=== PATIENT | male | born 1930 | race Caucasian/White ===

== ENCOUNTER 2016-09-23 21:00 | Inpatient (IN) | payer MEDICARE, BC ==
[~2016-09-23] VITALS: Ht 160 cm; Wt 82.0 kg
[~2016-09-23 21:00] MED LIST: AMOXICILLIN500 M2 PO; AMOXICILLIN500 MG PO; BAYER LOW DOSE81 MG PO; BAYER LOW81 MG PO; CARDURA4 MG OR; CEPHALEXIN500 MG PO; CILOSTAZOL100 MG PO; COREG6.25 MG OR; COUMADIN2.5 MG PO; DOXAZOSIN4 MG PO; DOXAZOSIN8 MG PO; GABAPENTIN300 MG PO; GLIPIZIDE10 M2 PO; GLIPIZIDE5 M2 PO; GLUCOPHAGE1000 MG OR; GLYBURID MCR3 MG OR; GLYBURID MCR3 MG PO; ISOSORB MONO60 MG PO; LASIX 20 MG TAB20 MG PO; LEVEMIR1000 UNITS SC; LEVOTHYROXIN25 MCG PO; LISINOPRIL10 MG PO; LISINOPRIL2.5 MG PO; LISINOPRIL20 MG PO; LOTENSIN HCT1 TAB OR; MAG-OXIDE400 MG PO; MECLIZINE25 MG PO; MEDDOSEPAK PO; METFORMIN1000 MG PO; METFORMIN500 MG PO; MICROLET SC; MULTAQ400 MG OR; NITROSTAT0.4 MG SL; NORVASC10 M1 PO; PRESERVISION; PRESERVISION OR; PRESERVISION PO; PRILOSEC20 MG OR; PRILOSEC20 MG PO; ROBITUSSIN AC10 ML PO; RYBIX ODT50 MG PO; SOTALOL AF80 MG PO; TRAMADOL HCL50 MG PO; TYLENOL # 31 TA1 PO; VITAMIN B-12500 MCG PO; WARFARIN2.5 MG PO; ZOCOR20 M1 PO; ZOCOR20 MG OR
[2016-09-23] MEDS ORDERED: WARFARIN2.5 MG PO (21:28)
[2016-09-23] MEDS ORDERED: COUMADIN5 MG PO (21:29)
[2016-09-23] MEDS ORDERED: CARVEDILOL6.25 MG PO (21:29)
[2016-09-23] MEDS ORDERED: VITAMIN B-12500 MCG PO (21:31)
[2016-09-23] MEDS ORDERED: LEVEMIR1000 UNITS SC (21:36)
[2016-09-23 21:45] LABS: HEMATOCRIT 46.1 % (39.0-50.0); HEMOGLOBIN 15.3 g/dl (14.0-18.0); IMMATURE GRANULOCYTES 0.5 % (0.0-1.0); MEAN CELL VOLUME 84.7 fL CALC (80.0-100.0); MEAN CORPUSCULAR HGB 28.1 pG CALC (26.0-32.0); MEAN CORPUSCULAR HGB CONC 33.2 g/L CALC (32.0-36.0); NEUT# 4.95 thou/uL (1.82-7.42); RED BLOOD COUNT 5.44 mill/uL (4.70-6.10); RED CELL DISTRI WIDTH 14.7 % (11.5-15.5)
[2016-09-23 21:51] LABS: ALBUMIN 4.2 g/dL (3.2-5.0); ALKALINE PHOSPHATASE 67 u/l (38-126); ANION GAP 20 (6-22 (CALC)); BILIRUBIN, TOTAL 0.7 mg/dL (0.0-1.4); BUN 27 mg/dL (8-23); BUN/CREATININE RATIO 25 (12-20 (CALC)); CALCIUM 9.2 mg/dL (8.4-10.2); CARBON DIOXIDE 24 mmol/l (22-30); CHLORIDE 100 mmol/l (95-108); CREATININE 1.1 mg/dL (0.7-1.3); GFR > 60 ML/MIN (>=60 (CALC)); GFR FOR AFR.AMER. > 60 ML/MIN (>=60 (CALC)); GLUCOSE 265 mg/dL (82-115); POTASSIUM 4.3 mmol/l (3.5-5.1); SGOT/AST 25 u/l (19-48); SGPT/ALT 39 u/l (11-66); SODIUM 140 mmol/l (137-146); TOTAL PROTEIN 7.6 g/dL (6.3-8.2)
[2016-09-23 21:56] LABS: INTERNATIONAL NORMALIZED RATIO 2.9 RATIO (0.7-1.3); PROTHROMBIN TIME 33.9 SECONDS (9.0-12.5)
[2016-09-23 22:00] LABS: MYOGLOBIN 69 ng/mL (0 - 121)
[2016-09-23 22:09] LABS: URINE BILIRUBIN - DIPSTICK NEGATIVE (NEGATIVE); URINE BLOOD DIPSTICK NEGATIVE (NEGATIVE); URINE CLARITY CLEAR; URINE COLOR YELLOW; URINE GLUCOSE - DIPSTICK 100 mg/dL (NEGATIVE); URINE KETONE NEGATIVE (NEGATIVE); URINE LEUK ESTERASE NEGATIVE (NEGATIVE); URINE NITRITE - DIPSTICK NEGATIVE (Negative); URINE PH 5.5 (4.5-8.0); URINE PROTEIN - DIPSTICK NEGATIVE (NEG-TRACE); URINE UROBILINOGEN - DIPSTICK 0.2 E.U./dL (0.2)
[2016-09-23 23:20] VITALS: BP 120/71
[2016-09-24] VITALS (20 sets, daily range): BP systolic 106–160; BP diastolic 57–80
[2016-09-24 06:56] LABS: HEMATOCRIT 42.6 % (39.0-50.0); HEMOGLOBIN 14.1 g/dl (14.0-18.0); IMMATURE GRANULOCYTES 0.4 % (0.0-1.0); MEAN CELL VOLUME 85.2 fL CALC (80.0-100.0); MEAN CORPUSCULAR HGB 28.2 pG CALC (26.0-32.0); MEAN CORPUSCULAR HGB CONC 33.1 g/L CALC (32.0-36.0); NEUT# 3.19 thou/uL (1.82-7.42); RED CELL DISTRI WIDTH 14.6 % (11.5-15.5)
[2016-09-24 07:13] LABS: INTERNATIONAL NORMALIZED RATIO 3.5 RATIO (0.7-1.3); PROTHROMBIN TIME 42.2 SECONDS (9.0-12.5)
[2016-09-24 07:17] LABS: ANION GAP 15 (6-22 (CALC)); BUN 25 mg/dL (8-23); BUN/CREATININE RATIO 23 (12-20 (CALC)); CALCIUM 8.6 mg/dL (8.4-10.2); CALCULATED LDLCHOLESTEROL 51 mg/dL (62-129 (CALC)); CARBON DIOXIDE 27 mmol/l (22-30); CHLORIDE 103 mmol/l (95-108); CREATININE 1.1 mg/dL (0.7-1.3); GFR > 60 ML/MIN (>=60 (CALC)); GFR FOR AFR.AMER. > 60 ML/MIN (>=60 (CALC)); GLUCOSE 124 mg/dL (82-115); HDL CHOLESTEROL 19 mg/dL (>=40); POTASSIUM 3.9 mmol/l (3.5-5.1); SODIUM 141 mmol/l (137-146); TOTAL CHOLESTEROL 96 mg/dl (0-199); TOTAL TRIGLYCERIDES 135 mg/dl (30-149); VLDL CHOLESTROL 27 mg/dl (0-38 (CALC))
== END 2016-09-24 21:05 | DRG 281 ==
LOC: ED 21:00 → ED-I 22:34 → ED 22:39 → MS2 22:40 → ICU 09-24 04:03
PROVIDERS: ADMIT Internal Medicine; ATTEND Internal Medicine
DX: I21.4 Non-ST elevation (NSTEMI) myocardial infarction (principal); I13.0 Hypertensive heart and chronic kidney disease with heart failure and stage 1 through stage 4 chronic kidney disease, or unspecified chronic kidney disease; I50.9 Heart failure, unspecified; E11.22 Type 2 diabetes mellitus with diabetic chronic kidney disease; I48.1 Persistent atrial fibrillation; N18.3 Chronic kidney disease, stage 3 (moderate); I25.10 Atherosclerotic heart disease of native coronary artery without angina pectoris; E78.5 Hyperlipidemia, unspecified; K21.9 Gastro-esophageal reflux disease without esophagitis; Z95.5 Presence of coronary angioplasty implant and graft; Z95.1 Presence of aortocoronary bypass graft; Z86.711 Personal history of pulmonary embolism; Z79.01 Long term (current) use of anticoagulants
CPT/HCPCS: G0378

== ENCOUNTER 2016-10-02 06:02 | Inpatient (IN) | payer MEDICARE, BC ==
[~2016-10-02] VITALS: Ht 160 cm; Wt 80.9 kg
[~2016-10-02 06:02] MED LIST changes: +CARVEDILOL6.25 MG PO; +COUMADIN5 MG PO
[2016-10-02 06:44] LABS: HEMATOCRIT 49.4 % (39.0-50.0); IMMATURE GRANULOCYTES 0.6 % (0.0-1.0); MEAN CELL VOLUME 85.3 fL CALC (80.0-100.0); MEAN CORPUSCULAR HGB 27.6 pG CALC (26.0-32.0); MEAN CORPUSCULAR HGB CONC 32.4 g/L CALC (32.0-36.0); NEUT# 9.08 thou/uL (1.82-7.42); RED BLOOD COUNT 5.79 mill/uL (4.70-6.10); RED CELL DISTRI WIDTH 14.8 % (11.5-15.5)
[2016-10-02 08:06] LABS: ALBUMIN 4.2 g/dL (3.2-5.0); ALKALINE PHOSPHATASE 69 u/l (38-126); ANION GAP 18 (6-22 (CALC)); BILIRUBIN, TOTAL 1.2 mg/dL (0.0-1.4); BUN 24 mg/dL (8-23); BUN/CREATININE RATIO 24 (12-20 (CALC)); CALCIUM 9.2 mg/dL (8.4-10.2); CARBON DIOXIDE 24 mmol/l (22-30); CHLORIDE 105 mmol/l (95-108); GFR > 60 ML/MIN (>=60 (CALC)); GFR FOR AFR.AMER. > 60 ML/MIN (>=60 (CALC)); GLUCOSE 212 mg/dL (82-115); POTASSIUM 4.5 mmol/l (3.5-5.1); SGOT/AST 22 u/l (19-48); SGPT/ALT 36 u/l (11-66); SODIUM 141 mmol/l (137-146); TOTAL PROTEIN 7.7 g/dL (6.3-8.2)
[2016-10-02 08:12] LABS: INTERNATIONAL NORMALIZED RATIO 5.2 RATIO (0.7-1.3); PROTHROMBIN TIME 64.2 SECONDS (9.0-12.5)
[2016-10-02 08:17] LABS: MYOGLOBIN 36 ng/mL (0 - 121)
[2016-10-02 09:22] LABS: URINE BILIRUBIN - DIPSTICK NEGATIVE (NEGATIVE); URINE BLOOD DIPSTICK SMALL (NEGATIVE); URINE COLOR YELLOW; URINE GLUCOSE - DIPSTICK NEGATIVE (NEGATIVE); URINE KETONE 15 mg/dL (NEGATIVE); URINE LEUK ESTERASE NEGATIVE (NEGATIVE); URINE NITRITE - DIPSTICK NEGATIVE (Negative); URINE PROTEIN - DIPSTICK 100 mg/dL (NEG-TRACE); URINE SPECIFIC GRAVITY >=1.030; URINE UROBILINOGEN - DIPSTICK 0.2 E.U./dL (0.2)
[2016-10-02 09:37] LABS: URINE CLARITY SLIGHT CLOUDY
[2016-10-02 09:38] LABS: URINE EPITHELIAL CELLS FEW EPI/hpf (0-FEW); URINE MUCUS MODERATE hpf (NONE-FEW); URINE RBC 0-2 RBC/hpf (0-5)
[2016-10-02 13:27] VITALS: BP 119/66
[2016-10-02 19:26] VITALS: BP 136/80
[2016-10-02 23:56] VITALS: BP 106/62
[2016-10-03 04:30] VITALS: BP 119/70
[2016-10-03 05:52] LABS: HEMATOCRIT 41.4 % (39.0-50.0); HEMOGLOBIN 13.4 g/dl (14.0-18.0); MEAN CELL VOLUME 86.6 fL CALC (80.0-100.0); MEAN CORPUSCULAR HGB CONC 32.4 g/L CALC (32.0-36.0); RED BLOOD COUNT 4.78 mill/uL (4.70-6.10); RED CELL DISTRI WIDTH 14.8 % (11.5-15.5)
[2016-10-03 06:18] LABS: ANION GAP 16 (6-22 (CALC)); BUN 29 mg/dL (8-23); BUN/CREATININE RATIO 24 (12-20 (CALC)); CALCIUM 8.7 mg/dL (8.4-10.2); CALCULATED LDLCHOLESTEROL 59 mg/dL (62-129 (CALC)); CARBON DIOXIDE 28 mmol/l (22-30); CHLORIDE 101 mmol/l (95-108); CREATININE 1.2 mg/dL (0.7-1.3); GFR 58 ML/MIN (>=60 (CALC)); GFR FOR AFR.AMER. > 60 ML/MIN (>=60 (CALC)); GLUCOSE 152 mg/dL (82-115); HDL CHOLESTEROL 21 mg/dL (>=40); MAGNESIUM 1.7 mg/dL (1.6-2.3); POTASSIUM 4.6 mmol/l (3.5-5.1); SODIUM 140 mmol/l (137-146); TOTAL CHOLESTEROL 103 mg/dl (0-199); TOTAL TRIGLYCERIDES 115 mg/dl (30-149); VLDL CHOLESTROL 23 mg/dl (0-38 (CALC))
[2016-10-03 07:45] VITALS: BP 130/68
[2016-10-03 12:27] VITALS: BP 109/50
[2016-10-03 15:51] VITALS: BP 115/62
[2016-10-03 18:34] LABS: INTERNATIONAL NORMALIZED RATIO 2.3 RATIO (0.7-1.3); PROTHROMBIN TIME 26.1 SECONDS (9.0-12.5)
[2016-10-03 19:48] VITALS: BP 145/62
[2016-10-04 00:01] VITALS: BP 140/71; BP 140/79
[2016-10-04 04:48] VITALS: BP 117/65
[2016-10-04 05:10] LABS: HEMATOCRIT 39.4 % (39.0-50.0); HEMOGLOBIN 12.9 g/dl (14.0-18.0); MEAN CELL VOLUME 85.8 fL CALC (80.0-100.0); MEAN CORPUSCULAR HGB 28.1 pG CALC (26.0-32.0); MEAN CORPUSCULAR HGB CONC 32.7 g/L CALC (32.0-36.0); RED BLOOD COUNT 4.59 mill/uL (4.70-6.10); RED CELL DISTRI WIDTH 14.4 % (11.5-15.5)
[2016-10-04 05:24] LABS: INTERNATIONAL NORMALIZED RATIO 2.1 RATIO (0.7-1.3); PROTHROMBIN TIME 24.5 SECONDS (9.0-12.5)
[2016-10-04 05:32] LABS: ANION GAP 14 (6-22 (CALC)); BUN 30 mg/dL (8-23); BUN/CREATININE RATIO 25 (12-20 (CALC)); CALCIUM 8.3 mg/dL (8.4-10.2); CARBON DIOXIDE 27 mmol/l (22-30); CHLORIDE 99 mmol/l (95-108); CREATININE 1.2 mg/dL (0.7-1.3); GFR 58 ML/MIN (>=60 (CALC)); GFR FOR AFR.AMER. > 60 ML/MIN (>=60 (CALC)); GLUCOSE 204 mg/dL (82-115); POTASSIUM 4.3 mmol/l (3.5-5.1); SODIUM 136 mmol/l (137-146)
[2016-10-04 07:30] VITALS: BP 126/68
[2016-10-04 16:10] VITALS: BP 109/59
[2016-10-04 20:19] VITALS: BP 146/69
[2016-10-04 23:36] VITALS: BP 114/70
[2016-10-05 04:04] VITALS: BP 101/62
[2016-10-05 05:39] LABS: HEMATOCRIT 42.3 % (39.0-50.0); HEMOGLOBIN 13.8 g/dl (14.0-18.0); IMMATURE GRANULOCYTES 0.9 % (0.0-1.0); MEAN CORPUSCULAR HGB CONC 32.6 g/L CALC (32.0-36.0); NEUT# 4.4 thou/uL (1.82-7.42); RED BLOOD COUNT 4.92 mill/uL (4.70-6.10); RED CELL DISTRI WIDTH 14.3 % (11.5-15.5)
[2016-10-05 05:54] LABS: ANION GAP 15 (6-22 (CALC)); BUN 34 mg/dL (8-23); BUN/CREATININE RATIO 26 (12-20 (CALC)); CALCIUM 8.9 mg/dL (8.4-10.2); CARBON DIOXIDE 30 mmol/l (22-30); CHLORIDE 96 mmol/l (95-108); CREATININE 1.3 mg/dL (0.7-1.3); GFR 53 ML/MIN (>=60 (CALC)); GFR FOR AFR.AMER. > 60 ML/MIN (>=60 (CALC)); GLUCOSE 155 mg/dL (82-115); SODIUM 137 mmol/l (137-146)
[2016-10-05 07:02] VITALS: BP 106/60
[2016-10-05 08:49] VITALS: BP 106/60
[2016-10-05 09:05] LABS: INTERNATIONAL NORMALIZED RATIO 2.1 RATIO (0.7-1.3); PROTHROMBIN TIME 23.7 SECONDS (9.0-12.5)
[2016-10-05] MEDS ORDERED: LASIX 20 MG TAB20 MG PO (10:00)
[2016-10-05] MEDS ORDERED: LOSARTAN POTASS25 MG PO (10:01)
== END 2016-10-05 11:50 | disposition home or self-care (01) | DRG 280 ==
LOC: ENPENDDIS → ED 06:02 → ED-I 10:59 → ED 11:20 → MS2 11:21
PROVIDERS: Emergency Medicine; Internal Medicine; ADMIT Internal Medicine; ATTEND Internal Medicine
DX: I11.0 Hypertensive heart disease with heart failure (principal); J96.01 Acute respiratory failure with hypoxia; I22.2 Subsequent non-ST elevation (NSTEMI) myocardial infarction; I21.4 Non-ST elevation (NSTEMI) myocardial infarction; I50.23 Acute on chronic systolic (congestive) heart failure; E11.40 Type 2 diabetes mellitus with diabetic neuropathy, unspecified; I25.10 Atherosclerotic heart disease of native coronary artery without angina pectoris; E78.5 Hyperlipidemia, unspecified; K21.9 Gastro-esophageal reflux disease without esophagitis; M19.90 Unspecified osteoarthritis, unspecified site; H35.30 Unspecified macular degeneration; I48.0 Paroxysmal atrial fibrillation; R79.1 Abnormal coagulation profile; T45.515A Adverse effect of anticoagulants, initial encounter; Z87.891 Personal history of nicotine dependence; Z95.5 Presence of coronary angioplasty implant and graft; Z95.1 Presence of aortocoronary bypass graft; Z86.711 Personal history of pulmonary embolism
CPT/HCPCS: J2060

== ENCOUNTER 2016-10-14 20:41 | Emergency (ER) | payer MEDICARE, BC ==
[~2016-10-14] VITALS: Ht 160 cm; Wt 81.0 kg
[~2016-10-14 20:41] MED LIST changes: +LOSARTAN POTASS25 MG PO
[2016-10-14 21:23] LABS: HEMATOCRIT 43.1 % (39.0-50.0); IMMATURE GRANULOCYTES 0.8 % (0.0-1.0); MEAN CELL VOLUME 87.2 fL CALC (80.0-100.0); MEAN CORPUSCULAR HGB 28.3 pG CALC (26.0-32.0); MEAN CORPUSCULAR HGB CONC 32.5 g/L CALC (32.0-36.0); NEUT# 5.33 thou/uL (1.82-7.42); RED BLOOD COUNT 4.94 mill/uL (4.70-6.10); RED CELL DISTRI WIDTH 14.8 % (11.5-15.5)
[2016-10-14 21:34] LABS: ALKALINE PHOSPHATASE 64 u/l (38-126); ANION GAP 17 (6-22 (CALC)); BILIRUBIN, TOTAL 0.6 mg/dL (0.0-1.4); BUN 26 mg/dL (8-23); BUN/CREATININE RATIO 22 (12-20 (CALC)); CARBON DIOXIDE 25 mmol/l (22-30); CHLORIDE 104 mmol/l (95-108); CREATININE 1.2 mg/dL (0.7-1.3); GFR 58 ML/MIN (>=60 (CALC)); GFR FOR AFR.AMER. > 60 ML/MIN (>=60 (CALC)); GLUCOSE 250 mg/dL (82-115); POTASSIUM 4.3 mmol/l (3.5-5.1); SGOT/AST 30 u/l (19-48); SGPT/ALT 35 u/l (11-66); SODIUM 142 mmol/l (137-146); TOTAL PROTEIN 7.3 g/dL (6.3-8.2)
[2016-10-14 21:42] LABS: INTERNATIONAL NORMALIZED RATIO 1.9 RATIO (0.7-1.3); PROTHROMBIN TIME 21.7 SECONDS (9.0-12.5)
[2016-10-14] MEDS ORDERED: ISOSORB MONO60 M1 PO (21:44)
[2016-10-14 21:45] LABS: MYOGLOBIN 43 ng/mL (0 - 121)
[2016-10-14] MEDS ORDERED: LASIX 20 MG20 MG/TAB PO (21:45)
[2016-10-14] MEDS ORDERED: TOUJEO SOL300 UNIT/M SC (21:47)
[2016-10-14] MEDS ORDERED: MAGNESIUM-OX400 MG PO (21:47)
[2016-10-14] MEDS ORDERED: PRESERVISION PO (21:48)
[2016-10-14 22:45] LABS: URINE BILIRUBIN - DIPSTICK NEGATIVE (NEGATIVE); URINE BLOOD DIPSTICK SMALL (NEGATIVE); URINE CLARITY CLEAR; URINE COLOR YELLOW; URINE GLUCOSE - DIPSTICK 250 mg/dL (NEGATIVE); URINE KETONE NEGATIVE (NEGATIVE); URINE LEUK ESTERASE NEGATIVE (NEGATIVE); URINE NITRITE - DIPSTICK NEGATIVE (Negative); URINE PH 5.5 (4.5-8.0); URINE PROTEIN - DIPSTICK NEGATIVE (NEG-TRACE); URINE UROBILINOGEN - DIPSTICK 0.2 E.U./dL (0.2)
[2016-10-14 22:57] LABS: URINE WBC 0-2 WBC/hpf (0-5)
[2016-10-14 22:58] LABS: URINE BACTERIA FEW hpf; URINE SQUAMOUS EPITHELIAL CELL FEW EPI/hpf (0-FEW)
[2016-10-15 03:53] VITALS: BP 154/75
== END 2016-10-15 03:52 ==
LOC: ED 20:41
PROVIDERS: Emergency Medicine
DX: R07.9 Chest pain, unspecified (principal); I10 Essential (primary) hypertension; H81.09 Meniere's disease, unspecified ear; E11.9 Type 2 diabetes mellitus without complications; E78.00 Pure hypercholesterolemia, unspecified; I25.2 Old myocardial infarction; Z86.711 Personal history of pulmonary embolism; I25.810 Atherosclerosis of coronary artery bypass graft(s) without angina pectoris; Z95.1 Presence of aortocoronary bypass graft; Z95.5 Presence of coronary angioplasty implant and graft

== ENCOUNTER 2016-11-02 12:20 | Emergency (ER) | payer MEDICARE, BC ==
[~2016-11-02] VITALS: Ht 167.6 cm; Wt 36.5 kg
[~2016-11-02 12:20] MED LIST changes: +ISOSORB MONO60 M1 PO; +LASIX 20 MG20 MG/TAB PO; +MAGNESIUM-OX400 MG PO; +TOUJEO SOL300 UNIT/M SC
[2016-11-02 13:09] LABS: HEMATOCRIT 45.3 % (39.0-50.0); HEMOGLOBIN 14.7 g/dl (14.0-18.0); IMMATURE GRANULOCYTES 0.7 % (0.0-1.0); MEAN CELL VOLUME 88.6 fL CALC (80.0-100.0); MEAN CORPUSCULAR HGB 28.8 pG CALC (26.0-32.0); MEAN CORPUSCULAR HGB CONC 32.5 g/L CALC (32.0-36.0); NEUT# 4.3 thou/uL (1.82-7.42); RED BLOOD COUNT 5.11 mill/uL (4.70-6.10); RED CELL DISTRI WIDTH 14.5 % (11.5-15.5)
[2016-11-02 13:19] LABS: ALBUMIN 3.8 g/dL (3.2-5.0); ALKALINE PHOSPHATASE 54 u/l (38-126); ANION GAP 17 (6-22 (CALC)); BILIRUBIN, TOTAL 0.4 mg/dL (0.0-1.4); BUN 28 mg/dL (8-23); BUN/CREATININE RATIO 28 (12-20 (CALC)); CALCIUM 8.9 mg/dL (8.4-10.2); CARBON DIOXIDE 27 mmol/l (22-30); CHLORIDE 104 mmol/l (95-108); GFR > 60 ML/MIN (>=60 (CALC)); GFR FOR AFR.AMER. > 60 ML/MIN (>=60 (CALC)); GLUCOSE 155 mg/dL (82-115); POTASSIUM 4.5 mmol/l (3.5-5.1); SGOT/AST 28 u/l (19-48); SGPT/ALT 41 u/l (11-66); SODIUM 143 mmol/l (137-146); TOTAL PROTEIN 7.1 g/dL (6.3-8.2)
[2016-11-02 13:27] LABS: INTERNATIONAL NORMALIZED RATIO 3.1 RATIO (0.7-1.3); PROTHROMBIN TIME 36.2 SECONDS (9.0-12.5)
[2016-11-02 13:31] LABS: MYOGLOBIN 43 ng/mL (0 - 121)
[2016-11-02] MEDS ORDERED: WARFARIN2.5 MG PO (14:24)
[2016-11-02] MEDS ORDERED: METFORMIN500 MG PO (14:28)
[2016-11-02 15:52] LABS: URINE BILIRUBIN - DIPSTICK NEGATIVE (NEGATIVE); URINE BLOOD DIPSTICK NEGATIVE (NEGATIVE); URINE CLARITY CLEAR; URINE COLOR YELLOW; URINE GLUCOSE - DIPSTICK NEGATIVE (NEGATIVE); URINE KETONE NEGATIVE (NEGATIVE); URINE LEUK ESTERASE NEGATIVE (NEGATIVE); URINE NITRITE - DIPSTICK NEGATIVE (Negative); URINE PH 5.5 (4.5-8.0); URINE PROTEIN - DIPSTICK NEGATIVE (NEG-TRACE); URINE SPECIFIC GRAVITY >=1.030; URINE UROBILINOGEN - DIPSTICK 0.2 E.U./dL (0.2)
[2016-11-02] MEDS ORDERED: AFRIN 12 HOUR0.05 % (16:19)
[2016-11-02 16:22] VITALS: BP 144/74
[2016-11-02] MEDS ORDERED: TYLENOL # 31 TAB PO (16:22)
== END 2016-11-02 16:33 | disposition home or self-care (01) ==
LOC: ED 12:20
PROVIDERS: Emergency Medicine
DX: J06.9 Acute upper respiratory infection, unspecified (principal); R09.81 Nasal congestion; R05 Cough; R94.31 Abnormal electrocardiogram [ECG] [EKG]; R50.9 Fever, unspecified; I10 Essential (primary) hypertension; I25.2 Old myocardial infarction; Z95.1 Presence of aortocoronary bypass graft; Z95.5 Presence of coronary angioplasty implant and graft; E78.00 Pure hypercholesterolemia, unspecified

== ENCOUNTER 2016-12-13 21:58 | Inpatient (IN) | payer MEDICARE, BC ==
[~2016-12-13] VITALS: Ht 160 cm; Wt 82.2 kg
[~2016-12-13 21:58] MED LIST changes: +AFRIN 12 HOUR0.05 %; +TYLENOL # 31 TAB PO
--- NOTE | 2016-12-13 22:00 | NUR ---
PATIENT BROUGHT IMMEDIATELY TO TREATMENT AREA VIA WHEELCHAIR. UNDRESSED INTO A GOWN. PLACED ON MONITOR. TRIAGE COMPLETED AT BEDSIDE. SPOUSE PRESENT. AWAITING MD BEDOYA.
[2016-12-13 22:19] LABS: HEMATOCRIT 42.3 % (39.0-50.0); HEMOGLOBIN 13.3 g/dl (14.0-18.0); IMMATURE GRANULOCYTES 0.4 % (0.0-1.0); MEAN CELL VOLUME 84.3 fL CALC (80.0-100.0); MEAN CORPUSCULAR HGB 26.5 pG CALC (26.0-32.0); MEAN CORPUSCULAR HGB CONC 31.4 g/L CALC (32.0-36.0); NEUT# 5.25 thou/uL (1.82-7.42); RED BLOOD COUNT 5.02 mill/uL (4.70-6.10); RED CELL DISTRI WIDTH 14.3 % (11.5-15.5)
[2016-12-13 22:31] LABS: ALBUMIN 4.3 g/dL (3.2-5.0); ALKALINE PHOSPHATASE 67 u/l (38-126); ANION GAP 16 (6-22 (CALC)); BILIRUBIN, TOTAL 0.6 mg/dL (0.0-1.4); BUN 19 mg/dL (8-23); BUN/CREATININE RATIO 22 (12-20 (CALC)); CARBON DIOXIDE 22 mmol/l (22-30); CHLORIDE 108 mmol/l (95-108); CREATININE 0.9 mg/dL (0.7-1.3); GFR > 60 ML/MIN (>=60 (CALC)); GFR FOR AFR.AMER. > 60 ML/MIN (>=60 (CALC)); GLUCOSE 238 mg/dL (82-115); POTASSIUM 4.5 mmol/l (3.5-5.1); SGOT/AST 30 u/l (19-48); SGPT/ALT 32 u/l (11-66); SODIUM 142 mmol/l (137-146); TOTAL PROTEIN 7.7 g/dL (6.3-8.2)
[2016-12-13 22:36] LABS: INTERNATIONAL NORMALIZED RATIO 1.8 RATIO (0.7-1.3)
--- NOTE | 2016-12-13 22:39 | NUR ---
MEDICATED FOR PAIN AND NITRO DRIP STARTED. PT HAS VERY LARGE ABDOMINAL HERNIA NOT NEW.
[2016-12-13 22:43] LABS: MYOGLOBIN 42 ng/mL (0 - 121)
--- NOTE | 2016-12-13 23:30 | NUR ---
PT STATES PAIN GONE AT THIS TIME. PT VERY CALM AT THIS TIME . PT TO BE ADMITTED.
[2016-12-13] MEDS ORDERED: TOUJEO SOL300 UNIT/M SC (23:47)
[2016-12-14] VITALS (15 sets, daily range): BP systolic 114–245; BP diastolic 51–130
--- NOTE | 2016-12-14 00:04 | NUR ---
REPORT GIVEN TO CIERRA RAMIRES,
--- NOTE | 2016-12-14 00:28 | NUR ---
PT'S B/P 217/98 INCREASED DRIP TO 10MCG
--- NOTE | 2016-12-14 00:45 | NUR ---
Admission Note Report Given to: CIERRA RAMIRES Transported by: Wheelchair X Stretcher Transported with: X Nurse Transporter X Patent IV X O2 X Staff Attorney NITRO DRIP INFUSING AT 10 MCG
--- NOTE | 2016-12-14 00:55 | NUR ---
PT. ARRIVES BY STRETCHER FROM ER STAFF ON PHYSICIAN ASSISTANT SURGERY. AWAKE, ALERT, ORIENTED X 3. SKIN WARM AND DRY. NITRO DRIP INFUSING AT 10 MCG ON ARRIVAL. HYPERTENSIVE AT 200/90 ON ARRIVAL FROM ED. AFEBRILE. AMBULATORY FROM ER STRETCHER TO STANDING SCALE AND THEN TO ICU BED.
--- NOTE | 2016-12-14 01:40 | NUR ---
PT. AWAKE, ALERT, YELLING OUT. STATING HE IS CLAUSTRAPHOBIC AND THE ROOM IS TOO SMALL. ALL LIGHTS ARE ON, AND THE CURTAIN WAS OPEN AT THIS TIME. PT. AWARE THAT THIS IS THE LARGEST ROOM THAT WE HAVE IN THE ICU AND THAT HE IS ONLY ON THE MONITORING DEVICES THAT ARE ABSOLUTELY NECESSARY. PT. ASSISTED TO BEDSIDE CHAIR. PT. STATES IT IS HELPING A LITTLE TO BE IN THE CHAIR AT THIS TIME. CONTINUES TO REFUSE GOWN. WILL CONTINUE TO ASSESS.
--- NOTE | 2016-12-14 02:31 | NUR ---
PT. REMAINS HIGHLY ANXIOUS. REMAINS HYPERTENSIVE. NITRO DRIP INCREASED TO 30 MCG. 256/116. PT. DENIES CHEST PAIN. SOB WITH EXERTION. PT. ENCOURAGED TO PERFORM BREATHING EXERCISES. WILL CONTINUE TO MONITOR FOR MEDICATION AFFECT ON BOTH ANXIETY AND BP.
--- NOTE | 2016-12-14 03:05 | NUR ---
MD MADE AWARE OF CONTINUED ANXIETY, SOB AND HYPERTENSION AT THIS TIME. NEW ORDERS RECIEVED. WILL MEDICATE ORDERED WHEN MEDICATION AVAILABLE IN [facility]. REASSURRANCE PROVIDED. PT. ENCOURAGE TO BREATH IN THROUGH NOSE AND OUT THE MOUTH. UNCOOPERATIVE WITH BREATHING COACHING AND ATTEMPTS TO KEEP PATIENT IN BED.
--- NOTE | 2016-12-14 04:05 | NUR ---
CALL PLACED TO DR. MIRZA. NEW ORDERS RECEIVED. UPDATED ON PT. CURRENT DETERIORATING RESP STATUS. AWARE OF CHEST X-RAY, ABG AND PLACEMENT ON BIPAP. WILL CONTINUE TO MONITOR AND MEDICATE PHYSICIAN ORDERED. WILL CONTINUE TO ASSESS AND TITRATE NITRO DRIP NECESSARY.
--- NOTE | 2016-12-14 04:35 | NUR ---
RESPIRATORY CALLED TO PATIENT ROOM. ABG DRAWN AND ANALYSED( RESULT [facility]). PLACED ON BIPAP BEFORE ANALYSING THE BLOOD BECAUSE OF SOB. PATIENT COMFORTABLE SLEEPING WHILE ON THE BIPAP WITH A SATURATION OF 98% ON BIPAP 14/7, RATE 20 WITH 35% FIO2.
--- NOTE | 2016-12-14 05:17 | NUR ---
PT. SEDATE. RESTING COMFORTABLY ON THE BIPAP. SINUS JUNIE IN THE UPPER 40/50'S. PATHAK IN PLACE DRAINING CLEAR STRAW COLORED URINE. REMAINS WITH BIPAP IN PLACE. SPO2 NOW 99%. NO RESP DISTRESS NOTED. NITRO DRIP HAS BEEN DISCONTINUED DUE TO BP STABALIZING.
[2016-12-14 05:37] LABS: URINE BILIRUBIN - DIPSTICK NEGATIVE (NEGATIVE); URINE BLOOD DIPSTICK NEGATIVE (NEGATIVE); URINE CLARITY CLEAR; URINE COLOR YELLOW; URINE GLUCOSE - DIPSTICK 100 mg/dL (NEGATIVE); URINE KETONE NEGATIVE (NEGATIVE); URINE LEUK ESTERASE NEGATIVE (NEGATIVE); URINE NITRITE - DIPSTICK NEGATIVE (Negative); URINE PH 5.5 (4.5-8.0); URINE PROTEIN - DIPSTICK 30 mg/dL (NEG-TRACE); URINE SPECIFIC GRAVITY 1.025; URINE UROBILINOGEN - DIPSTICK 0.2 E.U./dL (0.2)
[2016-12-14 05:39] LABS: URINE MUCUS FEW hpf (NONE-FEW); URINE RBC 0-2 RBC/hpf (0-5); URINE SQUAMOUS EPITHELIAL CELL FEW EPI/hpf (0-FEW); URINE WBC 0-2 WBC/hpf (0-5)
--- NOTE | 2016-12-14 06:00 | NUR ---
FIO2 DROPPED FROM 35% TO 28%. SPO2 98% ON BIPAP.
--- NOTE | 2016-12-14 06:01 | NUR ---
PT. AWAKE, CONFUSED. ATTEMPTING TO LEAVE AT THIS TIME. PT. IS DRESSED WITH HIS PANTS AND SHOES ON. PT. REORIENTED TO SITUATION. PLACED IN CHAIR AT BEDSIDE. RECONNECTED TO MONITOR. DENIES COMPLAINTS OR NEED. WILL CONTINUE TO ASSESS. VSS.
--- NOTE | 2016-12-14 06:10 | NUR ---
PT. LYING RT. SIDED. RESPS EVEN AND UNLABORED. SPO2 IS 97% ON THE BIPAP. 28/01, RATE OF 20. 28% FIO2. REMAINS SINUS JUNIE AT 47 AT THIS TIME. REMAINS DROWSY. BP STABLE AT 136/51.
--- NOTE | 2016-12-14 06:45 | NUR ---
PT RESTING WITH EYES CLOSED, LYING ON RIGHT SIDE. BIPAP ON, SP02 IS 96%. CALL LIGHT WITHIN REACH. WILL CONTINUE TO MONITOR.
--- NOTE | 2016-12-14 07:45 | NUR ---
PT AROUSABLE TO VERBAL STIMULI, GROGGY FROM XANAX, AND ATIVAN ADMINISTRATION FROM PREVIOUS SHIFT. HAS NO INTEREST IN BREAKFAST. PATHAK DRAINING CLEAR YELLOW URINE. IV SITE IS PATENT. ACCUCHECK IS 259. CALL LIGHT WITHIN REACH. PT STATES "I CANT TAKE THIS MASK." BIPAP REMOVED, HOWEVER, PT INSTRUCTED THAT IF O2 SATURATION DESATS TO LESS THAN 92% HE WILL HAVE TO GO BACK ON BIPAP. PT STATES UNDERSTANDING. O2 @2L. SPO2 IS AT 97%. WILL CONTINUE TO MONITOR.
--- NOTE | 2016-12-14 07:52 | NUR ---
PT DISCHARGED AT THIS TIME AND SENT TO BUSINESS OFFICE WITH SLIP FOR HIGHWAY MAINTAINER OF POSSESSIONS. Discharge instructions given. Patient verbalizes understanding of same. Discharged in fair condition via Wheelchair to Home with *Other. All belongings sent with pt.
--- NOTE | 2016-12-14 09:35 | NUR ---
AUTHORIZATION OF MEDICAL RECORDS SENT TO MEDICAL RECORDS DEPARTMENT, IN [facility].
--- NOTE | 2016-12-14 11:42 | NUR ---
PT SITTING IN BS CHAIR, MEMBER OF FAMILY AT BS. ADL'S PERFROMED INDEPENDANTLY. EATING LUNCH. ACCUCHECK IS 327, WILL NOTIFY MD OF ACCUCHECK. NO C/O CP. VSS. WILL CONTINUE TO MONITOR.
[2016-12-14] MEDS ORDERED: AMLODIPINE BESYL5 MG PO (13:37)
[2016-12-14] MEDS ORDERED: COZAAR25 MG PO (13:37)
[2016-12-14] MEDS ORDERED: ISOSORB MONO30 MG PO (13:37)
[2016-12-14] MEDS ORDERED: ALPRAZOLAM0.25 MG PO (13:43)
--- NOTE | 2016-12-14 14:00 | NUR ---
PATHAK D/C'D AT THIS TIME, 1000CC OF CLEAR YELLOW URINE DRAINED. PT INSTRUCTED OF TIME FRAME TO VOID. STATES UNDERSTANDING WILL CONTINUE TO MONITOR.
--- NOTE | 2016-12-14 14:35 | NUR ---
Discharge instructions given. Patient verbalizes understanding of same. Discharged in stable condition via Wheelchair to Home with family. All belongings sent with pt.
== END 2016-12-14 14:35 | disposition home or self-care (01) | DRG 302 ==
LOC: ENPENDDIS → ED 21:58 → ED-I 23:15 → ED 23:33 → ICU 23:34
PROVIDERS: Emergency Medicine; ADMIT Internal Medicine; ATTEND Internal Medicine
PROC: 5A0935Z Assistance with Respiratory Ventilation, Less than 24 Consecutive Hours (ICD-10-PCS; principal; 2016-12-14)
PROC: 0T9B70Z Drainage of Bladder with Drainage Device, Via Natural or Artificial Opening (ICD-10-PCS; 2016-12-14)
DX: I25.118 Atherosclerotic heart disease of native coronary artery with other forms of angina pectoris (principal); J96.20 Acute and chronic respiratory failure, unspecified whether with hypoxia or hypercapnia; E11.40 Type 2 diabetes mellitus with diabetic neuropathy, unspecified; I16.0 Hypertensive urgency; E78.5 Hyperlipidemia, unspecified; F41.9 Anxiety disorder, unspecified; H35.30 Unspecified macular degeneration; I48.0 Paroxysmal atrial fibrillation; K21.9 Gastro-esophageal reflux disease without esophagitis; M19.90 Unspecified osteoarthritis, unspecified site; I11.0 Hypertensive heart disease with heart failure; I50.9 Heart failure, unspecified; I25.2 Old myocardial infarction; Z87.891 Personal history of nicotine dependence; Z79.01 Long term (current) use of anticoagulants; Z95.5 Presence of coronary angioplasty implant and graft; Z95.1 Presence of aortocoronary bypass graft; Z86.711 Personal history of pulmonary embolism; Z79.4 Long term (current) use of insulin
CPT/HCPCS: J2060

== ENCOUNTER 2017-08-22 20:37 | Emergency (ER) | payer MEDICARE, BC ==
[~2017-08-22] VITALS: Ht 160 cm; Wt 100.0 kg
[~2017-08-22 20:37] MED LIST changes: +ALPRAZOLAM0.25 MG PO; +AMLODIPINE BESYL5 MG PO; +COZAAR25 MG PO; +ISOSORB MONO30 MG PO
[2017-08-22 21:11] LABS: INFLUENZA A NONE DETECTED (NONE DETECT); INFLUENZA B NONE DETECTED (NONE DETECT)
[2017-08-22] MEDS ORDERED: PROVENTIL HFA IN (21:44)
[2017-08-22] MEDS ORDERED: ZITHROMAX250 MG PO (21:44)
[2017-08-22 22:10] VITALS: BP 161/80
== END 2017-08-22 22:00 | disposition home or self-care (01) ==
LOC: ED 20:37
PROVIDERS: Emergency Medicine
DX: J40 Bronchitis, not specified as acute or chronic (principal); R05 Cough; R09.89 Other specified symptoms and signs involving the circulatory and respiratory systems

== ENCOUNTER 2017-08-24 22:22 | Emergency (ER) | payer MEDICARE, BC ==
[~2017-08-24] VITALS: Ht 167.6 cm; Wt 80.4 kg
[~2017-08-24 22:22] MED LIST changes: +PROVENTIL HFA IN; +ZITHROMAX250 MG PO
[2017-08-24 23:37] LABS: URINE BILIRUBIN - DIPSTICK NEGATIVE (NEGATIVE); URINE BLOOD DIPSTICK TRACE-INTACT (NEGATIVE); URINE COLOR YELLOW; URINE GLUCOSE - DIPSTICK NEGATIVE (NEGATIVE); URINE KETONE NEGATIVE (NEGATIVE); URINE LEUK ESTERASE NEGATIVE (NEGATIVE); URINE NITRITE - DIPSTICK NEGATIVE (Negative); URINE PROTEIN - DIPSTICK TRACE mg/dL (NEG-TRACE); URINE UROBILINOGEN - DIPSTICK 0.2 E.U./dL (0.2)
[2017-08-24 23:41] LABS: URINE CLARITY CLEAR
[2017-08-25] MEDS ORDERED: LORTAB 1010 MG PO (01:32)
[2017-08-25] MEDS ORDERED: FLEXERIL PO (01:32)
[2017-08-25 01:34] VITALS: BP 129/76
[2017-08-26] MEDS ORDERED: ALPRAZOLAM1 MG PO (09:14)
[2017-08-26] MEDS ORDERED: AMLODIPINE5 MG PO (09:14)
[2017-08-26] MEDS ORDERED: ASPIRIN ADULT L81 M2 PO (09:29)
[2017-08-26] MEDS ORDERED: ATORVASTATIN CA10 MG PO (09:30)
[2017-08-26] MEDS ORDERED: CLOPIDOGREL75 MG PO (09:31)
[2017-08-26] MEDS ORDERED: MAGNESIUM250 M1 PO (09:37)
[2017-08-26] MEDS ORDERED: RESTORIL15 MG PO (09:39)
== END 2017-08-25 01:34 | disposition home or self-care (01) ==
LOC: ED 22:22
PROVIDERS: Emergency Medicine
DX: S39.012A Strain of muscle, fascia and tendon of lower back, initial encounter (principal); M54.30 Sciatica, unspecified side; E11.40 Type 2 diabetes mellitus with diabetic neuropathy, unspecified; I10 Essential (primary) hypertension; I25.2 Old myocardial infarction; H35.30 Unspecified macular degeneration; H91.90 Unspecified hearing loss, unspecified ear; X58.XXXA Exposure to other specified factors, initial encounter

== ENCOUNTER 2017-08-26 05:21 | Inpatient (IN) | payer MEDICARE, BC ==
[~2017-08-26] VITALS: Ht 160 cm; Wt 84.4 kg
[~2017-08-26 05:21] MED LIST changes: +FLEXERIL PO; +LORTAB 1010 MG PO
--- NOTE | 2017-08-26 05:38 | NUR ---
PT TO RM 12 VIA WHEELCHAIR
[2017-08-26 06:30] LABS: URINE BILIRUBIN - DIPSTICK NEGATIVE (NEGATIVE); URINE BLOOD DIPSTICK TRACE-INTACT (NEGATIVE); URINE COLOR YELLOW; URINE GLUCOSE - DIPSTICK NEGATIVE (NEGATIVE); URINE KETONE TRACE mg/dL (NEGATIVE); URINE LEUK ESTERASE NEGATIVE (NEGATIVE); URINE NITRITE - DIPSTICK NEGATIVE (Negative); URINE PROTEIN - DIPSTICK 100 mg/dL (NEG-TRACE); URINE SPECIFIC GRAVITY 1.025; URINE UROBILINOGEN - DIPSTICK 0.2 E.U./dL (0.2)
[2017-08-26 06:31] LABS: HEMATOCRIT 39.1 % (39.0-50.0); HEMOGLOBIN 12.8 g/dl (14.0-18.0); IMMATURE GRANULOCYTES 0.8 % (0.0-1.0); MEAN CELL VOLUME 88.1 fL CALC (80.0-100.0); MEAN CORPUSCULAR HGB 28.8 pG CALC (26.0-32.0); MEAN CORPUSCULAR HGB CONC 32.7 g/L CALC (32.0-36.0); NEUT# 5.5 thou/uL (1.82-7.42); RED BLOOD COUNT 4.44 mill/uL (4.70-6.10); RED CELL DISTRI WIDTH 14.6 % (11.5-15.5)
--- NOTE | 2017-08-26 06:40 | NUR ---
NOTED CRACKLES RIGHT LOWER AND MIDDLE LOBE. DIMINISHED IN BASE.
[2017-08-26 06:48] LABS: URINE CLARITY CLEAR
[2017-08-26 06:52] LABS: URINE BACTERIA RARE hpf; URINE SQUAMOUS EPITHELIAL CELL RARE EPI/hpf (0-FEW); URINE WBC 0-2 WBC/hpf (0-5)
[2017-08-26 06:54] LABS: ALBUMIN 3.8 g/dL (3.2-5.0); ALKALINE PHOSPHATASE 57 u/l (38-126); AMYLASE 43 u/l (30-110); ANION GAP 18 (6-22 (CALC)); BUN 29 mg/dL (8-23); BUN/CREATININE RATIO 23 (12-20 (CALC)); CARBON DIOXIDE 22 mmol/l (22-30); CHLORIDE 103 mmol/l (95-108); CREATININE 1.2 mg/dL (0.7-1.3); GFR 58 ML/MIN (>=60 (CALC)); GFR FOR AFR.AMER. > 60 ML/MIN (>=60 (CALC)); LIPASE 50 u/l (23-300); POTASSIUM 4.9 mmol/l (3.5-5.1); SGOT/AST 20 u/l (19-48); SGPT/ALT 30 u/l (11-66); SODIUM 138 mmol/l (137-146); TOTAL PROTEIN 6.6 g/dL (6.3-8.2)
--- NOTE | 2017-08-26 06:58 | NUR ---
REPORT GIVEN TO CIERRA DUMONT.
[2017-08-26 07:04] LABS: MYOGLOBIN 66 ng/mL (0 - 121)
--- NOTE | 2017-08-26 07:30 | NUR ---
PT RESTING COMFORTABLY IN STRETCHER WITH EYES CLOSED. PT AWAKENS TO VERBAL STIMULI AND DENIES ANY PAIN. PT REPORTS SOME NAUSEA AT THIS TIME. MD NOTIFIED AND AWAITING NEW ORDERS.
[2017-08-26 08:29] LABS: INFLUENZA A NONE DETECTED (NONE DETECT); INFLUENZA B NONE DETECTED (NONE DETECT)
--- NOTE | 2017-08-26 08:30 | NUR ---
PT UP AT BEDSIDE TO USE URINAL. PT DENIES ANY PAIN OR NAUSEA AT THIS TIME. FMAILY AWARE OF PENDING CT RESULTS. WILL CONTINUE TO MONITOR.
[2017-08-26] MEDS ORDERED: AMLODIPINE5 MG PO (09:14)
[2017-08-26] MEDS ORDERED: ALPRAZOLAM1 MG PO (09:14)
[2017-08-26] MEDS ORDERED: ASPIRIN ADULT L81 M2 PO (09:29)
[2017-08-26] MEDS ORDERED: ATORVASTATIN CA10 MG PO (09:30)
--- NOTE | 2017-08-26 09:30 | NUR ---
MD AT BEDSIDE TO DISCUSS RESULTS AND POSSIOBLE ADMISSION.
[2017-08-26] MEDS ORDERED: CLOPIDOGREL75 MG PO (09:31)
[2017-08-26] MEDS ORDERED: MAGNESIUM250 M1 PO (09:37)
[2017-08-26] MEDS ORDERED: RESTORIL15 MG PO (09:39)
--- NOTE | 2017-08-26 09:55 | NUR ---
DR LAGOS AT BEDSIDE.
--- NOTE | 2017-08-26 10:30 | NUR ---
URINE OUTPUT 850 MLS OF NIKI URINE. PT AWARE OF PLAN FOR ADMISSION AND WAIT TIME. CALL BARRON WITHIN REACH.
--- NOTE | 2017-08-26 10:45 | NUR ---
PT AND FAMILY AWARE OF PLAN OF CARE AND WAIT TIME FOR ADMISSION. PT DENIES ANY PAIN OR NAUSEA AT THIS TIME. CALL BARRON WITHIN REACH.
--- NOTE | 2017-08-26 11:00 | NUR ---
Admission Note Report Given to: CIERRA WALTERS Transported by: Wheelchair X Stretcher Transported with: X Nurse Transporter X Patent IV X O2 Neurophysiology Tech
--- NOTE | 2017-08-26 11:04 | NUR ---
PT ARRIVED TO FLOOR VIA STRETCHER ACCOMPANIED BY CIERRA GONZALEZ. PT SITTING UPRIGHT IN BED. SOB FROM EXERTION OF USING URINAL. O2 @ 2L VIA NC, STATES DOES NOT USE O2 AT HOME. REPORTS NON-PRODUCTIVE COUGH. DENIES NAUSEA AND ABDOMINAL PAIN. STATES "CAN YOU GET ME SOMETHING TO EAT? I HAVENT EATEN ALL DAY." PLAN OF CARE DISCUSSED. REPORTING OF CONCERNS ENCOURAGED. FALL PRECAUTIONS REINFORCED. CALL LIGHT REVIEWED AND IN REACH. PT STATES UNDERSTANDING.
[2017-08-26 11:40] VITALS: BP 160/77
[2017-08-26 13:29] LABS: INTERNATIONAL NORMALIZED RATIO 1.4 RATIO (0.7-1.3); PROTHROMBIN TIME 16.3 SECONDS (9.0-12.5)
[2017-08-26 13:57] LABS: CHOLESTEROL HDL RATIO 4.8 (<4.4 (CALC)); MAGNESIUM 1.5 mg/dL (1.6-2.3)
[2017-08-26 16:40] VITALS: BP 163/74
--- NOTE | 2017-08-26 17:43 | NUR ---
PT SITTING IN CHAIR AT BEDSIDE. DENIES COMPLAINTS. CALL LIGTH WITHIN REACH.
[2017-08-26 19:25] VITALS: BP 120/60
--- NOTE | 2017-08-26 19:31 | NUR ---
BEDSIDE REPORT RECEIVED FROM CIERRA WALTERS. PT SITTING UP IN BED; DENIES PAIN. RESPIRATIONS EVEN AND UNLABORED ON OXYGEN. C/O BEING HOT; TEMPERATURE IS TRENDING DOWN AT THIS TIME. IV ABT INFUSING NOW WITHOUT DIFFICULTY; IV SITE APPEARS HEALTHY. PLAN OF CARE DISCUSSED. PT ENCOURAGED TO VERBALIZE CONCERNS. STATES UNDERSTANDING. SAFETY MEASURES IN PLACE. CALL LIGHT WITHIN REACH.
--- NOTE | 2017-08-27 | NUR ---
PT ASLEEP AT THIS TIME WITH NO SIGNS OF DISTRESS NOTED. RESPIRATIONS EVEN AND UNLABORED ON OXYGEN. TEMPERATURE ELEVATED AND TYLENOL GIVEN; WILL REASSESS. UP TO BATHROOM INDEPENDENTLY. SAFETY MEASURES ARE IN PLACE. CALL LIGHT WITHIN REACH.
[2017-08-27 03:30] VITALS: BP 114/64
--- NOTE | 2017-08-27 05:09 | NUR ---
PT HAD INCREASED TEMPERATURE IN THE NIGHT; TYELNOL GIVEN WHICH WAS EFFECTIVE. DENIES PAIN. INDEPENDENT IN ROOM AT THIS TIME. SAFETY MEASURES IN PLACE. CALL LIGHT WITHIN REACH.
--- NOTE | 2017-08-27 07:00 | NUR ---
SHIFT CHANGE REPORT FROM MAYA REYNOLDS SLEEPING SOUNDLY AT THIS TIME, BRATHING HEAVY BUT NON-LABORED, NO SIGN DISCOMFORT, CALL BARRON IN REACH.
--- NOTE | 2017-08-27 08:32 | NUR ---
PT AWAKE ALERT AND ORIENTED, ATE MEAL AND AMBULATING IN ROOM WITH CANE, REMINDED OF FALL PRECAUTIONS AND STATES UNDERSTANDING. AMBULATED TO BR AT THIS TIME, WILL CONTINUE TO MONITOR.
[2017-08-27 08:35] VITALS: BP 154/78
[2017-08-27 09:34] LABS: HEMATOCRIT 42.5 % (39.0-50.0); HEMOGLOBIN 13.6 g/dl (14.0-18.0); IMMATURE GRANULOCYTES 0.5 % (0.0-1.0); MEAN CORPUSCULAR HGB 28.8 pG CALC (26.0-32.0); NEUT# 4.57 thou/uL (1.82-7.42); RED BLOOD COUNT 4.72 mill/uL (4.70-6.10); RED CELL DISTRI WIDTH 14.8 % (11.5-15.5)
[2017-08-27 09:48] LABS: ANION GAP 17 (6-22 (CALC)); BUN 26 mg/dL (8-23); BUN/CREATININE RATIO 21 (12-20 (CALC)); CARBON DIOXIDE 25 mmol/l (22-30); CHLORIDE 100 mmol/l (95-108); CREATININE 1.2 mg/dL (0.7-1.3); GFR 58 ML/MIN (>=60 (CALC)); GFR FOR AFR.AMER. > 60 ML/MIN (>=60 (CALC)); POTASSIUM 4.9 mmol/l (3.5-5.1); SODIUM 137 mmol/l (137-146)
--- NOTE | 2017-08-27 12:00 | NUR ---
SITTING UP AT BEDSIDE, ALL NEEDS ADDRESSED, FAMILY VISITING, CALL BARRON IN REACH.
[2017-08-27 16:00] VITALS: BP 147/72
--- NOTE | 2017-08-27 16:00 | NUR ---
RESTING IN BED AT THIS TIME, TEMP ELEVATED AND CONDITION ADDRESSED, DENIES PAIN BUT STATES HE HAS THE CHILLS, ADVISED NOT TO WRAP IN MANY BLANKETS THIS WILL JUST WORSEN HIS CONDITION. ORAL FLUIDS OFFERED, WILL CONTINUE TO MONITOR.
--- NOTE | 2017-08-27 19:00 | NUR ---
RECEIVED CHANGE OF SHIFT REPORT FROM CIERRA MARTINEZ. PATIENT LYING IN BED AND APPEARS NOT TO BE IN ANY APPARENT ACUTE DISTRESS OR DISCOMFORT. DENIES PAIN OR NAUSEA. WILL CONTINUE TO MONITOR.
--- NOTE | 2017-08-27 19:00 | NUR ---
RECEIVED CHANGE OF SHIFT REPORT FROM CIERRA MARTINEZ. PATIENT SITTING UP IN CHAIR AND APPEARS NOT TO BE IN ANY APPARENT ACUTE DISTRESS OR DISCOMFORT. WILL CONTINUE TO MONITOR.
[2017-08-27 19:35] VITALS: BP 134/73
[2017-08-27 23:54] VITALS: BP 139/57
[2017-08-28] VITALS (7 sets, daily range): BP systolic 125–209; BP diastolic 56–89
--- NOTE | 2017-08-28 | NUR ---
PATIENT RESTING QUIETLY IN BED AT THIS TIME WITH EYES CLOSED AND APPEARS TO BE ASLEEP. RESP EVEN AND NONLABORED,
--- NOTE | 2017-08-28 02:00 | NUR ---
OFFERED TO USE COLD PACK TO REDUCE TEMP. PT REFUSES. PT STSTED " IM AM COLD AREADY AND UNCOMFORTABLE"
--- NOTE | 2017-08-28 04:00 | NUR ---
PT RESTING QUIETLY AT THIS TIME. WILL CONTINUE TO MONITOR.
[2017-08-28 05:32] LABS: PROTHROMBIN TIME 22.6 SECONDS (9.0-12.5)
--- NOTE | 2017-08-28 07:21 | NUR ---
SHIFT CHANGE REPORT FROM ELISABET, PT AWAKE ALERT AND ORIENTED SITTING UP IN BED, C/O MILD HEADACHE AT THIS TIME AND STATED HE HAS NOT SLEPT ALL HS HE HAS BEEN COLD AND TEMP FLUCTUATING ALL NIGHT, ALSO STATED HE IS JUST MISERABLE AND WANTS TO GO HOME. WILL CONTINUE TO MONITOR AND ADDRESS NEEDS, CALL BARRON IN REACH.
--- NOTE | 2017-08-28 10:24 | NUR ---
DR MIRZA HERE ROUNDING, WROTE NEW ORDERS. TEMP IMPROVING DOCUMENTED, WILL CONTINUE TO MONITOR.
--- NOTE | 2017-08-28 16:00 | NUR ---
TEMPERATURE FLUCTUATING IN ELEATED PARAMETERS, DR MIRZA NOTIFIED OF LATEST FEVER AND GAVE ORDERS FOR CULTURES, PT INFORMED OF PLAN AND STATED UNDERSTANDING, ALL NEEDS ADDRESSED, CALL BARRON IN REACH.
--- NOTE | 2017-08-28 19:25 | NUR ---
REPORT RECIEVED; PT SLEEPING IN SEMI-FOWLERS POSITION. RESP EVEN AND UNLABORED. NO DISTRESS NOTED. CALL LIGHT WITHIN REACH.
--- NOTE | 2017-08-28 20:00 | NUR ---
PT WOKE FOR ASSESSMENT;PT ALERT AND ORIENTED. RESP EVEN AND UNLABORED; NO DISTRESS NOTED. ABD DISTENDED; SOFT. ACTIVE BOWEL SOUNDS NOTED. IV RAC REMOVED. NEW IV SITE #22 RH; FLUSHED WITHOUT DIFFICULTY. PEDAL PULSES PALPATED BILAT. PT DENIES ANY PAIN OR DISCOMFORT. PT ENCOURAGED TO CALL FOR ASSISTANCE. SAFETY PRECAUTIONS REINFORCED. CALL LIGHT WITHIN REACH. FREQUENT ROUNDS MADE.
--- NOTE | 2017-08-29 | NUR ---
RESP EVEN AND UNLABORED; NO DISTRESS NOTED. PT SLEEPING IN SEMI-FOWLERS POSITION. CALL LIGHT WITHIN REACH.
--- NOTE | 2017-08-29 04:05 | NUR ---
RESP EVEN AND UNLABORED. ASSESSMENT UNCHANGED. NO DISTRESS NOTED. CALL LIGHT WITHIN REACH.
[2017-08-29 04:40] VITALS: BP 155/82
[2017-08-29 05:31] LABS: INTERNATIONAL NORMALIZED RATIO 2.4 RATIO (0.7-1.3); PROTHROMBIN TIME 27.8 SECONDS (9.0-12.5)
[2017-08-29 08:20] VITALS: BP 140/74
--- NOTE | 2017-08-29 08:20 | NUR ---
ASSESSMENT IS COMPLETED: IV SITE IS FREE FROM REDNESS OR EDEMA. BREATH SOUNDS ARE CLEAR,BILATERALLY, NO C/O SOB, HR IS REG,PULSES ARE STRONG . ABD IS SOFT WITH ACTIVE BS, CONTINUE TO OSEBRVE AND MONITOR.
[2017-08-29 09:01] LABS: HEMATOCRIT 40.8 % (39.0-50.0); HEMOGLOBIN 13.3 g/dl (14.0-18.0); IMMATURE GRANULOCYTES 0.7 % (0.0-1.0); MEAN CELL VOLUME 87.2 fL CALC (80.0-100.0); MEAN CORPUSCULAR HGB 28.4 pG CALC (26.0-32.0); MEAN CORPUSCULAR HGB CONC 32.6 g/L CALC (32.0-36.0); NEUT# 6.04 thou/uL (1.82-7.42); RED BLOOD COUNT 4.68 mill/uL (4.70-6.10); RED CELL DISTRI WIDTH 14.3 % (11.5-15.5)
[2017-08-29 09:05] LABS: ANION GAP 17 (6-22 (CALC)); BUN 17 mg/dL (8-23); BUN/CREATININE RATIO 15 (12-20 (CALC)); CARBON DIOXIDE 22 mmol/l (22-30); CHLORIDE 102 mmol/l (95-108); CREATININE 1.1 mg/dL (0.7-1.3); GFR > 60 ML/MIN (>=60 (CALC)); GFR FOR AFR.AMER. > 60 ML/MIN (>=60 (CALC)); MAGNESIUM 1.8 mg/dL (1.6-2.3); POTASSIUM 4.8 mmol/l (3.5-5.1); SODIUM 136 mmol/l (137-146)
--- NOTE | 2017-08-29 12:00 | NUR ---
PT IS RELAXING IN THE CHAIR, NO DISTRESS NOTED. IV SITE IS FREE FROM REDNESS OR EDEMA.
[2017-08-29 15:34] VITALS: BP 169/79
--- NOTE | 2017-08-29 16:21 | NUR ---
PT IS SITTING ON THE SIDE OF THE BED, WANTING TO GO HOME. FAMILY IN THE ROOM. IV SITE IS FREE FROM REDNESS OR EDEMA.
[2017-08-29] MEDS ORDERED: AUGMENTIN875TAB PO (16:42)
[2017-08-29] MEDS ORDERED: DOXYCYCL HYC100 MG PO (16:43)
--- NOTE | 2017-08-29 17:30 | NUR ---
DISCHARGE INSTRUCTIONS GIVEN AND VERBALIZED UNDERSTANDING., IV SITE DISCONTIENUD CATHETER INTACT. NO REDNESS OR EDEMA. FAMILY IN THE ROOM. CONTINUE TO OSBERVE AND MONITOR.
--- NOTE | 2017-08-29 17:50 | NUR ---
Discharge instructions given. Patient verbalizes understanding of same. Discharged in stable condition via Wheelchair to Home with family. All belongings sent with pt.
== END 2017-08-29 17:22 | disposition home or self-care (01) | DRG 864 ==
LOC: ED 05:21 → ED-I 09:48 → ED 10:02 → MS2 10:03
PROVIDERS: Emergency Medicine; Internal Medicine; Nurse Practitioner Family; ADMIT Internal Medicine; ATTEND Internal Medicine
DX: R50.9 Fever, unspecified (principal); E11.40 Type 2 diabetes mellitus with diabetic neuropathy, unspecified; E11.51 Type 2 diabetes mellitus with diabetic peripheral angiopathy without gangrene; I48.91 Unspecified atrial fibrillation; I16.0 Hypertensive urgency; I10 Essential (primary) hypertension; I25.2 Old myocardial infarction; I25.10 Atherosclerotic heart disease of native coronary artery without angina pectoris; E78.5 Hyperlipidemia, unspecified; K21.9 Gastro-esophageal reflux disease without esophagitis; H35.30 Unspecified macular degeneration; M19.90 Unspecified osteoarthritis, unspecified site; R79.1 Abnormal coagulation profile; T45.515A Adverse effect of anticoagulants, initial encounter; Z86.711 Personal history of pulmonary embolism; Z87.891 Personal history of nicotine dependence; Z95.5 Presence of coronary angioplasty implant and graft; Z95.1 Presence of aortocoronary bypass graft; Z79.02 Long term (current) use of antithrombotics/antiplatelets; Z79.82 Long term (current) use of aspirin
CPT/HCPCS: G0378; Q9967; S0164

== ENCOUNTER 2017-08-31 04:10 | Inpatient (IN) | payer MEDICARE, BC ==
[~2017-08-31] VITALS: Ht 160 cm; Wt 78.4 kg
[~2017-08-31 04:10] MED LIST changes: +ALPRAZOLAM1 MG PO; +AMLODIPINE5 MG PO; +ASPIRIN ADULT L81 M2 PO; +ATORVASTATIN CA10 MG PO; +AUGMENTIN875TAB PO; +CLOPIDOGREL75 MG PO; +DOXYCYCL HYC100 MG PO; +MAGNESIUM250 M1 PO; +RESTORIL15 MG PO
--- NOTE | 2017-08-31 04:12 | NUR ---
PATIENT IMMEDIATELY TO ROOM 8 VIA WHEELCHAIR. PATIENT UNDRESSED INTO A GOWN, PLACED ON MONITOR. TRIAGE COMPLETED AT BEDSIDE. AWAITING MD BEDOYA.
--- NOTE | 2017-08-31 05:00 | NUR ---
UNABLE TO TOLERATE BIPAP. PLACED ON 3LPM BY HENRIETTA.
[2017-08-31 05:13] LABS: HEMOGLOBIN 15.6 g/dl (14.0-18.0); IMMATURE GRANULOCYTES 1.4 % (0.0-1.0); MEAN CELL VOLUME 86.9 fL CALC (80.0-100.0); MEAN CORPUSCULAR HGB 28.8 pG CALC (26.0-32.0); MEAN CORPUSCULAR HGB CONC 33.2 g/L CALC (32.0-36.0); NEUT# 10.24 thou/uL (1.82-7.42); RED BLOOD COUNT 5.41 mill/uL (4.70-6.10); RED CELL DISTRI WIDTH 14.6 % (11.5-15.5)
--- NOTE | 2017-08-31 06:00 | NUR ---
BP AND BREATHING IMPROVED.
--- NOTE | 2017-08-31 07:02 | NUR ---
REPORT REVEIVED FROM CIERRA WALKER.
[2017-08-31 07:08] LABS: URINE BILIRUBIN - DIPSTICK NEGATIVE (NEGATIVE); URINE BLOOD DIPSTICK SMALL (NEGATIVE); URINE COLOR YELLOW; URINE GLUCOSE - DIPSTICK NEGATIVE (NEGATIVE); URINE KETONE 15 mg/dL (NEGATIVE); URINE LEUK ESTERASE NEGATIVE (NEGATIVE); URINE NITRITE - DIPSTICK NEGATIVE (Negative); URINE PROTEIN - DIPSTICK 30 mg/dL (NEG-TRACE); URINE SPECIFIC GRAVITY 1.025; URINE UROBILINOGEN - DIPSTICK 0.2 E.U./dL (0.2)
[2017-08-31 07:13] LABS: ALBUMIN 3.7 g/dL (3.2-5.0); ALKALINE PHOSPHATASE 52 u/l (38-126); ANION GAP 20 (6-22 (CALC)); BILIRUBIN, TOTAL 1.3 mg/dL (0.0-1.4); BUN 19 mg/dL (8-23); BUN/CREATININE RATIO 18 (12-20 (CALC)); CARBON DIOXIDE 18 mmol/l (22-30); CHLORIDE 102 mmol/l (95-108); CREATININE 1.1 mg/dL (0.7-1.3); GFR > 60 ML/MIN (>=60 (CALC)); GFR FOR AFR.AMER. > 60 ML/MIN (>=60 (CALC)); POTASSIUM 4.4 mmol/l (3.5-5.1); SGOT/AST 23 u/l (19-48); SGPT/ALT 40 u/l (11-66); SODIUM 135 mmol/l (137-146); TOTAL PROTEIN 6.3 g/dL (6.3-8.2)
[2017-08-31 07:14] LABS: URINE CLARITY CLEAR
[2017-08-31 07:23] LABS: ACT PARTIAL THROMBO TIME 32.3 SECONDS (20.0-32.5); INTERNATIONAL NORMALIZED RATIO 2.6 RATIO (0.7-1.3); PROTHROMBIN TIME 30.1 SECONDS (9.0-12.5)
[2017-08-31 07:25] LABS: MYOGLOBIN 56 ng/mL (0 - 121)
--- NOTE | 2017-08-31 07:26 | NUR ---
PATIENT RESTING WITH EYES CLOSED ON STRETCHER, RESPIRATION ARE EVEN AND UNLABORED WITH O2 IN PLACE AT 3L/MIN. AND VISITOR AT BEDSIDE. REPORT PATIENT NOT BEING ABLE TO SLEEP LAST NIGHT. UPDATED ON WAIT TIME, WILL CONTINUE TO MONITOR.
[2017-08-31 07:28] LABS: URINE BACTERIA FEW hpf; URINE CALCIUM OXALATE CRYSTALS FEW lpf; URINE RBC 0-2 RBC/hpf (0-5); URINE WBC 0-2 WBC/hpf (0-5)
--- NOTE | 2017-08-31 07:37 | NUR ---
MD AT BEDSIDE TO DISCUSS RESULTS.
--- NOTE | 2017-08-31 07:45 | NUR ---
PATIENT HAD INCREASED BREATHING EFFORT WHEN HOB AT 45 DEGREES. SAT UP AT 90 DEGREES DECREASED BREATHING EFFORT. EKG DONE. VISITORS AT BEDSIDE.
--- NOTE | 2017-08-31 08:04 | NUR ---
REPORT GIVEN TO ASHOK BELTRAN.
--- NOTE | 2017-08-31 08:10 | NUR ---
PT ARRIVED FROM ER VIA STRETCHER ACCOMPANIED BY STAFF WITH ZO IN PLACE. ALSO IV SITES IN PLACE. FAMILY IN THE AREA.
[2017-08-31 08:15] VITALS: BP 151/71
--- NOTE | 2017-08-31 08:18 | NUR ---
PATIENT TRANSPORTED TO [facility] WITH TELE IN PLACE. O2 @ 3L/MIN VIA NASAL CANNULA. [facility] ON HOLD FOR TRANSPORT. BEDSIDE REPORT GIVEN TO ASHOK BELTRAN. CARE RELINQUISHED.
--- NOTE | 2017-08-31 10:00 | NUR ---
ASSESSMENT IS COMPLETED: HR IS REG, PULSES ARE STRONG X4,ABD IS SOFT WITH ACTIVE BS. IV SITES ARE CDI. PATHAK IN PLACE. CONTINUE TOOSBERVE AND MONITOR.
--- NOTE | 2017-08-31 10:57 | NUR ---
S: JAVY ABURTO is a 87 M who presents with pneumonia. He has a history of CHF and HTN. All medications in patient's chart were reviewed. O: VS: BP 178/80, P 67, RR 20,T 99.6 W 80.2kg, HT 66in, Scr= 1.1,CrCl= 48.9 ml/min A: Blood culture is pending. P: Patient is on cefepime 2 gm IV Q12H. Vancomycin ordered for pharmacy to dose. Start Vancomycin 1250 mg IV Q24H. Vancomycin trough is drawn before the 4th dose on 09/03/17 at 0630. Vancomycin goal trough is between 15-20 mcg/ml. Pharmacy will follow and or advise on antibiotics use as needed.
[2017-08-31 10:58] VITALS: BP 207/121
--- NOTE | 2017-08-31 11:00 | NUR ---
PT IS NOW HAVING LABORED BREATHING. AND WHEEZING, GAVE IV LASIX AND LORTAB. BP IS NOW 207/121, T 102.7, HR IS 98 PT IS CLAUSTROPHOBIC UNABLE TO USE A MASK. CONTINUE TO OBSERVE AND MONITOR.
[2017-08-31 11:50] VITALS: BP 161/74
--- NOTE | 2017-08-31 12:05 | NUR ---
PT IS A LITTLE MORE COMFORTABLE RIGHT NOW. IV SIT EIS FREE FROM REDNESS OR EDMEA.
--- NOTE | 2017-08-31 12:50 | NUR ---
PT IS SITTING UP IN THE CHAIR. NO DISTRESS NOTED. IV SITE IS FREE FROM REDNESS OR EDEMA. FAMILY IN THE ROOM. CONTINUE TO OSBERVE AND MONITOR.
[2017-08-31 15:20] VITALS: BP 148/65
--- NOTE | 2017-08-31 15:23 | NUR ---
PT RECEIVED ALL GASTROGRAFFIN THAT IS ORDERED. INFORMED XRAY RE: COMPLETION
--- NOTE | 2017-08-31 16:00 | NUR ---
PT IS IN THE CHAIR NO DISTRESS NOTED. IV SITE IS FREE FROM REDNESS OR EDEMA. CONTINUE TO OSBERVE AND MONITOR.
[2017-08-31 19:30] VITALS: BP 131/61
--- NOTE | 2017-08-31 20:18 | NUR ---
BEDSIDE REPORT RECEIVED FROM ASHOK BELTRAN. PT UP TO BSC AT THIS TIME FOR LOOSE BM. ASSISTED BACK TO BED. DENIES PAIN CURRENTLY. HAS SOME EXERTIONAL SOB AFTER TOILETING; OXYGEN IN PLACE. PLAN OF CARE DISCUSSED. PT ENCOURAGED TO VERBALIZE CONCERNS. STATES UNDERSTANDING. SAFETY MEASURES IN PLACE. CALL LIGHT WITHIN REACH.
--- NOTE | 2017-08-31 20:32 | NUR ---
PT OFF UNIT FOR ECHO WITH LAP MACHINE OPERATOR VIA WHEELCHAIR IN STABLE CONDITION.
--- NOTE | 2017-08-31 21:20 | NUR ---
PT RETURED TO UNIT VIA WHEELCHAIR IN STABLE CONDITION. CURRENTLY ON BSC AGAIN C/O CONTINUOUS LOOSE BOWEL MOVEMENTS. FLORASTOR GIVEN SCHEDULED.
[2017-08-31 23:27] VITALS: BP 164/71
[2017-09-01 00:15] LABS: C. DIFFICILE TOXIN A&B NEGATIVE (NEGATIVE)
--- NOTE | 2017-09-01 00:23 | NUR ---
PT ASLEEP AT THIS TIME WITH NO SIGNS OF DISTRESS NOTED. RESPIRATIONS EVEN AND UNLABORED ON OXYGEN. STOOL SPECIMENT COLLECTED. PATHAK CATHETER IN PLACE DRIANING CLEAR YELLOW URINE IN ADEQUATE AMOUNTS. PT HAS NO REQUESTS AT THIS TIME. SAFETY MEASURES IN PLACE. CALL LIGHT WITHIN REACH.
[2017-09-01 04:00] VITALS: BP 152/85
--- NOTE | 2017-09-01 04:00 | NUR ---
PT UP TO BSC FOR BOWEL MOVEMENT. PATHAK CATHETER NOW DRAINING TEA COLORED URINE, POSSIBLY BLOOD TINGED. DENIES PAIN. RESPIRATIONS EVEN AND UNLABORED. PT HAS GOOD SAFETY AWARENESS AND USES CALL LIGHT FOR ASSISTANCE. SAFETY MEASURES IN PLACE. CALL LIGHT WITHIN REACH.
[2017-09-01 06:05] LABS: INTERNATIONAL NORMALIZED RATIO 2.5 RATIO (0.7-1.3); PROTHROMBIN TIME 28.9 SECONDS (9.0-12.5)
[2017-09-01 06:06] LABS: ANION GAP 18 (6-22 (CALC)); BUN 23 mg/dL (8-23); BUN/CREATININE RATIO 20 (12-20 (CALC)); CARBON DIOXIDE 22 mmol/l (22-30); CHLORIDE 98 mmol/l (95-108); CREATININE 1.1 mg/dL (0.7-1.3); GFR > 60 ML/MIN (>=60 (CALC)); GFR FOR AFR.AMER. > 60 ML/MIN (>=60 (CALC)); MAGNESIUM 1.6 mg/dL (1.6-2.3); POTASSIUM 4.6 mmol/l (3.5-5.1); SODIUM 133 mmol/l (137-146)
[2017-09-01 06:07] LABS: HEMATOCRIT 41.7 % (39.0-50.0); IMMATURE GRANULOCYTES 1.2 % (0.0-1.0); MEAN CELL VOLUME 86.3 fL CALC (80.0-100.0); MEAN CORPUSCULAR HGB CONC 33.6 g/L CALC (32.0-36.0); NEUT# 10.7 thou/uL (1.82-7.42); RED BLOOD COUNT 4.83 mill/uL (4.70-6.10); RED CELL DISTRI WIDTH 14.6 % (11.5-15.5)
--- NOTE | 2017-09-01 07:30 | NUR ---
PT ASSISTED TO RECLINER AND ASSISTED WITH BREAKFAST SET UP; TELE MONITOR IN PLACE; IV ANTIBIOTIC INFUSING WITHOUT DIFFICULTY; CALL BARRON WITHIN REACH; WILL CONTINUE TO MONITOR.
[2017-09-01 08:53] VITALS: BP 130/54
[2017-09-01 11:00] VITALS: BP 96/52
--- NOTE | 2017-09-01 14:21 | NUR ---
VISITORS IN TO SEE PT
[2017-09-01 15:03] VITALS: BP 139/61
--- NOTE | 2017-09-01 17:41 | NUR ---
PT RESTING WITH EYES CLOSED; AROUSED EASILY TO VERBAL STIMULI; NO COMPLAINTS VOICED; CALL BARRON WITHIN REACH; WILL CONTINUE TO MONITOR.
[2017-09-01 19:00] VITALS: BP 119/58
--- NOTE | 2017-09-01 19:00 | NUR ---
PT SITTING UP ON SIDE OF BED. PT IS ALERT AND ORIENTED X3. PERRLA. RESP ARE EVEN AND UNLABORED. LUNGS ARE CLEAR AND DIMINISHED IN THE BASES. TELE IN PLACE. HR REGULAR. PULSES PALPABLE THROUGHOUT. NO EDEMA NOTED. BS ACTIVE. PATHAK DRAINING YELLOW URINE WITH SEDIMENT. #22 RFA SALINE LOCKED. NO REDNESS OR EDEMA NOTED. WILL CONTINUE TO MONITOR
--- NOTE | 2017-09-01 23:49 | NUR ---
PT RESTING IN BED WITH EYES CLOSED. RESP ARE EVEN AND UNLABORED. NO DISTRESS NOTED. WILL CONTINUE TO MONITOR.
[2017-09-02] VITALS: BP 124/58
--- NOTE | 2017-09-02 03:59 | NUR ---
PT RESTING IN BED WITH EYES CLOSED. RESP ARE EVEN AND UNLABORED. NO DISTRESS NOTED. WILL CONTINUE TO MONITOR
[2017-09-02 04:00] VITALS: BP 132/64
[2017-09-02 05:55] LABS: HEMATOCRIT 41.1 % (39.0-50.0); HEMOGLOBIN 13.7 g/dl (14.0-18.0); MEAN CELL VOLUME 86.9 fL CALC (80.0-100.0); MEAN CORPUSCULAR HGB CONC 33.3 g/L CALC (32.0-36.0); RED BLOOD COUNT 4.73 mill/uL (4.70-6.10); RED CELL DISTRI WIDTH 14.6 % (11.5-15.5)
[2017-09-02 06:12] LABS: ANION GAP 18 (6-22 (CALC)); BUN 29 mg/dL (8-23); BUN/CREATININE RATIO 29 (12-20 (CALC)); CARBON DIOXIDE 21 mmol/l (22-30); CHLORIDE 100 mmol/l (95-108); GFR > 60 ML/MIN (>=60 (CALC)); GFR FOR AFR.AMER. > 60 ML/MIN (>=60 (CALC)); SODIUM 134 mmol/l (137-146)
[2017-09-02 06:13] LABS: PROTHROMBIN TIME 34.8 SECONDS (9.0-12.5)
[2017-09-02 06:14] LABS: POTASSIUM 5.4 mmol/l (3.5-5.1)
[2017-09-02 07:35] VITALS: BP 178/78
--- NOTE | 2017-09-02 09:05 | NUR ---
PT.IS IN BED IN HIGH FOWLERS POSITION. MEDICATIONS ADMINISTERED ORDERED. ANTIBIOTIC THERAPY ADMINISTERED AT THIS TIME. PT.DENIES ANY PAIN/N/V. CALL LIGHT IS W/IN REACH AND PT.ENCOURAGED TO CALL IF ANY NEEDS ARISE.
[2017-09-02 11:00] VITALS: BP 152/66
--- NOTE | 2017-09-02 14:18 | NUR ---
PAHTAK CATHETER REMOVED PER SINDHU MELLO. PT.TOLERATED WELL, REPORTED SOME BURNING UPON REMOVAL.
[2017-09-02] MEDS ORDERED: PREDNISONE10 MG PO (15:05)
[2017-09-02] MEDS ORDERED: FLORASTOR250 M1 PO (15:05)
--- NOTE | 2017-09-02 15:58 | NUR ---
PATIENT SEEN THIS PM FOR GAIT TRAINING. PATIENT FOUND RESTING IN CHAIR WITH O2 VIA NC AT 2L. PRE GAIT TRAINING SP02 AT 96%. PT AMBULATED [id number] WITH RW AND CGA ON ROOM AIR. PT REPORTED NO SOB, HOWEVER REPORTED FATIGUE IN LEGS. POST TREATMENT PATIENT SPO2 WAS AT 91%, O2 WAS REAPPLIED AND SPO2 RETURNED TO 97%. PATIENT RETURNED TO SITTING IN RECLINER WITH CALL BARRON WITHIN REACH. NO QUESTIONS OR CONCERNS.
== END 2017-09-02 16:30 | disposition home or self-care (01) | DRG 864 ==
LOC: ED 04:10 → ED-I 04:40 → ED 07:34 → MS2 07:35
PROVIDERS: Emergency Medicine; Internal Medicine; Nurse Practitioner Family; ADMIT Internal Medicine; ATTEND Internal Medicine
PROC: 0T9B70Z Drainage of Bladder with Drainage Device, Via Natural or Artificial Opening (ICD-10-PCS; principal; 2017-08-31)
DX: R50.9 Fever, unspecified (principal); I50.23 Acute on chronic systolic (congestive) heart failure; E11.40 Type 2 diabetes mellitus with diabetic neuropathy, unspecified; I48.0 Paroxysmal atrial fibrillation; E11.39 Type 2 diabetes mellitus with other diabetic ophthalmic complication; I11.0 Hypertensive heart disease with heart failure; I16.0 Hypertensive urgency; I25.10 Atherosclerotic heart disease of native coronary artery without angina pectoris; E78.5 Hyperlipidemia, unspecified; K21.9 Gastro-esophageal reflux disease without esophagitis; H35.30 Unspecified macular degeneration; H91.90 Unspecified hearing loss, unspecified ear; R32 Unspecified urinary incontinence; M19.90 Unspecified osteoarthritis, unspecified site; H54.8 Legal blindness, as defined in USA; R09.02 Hypoxemia; R10.13 Epigastric pain; R10.33 Periumbilical pain; D72.829 Elevated white blood cell count, unspecified; I25.2 Old myocardial infarction; Z79.01 Long term (current) use of anticoagulants; Z95.1 Presence of aortocoronary bypass graft; Z79.82 Long term (current) use of aspirin; Z87.891 Personal history of nicotine dependence; Z86.711 Personal history of pulmonary embolism; Z79.02 Long term (current) use of antithrombotics/antiplatelets; Z95.5 Presence of coronary angioplasty implant and graft; Z79.4 Long term (current) use of insulin
CPT/HCPCS: J0692; J3370

== ENCOUNTER 2018-09-08 12:47 | Inpatient (IN) | payer MEDICARE, BC ==
[~2018-09-08] VITALS: Ht 160 cm; Wt 84.9 kg
[~2018-09-08 12:47] MED LIST changes: +FLORASTOR250 M1 PO; +LASIX20 MG PO; +LOSARTAN POT50 MG PO; +PREDNISONE10 MG PO; +PRESERVISION AREDS PO; +TAMSULOSIN0.4 MG PO
--- NOTE | 2018-09-08 13:02 | NUR ---
pt wheeled to room in pain 04/26.
[2018-09-08 13:28] LABS: HEMOGLOBIN 15.5 g/dl (14.0-18.0); IMMATURE GRANULOCYTES 0.8 % (0.0-5.0); MEAN CELL VOLUME 88.7 fL CALC (80.0-100.0); MEAN CORPUSCULAR HGB 28.7 pG CALC (26.0-32.0); MEAN CORPUSCULAR HGB CONC 32.3 g/L CALC (32.0-36.0); NEUT# 6.28 thou/uL (1.82-7.42); RED BLOOD COUNT 5.41 mill/uL (4.70-6.10); RED CELL DISTRI WIDTH 14.1 % (11.5-15.5)
[2018-09-08 13:43] LABS: ALBUMIN 4.1 g/dL (3.2-5.0); ALKALINE PHOSPHATASE 65 u/l (38-126); ANION GAP 16 (6-22 (CALC)); BILIRUBIN, TOTAL 0.8 mg/dL (0.0-1.4); BUN 26 mg/dL (8-23); BUN/CREATININE RATIO 21 (12-20 (CALC)); CARBON DIOXIDE 25 mmol/l (22-30); CHLORIDE 102 mmol/l (95-108); CREATININE 1.2 mg/dL (0.7-1.3); GFR 57 ML/MIN (>=60 (CALC)); GFR FOR AFR.AMER. > 60 ML/MIN (>=60 (CALC)); POTASSIUM 4.8 mmol/l (3.5-5.1); SGOT/AST 30 u/l (19-48); SODIUM 139 mmol/l (137-146); TOTAL PROTEIN 6.9 g/dL (6.3-8.2)
--- NOTE | 2018-09-08 14:12 | NUR ---
PT PROVIDED ANOTHER DOSE OF DILAUDID PER RETURNING PAIN TO ABDOMEN WITH DISTENTION. AT BEDSIDE.
[2018-09-08 15:43] LABS: URINE BILIRUBIN - DIPSTICK NEGATIVE (NEGATIVE); URINE BLOOD DIPSTICK TRACE-INTACT (NEGATIVE); URINE COLOR YELLOW; URINE GLUCOSE - DIPSTICK 250 mg/dL (NEGATIVE); URINE KETONE NEGATIVE (NEGATIVE); URINE LEUK ESTERASE NEGATIVE (NEGATIVE); URINE NITRITE - DIPSTICK NEGATIVE (Negative); URINE PROTEIN - DIPSTICK NEGATIVE (NEG-TRACE); URINE SPECIFIC GRAVITY 1.015; URINE UROBILINOGEN - DIPSTICK 0.2 E.U./dL (0.2)
--- NOTE | 2018-09-08 16:16 | NUR ---
PT MEDICATED FOR PAIN RELIEF SEVERAL TIMES, STATES THAT THERE IS LITTLE RELIEF WITH EACH DOSE. TO CT SOON.
--- NOTE | 2018-09-08 17:17 | NUR ---
PT UPDATED ON FINDINGS, PAIN LEVEL FINALLY DOWN.
[2018-09-08] MEDS ORDERED: COUMADIN2.5 MG PO (18:18)
[2018-09-08] MEDS ORDERED: HYDROCODONE BIT1 TA7 PO (18:23)
--- NOTE | 2018-09-08 18:57 | NUR ---
MEAL TRAY PROVIDED. PT AWARE OF PENDING ADMISSION.
[2018-09-08 20:13] VITALS: BP 184/83
--- NOTE | 2018-09-08 20:14 | NUR ---
PT ARRIVED VIAS STRETCHER ACCOMPANIED BY STAFF. IV SITE IS FREE FROM REDNESS OR EDEMA. AT 2013.
--- NOTE | 2018-09-08 20:19 | NUR ---
REPORT PROVIDED TO MAYA BELTRAN TAKEN TO FLOOR WITHOUT INCIDENT.
--- NOTE | 2018-09-08 21:05 | NUR ---
ASSESSMENT IS COMPLETED: IV SITE IS FREE FROM REDNESS OR EDEMA. HR IS REG,PULSES ARE STRONG X4, ABD IS SOFT WITH ACTIVE BS. BREATH SOUNDS ARE CLEAR BILATERALLY. CALL BARRON WITHIN REACH. CONTINUE TO OBSERVE AND MONTOR.
[2018-09-08 23:38] VITALS: BP 114/64
--- NOTE | 2018-09-09 02:09 | NUR ---
PT IS RELAXING IN BED WITH NO DISTRESS NOTED. IV SITE IS FREE FROM REDNESS OR EDMA.
[2018-09-09 03:40] VITALS: BP 124/65
--- NOTE | 2018-09-09 04:05 | NUR ---
PT IS RESTING IN BED WITH NO DISTRESS NOTED. IV SITE IS FREE FROM REDNESS OR EDEMA.
[2018-09-09 04:58] LABS: HEMATOCRIT 43.3 % (39.0-50.0); HEMOGLOBIN 13.7 g/dl (14.0-18.0); IMMATURE GRANULOCYTES 0.6 % (0.0-5.0); MEAN CELL VOLUME 90.4 fL CALC (80.0-100.0); MEAN CORPUSCULAR HGB 28.6 pG CALC (26.0-32.0); MEAN CORPUSCULAR HGB CONC 31.6 g/L CALC (32.0-36.0); NEUT# 7.66 thou/uL (1.82-7.42); RED BLOOD COUNT 4.79 mill/uL (4.70-6.10); RED CELL DISTRI WIDTH 14.2 % (11.5-15.5)
[2018-09-09 05:21] LABS: ALKALINE PHOSPHATASE 49 u/l (38-126); AMYLASE < 30 u/l (30-110); ANION GAP 15 (6-22 (CALC)); BILIRUBIN, TOTAL 0.9 mg/dL (0.0-1.4); BUN 31 mg/dL (8-23); BUN/CREATININE RATIO 18 (12-20 (CALC)); CARBON DIOXIDE 27 mmol/l (22-30); CHLORIDE 101 mmol/l (95-108); CREATININE 1.7 mg/dL (0.7-1.3); GFR 38 ML/MIN (>=60 (CALC)); GFR FOR AFR.AMER. 46 ML/MIN (>=60 (CALC)); LIPASE 34 u/l (23-300); MAGNESIUM 1.7 mg/dL (1.6-2.3); POTASSIUM 4.1 mmol/l (3.5-5.1); SGOT/AST 16 u/l (19-48); SODIUM 139 mmol/l (137-146); TOTAL PROTEIN 5.7 g/dL (6.3-8.2)
[2018-09-09 05:38] LABS: ALBUMIN 3.2 g/dL (3.2-5.0)
--- NOTE | 2018-09-09 07:05 | NUR ---
PT REPORT RECIEVED FROM CIERRA BELTRAN. PT RESTING. NO S/S OF DISTRESS. CALL LIGHT IN REACH. WILL CONTINUE TO MONITOR.
[2018-09-09 08:33] VITALS: BP 142/72
--- NOTE | 2018-09-09 08:33 | NUR ---
PT A/O X3. SPEECH IS CLEAR. RESP EVEN AND UNLABORED. LUNG SOUNDS CLEAR. O2@2L ON PT. BOWEL SOUNDS ACTIVE X4. STRONG RADIAL AND PEDAL PULSES. #20 LAC SL. FLUSHED AND PATENT. SITE APPEARS HEALTHY. PT HAS A SKIN TEAR TO LFA, PT STATES THIS HAPPENED AT HOME FROM HIS DAUGHTERS CAT. PT DENIES ANY PAIN OR NEEDS. POC DISCUSSED. SAFETY PRECAUTIONS IN PLACE. CALL LIGHT IN REACH. WILL CONTINUE TO MONITOR.
[2018-09-09 08:58] LABS: PROTHROMBIN TIME 41.8 SECONDS (9.0-12.5)
--- NOTE | 2018-09-09 10:56 | NUR ---
I SPOKE WITH JACEY FROM DR. GARCIA OFFICE @1054 AM. SHE VERIFIED THE CONSULTAION AND WILL NOTIFY THE PHYSICIAN.
--- NOTE | 2018-09-09 11:55 | NUR ---
PT RESTING IN BED. NO C/O PAIN OR NEEDS. CALL LIGHT IN REACH. WILL CONTINUE TO MONITOR
--- NOTE | 2018-09-09 12:16 | NUR ---
DR. KENT CALLED REGARDING PT. STATES PT TO RESUME EATING AT THIS TIME. WILL PREPARE FOR PREOP TOMORROW
[2018-09-09 15:37] VITALS: BP 179/80
[2018-09-09 16:06] VITALS: BP 144/77
--- NOTE | 2018-09-09 16:20 | NUR ---
PT RESTING IN BED. NO C/O PAIN OR NEEDS. VS CHECKED. TEMP 102.9. 650 MG TYLENOL PO GIVEN. ENVIRONMENTAL MEASURES IN PLACE. NOTIFIED. NO NEW ORDERS. WILL CONTINUE TO MONITOR.
[2018-09-09 18:50] VITALS: BP 110/64
--- NOTE | 2018-09-09 19:15 | NUR ---
REPORT FROM MARIANA. PT RESTING IN BED WITH EYES CLOSED. PT ATKA AND VISUALLY IMPAIRED. PT ALERT AND ORIENTED. CURRENT TEMP 100.5 AIR TURNED DOWN IN ROOM AND COOL CLOTH TO FOREHEAD AT THIS TIME. WILL CONTINUE TO MONITOR. DISCUSSED POC. PT VERBALIZED UNDERSTANDING. IV SITE APPEARS HEALTHY. PT DENIES ANY PAIN OR DISCOMFORT. CALL LIGHT WITHIN REACH AND SAFETY MEASURES IN PLACE.
--- NOTE | 2018-09-09 23:38 | NUR ---
PT FOUND OUT OF BED STANDING AT BEDSIDE HOLDING ONTO BEDSIDE TABLE YELLING OUT HELP. PT SOB AND SHAKING. ASSISTED PT BACK TO BED. 02 SATS 88% RA. PLACED ON 3L O2 VIA NC. O2 SAT CAME UP TO 94%. PT BS 177 AT THIS TIME. WHEEZES NOTED IN BLL AND UPPER LUNGS SOUNDS DIMINISHED. FLUIDS STOPPED. PT VS 202/89, 80, 100.7. PT STATES HE HAS HX OF CHF AND TAKES 20MG OF LASIX DAILY AT HOME. RN ON SHIFT ADMINISTERED PRN APRESOLINE AND LORTAB ADMINISTERED AT THIS TIME. WILL FOLLOW UP [employer] PHYSICIAN AND CONTINUE TO MONITOR.
--- NOTE | 2018-09-09 23:48 | NUR ---
PT. MEDICATED WITH ORDERED PRN APRESOLINE FOR MANUAL B/P 196/88; PRIMARY NURSE TO REASSESS;
[2018-09-10] VITALS (7 sets, daily range): BP systolic 97–180; BP diastolic 46–89
--- NOTE | 2018-09-10 00:02 | NUR ---
NEW ORDERS RECIEVED. WILL CARRY OUT ORDERED.
--- NOTE | 2018-09-10 00:23 | NUR ---
PT VS 162/74, 79, 95% 22, 102.3. PT SHIVERING. RESPIRATIONS REMAIN LABORED. PT RESTING WITH EYES CLOSED IN SEMI-VANESSA POSITION. WILL CONTINUE TO MONITOR.
--- NOTE | 2018-09-10 02:47 | NUR ---
PT RESTING IN BED WITH EYES CLOSED. RESPIRATIONS SHALLOW. CURRENT O2 SAT 94% ON 2L/M VIA NC. LOW GRADE TEMP 100.7. CALL LIGHT WITHIN REACH. WILL CONTINUE TO MONITOR.
--- NOTE | 2018-09-10 04:08 | NUR ---
PHLEBOTOMISTIN ROOM AT THIS TIME TO OBTAIN LABS. PT ALERT AND ORIENTED. PT DENIES ANY PAIN OR DISCOMFORT. RESPIRATIONS EVEN AND UNLABORED. PT REMAINS OF 2L/M O2 VIA NC. CURRENT TEMP 99.3 O2 SAT 94%. CALL LIGHT WITHIN REACH. WILL CONTINUE TO MONITOR.
[2018-09-10 05:14] LABS: HEMATOCRIT 42.4 % (39.0-50.0); HEMOGLOBIN 13.9 g/dl (14.0-18.0); IMMATURE GRANULOCYTES 0.7 % (0.0-5.0); MEAN CELL VOLUME 88.3 fL CALC (80.0-100.0); MEAN CORPUSCULAR HGB CONC 32.8 g/L CALC (32.0-36.0); NEUT# 8.61 thou/uL (1.82-7.42); RED BLOOD COUNT 4.8 mill/uL (4.70-6.10); RED CELL DISTRI WIDTH 14.2 % (11.5-15.5)
[2018-09-10 05:24] LABS: INTERNATIONAL NORMALIZED RATIO 2.6 RATIO (0.7-1.3); PROTHROMBIN TIME 27.4 SECONDS (9.0-12.5)
[2018-09-10 05:28] LABS: ALBUMIN 3.3 g/dL (3.2-5.0); BILIRUBIN, TOTAL 1.3 mg/dL (0.0-1.4); CREATININE 2.1 mg/dL (0.7-1.3); MAGNESIUM 1.7 mg/dL (1.6-2.3); POTASSIUM 4.7 mmol/l (3.5-5.1); TOTAL PROTEIN 5.8 g/dL (6.3-8.2)
--- NOTE | 2018-09-10 07:00 | NUR ---
RECEIVED PT IN HIGH FOWLERS RESTING WITH EYES CLOSED. EASILY AROUSABLE. RECEIVED REPORT. PT DENIES ANY NEEDS AT THIS TIME.
--- NOTE | 2018-09-10 08:30 | NUR ---
PT SITTING ON SIDE OF BED. ASSISSTED IN TO BATHROOM. PT HAD LOOSE STOOL X1. ASSESSMENT COMPLETE, REPORTS "NOT FEELING WELL TODAY" PT AMBULATED BACK TO CHAIR AT BEDSIDE. ATE HALF OF BREAKFAST. SAT'S 89% ON ROOM AIR, 02 PLACED BACK ON PATIENT AT 2L VIA NC. SHANKAR BREATH SOUNDS CLEAR, DIMINISED BASES. DENIES SHORTNESS OF BREATH, APPEARS SL LABORED WITH EXERTION. ABDOMEN HARD AND DISTENDED, BOWEL SOUNDS ACTIVE. CHRIS PAIN. SKIN WARM AND DRY. TEMP OF 101.7.
--- NOTE | 2018-09-10 09:15 | NUR ---
FUNMILAYO ALCALA APRN AT BEDSIDE.
--- NOTE | 2018-09-10 10:20 | NUR ---
FAMILY AT BEDSIDE.
--- NOTE | 2018-09-10 11:03 | NUR ---
TEMP DOWN TO 100.5. PT BACK TO BED.
--- NOTE | 2018-09-10 11:42 | NUR ---
PT SET UP WITH LUNCH TRAY AT BEDSIDE.
--- NOTE | 2018-09-10 12:07 | NUR ---
DR SMALL IN TO SEE PT.
--- NOTE | 2018-09-10 12:55 | NUR ---
NEW SITE STARTED X1 ATTEMPT PER PATIENT REQUEST.
--- NOTE | 2018-09-10 13:15 | NUR ---
DR PATRICK IN ROOM TO SEE PT.
--- NOTE | 2018-09-10 15:12 | NUR ---
PT RESTING WITH EYES CLOSED. EASILY AROUSABLE. REPORTS CHRONIC BACK PAIN AND WILL MEDICATE ORDERED.
--- NOTE | 2018-09-10 15:59 | NUR ---
PT AWAKEN FROM SLEEP. DOXYCYCLINE INITIATED. PT REPORTS LORTAB HELPED. TEMP UP TO 102.0, MD AWARE.
[2018-09-10 16:06] LABS: URINE BILIRUBIN - DIPSTICK NEGATIVE (NEGATIVE); URINE BLOOD DIPSTICK NEGATIVE (NEGATIVE); URINE CLARITY CLEAR; URINE COLOR YELLOW; URINE GLUCOSE - DIPSTICK 250 mg/dL (NEGATIVE); URINE KETONE NEGATIVE (NEGATIVE); URINE LEUK ESTERASE NEGATIVE (Negative); URINE NITRITE - DIPSTICK NEGATIVE (Negative); URINE PROTEIN - DIPSTICK NEGATIVE (NEG-TRACE); URINE SPECIFIC GRAVITY 1.025; URINE UROBILINOGEN - DIPSTICK 0.2 E.U./dL (0.2)
--- NOTE | 2018-09-10 17:57 | NUR ---
PT SITTING ON SIDE OF BED, SET UP WITH DINNER TRAY. TEMP DOWN TO 101.1.
--- NOTE | 2018-09-10 19:00 | NUR ---
REPORT RECEIVED FROM CIERRA HINOJOSA. PT RESTING IN BED WITH EYES CLOSED. RESPIRATIONS EVEN AND UNLABORED, O2 VIA NC @ 2L. SAFETY PRECAUTIONS IN PLACE. WILL CONTINUE TO MONITOR.
--- NOTE | 2018-09-10 20:30 | NUR ---
PT RESTING IN BED. ALERT AND ORIENTED. PT DENIES ANY PAIN OR DISCOMFORT AT THIS TIME. TELE IN PLACE. IV #22 LH, PATENT, APPEARS HEALTHY. PT RESPIRATIONS EVEN AND UNLABORED ON O2 VIA NC @ 2 L. SAFETY PRECAUTIONS IN PLACE. CALL BARRON WITH IN REACH. WILL CONTINUE TO MONITOR.
--- NOTE | 2018-09-11 00:12 | NUR ---
ROUTINE VS SHOWED PT BP TO 180/89 AND TEMP OF 101.0, MANUALLY CHECKED PT BP, RESULTING BP OF 179/80. AC TURNED DOWN AND BLANKETS REMOVED. 650MG OF TYLENOL PO GIVEN AT THIS TIME. 10MG IV APRESOLINE GIVEN AT THIS TIME. NO COMPLAINTS OF PAIN AT THIS TIME. SAFETY PRECAUTIONS IN PLACE. CALL BARRON WITHIN REACH. WILL CONTINUE TO MONITOR.
--- NOTE | 2018-09-11 01:32 | NUR ---
PT ASSISTED TO THE BSC. PT STATES " I'M FREEZING, I CAN'T TAKE THIS. I NEED BLANKETS" PT EDUCATED AT THIS TIME AND CONTINUE TO REFUSE. PT SEEMS ANXIOUS AND IS SOB. PT ON 2L OF O2 VIA NC. ENCOURAGED DEEP BREATHING. VS OBTAINED TEMP. 101.2, O2 SAT 92, BP 175/80. SAFETY PRECAUTIONS IN PLACE WILL CONTINUE TO MONITOR.
--- NOTE | 2018-09-11 01:58 | NUR ---
PT STATES " I FEEL HOT". PT SKIN IS CLAMY. VS OBTAIN AND ACCUCHECK DONE AT THIS TIME. TEMP 101.2, O2 SAT 91, HEART RATE 67, BP 115/55, ACCUCHECK 212. SAFETY PRECAUTIONS IN PLACE. WILL CONTINUE TO MONITOR.
[2018-09-11 04:15] VITALS: BP 124/68
--- NOTE | 2018-09-11 04:27 | NUR ---
PT RESTING WITH EYES CLOSED. RESPIRATIONS EVEN AND UNLABORED ON O2 @ 2L VIA NC. SAFETY PRECAUTIONS IN PLACE. WILL CONTINUE TO MONITOR.
[2018-09-11 06:19] LABS: HEMATOCRIT 39.7 % (39.0-50.0); HEMOGLOBIN 12.7 g/dl (14.0-18.0); IMMATURE GRANULOCYTES 0.9 % (0.0-5.0); MEAN CORPUSCULAR HGB 28.5 pG CALC (26.0-32.0); NEUT# 5.64 thou/uL (1.82-7.42); RED BLOOD COUNT 4.46 mill/uL (4.70-6.10); RED CELL DISTRI WIDTH 14.5 % (11.5-15.5)
[2018-09-11 06:37] LABS: CREATININE 2.2 mg/dL (0.7-1.3); MAGNESIUM 1.9 mg/dL (1.6-2.3); POTASSIUM 5.1 mmol/l (3.5-5.1)
[2018-09-11 06:42] LABS: INTERNATIONAL NORMALIZED RATIO 1.7 RATIO (0.7-1.3); PROTHROMBIN TIME 17.5 SECONDS (9.0-12.5)
--- NOTE | 2018-09-11 07:05 | NUR ---
REPORT RECEIVED FROM NIGHT NURSE; PT APPEARS TO BE SLEEPING WITH EYES CLOSED IN RECLINER; RESP EVEN AND UNLABORED;
--- NOTE | 2018-09-11 07:34 | NUR ---
CRITICAL CULTURE RESULTS CALLED TO GRAM (+) COCCI IN BOTH SETS X 4 BOTTLES. ORDERS TO STOP DOXY AND START THE PATIENT ON VANCOMYCIN.
[2018-09-11 08:14] VITALS: BP 122/58
--- NOTE | 2018-09-11 08:35 | NUR ---
PT SITTING UP IN RECLINER; RESP EVEN AND UNLABORED, 02@3L NC; TELE IN PLACE; PULSES STRONG; IV PATENT; ABD FIRM DISTENDED; COMPLAIN OF BEING COLD; DENIES SOB; AT BED SIDE; AM MEDS ADMINISTERED; CALL BARRON IN REACH.
--- NOTE | 2018-09-11 08:46 | NUR ---
S: JAVY ABURTO is a 88 M who presents with FLANK PAIN. He has a history of Diabetes, Hypertension . All medications in patient's chart were reviewed. O: VS: BP 122/58, P 76, RR 20,T 99 W 79 kg, HT 63 IN, Scr= 2.2,CrCl= 22 ml/min A: Blood culture show GRAM(+) COCCI IN BOTH SETS. Urine culture show NO GROWTH P: Patient is on VANCOMYCIN. Vancomycin ordered for pharmacy to dose. Start Vancomycin 1 GRAM IV Q36H. Vancomycin trough is drawn before the 4th dose on 09/15/18 AT 1930. PHARMACY WILL FOLLOW KIDNEY FUNCTION AND ADJUST NEEDED Vancomycin goal trough is between 15-20 mcg/ml. Pharmacy will follow and or advise on antibiotics use as needed. KAIT NAIDU, PharmD
--- NOTE | 2018-09-11 09:54 | NUR ---
CALLED IN CONSULT FOR DR. GRIGGS AT [phone]. LEFT VOICEMAIL ON HIS PHONE REGARDING PT FOR HISTORY OF CONGESTIVE HEART FAILURE.
[2018-09-11 11:05] VITALS: BP 123/62
--- NOTE | 2018-09-11 11:38 | NUR ---
ASSISTED PT TO SITTING UP POSITION EDGE OF BED FOR LUNCH; SOB NOTED; [address]; TELE IN PLACE; CALL BARRON IN REACH.
[2018-09-11 16:18] VITALS: BP 115/60
--- NOTE | 2018-09-11 17:18 | NUR ---
PT SITTING UP IN RECLINER, RESP EVEN AND UNLABORED; TELE IN PLACE; 02@3L; CALL BARRON IN REACH; VOICE NO CONCERNS; WILL CONTINUE TO MONITOR
--- NOTE | 2018-09-11 19:00 | NUR ---
RECEIVED REPORT FROM DAY NURSE. PT RESTING IN BED WITH EYES CLOSED. NO NEEDS AT THIS TIME. CALL BARRON IN REACH. WILL CONTINUE TO MONITOR.
[2018-09-11 19:35] VITALS: BP 127/60
--- NOTE | 2018-09-11 21:09 | NUR ---
PT RESTING IN BED WITH EYES CLOSED. PT RESPONDS TO LOUD VERBAL STIMULI PT IS HEARING IMPAIRED. PT IS A&O x3. ASSESMENT COMPLETED AT THIS TIME(SEE INTERVENTIONS) LUNG SOUNDS CLEAR WITH DIMINISHED BASES, PT IS ON 3L. HE STATES HE DOES NOT WEAR O2 AT HOME. HEART SOUNDS NORMAL, BOWEL SOUNDS ACTIVE, NO SWELLING OR EDEMA,IV FLUSHES WELL.MEDICATED PER ORDER FOR TEMP OF 101.2. NO NEEDS AT THIS TIME. CALL BARRON IN REACH. WILL CONTINUE TO MONITOR.
[2018-09-11 23:55] VITALS: BP 123/66
--- NOTE | 2018-09-12 | NUR ---
PT RESTING QUIETLY IN BED WITH EYES CLOSED. O2 @ 3L. NO S/S OF DISTRESS NOTED. BED ALARM IN PLACE.CALL BARRON IN REACH. WILL CONTINUE TO MONITOR.
[2018-09-12 04:10] VITALS: BP 139/74
--- NOTE | 2018-09-12 04:30 | NUR ---
PT REFUSING DAILY WEIGHT AT THIS TIME. SAYS HE WILL GET IT WHEN HE GETS UP FOR BREAKFAST OR TO USE RESTROOM. NO NEEDS AT THIS TIME. CALL BARRON IN REACH. WILL CONTINUE TO MONITOR.
[2018-09-12 05:43] LABS: CREATININE 2.3 mg/dL (0.7-1.3); POTASSIUM 4.8 mmol/l (3.5-5.1)
[2018-09-12 07:34] VITALS: BP 156/72
--- NOTE | 2018-09-12 07:35 | NUR ---
SHIFT CHANGE REPORT, PT SLEEPING BUT AWAKEN TO VERBAL STIMULI, ORIENTED, O2 @ 2L VIA N/C IN PLACE, HEARING AIDS X [address], TELE MONITOR IN PLACE, DENIES DISCOMFORT, BED ALARM ON, CALL BARRON IN REACH,
--- NOTE | 2018-09-12 08:52 | NUR ---
LEAVING UNIT AT THIS TIME VIA W/C TRANSPORTED TO [facility] BY VOLUNTEER.
--- NOTE | 2018-09-12 09:17 | NUR ---
JUST TRANSPORTED BACK TO UNIT IN W/C BY VOLUNTEER, SETTLED IN RECLINER, CALL BARRON IN REACH.
[2018-09-12 12:00] VITALS: BP 124/55
--- NOTE | 2018-09-12 14:09 | NUR ---
Attempted treatment this pm, pt refused treatment stating he had just returned to bed. Spoke with nursing pt up most of day. Treatment held.
--- NOTE | 2018-09-12 15:28 | NUR ---
RESTING IN BED AT THIS TIME, O2 @ 2L VIA NC IN PLACE, WILL CONTINUE TO MONITOR.
[2018-09-12 16:00] VITALS: BP 148/73
[2018-09-12 19:30] VITALS: BP 105/60
--- NOTE | 2018-09-12 19:40 | NUR ---
ASSESSMENT IS COMPLETED: IV SITE IS FREE FROM REDNESS OR EDEMA. HR IS REG,PULSES ARE STRONG X4, ABD IS SOFT AND DISTENDED. BREATH SOUNDS ARE CLEAR AND DIMINISHED. O2 @ 2LITERS WITH NC. TELE MONITOR IN PLACE. CALL BARRON WITHIN REACH.
[2018-09-13] VITALS (7 sets, daily range): BP systolic 100–168; BP diastolic 53–81
--- NOTE | 2018-09-13 | NUR ---
PT IS RESTING IN BED WITH NO DISTRESS NOTED. IV SITE IS FREE FROM REDNESS OR EDEMA TELE MONITOR INPLACE.
--- NOTE | 2018-09-13 04:00 | NUR ---
PT IS RESTIGN IN BED WITH NO DISTRESS NOTED. IV SITE IS FREE FROM REDNESS OR EDEMA.
[2018-09-13 04:54] LABS: HEMATOCRIT 39.2 % (39.0-50.0); HEMOGLOBIN 12.6 g/dl (14.0-18.0); IMMATURE GRANULOCYTES 0.6 % (0.0-5.0); MEAN CELL VOLUME 90.1 fL CALC (80.0-100.0); MEAN CORPUSCULAR HGB CONC 32.1 g/L CALC (32.0-36.0); NEUT# 3.23 thou/uL (1.82-7.42); RED BLOOD COUNT 4.35 mill/uL (4.70-6.10); RED CELL DISTRI WIDTH 14.3 % (11.5-15.5)
[2018-09-13 05:07] LABS: PROTHROMBIN TIME 12.9 SECONDS (9.0-12.5)
[2018-09-13 05:16] LABS: ALBUMIN 2.9 g/dL (3.2-5.0); BILIRUBIN, TOTAL 0.5 mg/dL (0.0-1.4); CREATININE 2.1 mg/dL (0.7-1.3); MAGNESIUM 2.1 mg/dL (1.6-2.3); POTASSIUM 4.9 mmol/l (3.5-5.1)
[2018-09-13 05:18] LABS: INTERNATIONAL NORMALIZED RATIO 1.2 RATIO (0.7-1.3); TOTAL PROTEIN 5.3 g/dL (6.3-8.2)
--- NOTE | 2018-09-13 07:20 | NUR ---
REPORT RECEIVED FROM ASHOK BELTRAN. PT SITTING IN CHAIR. REPORTS BEING UNCOMFORTABLE R/T BED. CALL LIGHT REVIEWED AND IN REACH. ALERT AND ORIENTED.
--- NOTE | 2018-09-13 09:02 | NUR ---
PT SITTING IN CHAIR. FRUSTRATED WITH TIMING OF MEDS/ VS MONITORING AND MEALS. NO OTHER COMPLAINTS AT THIS TIME. CALL LIGHT WITHIN REACH.
--- NOTE | 2018-09-13 12:31 | NUR ---
REPORT RECEIVED FROM SELENA,PT AWAKE AND ALERT RESTING IN BED, NO C/O DISCOMFORT AT THIS TIME, ALL NEEDS ADDRESSED, CALL BARRON IN REACH.
--- NOTE | 2018-09-13 16:53 | NUR ---
SITTING UP IN RECLINER AT THIS TIME, C/O NOT FEELING GOOD WITH BACK PAIN, CONCERNS ADDRESSED.
--- NOTE | 2018-09-13 19:00 | NUR ---
REPORT RECIVED FROM CIERRA MARTINEZ. PT RESTING IN BED WITH EYES CLOSED. NO SIGNS OR SYMPTOMS OF DISTRESS. SAFETY PRECAUTIONS IN PLACE. WILL CONTINUE TO MONITOR.
--- NOTE | 2018-09-13 20:15 | NUR ---
PT RESTING IN BED. ALERT AND ORIENTED. PT DENIES ANY PAIN OR DISCOMFORTS AT THIS TIME. TELE MONITOR IN PLACE. IV # 22 RW, PATENT, APPEARS HEALTHY. RESPIRATIONS EVEN AND UNLABORED, LUNGS CLEAR/DIMINISHED THROUGHOUT. PEDAL PULSE WEAK. PT ENCOURAGED TO USE CALL BARRON IF NEEDS SHOULD ARISE. SAFETY PRECAUTIONS IN PLACE. BED ALARM ACTIVE FOR PT SAFETY. WILL CONTINUE TO MONITOR.
[2018-09-14] VITALS (8 sets, daily range): BP systolic 119–168; BP diastolic 63–78
--- NOTE | 2018-09-14 | NUR ---
PT RESTING IN BED WITH EYES CLOSED. NO SIGNS OR SYMPTOMS OF DISTRESS. BED ALARM ACTIVE FOR PT SAFETY. CALL LIGHT WITHIN REACH. WILL CONTINUE TO MONITOR.
--- NOTE | 2018-09-14 04:33 | NUR ---
NOTIFIED BY FLYNN IN THE ER THAT PT WAS HAVING ARRYTHMIAS. EKG OBTAINED WILL NOTIFY MEASUREMENT DEPARTMENT CHIEF CLERK PHYSICIAN.
--- NOTE | 2018-09-14 05:00 | NUR ---
PT RESTING IN RECLINER AT BEDSIDE. VS OBTAINED. PT DENIES ANY PAINS OR DISCOMFORTS. SAFETY PRECAUTIONS IN PLACE. WILL CONTINUE TO MONITOR.
--- NOTE | 2018-09-14 06:43 | NUR ---
09/13/18 The patient presents sitting at bedside. He c/o back pain- chronic in nature. His sitting BP was 161/81 with HR of 70. He ambulated with a FWW and o2 for 24 feet at an extrememly slow pace. He would be a good candidate for rehab facility such as SNF or IRF as he has poor balance, difficulty with movement and weakness. His BP after walking was 131/61. He reported some decrease in pain with movement and this may be the cause of his BP response as he had no increase in dyspnea.
--- NOTE | 2018-09-14 07:26 | NUR ---
REPORT RECEIVED FROM CIERRA MONCADA. VS AND INSULIN ADMINISTERED BEFORE BREAKFAST ARRIVING PER PT REQUEST. PLAN OF CARE DISCUSSED. FALL PRECAUTIONS REINFORCED. CALL LIGHT REVIEWED AND IN REACH. PT STATES UNDERSTANDING OF INFORMATION.
[2018-09-14 08:03] LABS: HEMATOCRIT 41.5 % (39.0-50.0); HEMOGLOBIN 13.1 g/dl (14.0-18.0); IMMATURE GRANULOCYTES 0.9 % (0.0-5.0); MEAN CELL VOLUME 89.6 fL CALC (80.0-100.0); MEAN CORPUSCULAR HGB 28.3 pG CALC (26.0-32.0); MEAN CORPUSCULAR HGB CONC 31.6 g/L CALC (32.0-36.0); RED BLOOD COUNT 4.63 mill/uL (4.70-6.10); RED CELL DISTRI WIDTH 14.4 % (11.5-15.5)
[2018-09-14 08:29] LABS: BILIRUBIN, TOTAL 0.8 mg/dL (0.0-1.4); CREATININE 1.9 mg/dL (0.7-1.3)
[2018-09-14 08:30] LABS: INTERNATIONAL NORMALIZED RATIO 1.5 RATIO (0.7-1.3); PROTHROMBIN TIME 15.5 SECONDS (9.0-12.5)
[2018-09-14 09:49] LABS: ALBUMIN 3.5 g/dL (3.2-5.0); TOTAL PROTEIN 6.4 g/dL (6.3-8.2)
--- NOTE | 2018-09-14 11:55 | NUR ---
DR. PATRICK IN TO SEE PT. PLAN OF CARE UPDATED. PT ASSISTED FROM BSC TO CHAIR AT BEDSIDE. PT REPORTS FEELING TIRED.
--- NOTE | 2018-09-14 15:59 | NUR ---
PT WAS SEEN SUPINE ON BED. AGREED TO PARTICIPATE WITH TX. SUPINE TO SIT INDEPENDENTLY. SIT TO STAND WITH SBA WITH RW. PT THEN PROCEEDED TO AMBULATE FROM BED TO BR ~10 FT. W/ RW AND CGA. PT ALSO AMBULATED IN THE HALLWAY W/ RW AND CGA X 50 FT. X 2. HE REQUIRED AT LEAST 3 REST PERIODS OF 1 MIN. TO REST D/T FATIGUE ON B ARMS. ALSO NOTED SOB AT THE END OF ACTIVITY. SPO2 ON ROOM AIR DESATURATED TO 85% DURING AMBULATION. RETURNED TO 91-95% WHEN O2 VIA NASAL CANNULA AT 2L WAS REATTACHED. LEFT PT RESTING IN BED. CALL BARRON WITHIN REACH.
--- NOTE | 2018-09-14 16:02 | NUR ---
PT SLEEPING ON RIGHT SIDE IN BED. CALL LIGHT WITHIN REACH.
--- NOTE | 2018-09-14 16:38 | NUR ---
S: JAVY ABURTO is a 88 M who presents with community-acquired pneumonia and bacteremia with staph epi. O: Scr=1.9, (SCr=2.2 prior to vancomycin initiation) Vancomycin trough = 9 A: Blood culture is growing staph epi which is sensitive to vancomycin. Vancomycin trough prior to 3rd dose subtherapeutic. Increase in dose warranted. P: Patient is on vancomycin 1 g IV Q36h. Vancomycin ordered for pharmacy to dose. Increase Vancomycin to 1 g IV Q24H. Vancomycin trough is drawn before the 4th dose on 09/17/18 @0730. Vancomycin goal trough is between 15-20 mcg/ml. Pharmacy will follow and or advise on antibiotics use as needed.
--- NOTE | 2018-09-14 19:00 | NUR ---
REPORT RECEIVED FROM CIERRA ESTEBAN. PT SITTING IN RECLINER, VISITORS AT BED SIDE. NO SIGNS OR SYMPTOMS OF DISTRESS. WILL CONTINUE TO MONITOR.
--- NOTE | 2018-09-14 21:11 | NUR ---
PT RESTING IN BED WITH EYES CLOSED. PT EASILY AROUSED. ASSISTED PT TO STAND AT THE BEDSIDE SIDE TO URINATE, PER PT REQUEST. ASSISTED PT BACK INTO BED PT SOB, HELP PT TO REPLACE NASAL CANNULA. PT DENIES ANY PAIN OR DISCOMFORT AT THIS TIME. CALL LIGHT WITHIN REACH. WILL CONTINUE TO MONITOR.
--- NOTE | 2018-09-15 00:31 | NUR ---
PT RESTING IN BED WITH EYES CLOSED. NO SIGNS OR SYMPTOMS OF DISTRESS. BED ALARM ACTIVE FOR PT SAFETY. WILL CONTINUE TO MONITOR.
[2018-09-15 04:04] VITALS: BP 108/55
--- NOTE | 2018-09-15 05:29 | NUR ---
PT RESTING IN BED WITH EYES CLOSED. RESPIRATIONS EVEN AND UNLABORED. BED ALARM ACTIVE. WILL CONTINUE TO MONITOR.
[2018-09-15 05:55] LABS: HEMATOCRIT 39.4 % (39.0-50.0); HEMOGLOBIN 12.7 g/dl (14.0-18.0); IMMATURE GRANULOCYTES 1.4 % (0.0-5.0); MEAN CELL VOLUME 88.5 fL CALC (80.0-100.0); MEAN CORPUSCULAR HGB 28.5 pG CALC (26.0-32.0); MEAN CORPUSCULAR HGB CONC 32.2 g/L CALC (32.0-36.0); NEUT# 4.23 thou/uL (1.82-7.42); RED BLOOD COUNT 4.45 mill/uL (4.70-6.10); RED CELL DISTRI WIDTH 14.3 % (11.5-15.5)
[2018-09-15 06:04] LABS: ALBUMIN 3.2 g/dL (3.2-5.0); ALKALINE PHOSPHATASE 53 u/l (38-126); ANION GAP 15 (6-22 (CALC)); BILIRUBIN, TOTAL 0.8 mg/dL (0.0-1.4); BUN 38 mg/dL (8-23); BUN/CREATININE RATIO 29 (12-20 (CALC)); CARBON DIOXIDE 25 mmol/l (22-30); CHLORIDE 101 mmol/l (95-108); CREATININE 1.3 mg/dL (0.7-1.3); GFR 52 ML/MIN (>=60 (CALC)); GFR FOR AFR.AMER. > 60 ML/MIN (>=60 (CALC)); MAGNESIUM 1.8 mg/dL (1.6-2.3); SGOT/AST 23 u/l (19-48); SODIUM 136 mmol/l (137-146); TOTAL PROTEIN 5.7 g/dL (6.3-8.2)
[2018-09-15 06:14] LABS: INTERNATIONAL NORMALIZED RATIO 2.2 RATIO (0.7-1.3); PROTHROMBIN TIME 23.1 SECONDS (9.0-12.5)
[2018-09-15 07:13] VITALS: BP 130/56
--- NOTE | 2018-09-15 07:49 | NUR ---
SHIFT CHANGE REPORT, PT SITTING UP IN RECLINER HALF ASLEEP, ORIENTED, O2 @ 2L VIA NC IN PLACE, TELE MONITOR IN PLACE, CALL BARRON IN REACH.
[2018-09-15 11:15] VITALS: BP 163/64
--- NOTE | 2018-09-15 11:17 | NUR ---
SITTING UP IN RECLINER AT THIS TIME, C/O NOT BEAING ABLE TO SLEEP AT NIGHTS HE IS BEING INTERRUPTED TOO MANY TIMES AND HE IS GIVEN LASIX AT 2000 WHICH KEEPS HIM AWAKE, HE ALSO REQUESTED NOT TO BE INTERRUPTED DURING MEALS, WILL ADDRESS CONCERNS AND CONTINUE TO MONITOR.
[2018-09-15] MEDS ORDERED: CIPRO XR500 M2 PO (13:32)
--- NOTE | 2018-09-15 15:46 | NUR ---
O2 ARRIVED, PT READY TO GO HOME WITH FAMILY.
--- NOTE | 2018-09-15 15:46 | NUR ---
Discharge instructions given. Patient verbalizes understanding of same. Discharged in stable condition via Wheelchair to Home with family. All belongings sent with pt.
--- NOTE | 2018-09-15 17:09 | NUR ---
The patient was seen for gait training. He has much better pain control today and wishes to go home. He is able to ambulate 100 feet with FWW and vitals stable. He had no LOB and improving pain control. He would do well with home health PT
== END 2018-09-15 15:48 | disposition home health service (06) | DRG 871 ==
LOC: ED 12:47 → ED-I 18:01 → ED 18:42 → MS2 18:52
PROVIDERS: Emergency Medicine; Internal Medicine Nephrology; Nurse Practitioner Family; ADMIT Internal Medicine Nephrology; ATTEND Internal Medicine Nephrology
DX: A41.1 Sepsis due to other specified staphylococcus (principal); J18.9 Pneumonia, unspecified organism; I50.43 Acute on chronic combined systolic (congestive) and diastolic (congestive) heart failure; N17.0 Acute kidney failure with tubular necrosis; N13.2 Hydronephrosis with renal and ureteral calculous obstruction; I13.0 Hypertensive heart and chronic kidney disease with heart failure and stage 1 through stage 4 chronic kidney disease, or unspecified chronic kidney disease; E87.1 Hypo-osmolality and hyponatremia; I25.10 Atherosclerotic heart disease of native coronary artery without angina pectoris; E11.40 Type 2 diabetes mellitus with diabetic neuropathy, unspecified; E11.22 Type 2 diabetes mellitus with diabetic chronic kidney disease; N18.3 Chronic kidney disease, stage 3 (moderate); I16.0 Hypertensive urgency; E78.5 Hyperlipidemia, unspecified; H35.30 Unspecified macular degeneration; M19.90 Unspecified osteoarthritis, unspecified site; R79.1 Abnormal coagulation profile; H54.8 Legal blindness, as defined in USA; E66.3 Overweight; E83.39 Other disorders of phosphorus metabolism; T36.0X5A Adverse effect of penicillins, initial encounter; T45.515A Adverse effect of anticoagulants, initial encounter; D64.9 Anemia, unspecified; Z79.84 Long term (current) use of oral hypoglycemic drugs; Z95.5 Presence of coronary angioplasty implant and graft; Z79.82 Long term (current) use of aspirin; Z79.02 Long term (current) use of antithrombotics/antiplatelets; Z95.1 Presence of aortocoronary bypass graft; Z79.01 Long term (current) use of anticoagulants; Z86.711 Personal history of pulmonary embolism; Z87.891 Personal history of nicotine dependence; Z87.442 Personal history of urinary calculi; Z68.32 Body mass index [BMI] 32.0-32.9, adult
CPT/HCPCS: G0378

== ENCOUNTER 2018-11-08 18:52 | Emergency (ER) | payer MEDICARE, BC ==
[~2018-11-08] VITALS: Ht 160 cm; Wt 79.0 kg
[~2018-11-08 18:52] MED LIST changes: +CIPRO XR500 M2 PO; +HYDROCODONE BIT1 TA7 PO
[2018-11-08 19:46] LABS: HEMATOCRIT 49.8 % (39.0-50.0); HEMOGLOBIN 15.9 g/dl (14.0-18.0); IMMATURE GRANULOCYTES 0.9 % (0.0-5.0); MEAN CELL VOLUME 87.8 fL CALC (80.0-100.0); MEAN CORPUSCULAR HGB CONC 31.9 g/L CALC (32.0-36.0); NEUT# 7.28 thou/uL (1.82-7.42); RED BLOOD COUNT 5.67 mill/uL (4.70-6.10); RED CELL DISTRI WIDTH 14.2 % (11.5-15.5)
[2018-11-08 19:53] LABS: ALBUMIN 4.6 g/dL (3.2-5.0); BILIRUBIN, TOTAL 1.1 mg/dL (0.0-1.4); CREATININE 1.5 mg/dL (0.7-1.3); POTASSIUM 4.9 mmol/l (3.5-5.1); TOTAL PROTEIN 7.7 g/dL (6.3-8.2)
[2018-11-08 21:24] VITALS: BP 156/79
[2018-11-08 21:56] LABS: URINE BILIRUBIN - DIPSTICK NEGATIVE (NEGATIVE); URINE BLOOD DIPSTICK LARGE (NEGATIVE); URINE COLOR YELLOW; URINE GLUCOSE - DIPSTICK 250 mg/dL (NEGATIVE); URINE KETONE NEGATIVE (NEGATIVE); URINE LEUK ESTERASE NEGATIVE (NEGATIVE); URINE NITRITE - DIPSTICK NEGATIVE (Negative); URINE PH 5.5 (4.5-8.0); URINE PROTEIN - DIPSTICK 100 mg/dL (NEG-TRACE); URINE SPECIFIC GRAVITY 1.025; URINE UROBILINOGEN - DIPSTICK 0.2 E.U./dL (0.2)
[2018-11-08 22:04] LABS: URINE SQUAMOUS EPITHELIAL CELL FEW EPI/hpf (0-FEW)
[2018-11-09] MEDS ORDERED: ENTRESTO 49-511 TAB PO (17:01)
[2018-11-09] MEDS ORDERED: NITROSTAT0.4 MG SL (17:02)
== END 2018-11-08 21:30 | disposition home or self-care (01) ==
LOC: ED 18:52
PROVIDERS: Family Medicine
DX: N13.2 Hydronephrosis with renal and ureteral calculous obstruction (principal); Z87.442 Personal history of urinary calculi; M54.5 Low back pain; I10 Essential (primary) hypertension; E11.9 Type 2 diabetes mellitus without complications; Z79.4 Long term (current) use of insulin; Z79.84 Long term (current) use of oral hypoglycemic drugs

== ENCOUNTER 2018-11-09 10:45 | Inpatient (IN) | payer MEDICARE, BC ==
[~2018-11-09] VITALS: Ht 160 cm; Wt 80.7 kg
[2018-11-09 12:17] VITALS: BP 146/61
[2018-11-09 12:35] LABS: HEMATOCRIT 48.1 % (39.0-50.0); HEMOGLOBIN 15.7 g/dl (14.0-18.0); IMMATURE GRANULOCYTES 0.7 % (0.0-5.0); MEAN CELL VOLUME 86.8 fL CALC (80.0-100.0); MEAN CORPUSCULAR HGB 28.3 pG CALC (26.0-32.0); MEAN CORPUSCULAR HGB CONC 32.6 g/L CALC (32.0-36.0); NEUT# 7.74 thou/uL (1.82-7.42); RED BLOOD COUNT 5.54 mill/uL (4.70-6.10); RED CELL DISTRI WIDTH 14.4 % (11.5-15.5)
[2018-11-09 12:46] LABS: INTERNATIONAL NORMALIZED RATIO 1.6 RATIO (0.7-1.3); PROTHROMBIN TIME 16.2 SECONDS (9.0-12.5)
[2018-11-09 12:54] LABS: URINE BLOOD DIPSTICK LARGE (NEGATIVE); URINE COLOR YELLOW; URINE GLUCOSE - DIPSTICK 500 mg/dL (NEGATIVE); URINE KETONE TRACE mg/dL (NEGATIVE); URINE PROTEIN - DIPSTICK 100 mg/dL (NEG-TRACE); URINE SPECIFIC GRAVITY >=1.030; URINE UROBILINOGEN - DIPSTICK 0.2 E.U./dL (0.2)
[2018-11-09 12:55] LABS: URINE LEUK ESTERASE SMALL (NEGATIVE); URINE NITRITE - DIPSTICK POSITIVE (Negative)
[2018-11-09 12:56] LABS: URINE BILIRUBIN - DIPSTICK NEGATIVE (NEGATIVE)
[2018-11-09 13:05] LABS: URINE BACTERIA MANY hpf; URINE RBC TNTC RBC/hpf (0-5); URINE SQUAMOUS EPITHELIAL CELL FEW EPI/hpf (0-FEW)
[2018-11-09 13:51] LABS: ALBUMIN 3.8 g/dL (3.2-5.0); BILIRUBIN, TOTAL 1.2 mg/dL (0.0-1.4); CREATININE 1.8 mg/dL (0.7-1.3); POTASSIUM 4.7 mmol/l (3.5-5.1); TOTAL PROTEIN 6.7 g/dL (6.3-8.2)
[2018-11-09 14:39] VITALS: BP 159/65
[2018-11-09] MEDS ORDERED: ENTRESTO 49-511 TAB PO (17:01)
[2018-11-09] MEDS ORDERED: NITROSTAT0.4 MG SL (17:02)
[2018-11-09 18:43] VITALS: BP 181/86
[2018-11-09 21:23] VITALS: BP 164/68
[2018-11-09 23:43] VITALS: BP 151/67
[2018-11-10] VITALS (10 sets, daily range): BP systolic 123–198; BP diastolic 62–90
[2018-11-10 06:04] LABS: ALBUMIN 3.4 g/dL (3.2-5.0); BILIRUBIN, TOTAL 1.8 mg/dL (0.0-1.4); CREATININE 1.4 mg/dL (0.7-1.3); MAGNESIUM 1.7 mg/dL (1.6-2.3); POTASSIUM 4.4 mmol/l (3.5-5.1)
[2018-11-10 06:52] LABS: INTERNATIONAL NORMALIZED RATIO 1.4 RATIO (0.7-1.3); PROTHROMBIN TIME 14.5 SECONDS (9.0-12.5)
[2018-11-11] VITALS: BP 168/79
[2018-11-11 01:12] VITALS: BP 134/63
[2018-11-11 04:55] VITALS: BP 133/74
[2018-11-11 06:02] LABS: HEMATOCRIT 38.7 % (39.0-50.0); HEMOGLOBIN 12.2 g/dl (14.0-18.0); IMMATURE GRANULOCYTES 0.7 % (0.0-5.0); MEAN CELL VOLUME 91.3 fL CALC (80.0-100.0); MEAN CORPUSCULAR HGB 28.8 pG CALC (26.0-32.0); MEAN CORPUSCULAR HGB CONC 31.5 g/L CALC (32.0-36.0); NEUT# 6.14 thou/uL (1.82-7.42); RED BLOOD COUNT 4.24 mill/uL (4.70-6.10); RED CELL DISTRI WIDTH 14.6 % (11.5-15.5)
[2018-11-11 06:32] LABS: ALBUMIN 2.9 g/dL (3.2-5.0); ALKALINE PHOSPHATASE 40 u/l (38-126); ANION GAP 13 (6-22 (CALC)); BILIRUBIN, TOTAL 1.1 mg/dL (0.0-1.4); BUN 24 mg/dL (8-23); BUN/CREATININE RATIO 18 (12-20 (CALC)); CARBON DIOXIDE 21 mmol/l (22-30); CHLORIDE 112 mmol/l (95-108); CREATININE 1.3 mg/dL (0.7-1.3); GFR 52 ML/MIN (>=60 (CALC)); GFR FOR AFR.AMER. > 60 ML/MIN (>=60 (CALC)); MAGNESIUM 1.7 mg/dL (1.6-2.3); POTASSIUM 4.1 mmol/l (3.5-5.1); SGOT/AST 15 u/l (19-48); SODIUM 142 mmol/l (137-146); TOTAL PROTEIN 5.3 g/dL (6.3-8.2)
[2018-11-11 07:56] VITALS: BP 177/75
[2018-11-11 09:33] LABS: INTERNATIONAL NORMALIZED RATIO 1.3 RATIO (0.7-1.3); PROTHROMBIN TIME 13.7 SECONDS (9.0-12.5)
[2018-11-11 10:00] VITALS: BP 199/95
[2018-11-11 11:37] VITALS: BP 157/69
[2018-11-12] MEDS ORDERED: LIPITOR10 M1 PO (10:13)
[2018-11-12] MEDS ORDERED: MAGNESIUM500 M3 PO (10:14)
[2018-11-12] MEDS ORDERED: ISOSORB MONO20 MG PO (10:14)
== END 2018-11-11 15:15 | disposition home or self-care (01) | DRG 661 ==
LOC: MS2 10:45
PROVIDERS: Internal Medicine Nephrology; ADMIT Internal Medicine; ATTEND Internal Medicine
PROC: 0T768DZ Dilation of Right Ureter with Intraluminal Device, Via Natural or Artificial Opening Endoscopic (ICD-10-PCS; principal; 2018-11-10)
DX: N13.2 Hydronephrosis with renal and ureteral calculous obstruction (principal); N17.9 Acute kidney failure, unspecified; I12.9 Hypertensive chronic kidney disease with stage 1 through stage 4 chronic kidney disease, or unspecified chronic kidney disease; E11.22 Type 2 diabetes mellitus with diabetic chronic kidney disease; N18.3 Chronic kidney disease, stage 3 (moderate); E11.40 Type 2 diabetes mellitus with diabetic neuropathy, unspecified; I25.10 Atherosclerotic heart disease of native coronary artery without angina pectoris; E78.5 Hyperlipidemia, unspecified; K21.9 Gastro-esophageal reflux disease without esophagitis; I48.2 Chronic atrial fibrillation; I25.2 Old myocardial infarction; Z87.442 Personal history of urinary calculi; Z95.5 Presence of coronary angioplasty implant and graft; Z95.1 Presence of aortocoronary bypass graft; Z87.891 Personal history of nicotine dependence; Z86.711 Personal history of pulmonary embolism; Z79.01 Long term (current) use of anticoagulants; Z79.02 Long term (current) use of antithrombotics/antiplatelets
CPT/HCPCS: C1769

== ENCOUNTER 2018-11-12 06:19 | Observation (INO) | payer MEDICARE, BC ==
[~2018-11-12] VITALS: Ht 160 cm; Wt 81.3 kg
[~2018-11-12 06:19] MED LIST changes: +ENTRESTO 49-511 TAB PO
--- NOTE | 2018-11-12 06:19 | NUR ---
A/O VIA EMS [facility]NELL SOB ONSET LAST EVENING DENIES CP NO SWEATS W/P/D SKIN
--- NOTE | 2018-11-12 06:55 | NUR ---
REPORT RECIEVED FROM Nicole NORTON.
--- NOTE | 2018-11-12 07:00 | NUR ---
PT REQUESTED TO USE BEDSIDE COMMODE. PT TRANSFERED TO [facility] WITH 1 ASSIST/ PT HAD SMALL, LOOSE, DARK BROWN BOWEL MOVEMENT
[2018-11-12 07:01] LABS: HEMATOCRIT 40.7 % (39.0-50.0); HEMOGLOBIN 12.8 g/dl (14.0-18.0); IMMATURE GRANULOCYTES 0.7 % (0.0-5.0); MEAN CELL VOLUME 90.6 fL CALC (80.0-100.0); MEAN CORPUSCULAR HGB 28.5 pG CALC (26.0-32.0); MEAN CORPUSCULAR HGB CONC 31.4 g/L CALC (32.0-36.0); NEUT# 6.54 thou/uL (1.82-7.42); RED BLOOD COUNT 4.49 mill/uL (4.70-6.10); RED CELL DISTRI WIDTH 14.4 % (11.5-15.5)
[2018-11-12 07:01] LABS: URINE BILIRUBIN - DIPSTICK NEGATIVE (NEGATIVE); URINE BLOOD DIPSTICK LARGE (NEGATIVE); URINE COLOR YELLOW; URINE GLUCOSE - DIPSTICK NEGATIVE (NEGATIVE); URINE KETONE 15 mg/dL (NEGATIVE); URINE LEUK ESTERASE TRACE (NEGATIVE); URINE NITRITE - DIPSTICK NEGATIVE (Negative); URINE PROTEIN - DIPSTICK 100 mg/dL (NEG-TRACE); URINE SPECIFIC GRAVITY 1.025; URINE UROBILINOGEN - DIPSTICK 0.2 E.U./dL (0.2)
[2018-11-12 07:12] LABS: URINE BACTERIA FEW hpf; URINE SQUAMOUS EPITHELIAL CELL FEW EPI/hpf (0-FEW)
[2018-11-12 07:14] LABS: ALBUMIN 3.5 g/dL (3.2-5.0); ALKALINE PHOSPHATASE 44 u/l (38-126); ANION GAP 14 (6-22 (CALC)); BILIRUBIN, TOTAL 1.2 mg/dL (0.0-1.4); BUN 22 mg/dL (8-23); BUN/CREATININE RATIO 18 (12-20 (CALC)); CARBON DIOXIDE 22 mmol/l (22-30); CHLORIDE 110 mmol/l (95-108); CREATININE 1.3 mg/dL (0.7-1.3); GFR 52 ML/MIN (>=60 (CALC)); GFR FOR AFR.AMER. > 60 ML/MIN (>=60 (CALC)); POTASSIUM 4.3 mmol/l (3.5-5.1); SGOT/AST 18 u/l (19-48); SODIUM 142 mmol/l (137-146); TOTAL PROTEIN 6.1 g/dL (6.3-8.2)
[2018-11-12 07:21] LABS: INTERNATIONAL NORMALIZED RATIO 1.5 RATIO (0.7-1.3); PROTHROMBIN TIME 15.7 SECONDS (9.0-12.5)
[2018-11-12 07:26] LABS: MYOGLOBIN 44 ng/mL (0 - 121)
--- NOTE | 2018-11-12 07:30 | NUR ---
PT SITTING UPRIGHT IN STRETCHER IN NAD. PT REMAINS HYPERTENSIVE. MD NOTIFIED, NO NEW ORDERS RECEIVED. PT REPORTS MINIMAL SOB. SAO2 95% ON 2 L NC AND RR 22.
--- NOTE | 2018-11-12 08:10 | NUR ---
PT C/O INCREASED PRESSURE TO LOWER ABD. PT STATES HE FEELS IF HIS BALDDER WILL EXPLODE. 350 MLS OF NIKI COLORED URINE NOTED IN URINAL. PT REQUESTING PATHAK. NOTIFIED OF CONTINUED ELEVATED BP AND PT REQUEST FOR PATHAK.
--- NOTE | 2018-11-12 08:15 | NUR ---
16 F PATHAK PLACED, PT TOLERATED WELL. 800 MLS OF PALE YELLOW URINE NOTED TO PATHAK BAG.
--- NOTE | 2018-11-12 08:31 | NUR ---
PT MEDICATED PER ORDERED WITH 10 MG OF LABETOLOL. PT RESTING COMFORTABLY IN STRETCHER IN NAD. RR 22, SAO2 955 ON 2L NC. PT AWARE OF BUSY ED AND WAIT TIME. CALL BARRON BLANK VELARDE.
--- NOTE | 2018-11-12 09:30 | NUR ---
PT RESTING IN STRETCHER WITH HOB ELEVATED WITH EYES CLOSED. PT AWAKENS TO VERBAL STIMULI AND DENIES ANY NEEDS AT THIS TIME. CALL BARRON WITHIN REACH.
--- NOTE | 2018-11-12 10:09 | NUR ---
MD AT BEDSIDE TO DISCUSS RESULTS AND PLAN FOR ADMISSION. PT REQUESTING SOMETHING TO EAT, MEAL TRAY ORDERED.
--- NOTE | 2018-11-12 10:10 | NUR ---
EMPTIED FC BAG OF 1450CC CLEAR YELLOW URINE. PT RESP ALEXA DN UNLABORED CONTINUES ON O2 VIA NC. PT STATES HE IS HUNGRY AND THIRSTY. MEAL ORDERED.CALL LIGHT WITHIN REach
[2018-11-12] MEDS ORDERED: LIPITOR10 M1 PO (10:13)
[2018-11-12] MEDS ORDERED: MAGNESIUM500 M3 PO (10:14)
[2018-11-12] MEDS ORDERED: ISOSORB MONO20 MG PO (10:14)
--- NOTE | 2018-11-12 11:00 | NUR ---
PT RESTING IN STRETCHER WITH EYES CLOSED, PT AWAKENS TO VERBAL STIMULI AND DENIES ANY PAIN OR SOB AT THIS TIME. PT SA02 94% ON 2L NC. PT UPDATED ON PLAN FOR ADMISSION.
--- NOTE | 2018-11-12 11:15 | NUR ---
UPDATED ON ELEVATED BP 184/87. AWAITING NEW ORDERS.
--- NOTE | 2018-11-12 11:20 | NUR ---
CALL PLACED TO SUZANNE HERNANDEZ WILL HAVE FRANCESCA CALL BACK.
--- NOTE | 2018-11-12 11:32 | NUR ---
BP NOW 168/87. PER DR MELÉNDEZ WILL HOLD LABETOLO AT THIS TIME.
--- NOTE | 2018-11-12 11:45 | NUR ---
PT SITTING ON BEDSIDE EATING LUNCH. PT DENIES ANY NEEDS OR SOB AT THIS TIME. PT AWARE OF PENDING TRANSFER TO ROOM.
--- NOTE | 2018-11-12 12:01 | NUR ---
REPORT CALLED TO ASHOK MA.
--- NOTE | 2018-11-12 12:15 | NUR ---
500 MLS OF PALE YELLOW URINE EMPTIED FROM PATHAK. SMALL AMOUNT OF PINK TINGED URINE NOTED IN PATHAK BAG.
[2018-11-12 12:27] VITALS: BP 157/77
--- NOTE | 2018-11-12 12:28 | NUR ---
PT ARRIVED TO [facility] VIA WHEELCHAIR ACCOMPANIED BY ER NURSE. PT ALERT AND ORIENTED X3, AMBULATED WITH STEADY GAIT TO BED, DISCUSSED POC, PT IN AGREEMENT. PATHAK DRAINING TO GRAVITY, ADMISSION ASSESSMENT COMPLETED. CALL LIGHT IN REACH,CONTINUE TO MONITOR.
--- NOTE | 2018-11-12 12:30 | NUR ---
PT BP 140/61 WILL TRANSPORT TO ROOM 260.
--- NOTE | 2018-11-12 12:30 | NUR ---
Admission Note Report Given to: ASHOK MA Transported by: Wheelchair X Stretcher Transported with: X Nurse Transporter X Patent IV X O2 X Sample Processor PT TO ROOM 260 IN STABLE CONDITION WITH 2L NC ON TELE MONITOR. CARE RELINQUISHED TO ASHOK MA.
--- NOTE | 2018-11-12 14:41 | NUR ---
PT BEING TAKEN DOWN TO RADIOLOGY FOR CXR. VIA WHEELCHAIR ACCOMPANIED BY GERMAN TUTOR. CONTINUE TO MONITOR.
[2018-11-12 16:00] VITALS: BP 140/61
--- NOTE | 2018-11-12 16:25 | NUR ---
PT SITTING IN RECLINER, NO SIGNS OF DISTRESS NOTED, RESP EVEN AND UNLABORED. PT SPEAKING TO FAMILY ON THE PHONE, DRAFTER ELECTRICAL DISCUSSED POC WITH PT, PT AGREES TO STAY. CALL LIGHT IN REACH,CONTINUE TO MONITOR.
[2018-11-12 19:05] VITALS: BP 180/81
--- NOTE | 2018-11-12 20:00 | NUR ---
PATIENT SITTING UP IN THE RECINER AT THIS TIME-AWAKE ALERT AND ORIENTEDX3. PATIENT IS [place]. PATIENT WITH MANY CONCERNS ABOUT HIS 'S HEALTH AND SAFTY WELL HIS HEALTH AND ABILITY TO CONT CAREGIVER FOR HIS WITH WAS SOUNDS TO BE DEMENTIA PROBLEMS. 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 ALLOWED PATIENT TO VERBALIZE HIS CONCERN AND MADE CASE MANAGEMENT REFFERAL. PATIENT WITH TELE MONITOR IN PLACE. IV SITE TO LEFT AC INTACT AND APPEARS HEALTHY AT THIS TIME. PATHAK PATENT AND DRAINING YELLOW URINE. O2 VIA NASAL CANNULA IN PLACE AT 2LPM. [id number] WITH METFORMIN ORDERED. PATIENT MEDICTATED WITH XANAX 0.5MG PO FOR ANXIETY AND WITH LORTAB FOR PAIN. CALL LIGHT IN REACH. WILL CONT TO MONITOR.
[2018-11-12 21:47] LABS: INTERNATIONAL NORMALIZED RATIO 1.6 RATIO (0.7-1.3); PROTHROMBIN TIME 16.5 SECONDS (9.0-12.5)
[2018-11-13] VITALS (10 sets, daily range): BP systolic 137–183; BP diastolic 64–78
--- NOTE | 2018-11-13 00:40 | NUR ---
PATIENT CALLED FOR ASSIST AFTER GOING TO THE BR FOR BM AND RETURNED BACK TO BED. PATIENT IS SOB AFTER GOING TO THE BR WITHOUT HIS O2. O2 REAPPLIED AND PATIENT INSTRUCTED TO USE O2 EXTENSION WHEN HE IS GOING INTO BATHROOM. VERBALIZES UNDERSTANDING. VS TAKEN AND RECORDED. TACHYPENIC AND O2 SAT OF 95% AT THIS TIME. BP-182/77, HR-68. WILL CONT TO MONITOR.
--- NOTE | 2018-11-13 01:00 | NUR ---
PATIENT RESTING IN BED WITH O2 VIA NASAL CANNULA IN PLACE-STATES THAT HE IS FEELING BETTER. SAFETY PRECAUTIONS REINFORCED. CALL LIGHT IN REACH.WILL CONT TO MONITOR.
--- NOTE | 2018-11-13 04:49 | NUR ---
PATIENT SITTING UP ON THE SIDE OF THE BED-BP 183/78, HR-60. MEDICATED WITH APRESOLINE 10MG IVP FOR HTN. PATIENT ALSO MEDICATED FOR ANXIETY WITH XANAX 0.5MG PO. PATIENT WITH O2 VIA NASAL CANNULA IN PLACE. TELE MONITOR IN PLACE. SALINE LOCK TO LEFT AC INTACT AND IS HEALTHY AT THIS TIME. SAFETY PRECAUTIONS REINFORCED. CALL LIGHT IN REACH. WILL CONT TO MONITOR.
[2018-11-13 05:04] LABS: HEMATOCRIT 39.8 % (39.0-50.0); HEMOGLOBIN 12.8 g/dl (14.0-18.0); IMMATURE GRANULOCYTES 0.8 % (0.0-5.0); MEAN CELL VOLUME 88.4 fL CALC (80.0-100.0); MEAN CORPUSCULAR HGB 28.4 pG CALC (26.0-32.0); MEAN CORPUSCULAR HGB CONC 32.2 g/L CALC (32.0-36.0); NEUT# 5.76 thou/uL (1.82-7.42); RED BLOOD COUNT 4.5 mill/uL (4.70-6.10); RED CELL DISTRI WIDTH 14.3 % (11.5-15.5)
[2018-11-13 05:21] LABS: ANION GAP 13 (6-22 (CALC)); BUN 21 mg/dL (8-23); BUN/CREATININE RATIO 18 (12-20 (CALC)); CARBON DIOXIDE 27 mmol/l (22-30); CHLORIDE 104 mmol/l (95-108); CREATININE 1.2 mg/dL (0.7-1.3); GFR 57 ML/MIN (>=60 (CALC)); GFR FOR AFR.AMER. > 60 ML/MIN (>=60 (CALC)); SODIUM 140 mmol/l (137-146)
--- NOTE | 2018-11-13 07:42 | NUR ---
SHIFT CHANGE REPORT, PT AWAKE ALERT AND ORIENTED SITTING UP IN RECLINER, EXPRESSES CONCERN ABOUT HIS CONDITION STATING HE KNOWS HE HAS CHF AND CHF KILLS YOU AND HE KNOWS HE IS GOING TO BUT HE DOES NOT KNOW WHAT TO DO AT THIS POINT. ADVISED ANIMAL CARE GIVER WILL BE HERE LATER AND THEY WILL BE ABLE TO GIVE HIM INFORMATION/OPTIONS ON HIS CONCERNS. O2 @ 2L IN PLACE VIA NC, TELE MONITOR IN PLACE, CALL BARRON IN REACH, WILL CONTINUE TO MONITOR.
--- NOTE | 2018-11-13 15:39 | NUR ---
Perfomed manual therapy for edema control on LUE. Performed PROM to RUE.
--- NOTE | 2018-11-13 16:06 | NUR ---
PT STATING SHE FEELS BETTER AND WANTS TO GO HOME THERE IN NO NEED FOR HIM TO BE HERE, DR PATRICK NOTIFIED, WILL CONTINUE TO MONITOR.
--- NOTE | 2018-11-13 17:15 | NUR ---
PATHAK REMOVED @ 1620, PT ANXIOUS TO GO HOME AND WANTS PATHAK OUT, INFORMED WILL NEED TO URINATE BEFORE HE LEAVES.
--- NOTE | 2018-11-13 21:32 | NUR ---
PT ANXIOUS TO GO HOME AND ADAMANT ABOUT LEAVING BUT HAS NOT VOIDED SUFFICIENT QUANTITY SINCE CATHETER REMOVED @ 1615, FLUIDS ENCOURAGED, VOIDED 100CC AND STATED HE IS GOING HOME. D/C PROCESSED AND INSTRUCTINS REVIEWED WITH PT.
--- NOTE | 2018-11-13 21:35 | NUR ---
Discharge instructions given. Patient verbalizes understanding of same. Discharged in stable condition via Wheelchair to Home with *Other. All belongings sent with pt.
== END 2018-11-13 21:20 | disposition home or self-care (01) ==
LOC: ED 06:19 → ED-I 09:51 → ED 10:47 → MS2 10:48
PROVIDERS: Family Medicine; Nurse Practitioner Family; ADMIT Internal Medicine; ATTEND Internal Medicine
PROC: 0T9B70Z Drainage of Bladder with Drainage Device, Via Natural or Artificial Opening (ICD-10-PCS; principal; 2018-11-12)
DX: I13.0 Hypertensive heart and chronic kidney disease with heart failure and stage 1 through stage 4 chronic kidney disease, or unspecified chronic kidney disease (principal); I50.43 Acute on chronic combined systolic (congestive) and diastolic (congestive) heart failure; E11.22 Type 2 diabetes mellitus with diabetic chronic kidney disease; N18.3 Chronic kidney disease, stage 3 (moderate); I25.10 Atherosclerotic heart disease of native coronary artery without angina pectoris; E11.40 Type 2 diabetes mellitus with diabetic neuropathy, unspecified; N13.2 Hydronephrosis with renal and ureteral calculous obstruction; I48.2 Chronic atrial fibrillation; E78.5 Hyperlipidemia, unspecified; K21.9 Gastro-esophageal reflux disease without esophagitis; M19.90 Unspecified osteoarthritis, unspecified site; I25.2 Old myocardial infarction; Z86.711 Personal history of pulmonary embolism; Z95.1 Presence of aortocoronary bypass graft; Z95.5 Presence of coronary angioplasty implant and graft; Z87.891 Personal history of nicotine dependence; Z79.01 Long term (current) use of anticoagulants; Z79.4 Long term (current) use of insulin

== ENCOUNTER 2018-11-24 09:30 | Observation (INO) | payer MEDICARE, BC ==
[~2018-11-24] VITALS: Ht 160 cm; Wt 77.9 kg
[~2018-11-24 09:30] MED LIST changes: +ISOSORB MONO20 MG PO; +LIPITOR10 M1 PO; +MAGNESIUM500 M3 PO
--- NOTE | 2018-11-24 09:41 | NUR ---
PATIENT TO ROOM VIA EMS AND PHYSICIAN AT BEDSIDE FOR EVAL
--- NOTE | 2018-11-24 09:45 | NUR ---
PT REPORTS INCREASING OF SOB AFTER HAVING BECOMING STRESSTED THIS AM. PT BILATERAL LS CLEAR. ABD FIRM AND DISTENDED. PT REPORTS THAT IS NORMAL FOR HIM. PT DENIES ANY CHEST PAIN. RESP EVEN AND UNLABORED. SA02 94%.
[2018-11-24 10:00] LABS: HEMATOCRIT 42.6 % (39.0-50.0); HEMOGLOBIN 13.5 g/dl (14.0-18.0); IMMATURE GRANULOCYTES 0.8 % (0.0-5.0); MEAN CELL VOLUME 90.1 fL CALC (80.0-100.0); MEAN CORPUSCULAR HGB 28.5 pG CALC (26.0-32.0); MEAN CORPUSCULAR HGB CONC 31.7 g/L CALC (32.0-36.0); NEUT# 7.84 thou/uL (1.82-7.42); RED BLOOD COUNT 4.73 mill/uL (4.70-6.10); RED CELL DISTRI WIDTH 14.6 % (11.5-15.5)
--- NOTE | 2018-11-24 10:03 | NUR ---
PT MEDICATED PER ORDERED. NITRO PATCH PLACED ON RIGHT UPPER EXTREMITY. PT REMAINS HYPERTENSIVE. MD NOTIFIED. PT REPORTS CONTINUED FEELING OF SOB, RR 20, SAO2 95% ON 2 L NC. CALL BARRON WITHIN REACH, PT AWARE OF PLAN OF CARE AND WAIT TIME.
[2018-11-24 10:12] LABS: ALBUMIN 3.8 g/dL (3.2-5.0); ALKALINE PHOSPHATASE 57 u/l (38-126); ANION GAP 13 (6-22 (CALC)); BUN 28 mg/dL (8-23); BUN/CREATININE RATIO 29 (12-20 (CALC)); CARBON DIOXIDE 27 mmol/l (22-30); CHLORIDE 103 mmol/l (95-108); GFR > 60 ML/MIN (>=60 (CALC)); GFR FOR AFR.AMER. > 60 ML/MIN (>=60 (CALC)); POTASSIUM 4.1 mmol/l (3.5-5.1); SGOT/AST 27 u/l (19-48); SODIUM 139 mmol/l (137-146); TOTAL PROTEIN 6.6 g/dL (6.3-8.2)
[2018-11-24 10:25] LABS: D-DIMER 0.36 mg/L (0.19-0.60)
[2018-11-24 10:27] LABS: INTERNATIONAL NORMALIZED RATIO 4.1 RATIO (0.7-1.3); PROTHROMBIN TIME 42.7 SECONDS (9.0-12.5)
--- NOTE | 2018-11-24 10:45 | NUR ---
500 MLS OF DARK YELLOW URINE EMPTIED FROM URINAL. PT DENIES ANY SOB AND IS RESTING COMFORTABLY IN STRETCHER WITH EYES CLOSED.
--- NOTE | 2018-11-24 11:00 | NUR ---
PT REMAINS HYPERTENSIVE. MD NOTIFIED, AWAITING NEW ORDERS.
--- NOTE | 2018-11-24 11:30 | NUR ---
PT MEDIATED WITH SOLUMEDROL PER ORDERED. WILL HOLD LABETOLOL 10 MG DUE TO BP 139/71. MD NOTIFIED.
[2018-11-24] MEDS ORDERED: ASPIRIN ADULT L81 M2 PO (11:40)
--- NOTE | 2018-11-24 11:45 | NUR ---
600 MLS OF PALE YELLOW URINE EMPTIED FROM URINAL. CALL BARRON WITHIN REACH, PT DENIES ANY NEEDS.
[2018-11-24] MEDS ORDERED: PRESERVISION ARED1 PO (11:46)
[2018-11-24] MEDS ORDERED: TAMSULOSIN0.4 MG PO (11:50)
--- NOTE | 2018-11-24 11:55 | NUR ---
PT MEDICATED WITH 10 MG OF LABETOLOL. PT RESTING IN STRETCHER IN NAD. RESP EVEN AND UNLABORED. SA02 97% ON ROOM AIR. PT AWARE OF PLAN FOR ADMISSION. 200 MLS OF PALE YELLOW URINE EMPTIED FROM URINAL. PT DENIES ANY NEEDS.
--- NOTE | 2018-11-24 12:08 | NUR ---
PT REPORT CALLED TO ASHOK BELTRAN.
--- NOTE | 2018-11-24 12:13 | NUR ---
PT TO XRAY VIA STRETCHER IN [facility] TRANSPORT TO ROOM WHEN PT RETUNRS.
--- NOTE | 2018-11-24 12:42 | NUR ---
PT ARRIVED VIA STRETCHER ACCOMPANIED BY STAFF. IV SITE AND TELE MONITOR IN PLACE
[2018-11-24 12:52] VITALS: BP 199/87
--- NOTE | 2018-11-24 13:14 | NUR ---
URINE OBTAINED FROM PT UPON ARRIVAL FROM ED
--- NOTE | 2018-11-24 13:30 | NUR ---
ASSESSMENT IS COMPLETED: PT IS RELAXING IN BED, IV SITE IS FREE FROM REDNESS OR EDEMA, HR IS IRREGULAR, BREATH SOUNDS ARE CLEAR, PULSE ARE STRONG X4, ABD IS SOFT WITH ACTIVE BS. TELE MONITOR IN PLACE.
[2018-11-24 13:44] LABS: URINE BILIRUBIN - DIPSTICK NEGATIVE (NEGATIVE); URINE BLOOD DIPSTICK TRACE-INTACT (NEGATIVE); URINE COLOR YELLOW; URINE GLUCOSE - DIPSTICK NEGATIVE (NEGATIVE); URINE KETONE NEGATIVE (NEGATIVE); URINE LEUK ESTERASE NEGATIVE (Negative); URINE NITRITE - DIPSTICK NEGATIVE (Negative); URINE PH 7.5 (4.5-8.0); URINE PROTEIN - DIPSTICK NEGATIVE (NEG-TRACE); URINE SPECIFIC GRAVITY 1.015; URINE UROBILINOGEN - DIPSTICK 0.2 E.U./dL (0.2)
[2018-11-24 13:49] LABS: URINE CLARITY CLEAR
[2018-11-24 15:20] VITALS: BP 183/77
--- NOTE | 2018-11-24 16:00 | NUR ---
IN TO VISIT WITH PT. NEW ORDERS OBTAINED.
--- NOTE | 2018-11-24 16:12 | NUR ---
PT HAS # 16 FINNISH PATHAK PLACED. USING STERILE TECHNIQUE. PT TOLERATED WELL.
[2018-11-24 19:25] VITALS: BP 113/65
--- NOTE | 2018-11-24 20:50 | NUR ---
PT GLUCOSE ACCU-CHECK APPEARS CRITICAL, STAT BLOOD GLUCOSE ORDERED, WILL AWAIT RESULTS AND NOTIFY PHYSICIAN FOR FURTHER ORDERS.
--- NOTE | 2018-11-24 21:40 | NUR ---
PT BLOOD GLUCOSE CRITICAL @452, CRITICAL CALLED TO PHYSICIAN AND NEW ORDERS RECEIVED.
[2018-11-25] VITALS (7 sets, daily range): BP systolic 139–192; BP diastolic 71–78
--- NOTE | 2018-11-25 03:24 | NUR ---
PT IS SLEEPING SOUNDLY,NO S/O DISTRESS NOTED. CALL LIGHT AT SIDE.
--- NOTE | 2018-11-25 04:38 | NUR ---
LAB WAS JUST IN W/PT. PT MEDICATED ORDERS PRVOIDE, DENIES ANY OTHER NEEDS AT THIS TIME. CALL LIGHT AT SIDE AND PT ENCOURAGED TO CALL NEEDS ARISE.
[2018-11-25 05:11] LABS: HEMATOCRIT 44.5 % (39.0-50.0); MEAN CELL VOLUME 89.9 fL CALC (80.0-100.0); MEAN CORPUSCULAR HGB 28.3 pG CALC (26.0-32.0); MEAN CORPUSCULAR HGB CONC 31.5 g/L CALC (32.0-36.0); NEUT# 8.38 thou/uL (1.82-7.42); RED BLOOD COUNT 4.95 mill/uL (4.70-6.10); RED CELL DISTRI WIDTH 14.6 % (11.5-15.5)
[2018-11-25 05:42] LABS: ALBUMIN 3.9 g/dL (3.2-5.0); ALKALINE PHOSPHATASE 62 u/l (38-126); AMYLASE 43 u/l (30-110); ANION GAP 18 (6-22 (CALC)); BILIRUBIN, TOTAL 0.8 mg/dL (0.0-1.4); BUN 36 mg/dL (8-23); BUN/CREATININE RATIO 28 (12-20 (CALC)); CARBON DIOXIDE 28 mmol/l (22-30); CHLORIDE 98 mmol/l (95-108); CREATININE 1.3 mg/dL (0.7-1.3); GFR 52 ML/MIN (>=60 (CALC)); GFR FOR AFR.AMER. > 60 ML/MIN (>=60 (CALC)); LIPASE 47 u/l (23-300); MAGNESIUM 1.7 mg/dL (1.6-2.3); POTASSIUM 4.1 mmol/l (3.5-5.1); SGOT/AST 18 u/l (19-48); SODIUM 141 mmol/l (137-146); TOTAL PROTEIN 6.8 g/dL (6.3-8.2)
--- NOTE | 2018-11-25 09:18 | NUR ---
REPORT WAS RECEIVED FROM MAREK. ASSESSMENT DONE. PT IS A&O X3. TELE IN PLACE. PT DENIES PAIN. ZO IS PATENT WITH YELLOW URINE. #18 LFA THAT APPEARS HEALTHY. O2 AT 2L VIA NC. MEDICATED PT WITH HYDRALAZINE FOR BP 188/75 & P-63. PT IS VISITING WITH FRIENDS IN ROOM. SAFETY PRECAUTIONS REINFORCED AND CALL LIGHT IN REACH.
[2018-11-25 09:48] LABS: INTERNATIONAL NORMALIZED RATIO 4.1 RATIO (0.7-1.3); PROTHROMBIN TIME 42.6 SECONDS (9.0-12.5)
--- NOTE | 2018-11-25 11:33 | NUR ---
PT IS RESTING IN BED WITH NO S/S OF DISTRESS NOTED. FAMILY IN ROOM. PT DENIES PAIN AT THIS TIME. CALL LIGHT IN REACH.
--- NOTE | 2018-11-25 15:43 | NUR ---
PT IS SITTING IN CHAIR WITH NO S/S OF DISTRESS NOTED. DISCUSS HOW TO USE THE INCENTIVE SPIROMETRY. PT VERBALIZED UNDERSTANDING. PT ONLY VOID 25ML IN THE URINAL. PT DENIES PAIN. PT REFUSING FOR EMS SITE TO BE CHANGE PT STATED HE IS TO BE D/C TOMORROW. NOTIFIED SINDHU LOPEZ RE: PT URINE.
[2018-11-26 00:34] VITALS: BP 220/108
[2018-11-26 01:13] VITALS: BP 170/78
--- NOTE | 2018-11-26 01:58 | NUR ---
LATE ENTRY: 2215 patient bladder scanned; 339ml residual urine. immediately after patient voided 75ml, follow by another 75ml approximately 20 minutes later. patient was not straight cathed.
--- NOTE | 2018-11-26 02:01 | NUR ---
LATE ENTRY: 0030 midnight vitals taken reported as 217/80s, manually taken by this nurse 220/180. Hydralazine 10mg given IVP followed by 10ml flush, patient tolerated well. Follow up BP at 0100 was 170/78, medication was effective.
[2018-11-26 04:43] VITALS: BP 125/66
[2018-11-26 05:34] LABS: HEMATOCRIT 43.9 % (39.0-50.0); HEMOGLOBIN 14.1 g/dl (14.0-18.0); MEAN CELL VOLUME 88.3 fL CALC (80.0-100.0); MEAN CORPUSCULAR HGB 28.4 pG CALC (26.0-32.0); MEAN CORPUSCULAR HGB CONC 32.1 g/L CALC (32.0-36.0); NEUT# 13.69 thou/uL (1.82-7.42); RED BLOOD COUNT 4.97 mill/uL (4.70-6.10); RED CELL DISTRI WIDTH 14.6 % (11.5-15.5)
[2018-11-26 05:53] LABS: INTERNATIONAL NORMALIZED RATIO 3.9 RATIO (0.7-1.3); PROTHROMBIN TIME 40.8 SECONDS (9.0-12.5)
[2018-11-26 05:56] LABS: ANION GAP 17 (6-22 (CALC)); BUN 38 mg/dL (8-23); BUN/CREATININE RATIO 39 (12-20 (CALC)); CARBON DIOXIDE 29 mmol/l (22-30); CHLORIDE 97 mmol/l (95-108); GFR > 60 ML/MIN (>=60 (CALC)); GFR FOR AFR.AMER. > 60 ML/MIN (>=60 (CALC)); MAGNESIUM 1.7 mg/dL (1.6-2.3); POTASSIUM 3.9 mmol/l (3.5-5.1); SODIUM 139 mmol/l (137-146)
[2018-11-26 08:25] VITALS: BP 191/80
--- NOTE | 2018-11-26 08:25 | NUR ---
ASSESSMENT IS COMPLETED: IV SITE IS FREE FROM REDNESS OR EDEMA. HR IS REG, PULSES ARE STRONG X4, ABD IS SOFT WITH ACTIVE BS. BREATH SOUNDS ARE CLEAR,BILATERALLY. TELE MONITOR IN PLACE. CONTINUE TO OSERBVE AND MONITOR.
--- NOTE | 2018-11-26 11:00 | NUR ---
BLADDER SCANNED PT HAD 481 RESIDUAL
[2018-11-26 11:25] VITALS: BP 174/79
--- NOTE | 2018-11-26 12:00 | NUR ---
PT HAS BEEN SITTING IN THE CHAIR. NO DISTRESS NOTED
--- NOTE | 2018-11-26 12:11 | NUR ---
REBLADDER SCANNED PT AGAIN 45MINUTES AFTER THE VOID 185
[2018-11-26 12:45] VITALS: BP 174/79
[2018-11-26] MEDS ORDERED: MEDDOSEPAK PO (12:51)
--- NOTE | 2018-11-26 13:56 | NUR ---
PT TRANSPORTED TO CAR IV SITE IS FREE FROM REDNESS CATHETER INTACT. TELE MONITOR TAKEN OFF. DISCHARGE INSTRUCTIONS GIVEN
--- NOTE | 2018-11-26 14:01 | NUR ---
Discharge instructions given. Patient verbalizes understanding of same. Discharged in stable condition via Wheelchair to Home with family. All belongings sent with pt.
== END 2018-11-26 13:49 | disposition home health service (06) ==
LOC: ED 09:30 → ED-I 09:43 → ED 11:23 → MS2 11:24
PROVIDERS: Emergency Medicine; Nurse Practitioner Family; ADMIT Internal Medicine Nephrology; ATTEND Internal Medicine Nephrology
PROC: 0T9B70Z Drainage of Bladder with Drainage Device, Via Natural or Artificial Opening (ICD-10-PCS; principal; 2018-11-24)
DX: I11.0 Hypertensive heart disease with heart failure (principal); I50.23 Acute on chronic systolic (congestive) heart failure; I16.0 Hypertensive urgency; E11.65 Type 2 diabetes mellitus with hyperglycemia; E11.40 Type 2 diabetes mellitus with diabetic neuropathy, unspecified; I25.10 Atherosclerotic heart disease of native coronary artery without angina pectoris; I48.2 Chronic atrial fibrillation; E78.5 Hyperlipidemia, unspecified; K21.9 Gastro-esophageal reflux disease without esophagitis; H35.30 Unspecified macular degeneration; H54.8 Legal blindness, as defined in USA; J44.9 Chronic obstructive pulmonary disease, unspecified; R79.1 Abnormal coagulation profile; R33.9 Retention of urine, unspecified; T45.515A Adverse effect of anticoagulants, initial encounter; T38.0X5A Adverse effect of glucocorticoids and synthetic analogues, initial encounter; N13.2 Hydronephrosis with renal and ureteral calculous obstruction; I25.2 Old myocardial infarction; Z86.711 Personal history of pulmonary embolism; Z96.0 Presence of urogenital implants; Z79.01 Long term (current) use of anticoagulants; Z79.4 Long term (current) use of insulin; Z95.5 Presence of coronary angioplasty implant and graft; Z95.1 Presence of aortocoronary bypass graft; Z99.81 Dependence on supplemental oxygen; Z91.11 Patient's noncompliance with dietary regimen

== ENCOUNTER 2018-12-29 10:33 | Day surgery (SDC) | payer MEDICARE, BC ==
[~2018-12-29] VITALS: Ht 167.6 cm; Wt 78.0 kg
[2018-12-29] VITALS (7 sets, daily range): BP systolic 185–229; BP diastolic 86–101
[~2018-12-29 10:33] MED LIST changes: +PRESERVISION ARED1 PO; +XANAX0.5 MG PO
[2018-12-29 12:08] LABS: ACT PARTIAL THROMBO TIME 45.2 SECONDS (20.0-32.5)
[2018-12-29 12:13] LABS: INTERNATIONAL NORMALIZED RATIO 1.2 RATIO (0.7-1.3); PROTHROMBIN TIME 12.7 SECONDS (9.0-12.5)
[2018-12-30 00:06] VITALS: BP 151/70
[2018-12-30 04:40] VITALS: BP 158/76
[2018-12-30 05:22] LABS: HEMATOCRIT 41.9 % (39.0-50.0); HEMOGLOBIN 13.2 g/dl (14.0-18.0); IMMATURE GRANULOCYTES 0.9 % (0.0-5.0); MEAN CELL VOLUME 88.4 fL CALC (80.0-100.0); MEAN CORPUSCULAR HGB 27.8 pG CALC (26.0-32.0); MEAN CORPUSCULAR HGB CONC 31.5 g/L CALC (32.0-36.0); NEUT# 6.12 thou/uL (1.82-7.42); RED BLOOD COUNT 4.74 mill/uL (4.70-6.10); RED CELL DISTRI WIDTH 14.6 % (11.5-15.5)
[2018-12-30 05:46] LABS: ALBUMIN 3.3 g/dL (3.2-5.0); ALKALINE PHOSPHATASE 74 u/l (38-126); AMYLASE 47 u/l (30-110); ANION GAP 14 (6-22 (CALC)); BUN 20 mg/dL (8-23); BUN/CREATININE RATIO 19 (12-20 (CALC)); CARBON DIOXIDE 23 mmol/l (22-30); CHLORIDE 109 mmol/l (95-108); CREATININE 1.1 mg/dL (0.7-1.3); GFR > 60 ML/MIN (>=60 (CALC)); GFR FOR AFR.AMER. > 60 ML/MIN (>=60 (CALC)); LIPASE 44 u/l (23-300); MAGNESIUM 1.7 mg/dL (1.6-2.3); POTASSIUM 4.4 mmol/l (3.5-5.1); SGOT/AST 16 u/l (19-48); SODIUM 141 mmol/l (137-146); TOTAL PROTEIN 6.1 g/dL (6.3-8.2)
[2018-12-30 05:56] LABS: BILIRUBIN, TOTAL 1.2 mg/dL (0.0-1.4)
[2018-12-30 08:32] VITALS: BP 128/66
[2018-12-30 10:53] VITALS: BP 176/81
[2018-12-30 11:21] VITALS: BP 168/82
[2018-12-30 14:05] VITALS: BP 148/71
== END 2018-12-30 15:15 ==
LOC: ORM 10:33 → MS2 10:33 → ORM 13:00 → MS2 16:05 → ORM 12-30 15:15
PROVIDERS: Urology; ATTEND Internal Medicine Nephrology
PROC: 0TP98DZ Removal of Intraluminal Device from Ureter, Via Natural or Artificial Opening Endoscopic (ICD-10-PCS; principal; 2018-12-29)
PROC: BT1DZZZ Fluoroscopy of Right Kidney, Ureter and Bladder (ICD-10-PCS; 2018-12-29)
PROC: 0TF3XZZ Fragmentation in Right Kidney Pelvis, External Approach (ICD-10-PCS; 2018-12-29)
DX: N20.2 Calculus of kidney with calculus of ureter (principal); I16.0 Hypertensive urgency; R33.9 Retention of urine, unspecified; I11.0 Hypertensive heart disease with heart failure; I50.42 Chronic combined systolic (congestive) and diastolic (congestive) heart failure; E11.40 Type 2 diabetes mellitus with diabetic neuropathy, unspecified; I25.10 Atherosclerotic heart disease of native coronary artery without angina pectoris; I48.91 Unspecified atrial fibrillation; Z95.1 Presence of aortocoronary bypass graft; Z95.5 Presence of coronary angioplasty implant and graft; Z87.891 Personal history of nicotine dependence; Z79.01 Long term (current) use of anticoagulants
CPT/HCPCS: Q9967

== ENCOUNTER 2019-01-26 09:27 | Observation (INO) | payer MEDICARE, BC ==
[~2019-01-26] VITALS: Ht 167.6 cm; Wt 77.7 kg
[2019-01-26 10:24] LABS: HEMATOCRIT 43.5 % (39.0-50.0); HEMOGLOBIN 13.7 g/dl (14.0-18.0); IMMATURE GRANULOCYTES 1.2 % (0.0-5.0); MEAN CELL VOLUME 88.6 fL CALC (80.0-100.0); MEAN CORPUSCULAR HGB 27.9 pG CALC (26.0-32.0); MEAN CORPUSCULAR HGB CONC 31.5 g/L CALC (32.0-36.0); NEUT# 3.82 thou/uL (1.82-7.42); RED BLOOD COUNT 4.91 mill/uL (4.70-6.10); RED CELL DISTRI WIDTH 14.8 % (11.5-15.5)
[2019-01-26 10:27] LABS: ALBUMIN 3.7 g/dL (3.2-5.0); ALKALINE PHOSPHATASE 62 u/l (38-126); ANION GAP 16 (6-22 (CALC)); BILIRUBIN, TOTAL 0.9 mg/dL (0.0-1.4); BUN 24 mg/dL (8-23); BUN/CREATININE RATIO 22 (12-20 (CALC)); CARBON DIOXIDE 26 mmol/l (22-30); CHLORIDE 104 mmol/l (95-108); CREATININE 1.1 mg/dL (0.7-1.3); GFR > 60 ML/MIN (>=60 (CALC)); GFR FOR AFR.AMER. > 60 ML/MIN (>=60 (CALC)); SGOT/AST 18 u/l (19-48); SODIUM 140 mmol/l (137-146); TOTAL PROTEIN 6.7 g/dL (6.3-8.2)
[2019-01-26 10:33] LABS: INTERNATIONAL NORMALIZED RATIO 2.4 RATIO (0.7-1.3); PROTHROMBIN TIME 25.2 SECONDS (9.0-12.5)
[2019-01-26] MEDS ORDERED: LASIX 40 MG40 MG/TAB PO (12:08)
[2019-01-26 13:00] VITALS: BP 176/86
[2019-01-26 16:00] VITALS: BP 150/69
[2019-01-26 19:18] VITALS: BP 175/65
[2019-01-26 22:33] VITALS: BP 140/63
[2019-01-27 00:20] VITALS: BP 142/58
[2019-01-27 04:22] VITALS: BP 124/60
[2019-01-27 05:22] LABS: HEMATOCRIT 40.4 % (39.0-50.0); HEMOGLOBIN 12.8 g/dl (14.0-18.0); MEAN CELL VOLUME 88.6 fL CALC (80.0-100.0); MEAN CORPUSCULAR HGB 28.1 pG CALC (26.0-32.0); MEAN CORPUSCULAR HGB CONC 31.7 g/L CALC (32.0-36.0); NEUT# 4.24 thou/uL (1.82-7.42); RED BLOOD COUNT 4.56 mill/uL (4.70-6.10); RED CELL DISTRI WIDTH 14.6 % (11.5-15.5)
[2019-01-27 05:38] LABS: INTERNATIONAL NORMALIZED RATIO 2.4 RATIO (0.7-1.3); PROTHROMBIN TIME 24.7 SECONDS (9.0-12.5)
[2019-01-27 05:43] LABS: ALBUMIN 3.3 g/dL (3.2-5.0); ALKALINE PHOSPHATASE 52 u/l (38-126); ANION GAP 13 (6-22 (CALC)); BILIRUBIN, TOTAL 0.8 mg/dL (0.0-1.4); BUN 22 mg/dL (8-23); BUN/CREATININE RATIO 25 (12-20 (CALC)); CARBON DIOXIDE 26 mmol/l (22-30); CHLORIDE 104 mmol/l (95-108); CREATININE 0.9 mg/dL (0.7-1.3); GFR > 60 ML/MIN (>=60 (CALC)); GFR FOR AFR.AMER. > 60 ML/MIN (>=60 (CALC)); MAGNESIUM 1.7 mg/dL (1.6-2.3); POTASSIUM 4.8 mmol/l (3.5-5.1); SGOT/AST 21 u/l (19-48); SODIUM 138 mmol/l (137-146); TOTAL PROTEIN 6.2 g/dL (6.3-8.2)
[2019-01-27 08:51] VITALS: BP 125/65
[2019-01-27 11:05] VITALS: BP 121/69
[2019-01-27 12:02] LABS: URINE BILIRUBIN - DIPSTICK NEGATIVE (NEGATIVE); URINE BLOOD DIPSTICK TRACE-LYSED (NEGATIVE); URINE COLOR YELLOW; URINE GLUCOSE - DIPSTICK >=1000 mg/dL (NEGATIVE); URINE KETONE NEGATIVE (NEGATIVE); URINE LEUK ESTERASE NEGATIVE (NEGATIVE); URINE NITRITE - DIPSTICK NEGATIVE (Negative); URINE PROTEIN - DIPSTICK NEGATIVE (NEG-TRACE); URINE SPECIFIC GRAVITY 1.015; URINE UROBILINOGEN - DIPSTICK 0.2 E.U./dL (0.2)
== END 2019-01-27 13:05 | disposition home or self-care (01) ==
LOC: ED 09:27 → ED-I 10:57 → ED 11:21 → MS2 11:22
PROVIDERS: Emergency Medicine; Nurse Practitioner Family; ADMIT Internal Medicine Nephrology; ATTEND Internal Medicine Nephrology
PROC: 0HQ1XZZ Repair Face Skin, External Approach (ICD-10-PCS; principal; 2019-01-26)
DX: S01.81XA Laceration without foreign body of other part of head, initial encounter (principal); I13.0 Hypertensive heart and chronic kidney disease with heart failure and stage 1 through stage 4 chronic kidney disease, or unspecified chronic kidney disease; I50.22 Chronic systolic (congestive) heart failure; E11.65 Type 2 diabetes mellitus with hyperglycemia; N18.3 Chronic kidney disease, stage 3 (moderate); I48.2 Chronic atrial fibrillation; E11.22 Type 2 diabetes mellitus with diabetic chronic kidney disease; E11.40 Type 2 diabetes mellitus with diabetic neuropathy, unspecified; I25.10 Atherosclerotic heart disease of native coronary artery without angina pectoris; J44.9 Chronic obstructive pulmonary disease, unspecified; E78.5 Hyperlipidemia, unspecified; K21.9 Gastro-esophageal reflux disease without esophagitis; F41.8 Other specified anxiety disorders; I25.2 Old myocardial infarction; N20.0 Calculus of kidney; Y92.009 Unspecified place in unspecified non-institutional (private) residence as the place of occurrence of the external cause; W01.0XXA Fall on same level from slipping, tripping and stumbling without subsequent striking against object, initial encounter; Z95.5 Presence of coronary angioplasty implant and graft; Z86.711 Personal history of pulmonary embolism; Z79.4 Long term (current) use of insulin; Z95.1 Presence of aortocoronary bypass graft; Z79.01 Long term (current) use of anticoagulants; Z87.891 Personal history of nicotine dependence

== ENCOUNTER 2019-02-05 20:53 | Observation (INO) | payer MEDICARE, BC ==
[~2019-02-05] VITALS: Ht 167.6 cm; Wt 78.5 kg
[~2019-02-05 20:53] MED LIST changes: +LASIX 40 MG40 MG/TAB PO
--- NOTE | 2019-02-05 21:00 | NUR ---
BY EMS TO ROOM
[2019-02-05 21:22] LABS: IMMATURE GRANULOCYTES 0.6 % (0.0-5.0); MEAN CELL VOLUME 88.1 fL CALC (80.0-100.0); MEAN CORPUSCULAR HGB 27.9 pG CALC (26.0-32.0); MEAN CORPUSCULAR HGB CONC 31.7 g/L CALC (32.0-36.0); NEUT# 4.84 thou/uL (1.82-7.42); RED BLOOD COUNT 5.3 mill/uL (4.70-6.10); RED CELL DISTRI WIDTH 14.7 % (11.5-15.5)
[2019-02-05 21:27] LABS: HEMATOCRIT 46.7 % (39.0-50.0); HEMOGLOBIN 14.8 g/dl (14.0-18.0)
--- NOTE | 2019-02-05 21:30 | NUR ---
DAUGHTER RUBY CALLED. OK PER PT TO GIVE OUT INFORMATION. INFORMED HER PT JUST GOT HERE, GOING TO CT. RUBY STATES PT PROBABLY HAS KIDNEY STONE
[2019-02-05 21:36] LABS: ALBUMIN 4.1 g/dL (3.2-5.0); ALKALINE PHOSPHATASE 69 u/l (38-126); ANION GAP 14 (6-22 (CALC)); BILIRUBIN, TOTAL 0.8 mg/dL (0.0-1.4); BUN 22 mg/dL (8-23); BUN/CREATININE RATIO 22 (12-20 (CALC)); CARBON DIOXIDE 26 mmol/l (22-30); CHLORIDE 106 mmol/l (95-108); GFR > 60 ML/MIN (>=60 (CALC)); GFR FOR AFR.AMER. > 60 ML/MIN (>=60 (CALC)); POTASSIUM 5.4 mmol/l (3.5-5.1); SGOT/AST 18 u/l (19-48); SODIUM 141 mmol/l (137-146)
--- NOTE | 2019-02-05 21:57 | NUR ---
02 SAT DROPPED TO 89/90 PLACED PT ON [address] @[address] GE AWARE.
[2019-02-05 22:02] LABS: URINE BILIRUBIN - DIPSTICK NEGATIVE (NEGATIVE); URINE BLOOD DIPSTICK MODERATE (NEGATIVE); URINE COLOR YELLOW; URINE GLUCOSE - DIPSTICK 250 mg/dL (NEGATIVE); URINE KETONE NEGATIVE (NEGATIVE); URINE LEUK ESTERASE NEGATIVE (NEGATIVE); URINE NITRITE - DIPSTICK NEGATIVE (Negative); URINE PH 5.5 (4.5-8.0); URINE PROTEIN - DIPSTICK 30 mg/dL (NEG-TRACE); URINE SPECIFIC GRAVITY 1.025; URINE UROBILINOGEN - DIPSTICK 0.2 E.U./dL (0.2)
[2019-02-05 22:10] LABS: URINE RBC 50-100 RBC/hpf (0-5); URINE SQUAMOUS EPITHELIAL CELL FEW EPI/hpf (0-FEW)
--- NOTE | 2019-02-05 22:31 | NUR ---
PT BACK TO CT FOR ABDOMEN PELVIS. CALLED A FRIEND TO PICK HER UP.
--- NOTE | 2019-02-05 22:59 | NUR ---
CALLED TO CT DUE TO PT HAVING PANIC EPISODE. PT WAS FINE ON ARRIVAL JUST STATED HE NEEDS TO SIT UP BUT DID LAY DOWN TO COMPLETE TEST.
[2019-02-05 23:29] LABS: INTERNATIONAL NORMALIZED RATIO 1.8 RATIO (0.7-1.3); PROTHROMBIN TIME 18.7 SECONDS (9.0-12.5)
--- NOTE | 2019-02-05 23:57 | NUR ---
MEDICATED WITH MORPHINE 4MG FOR PAIN 04/26. STILL WAITING ON CT RESULTS..
--- NOTE | 2019-02-06 00:30 | NUR ---
REPORT GIVEN TO CIERRA XIE. ROOM NOT READY YET WILL CALL WHEN DONE
--- NOTE | 2019-02-06 01:04 | NUR ---
Admission Note Report Given to: CIERRA PRESTON Transported by: Wheelchair X Stretcher Transported with: X Nurse Transporter X Patent IV X O2 X Top Cager HAD TO CALL FLOOR TO SEE IF ROOM WAS CLEANED YET. INFORMED IT WAS READY
--- NOTE | 2019-02-06 01:14 | NUR ---
PATIENT ARRIVED TO UNIT, RECEIVED REPORT FROM NURSE NEVAREZ, PATIENT TRANSPORTED VIS BED WITH O2 VIA NC, TRANSFERRED TO BED, PT WITH UNSTEADY GAIT, EXERTIONAL DYSPNEA NOTED, ORIENTED TO ROOM AND CALL LIGHT SYSTEM.
[2019-02-06 02:25] VITALS: BP 160/82
--- NOTE | 2019-02-06 02:30 | NUR ---
PATIENT STATED RELIEF FROM BACK PAIN PS 3/10.
--- NOTE | 2019-02-06 05:18 | NUR ---
PATIENT RESTING IN BED EYES CLOSED REMAINS ON O2 @2LPM VIA NC, NO DISCOMFORTS NOTED AT THIS TIME, WITH EVEN UNLABORED BREATHING CALL LIGHT AT REACH.
[2019-02-06 07:00] VITALS: BP 141/82
--- NOTE | 2019-02-06 07:00 | NUR ---
RECEIVED PT, AWAKE. ON BSC AT THIS TIME. DENIES ANY NEEDS.
[2019-02-06 08:00] VITALS: BP 146/64
--- NOTE | 2019-02-06 08:10 | NUR ---
ASSESSMENT COMPLETE. SITTING ON SIDE OF BED. DENIES ANY NEEDS. SEE SHIFT REVIEW FOR COMPLETE ASSESSMENT. PT STATES PAIN HAS IMPROVED SO MUCH COMPARED TO WHEN HE ARRIVED TO ER.
[2019-02-06 09:12] VITALS: BP 146/64
--- NOTE | 2019-02-06 09:22 | NUR ---
I SPOKE WITH ANDRES FROM DR. JOHNSON OFFICE @0922 AM. 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
--- NOTE | 2019-02-06 10:15 | NUR ---
PT IN TO SHOWER. REFUSED 02 WHILE IN SHOWER.
--- NOTE | 2019-02-06 10:21 | NUR ---
DR REEDER AT BEDSIDE TO DSICUSS DISCHARGE.
--- NOTE | 2019-02-06 10:33 | NUR ---
I spoke with maninder from Dr. Galvan office to schedule a follow up appointment @1030 am. She stated that the appointment is scheduled for tuesday at noon. ([id number])
--- NOTE | 2019-02-06 11:51 | NUR ---
PT SITTING ONSIDE OF BED WATING LUNCH. DISCHARGE TO BE COMPLETE AFTER LUNCH.
--- NOTE | 2019-02-06 12:05 | NUR ---
DISCHARGE INSTRUCTIONS DISCUSSED WITH PATIENT. DISCUSSED FOLLOW UP WITH DR LAGOS TOMORROW AND FOLLOW UP WITH YOLI THIS TUESDAY. PT DENIES ANY QUESTIONS REGARDING FOLLOW UP CARE.
== END 2019-02-06 12:24 | disposition home or self-care (01) ==
LOC: ED 20:53 → ED-I 23:52 → ED 02-06 00:12 → MS2 02-06 00:13
PROVIDERS: Emergency Medicine; ADMIT Internal Medicine; ATTEND Internal Medicine
DX: N13.2 Hydronephrosis with renal and ureteral calculous obstruction (principal); I16.0 Hypertensive urgency; I11.0 Hypertensive heart disease with heart failure; I50.42 Chronic combined systolic (congestive) and diastolic (congestive) heart failure; I25.10 Atherosclerotic heart disease of native coronary artery without angina pectoris; E78.5 Hyperlipidemia, unspecified; E11.40 Type 2 diabetes mellitus with diabetic neuropathy, unspecified; I48.2 Chronic atrial fibrillation; K21.9 Gastro-esophageal reflux disease without esophagitis; H35.30 Unspecified macular degeneration; I25.2 Old myocardial infarction; G89.29 Other chronic pain; M54.5 Low back pain; Z79.4 Long term (current) use of insulin; Z95.1 Presence of aortocoronary bypass graft; Z87.442 Personal history of urinary calculi; Z95.5 Presence of coronary angioplasty implant and graft; Z86.711 Personal history of pulmonary embolism; Z79.01 Long term (current) use of anticoagulants
CPT/HCPCS: Q9967

== ENCOUNTER 2019-02-11 04:10 | Inpatient (IN) | payer MEDICARE, BC ==
[~2019-02-11] VITALS: Ht 160 cm; Wt 79.8 kg
[2019-02-11 04:46] LABS: HEMATOCRIT 42.7 % (39.0-50.0); HEMOGLOBIN 13.5 g/dl (14.0-18.0); IMMATURE GRANULOCYTES 0.7 % (0.0-5.0); MEAN CELL VOLUME 87.9 fL CALC (80.0-100.0); MEAN CORPUSCULAR HGB 27.8 pG CALC (26.0-32.0); MEAN CORPUSCULAR HGB CONC 31.6 g/L CALC (32.0-36.0); NEUT# 8.06 thou/uL (1.82-7.42); RED BLOOD COUNT 4.86 mill/uL (4.70-6.10); RED CELL DISTRI WIDTH 14.6 % (11.5-15.5)
[2019-02-11 04:59] LABS: ALKALINE PHOSPHATASE 69 u/l (38-126); ANION GAP 16 (6-22 (CALC)); BILIRUBIN, TOTAL 1.5 mg/dL (0.0-1.4); BUN 18 mg/dL (8-23); BUN/CREATININE RATIO 20 (12-20 (CALC)); CARBON DIOXIDE 23 mmol/l (22-30); CHLORIDE 102 mmol/l (95-108); CREATININE 0.9 mg/dL (0.7-1.3); GFR > 60 ML/MIN (>=60 (CALC)); GFR FOR AFR.AMER. > 60 ML/MIN (>=60 (CALC)); POTASSIUM 4.8 mmol/l (3.5-5.1); SGOT/AST 17 u/l (19-48); SODIUM 137 mmol/l (137-146); TOTAL PROTEIN 7.5 g/dL (6.3-8.2)
[2019-02-11 05:00] LABS: URINE BILIRUBIN - DIPSTICK NEGATIVE (NEGATIVE); URINE BLOOD DIPSTICK TRACE-INTACT (NEGATIVE); URINE COLOR YELLOW; URINE GLUCOSE - DIPSTICK 500 mg/dL (NEGATIVE); URINE KETONE TRACE mg/dL (NEGATIVE); URINE LEUK ESTERASE NEGATIVE (NEGATIVE); URINE NITRITE - DIPSTICK NEGATIVE (Negative); URINE PH 5.5 (4.5-8.0); URINE PROTEIN - DIPSTICK 30 mg/dL (NEG-TRACE); URINE UROBILINOGEN - DIPSTICK 0.2 E.U./dL (0.2)
[2019-02-11 05:01] LABS: URINE RBC 0-2 RBC/hpf (0-5); URINE WBC 0-2 WBC/hpf (0-5)
[2019-02-11 05:11] LABS: MYOGLOBIN 31 ng/mL (0 - 121)
[2019-02-11 06:50] VITALS: BP 208/88
[2019-02-11 08:30] VITALS: BP 94/46
[2019-02-11 10:15] LABS: PROTHROMBIN TIME 29.4 SECONDS (9.0-12.5)
[2019-02-11 10:55] VITALS: BP 100/56
[2019-02-11 15:18] VITALS: BP 140/63
[2019-02-11 19:25] VITALS: BP 155/70
[2019-02-12 00:27] VITALS: BP 104/49
[2019-02-12 04:02] VITALS: BP 128/62
[2019-02-12 05:33] LABS: HEMATOCRIT 39.2 % (39.0-50.0); HEMOGLOBIN 12.2 g/dl (14.0-18.0); IMMATURE GRANULOCYTES 0.6 % (0.0-5.0); MEAN CELL VOLUME 88.9 fL CALC (80.0-100.0); MEAN CORPUSCULAR HGB 27.7 pG CALC (26.0-32.0); MEAN CORPUSCULAR HGB CONC 31.1 g/L CALC (32.0-36.0); NEUT# 3.74 thou/uL (1.82-7.42); RED BLOOD COUNT 4.41 mill/uL (4.70-6.10); RED CELL DISTRI WIDTH 14.7 % (11.5-15.5)
[2019-02-12 05:41] LABS: INTERNATIONAL NORMALIZED RATIO 3.7 RATIO (0.7-1.3)
[2019-02-12 05:44] LABS: ALBUMIN 3.5 g/dL (3.2-5.0); ALKALINE PHOSPHATASE 49 u/l (38-126); ANION GAP 14 (6-22 (CALC)); BILIRUBIN, TOTAL 1.3 mg/dL (0.0-1.4); BUN 26 mg/dL (8-23); BUN/CREATININE RATIO 22 (12-20 (CALC)); CHLORIDE 99 mmol/l (95-108); CREATININE 1.2 mg/dL (0.7-1.3); GFR 57 ML/MIN (>=60 (CALC)); GFR FOR AFR.AMER. > 60 ML/MIN (>=60 (CALC)); POTASSIUM 4.4 mmol/l (3.5-5.1); SGOT/AST 15 u/l (19-48); SODIUM 138 mmol/l (137-146); TOTAL PROTEIN 6.4 g/dL (6.3-8.2)
[2019-02-12 06:08] LABS: CARBON DIOXIDE 29 mmol/l (22-30)
[2019-02-12 07:59] VITALS: BP 151/76
[2019-02-12 11:01] VITALS: BP 184/79
[2019-02-12 15:10] VITALS: BP 112/53
[2019-02-12] MEDS ORDERED: LASIX 40 MG TAB40 MG PO (16:04)
== END 2019-02-12 17:40 | DRG 291 ==
LOC: ED 04:10 → ED-I 04:29 → ED 04:29 → ED-I 04:30 → ED 06:17 → MS2 06:18
PROVIDERS: Emergency Medicine; Nurse Practitioner Family; ADMIT Internal Medicine; ATTEND Internal Medicine
DX: I13.0 Hypertensive heart and chronic kidney disease with heart failure and stage 1 through stage 4 chronic kidney disease, or unspecified chronic kidney disease (principal); J96.21 Acute and chronic respiratory failure with hypoxia; I50.43 Acute on chronic combined systolic (congestive) and diastolic (congestive) heart failure; I16.0 Hypertensive urgency; E11.22 Type 2 diabetes mellitus with diabetic chronic kidney disease; N18.3 Chronic kidney disease, stage 3 (moderate); I25.10 Atherosclerotic heart disease of native coronary artery without angina pectoris; E78.5 Hyperlipidemia, unspecified; E11.40 Type 2 diabetes mellitus with diabetic neuropathy, unspecified; I48.2 Chronic atrial fibrillation; K21.9 Gastro-esophageal reflux disease without esophagitis; H54.8 Legal blindness, as defined in USA; H35.30 Unspecified macular degeneration; M19.90 Unspecified osteoarthritis, unspecified site; N20.0 Calculus of kidney; D72.829 Elevated white blood cell count, unspecified; F41.8 Other specified anxiety disorders; I25.2 Old myocardial infarction; Z86.711 Personal history of pulmonary embolism; Z79.4 Long term (current) use of insulin; Z95.5 Presence of coronary angioplasty implant and graft; Z79.01 Long term (current) use of anticoagulants; Z95.1 Presence of aortocoronary bypass graft; Z87.891 Personal history of nicotine dependence; Z87.442 Personal history of urinary calculi

== ENCOUNTER 2019-03-24 13:35 | Observation (INO) | payer MEDICARE, BC ==
[~2019-03-24] VITALS: Ht 160 cm; Wt 76.0 kg
[2019-03-24 00:18] VITALS: BP 136/53
[~2019-03-24 13:35] MED LIST changes: +LASIX 40 MG TAB40 MG PO
[2019-03-24 14:18] LABS: HEMATOCRIT 43.7 % (39.0-50.0); HEMOGLOBIN 14.1 g/dl (14.0-18.0); IMMATURE GRANULOCYTES 0.6 % (0.0-5.0); MEAN CELL VOLUME 86.9 fL CALC (80.0-100.0); MEAN CORPUSCULAR HGB CONC 32.3 g/L CALC (32.0-36.0); NEUT# 5.28 thou/uL (1.82-7.42); RED BLOOD COUNT 5.03 mill/uL (4.70-6.10); RED CELL DISTRI WIDTH 14.3 % (11.5-15.5)
[2019-03-24 14:41] LABS: ALKALINE PHOSPHATASE 68 u/l (38-126); ANION GAP 13 (6-22 (CALC)); BILIRUBIN, TOTAL 0.8 mg/dL (0.0-1.4); BUN 21 mg/dL (8-23); BUN/CREATININE RATIO 23 (12-20 (CALC)); CARBON DIOXIDE 26 mmol/l (22-30); CHLORIDE 106 mmol/l (95-108); CREATININE 0.9 mg/dL (0.7-1.3); GFR > 60 ML/MIN (>=60 (CALC)); GFR FOR AFR.AMER. > 60 ML/MIN (>=60 (CALC)); POTASSIUM 4.4 mmol/l (3.5-5.1); SGOT/AST 19 u/l (19-48); SODIUM 141 mmol/l (137-146); TOTAL PROTEIN 7.3 g/dL (6.3-8.2)
[2019-03-24 14:52] LABS: MYOGLOBIN 32 ng/mL (0 - 121)
[2019-03-24 17:48] VITALS: BP 171/73
[2019-03-24 19:40] VITALS: BP 154/72
[2019-03-24 19:45] LABS: INTERNATIONAL NORMALIZED RATIO 3.5 RATIO (0.7-1.3); PROTHROMBIN TIME 34.9 SECONDS (9.0-12.5)
[2019-03-24 23:54] VITALS: BP 136/53
[2019-03-25 03:34] VITALS: BP 128/70
[2019-03-25 05:14] LABS: HEMATOCRIT 44.1 % (39.0-50.0); IMMATURE GRANULOCYTES 0.5 % (0.0-5.0); MEAN CELL VOLUME 87.7 fL CALC (80.0-100.0); MEAN CORPUSCULAR HGB 27.8 pG CALC (26.0-32.0); MEAN CORPUSCULAR HGB CONC 31.7 g/L CALC (32.0-36.0); NEUT# 4.29 thou/uL (1.82-7.42); RED BLOOD COUNT 5.03 mill/uL (4.70-6.10); RED CELL DISTRI WIDTH 14.4 % (11.5-15.5)
[2019-03-25 05:27] LABS: INTERNATIONAL NORMALIZED RATIO 3.2 RATIO (0.7-1.3); PROTHROMBIN TIME 32.1 SECONDS (9.0-12.5)
[2019-03-25 05:38] LABS: ANION GAP 15 (6-22 (CALC)); BUN 20 mg/dL (8-23); BUN/CREATININE RATIO 20 (12-20 (CALC)); CHLORIDE 100 mmol/l (95-108); GFR > 60 ML/MIN (>=60 (CALC)); GFR FOR AFR.AMER. > 60 ML/MIN (>=60 (CALC)); MAGNESIUM 1.8 mg/dL (1.6-2.3); POTASSIUM 4.2 mmol/l (3.5-5.1); SODIUM 143 mmol/l (137-146)
[2019-03-25 05:40] LABS: CARBON DIOXIDE 32 mmol/l (22-30)
[2019-03-25 08:56] VITALS: BP 156/69
[2019-03-25 10:55] VITALS: BP 107/59
[2019-03-25 14:32] VITALS: BP 110/53
[2019-03-25 19:32] VITALS: BP 128/62
[2019-03-26 00:06] VITALS: BP 120/65
[2019-03-26 04:51] VITALS: BP 142/66
[2019-03-26 05:23] LABS: PROTHROMBIN TIME 23.1 SECONDS (9.0-12.5)
[2019-03-26 05:26] LABS: INTERNATIONAL NORMALIZED RATIO 2.3 RATIO (0.7-1.3)
[2019-03-26 07:40] VITALS: BP 159/75
[2019-03-26] MEDS ORDERED: LASIX 40 MG TAB40 MG PO (08:59)
[2019-03-26 11:20] VITALS: BP 103/51
== END 2019-03-26 12:56 ==
LOC: ED 13:35 → ED-I 16:16 → ED 16:28 → MS2 16:29
PROVIDERS: Emergency Medicine; ADMIT Internal Medicine; ATTEND Internal Medicine
PROC: 0T9B70Z Drainage of Bladder with Drainage Device, Via Natural or Artificial Opening (ICD-10-PCS; principal; 2019-03-24)
DX: I13.0 Hypertensive heart and chronic kidney disease with heart failure and stage 1 through stage 4 chronic kidney disease, or unspecified chronic kidney disease (principal); I50.33 Acute on chronic diastolic (congestive) heart failure; N18.2 Chronic kidney disease, stage 2 (mild); I16.0 Hypertensive urgency; E11.22 Type 2 diabetes mellitus with diabetic chronic kidney disease; I48.2 Chronic atrial fibrillation; I25.10 Atherosclerotic heart disease of native coronary artery without angina pectoris; E11.40 Type 2 diabetes mellitus with diabetic neuropathy, unspecified; E78.5 Hyperlipidemia, unspecified; K21.9 Gastro-esophageal reflux disease without esophagitis; M19.90 Unspecified osteoarthritis, unspecified site; I25.2 Old myocardial infarction; Z86.711 Personal history of pulmonary embolism; Z95.5 Presence of coronary angioplasty implant and graft; Z87.891 Personal history of nicotine dependence; Z99.81 Dependence on supplemental oxygen; Z95.1 Presence of aortocoronary bypass graft; Z79.4 Long term (current) use of insulin; Z79.01 Long term (current) use of anticoagulants

== ENCOUNTER 2019-06-12 19:54 | Emergency (ER) | payer MEDICARE, BC ==
[~2019-06-12] VITALS: Ht 167.6 cm; Wt 79.0 kg
[2019-06-12] MEDS ORDERED: WARFARIN5 MG PO (20:28)
[2019-06-12] MEDS ORDERED: HYDRALAZINE50 MG PO (20:29)
[2019-06-12] MEDS ORDERED: JANUVIA100 MG PO (20:30)
[2019-06-12] MEDS ORDERED: PRESERVISION PO (20:30)
[2019-06-12] MEDS ORDERED: MECLIZINE25 MG PO (20:31)
[2019-06-12] MEDS ORDERED: FLEXERIL5 MG PO (21:02)
[2019-06-12] MEDS ORDERED: MEDDOSEPAK PO (21:02)
[2019-06-12 21:10] VITALS: BP 181/82
== END 2019-06-12 21:10 | disposition home or self-care (01) ==
LOC: ED 19:54
DX: M54.5 Low back pain (principal); G89.29 Other chronic pain; I25.10 Atherosclerotic heart disease of native coronary artery without angina pectoris; E11.40 Type 2 diabetes mellitus with diabetic neuropathy, unspecified; I11.0 Hypertensive heart disease with heart failure; I50.9 Heart failure, unspecified; H54.7 Unspecified visual loss; I48.91 Unspecified atrial fibrillation; I25.2 Old myocardial infarction; Z95.5 Presence of coronary angioplasty implant and graft; Z86.711 Personal history of pulmonary embolism; Z79.4 Long term (current) use of insulin; Z95.1 Presence of aortocoronary bypass graft

== ENCOUNTER 2019-06-15 16:35 | Emergency (ER) | payer MEDICARE, BC ==
[~2019-06-15] VITALS: Ht 167.6 cm; Wt 79.0 kg
[~2019-06-15 16:35] MED LIST changes: +FLEXERIL5 MG PO; +HYDRALAZINE50 MG PO; +JANUVIA100 MG PO; +WARFARIN5 MG PO
[2019-06-15] MEDS ORDERED: MAG OXIDE400 MG PO (17:07)
[2019-06-15] MEDS ORDERED: ASPIRIN 8181 MG PO (17:10)
[2019-06-15] MEDS ORDERED: HYDROCODONE/ACE1 TAB PO (17:14)
[2019-06-15] MEDS ORDERED: FUROSEMIDE20 MG PO (17:14)
[2019-06-15] MEDS ORDERED: ATORVASTATIN CA10 MG PO (17:15)
[2019-06-15 18:05] VITALS: BP 155/89
== END 2019-06-15 18:05 | disposition home or self-care (01) ==
LOC: ED 16:35
DX: G89.29 Other chronic pain (principal); M54.5 Low back pain; E11.40 Type 2 diabetes mellitus with diabetic neuropathy, unspecified; I11.0 Hypertensive heart disease with heart failure; I50.9 Heart failure, unspecified; I25.2 Old myocardial infarction; I48.91 Unspecified atrial fibrillation; H54.7 Unspecified visual loss; Z79.4 Long term (current) use of insulin; Z95.1 Presence of aortocoronary bypass graft; Z95.5 Presence of coronary angioplasty implant and graft

== ENCOUNTER 2019-06-26 04:31 | Inpatient (IN) | payer MEDICARE, BC ==
[2019-06-26] VITALS (17 sets, daily range): BP systolic 87–179; BP diastolic 52–86
[~2019-06-26] VITALS: Ht 160 cm; Wt 79.0 kg
[~2019-06-26 04:31] MED LIST changes: +ASPIRIN 8181 MG PO; +FUROSEMIDE20 MG PO; +HYDROCODONE/ACE1 TAB PO; +MAG OXIDE400 MG PO
[2019-06-26 05:26] LABS: HEMATOCRIT 46.2 % (39.0-50.0); HEMOGLOBIN 14.9 g/dl (14.0-18.0); IMMATURE GRANULOCYTES 1.1 % (0.0-5.0); MEAN CELL VOLUME 87.8 fL CALC (80.0-100.0); MEAN CORPUSCULAR HGB 28.3 pG CALC (26.0-32.0); MEAN CORPUSCULAR HGB CONC 32.3 g/L CALC (32.0-36.0); NEUT# 6.53 thou/uL (1.82-7.42); RED BLOOD COUNT 5.26 mill/uL (4.70-6.10); RED CELL DISTRI WIDTH 15.6 % (11.5-15.5)
[2019-06-26 05:27] LABS: URINE BILIRUBIN - DIPSTICK NEGATIVE (NEGATIVE); URINE BLOOD DIPSTICK NEGATIVE (NEGATIVE); URINE COLOR YELLOW; URINE GLUCOSE - DIPSTICK 500 mg/dL (NEGATIVE); URINE KETONE NEGATIVE (NEGATIVE); URINE LEUK ESTERASE NEGATIVE (NEGATIVE); URINE NITRITE - DIPSTICK NEGATIVE (Negative); URINE PROTEIN - DIPSTICK 30 mg/dL (NEG-TRACE); URINE UROBILINOGEN - DIPSTICK 0.2 E.U./dL (0.2)
[2019-06-26 05:28] LABS: URINE MUCUS FEW hpf (NONE-FEW)
[2019-06-26 05:37] LABS: ALBUMIN 3.9 g/dL (3.2-5.0); ALKALINE PHOSPHATASE 55 u/l (38-126); ANION GAP 14 (6-22 (CALC)); BILIRUBIN, TOTAL 0.7 mg/dL (0.0-1.4); BUN 18 mg/dL (8-23); BUN/CREATININE RATIO 20 (12-20 (CALC)); CHLORIDE 105 mmol/l (95-108); CREATININE 0.9 mg/dL (0.7-1.3); GFR > 60 ML/MIN (>=60 (CALC)); GFR FOR AFR.AMER. > 60 ML/MIN (>=60 (CALC)); POTASSIUM 4.3 mmol/l (3.5-5.1); SGOT/AST 21 u/l (19-48); SODIUM 136 mmol/l (137-146); TOTAL PROTEIN 7.1 g/dL (6.3-8.2)
[2019-06-26 05:46] LABS: CARBON DIOXIDE 21 mmol/l (22-30)
[2019-06-26 05:49] LABS: MYOGLOBIN 25 ng/mL (0 - 121)
[2019-06-26 06:09] LABS: PROTHROMBIN TIME 16.5 SECONDS (9.0-12.5)
[2019-06-26 06:20] LABS: INTERNATIONAL NORMALIZED RATIO 1.6 RATIO (0.7-1.3)
[2019-06-27] VITALS (9 sets, daily range): BP systolic 108–186; BP diastolic 55–91
[2019-06-27 05:08] LABS: HEMATOCRIT 42.2 % (39.0-50.0); HEMOGLOBIN 13.5 g/dl (14.0-18.0); MEAN CELL VOLUME 88.1 fL CALC (80.0-100.0); MEAN CORPUSCULAR HGB 28.2 pG CALC (26.0-32.0); RED BLOOD COUNT 4.79 mill/uL (4.70-6.10); RED CELL DISTRI WIDTH 15.7 % (11.5-15.5)
[2019-06-27 05:31] LABS: CREATININE 1.5 mg/dL (0.7-1.3); POTASSIUM 4.4 mmol/l (3.5-5.1)
[2019-06-27] MEDS ORDERED: OMNICEF300 MG PO (09:03)
[2019-06-27 10:15] LABS: URINE BILIRUBIN - DIPSTICK NEGATIVE (NEGATIVE); URINE BLOOD DIPSTICK LARGE (NEGATIVE); URINE CLARITY CLOUDY; URINE COLOR YELLOW; URINE GLUCOSE - DIPSTICK NEGATIVE (NEGATIVE); URINE KETONE NEGATIVE (NEGATIVE); URINE LEUK ESTERASE MODERATE (Negative); URINE NITRITE - DIPSTICK NEGATIVE (Negative); URINE PH 5.5 (4.5-8.0); URINE PROTEIN - DIPSTICK TRACE mg/dL (NEG-TRACE); URINE UROBILINOGEN - DIPSTICK 0.2 E.U./dL (0.2)
[2019-06-27 10:18] LABS: URINE RBC 50-100 RBC/hpf (0-5)
[2019-06-27 10:19] LABS: URINE BACTERIA FEW hpf; URINE URIC ACID CRYSTALS FEW lpf; URINE WBC 20-50 WBC/hpf (0-5)
== END 2019-06-27 13:37 | DRG 292 ==
LOC: ED 04:31 → ED-I 05:43 → ED 06:03 → ICU 06:04
PROVIDERS: Emergency Medicine; Internal Medicine; ADMIT Internal Medicine; ATTEND Internal Medicine
PROC: 0T9B70Z Drainage of Bladder with Drainage Device, Via Natural or Artificial Opening (ICD-10-PCS; principal; 2019-06-26)
PROC: 3E0234Z Introduction of Serum, Toxoid and Vaccine into Muscle, Percutaneous Approach (ICD-10-PCS; 2019-06-27)
DX: I11.0 Hypertensive heart disease with heart failure (principal); N17.9 Acute kidney failure, unspecified; I50.33 Acute on chronic diastolic (congestive) heart failure; I16.0 Hypertensive urgency; I25.10 Atherosclerotic heart disease of native coronary artery without angina pectoris; E78.5 Hyperlipidemia, unspecified; E11.40 Type 2 diabetes mellitus with diabetic neuropathy, unspecified; I48.91 Unspecified atrial fibrillation; F41.9 Anxiety disorder, unspecified; K21.9 Gastro-esophageal reflux disease without esophagitis; N40.0 Benign prostatic hyperplasia without lower urinary tract symptoms; T50.1X5A Adverse effect of loop [high-ceiling] diuretics, initial encounter; G89.29 Other chronic pain; M54.9 Dorsalgia, unspecified; I25.2 Old myocardial infarction; Z23 Encounter for immunization; Z79.4 Long term (current) use of insulin; Z79.01 Long term (current) use of anticoagulants; Z95.1 Presence of aortocoronary bypass graft; Z87.891 Personal history of nicotine dependence; Z95.5 Presence of coronary angioplasty implant and graft; Z86.711 Personal history of pulmonary embolism

== ENCOUNTER 2019-07-13 | Emergency (ER) | payer MEDICARE, BC ==
[~2019-07-13] MED LIST changes: +OMNICEF300 MG PO
[2019-07-13 16:27] LABS: URINE BILIRUBIN - DIPSTICK NEGATIVE (NEGATIVE); URINE BLOOD DIPSTICK NEGATIVE (NEGATIVE); URINE COLOR YELLOW; URINE GLUCOSE - DIPSTICK NEGATIVE (NEGATIVE); URINE KETONE NEGATIVE (NEGATIVE); URINE LEUK ESTERASE NEGATIVE (NEGATIVE); URINE NITRITE - DIPSTICK NEGATIVE (Negative); URINE PROTEIN - DIPSTICK NEGATIVE (NEG-TRACE); URINE SPECIFIC GRAVITY 1.025; URINE UROBILINOGEN - DIPSTICK 0.2 E.U./dL (0.2)
[2019-07-13 16:27] LABS: HEMATOCRIT 45.5 % (39.0-50.0); HEMOGLOBIN 14.3 g/dl (14.0-18.0); IMMATURE GRANULOCYTES 0.8 % (0.0-5.0); MEAN CELL VOLUME 89.6 fL CALC (80.0-100.0); MEAN CORPUSCULAR HGB 28.1 pG CALC (26.0-32.0); MEAN CORPUSCULAR HGB CONC 31.4 g/L CALC (32.0-36.0); NEUT# 7.81 thou/uL (1.82-7.42); RED BLOOD COUNT 5.08 mill/uL (4.70-6.10); RED CELL DISTRI WIDTH 14.7 % (11.5-15.5)
[2019-07-13 16:53] LABS: ALKALINE PHOSPHATASE 53 u/l (38-126); ANION GAP 12 (6-22 (CALC)); BILIRUBIN, TOTAL 0.8 mg/dL (0.0-1.4); BUN 24 mg/dL (8-23); BUN/CREATININE RATIO 24 (12-20 (CALC)); CARBON DIOXIDE 27 mmol/l (22-30); CHLORIDE 103 mmol/l (95-108); GFR > 60 ML/MIN (>=60 (CALC)); GFR FOR AFR.AMER. > 60 ML/MIN (>=60 (CALC)); POTASSIUM 4.6 mmol/l (3.5-5.1); SGOT/AST 30 u/l (19-48); SODIUM 137 mmol/l (137-146); TOTAL PROTEIN 7.4 g/dL (6.3-8.2)
[2019-07-13] MEDS ORDERED: AUGMENTIN500TAB PO (17:55)
[2019-08-29] MEDS ORDERED: PRESERVISION AREDS PO (14:34)
[2020-01-27] MEDS ORDERED: MAGNESIUM 400 M1 TAB PO
[2020-01-27] MEDS ORDERED: MECLIZINE25 MG PO (00:01)
[2020-01-27] MEDS ORDERED: PRESERVISION ARED1 (00:02)
[2020-01-27] MEDS ORDERED: VITAMIN B-12500 MCG PO (00:03)
[2020-01-27] MEDS ORDERED: NITROSTAT0.4 MG SL (00:03)
== END 2019-07-13 18:30 | disposition home or self-care (01) ==
DX: J06.9 Acute upper respiratory infection, unspecified (principal); I11.0 Hypertensive heart disease with heart failure; I50.9 Heart failure, unspecified; E11.40 Type 2 diabetes mellitus with diabetic neuropathy, unspecified; I25.10 Atherosclerotic heart disease of native coronary artery without angina pectoris; I48.91 Unspecified atrial fibrillation; I25.2 Old myocardial infarction; Z86.711 Personal history of pulmonary embolism; Z95.5 Presence of coronary angioplasty implant and graft; Z79.4 Long term (current) use of insulin; Z95.1 Presence of aortocoronary bypass graft; R06.02 Shortness of breath

== ENCOUNTER 2019-07-16 | Emergency (ER) | payer MEDICARE, BC ==
[~2019-07-16] MED LIST changes: +AUGMENTIN500TAB PO
[2019-07-16 06:03] LABS: URINE BILIRUBIN - DIPSTICK NEGATIVE (NEGATIVE); URINE BLOOD DIPSTICK NEGATIVE (NEGATIVE); URINE COLOR YELLOW; URINE GLUCOSE - DIPSTICK NEGATIVE (NEGATIVE); URINE KETONE TRACE mg/dL (NEGATIVE); URINE LEUK ESTERASE NEGATIVE (NEGATIVE); URINE NITRITE - DIPSTICK NEGATIVE (Negative); URINE PH 5.5 (4.5-8.0); URINE PROTEIN - DIPSTICK TRACE mg/dL (NEG-TRACE); URINE SPECIFIC GRAVITY 1.025; URINE UROBILINOGEN - DIPSTICK 0.2 E.U./dL (0.2)
[2019-07-16 06:07] LABS: HEMATOCRIT 45.2 % (39.0-50.0); HEMOGLOBIN 14.5 g/dl (14.0-18.0); IMMATURE GRANULOCYTES 0.7 % (0.0-5.0); MEAN CELL VOLUME 87.9 fL CALC (80.0-100.0); MEAN CORPUSCULAR HGB 28.2 pG CALC (26.0-32.0); MEAN CORPUSCULAR HGB CONC 32.1 g/L CALC (32.0-36.0); NEUT# 5.65 thou/uL (1.82-7.42); RED BLOOD COUNT 5.14 mill/uL (4.70-6.10); RED CELL DISTRI WIDTH 14.6 % (11.5-15.5)
[2019-07-16 06:16] LABS: ALBUMIN 4.2 g/dL (3.2-5.0); ALKALINE PHOSPHATASE 53 u/l (38-126); ANION GAP 18 (6-22 (CALC)); BUN 25 mg/dL (8-23); BUN/CREATININE RATIO 26 (12-20 (CALC)); CARBON DIOXIDE 25 mmol/l (22-30); CHLORIDE 96 mmol/l (95-108); GFR > 60 ML/MIN (>=60 (CALC)); GFR FOR AFR.AMER. > 60 ML/MIN (>=60 (CALC)); POTASSIUM 4.7 mmol/l (3.5-5.1); SGOT/AST 24 u/l (19-48); SODIUM 134 mmol/l (137-146); TOTAL PROTEIN 7.4 g/dL (6.3-8.2)
[2019-07-16 06:18] LABS: BILIRUBIN, TOTAL 1.4 mg/dL (0.0-1.4)
[2019-07-16] MEDS ORDERED: ORPHENADRINE100 MG PO (07:18)
[2019-08-29] MEDS ORDERED: PRESERVISION AREDS PO (14:34)
[2020-01-27] MEDS ORDERED: MAGNESIUM 400 M1 TAB PO
[2020-01-27] MEDS ORDERED: MECLIZINE25 MG PO (00:01)
[2020-01-27] MEDS ORDERED: PRESERVISION ARED1 (00:02)
[2020-01-27] MEDS ORDERED: NITROSTAT0.4 MG SL (00:03)
[2020-01-27] MEDS ORDERED: VITAMIN B-12500 MCG PO (00:03)
== END 2019-07-16 07:58 | disposition home or self-care (01) ==
PROVIDERS: Emergency Medicine
DX: M54.5 Low back pain (principal); G89.29 Other chronic pain; E11.40 Type 2 diabetes mellitus with diabetic neuropathy, unspecified; I11.0 Hypertensive heart disease with heart failure; I50.9 Heart failure, unspecified; I25.10 Atherosclerotic heart disease of native coronary artery without angina pectoris; I25.2 Old myocardial infarction; I48.91 Unspecified atrial fibrillation; Z95.5 Presence of coronary angioplasty implant and graft; Z79.4 Long term (current) use of insulin; Z95.1 Presence of aortocoronary bypass graft

== ENCOUNTER 2019-07-17 03:57 | Inpatient (IN) | payer MEDICARE, BC ==
[~2019-07-17] VITALS: Ht 160 cm; Wt 77.8 kg
[~2019-07-17 03:57] MED LIST changes: +ORPHENADRINE100 MG PO
[2019-07-17 07:27] VITALS: BP 166/88
[2019-07-17 07:56] VITALS: BP 121/73
[2019-07-17 20:17] VITALS: BP 124/68
[2019-07-17 23:21] LABS: URINE BILIRUBIN - DIPSTICK NEGATIVE (NEGATIVE); URINE BLOOD DIPSTICK SMALL (NEGATIVE); URINE COLOR YELLOW; URINE GLUCOSE - DIPSTICK 100 mg/dL (NEGATIVE); URINE KETONE NEGATIVE (NEGATIVE); URINE LEUK ESTERASE NEGATIVE (NEGATIVE); URINE NITRITE - DIPSTICK NEGATIVE (Negative); URINE PROTEIN - DIPSTICK 30 mg/dL (NEG-TRACE); URINE SPECIFIC GRAVITY >=1.030; URINE UROBILINOGEN - DIPSTICK 0.2 E.U./dL (0.2)
[2019-07-17 23:24] LABS: URINE EPITHELIAL CELLS MODERATE EPI/hpf (0-FEW)
[2019-07-18 03:38] VITALS: BP 128/66
[2019-07-18 05:46] LABS: HEMATOCRIT 39.4 % (39.0-50.0); IMMATURE GRANULOCYTES 1.1 % (0.0-5.0); MEAN CELL VOLUME 89.5 fL CALC (80.0-100.0); MEAN CORPUSCULAR HGB 28.2 pG CALC (26.0-32.0); MEAN CORPUSCULAR HGB CONC 31.5 g/L CALC (32.0-36.0); NEUT# 6.6 thou/uL (1.82-7.42); RED BLOOD COUNT 4.4 mill/uL (4.70-6.10); RED CELL DISTRI WIDTH 14.4 % (11.5-15.5)
[2019-07-18 05:47] LABS: HEMOGLOBIN 12.4 g/dl (14.0-18.0)
[2019-07-18 06:08] LABS: ALBUMIN 3.4 g/dL (3.2-5.0); ALKALINE PHOSPHATASE 46 u/l (38-126); BUN 41 mg/dL (8-23); BUN/CREATININE RATIO 31 (12-20 (CALC)); CARBON DIOXIDE 27 mmol/l (22-30); CHLORIDE 98 mmol/l (95-108); CREATININE 1.3 mg/dL (0.7-1.3); GFR 52 ML/MIN (>=60 (CALC)); GFR FOR AFR.AMER. > 60 ML/MIN (>=60 (CALC)); SGOT/AST 27 u/l (19-48); SODIUM 135 mmol/l (137-146); TOTAL PROTEIN 6.3 g/dL (6.3-8.2)
[2019-07-18 06:20] LABS: ANION GAP 16 (6-22 (CALC)); BILIRUBIN, TOTAL 0.8 mg/dL (0.0-1.4); POTASSIUM 5.5 mmol/l (3.5-5.1)
[2019-07-18 08:00] VITALS: BP 118/54
[2019-07-18 12:33] LABS: INTERNATIONAL NORMALIZED RATIO 1.5 RATIO (0.7-1.3); PROTHROMBIN TIME 15.1 SECONDS (9.0-12.5)
[2019-07-18 15:55] VITALS: BP 146/74
[2019-07-18 18:42] VITALS: BP 142/67
[2019-07-19 04:06] VITALS: BP 125/63
[2019-07-19 05:24] LABS: HEMATOCRIT 35.1 % (39.0-50.0); HEMOGLOBIN 11.2 g/dl (14.0-18.0); IMMATURE GRANULOCYTES 0.6 % (0.0-5.0); MEAN CELL VOLUME 88.4 fL CALC (80.0-100.0); MEAN CORPUSCULAR HGB 28.2 pG CALC (26.0-32.0); MEAN CORPUSCULAR HGB CONC 31.9 g/L CALC (32.0-36.0); NEUT# 7.33 thou/uL (1.82-7.42); RED BLOOD COUNT 3.97 mill/uL (4.70-6.10)
[2019-07-19 05:32] LABS: INTERNATIONAL NORMALIZED RATIO 1.4 RATIO (0.7-1.3); PROTHROMBIN TIME 14.3 SECONDS (9.0-12.5)
[2019-07-19 05:37] LABS: ANION GAP 13 (6-22 (CALC)); BUN 38 mg/dL (8-23); BUN/CREATININE RATIO 31 (12-20 (CALC)); CARBON DIOXIDE 28 mmol/l (22-30); CHLORIDE 94 mmol/l (95-108); CREATININE 1.2 mg/dL (0.7-1.3); GFR 57 ML/MIN (>=60 (CALC)); GFR FOR AFR.AMER. > 60 ML/MIN (>=60 (CALC)); MAGNESIUM 1.7 mg/dL (1.6-2.3); SODIUM 131 mmol/l (137-146)
[2019-07-19 07:37] VITALS: BP 123/55
[2019-07-19 15:00] VITALS: BP 119/53
[2019-07-19 18:50] VITALS: BP 134/68
[2019-07-20 01:32] VITALS: BP 126/56
[2019-07-20 03:00] VITALS: BP 105/50
[2019-07-20 07:25] VITALS: BP 125/60
[2019-07-20 08:21] LABS: INTERNATIONAL NORMALIZED RATIO 1.6 RATIO (0.7-1.3); PROTHROMBIN TIME 16.3 SECONDS (9.0-12.5)
[2019-07-20 08:35] LABS: HEMATOCRIT 35.9 % (39.0-50.0); HEMOGLOBIN 11.3 g/dl (14.0-18.0); MEAN CELL VOLUME 89.8 fL CALC (80.0-100.0); MEAN CORPUSCULAR HGB 28.3 pG CALC (26.0-32.0); MEAN CORPUSCULAR HGB CONC 31.5 g/L CALC (32.0-36.0); RED CELL DISTRI WIDTH 13.9 % (11.5-15.5)
[2019-07-20 08:53] LABS: ANION GAP 15 (6-22 (CALC)); BUN 37 mg/dL (8-23); BUN/CREATININE RATIO 28 (12-20 (CALC)); CARBON DIOXIDE 28 mmol/l (22-30); CHLORIDE 93 mmol/l (95-108); CREATININE 1.3 mg/dL (0.7-1.3); GFR 52 ML/MIN (>=60 (CALC)); GFR FOR AFR.AMER. > 60 ML/MIN (>=60 (CALC)); POTASSIUM 4.6 mmol/l (3.5-5.1); SODIUM 131 mmol/l (137-146)
[2019-07-20 11:26] VITALS: BP 148/70
[2019-07-20 15:25] VITALS: BP 125/66
[2019-07-20 19:00] VITALS: BP 142/88
[2019-07-21] VITALS (7 sets, daily range): BP systolic 107–167; BP diastolic 56–81
[2019-07-21 05:18] LABS: INTERNATIONAL NORMALIZED RATIO 1.7 RATIO (0.7-1.3); PROTHROMBIN TIME 17.7 SECONDS (9.0-12.5)
[2019-07-22 04:00] VITALS: BP 93/58
[2019-07-22 05:28] LABS: HEMATOCRIT 39.2 % (39.0-50.0); HEMOGLOBIN 12.5 g/dl (14.0-18.0); MEAN CELL VOLUME 88.9 fL CALC (80.0-100.0); MEAN CORPUSCULAR HGB 28.3 pG CALC (26.0-32.0); MEAN CORPUSCULAR HGB CONC 31.9 g/L CALC (32.0-36.0); RED BLOOD COUNT 4.41 mill/uL (4.70-6.10); RED CELL DISTRI WIDTH 13.8 % (11.5-15.5)
[2019-07-22 05:42] LABS: ANION GAP 13 (6-22 (CALC)); BUN 30 mg/dL (8-23); BUN/CREATININE RATIO 23 (12-20 (CALC)); CARBON DIOXIDE 33 mmol/l (22-30); CHLORIDE 90 mmol/l (95-108); CREATININE 1.3 mg/dL (0.7-1.3); GFR 52 ML/MIN (>=60 (CALC)); GFR FOR AFR.AMER. > 60 ML/MIN (>=60 (CALC)); SODIUM 132 mmol/l (137-146)
[2019-07-22 07:03] LABS: URINE BILIRUBIN - DIPSTICK NEGATIVE (NEGATIVE); URINE BLOOD DIPSTICK LARGE (NEGATIVE); URINE COLOR YELLOW; URINE GLUCOSE - DIPSTICK NEGATIVE (NEGATIVE); URINE KETONE NEGATIVE (NEGATIVE); URINE LEUK ESTERASE TRACE (NEGATIVE); URINE NITRITE - DIPSTICK NEGATIVE (Negative); URINE PROTEIN - DIPSTICK 30 mg/dL (NEG-TRACE); URINE UROBILINOGEN - DIPSTICK 0.2 E.U./dL (0.2)
[2019-07-22 07:05] LABS: URINE EPITHELIAL CELLS MODERATE EPI/hpf (0-FEW); URINE RBC 25-50 RBC/hpf (0-5); URINE WBC 0-2 WBC/hpf (0-5)
[2019-07-22 07:38] VITALS: BP 106/56
[2019-07-22 11:15] VITALS: BP 105/58
[2019-07-22 16:00] VITALS: BP 120/58
[2019-07-22 19:53] VITALS: BP 97/61
[2019-07-23 00:11] VITALS: BP 119/55
[2019-07-23 05:20] VITALS: BP 110/50
[2019-07-23 09:57] VITALS: BP 106/55
[2019-07-23 11:00] VITALS: BP 115/60
[2019-07-23 15:30] VITALS: BP 114/71
[2019-07-23] MEDS ORDERED: DOXYCYCL HYC100 MG PO (16:00)
[2019-07-23] MEDS ORDERED: HYDROCODONE/ACE1 TAB PO (16:00)
[2019-07-23 17:06] LABS: INTERNATIONAL NORMALIZED RATIO 1.8 RATIO (0.7-1.3); PROTHROMBIN TIME 18.1 SECONDS (9.0-12.5)
[2019-08-29] MEDS ORDERED: PRESERVISION AREDS PO (14:34)
[2020-01-27] MEDS ORDERED: MAGNESIUM 400 M1 TAB PO
[2020-01-27] MEDS ORDERED: MECLIZINE25 MG PO (00:01)
[2020-01-27] MEDS ORDERED: PRESERVISION ARED1 (00:02)
[2020-01-27] MEDS ORDERED: VITAMIN B-12500 MCG PO (00:03)
[2020-01-27] MEDS ORDERED: NITROSTAT0.4 MG SL (00:03)
== END 2019-07-23 18:04 | DRG 947 ==
LOC: ED 03:57 → ED-I 05:46 → ED 06:12 → MS2 06:13
PROVIDERS: Nurse Practitioner Family; ADMIT Internal Medicine; ATTEND Internal Medicine
DX: G89.11 Acute pain due to trauma (principal); J18.9 Pneumonia, unspecified organism; I50.42 Chronic combined systolic (congestive) and diastolic (congestive) heart failure; I48.20 Chronic atrial fibrillation, unspecified; I13.0 Hypertensive heart and chronic kidney disease with heart failure and stage 1 through stage 4 chronic kidney disease, or unspecified chronic kidney disease; M54.5 Low back pain; N18.9 Chronic kidney disease, unspecified; E11.22 Type 2 diabetes mellitus with diabetic chronic kidney disease; E11.40 Type 2 diabetes mellitus with diabetic neuropathy, unspecified; K21.9 Gastro-esophageal reflux disease without esophagitis; M19.90 Unspecified osteoarthritis, unspecified site; H35.30 Unspecified macular degeneration; I25.10 Atherosclerotic heart disease of native coronary artery without angina pectoris; R33.9 Retention of urine, unspecified; E87.5 Hyperkalemia; G89.29 Other chronic pain; E78.5 Hyperlipidemia, unspecified; W01.190A Fall on same level from slipping, tripping and stumbling with subsequent striking against furniture, initial encounter; Z87.891 Personal history of nicotine dependence; Z79.4 Long term (current) use of insulin; Z86.711 Personal history of pulmonary embolism; Z95.5 Presence of coronary angioplasty implant and graft
CPT/HCPCS: G0378

== ENCOUNTER 2019-09-07 | Day surgery (SDC) | payer MEDICARE, BC ==
[2020-01-27] MEDS ORDERED: MAGNESIUM 400 M1 TAB PO
[2020-01-27] MEDS ORDERED: MECLIZINE25 MG PO (00:01)
[2020-01-27] MEDS ORDERED: PRESERVISION ARED1 (00:02)
[2020-01-27] MEDS ORDERED: VITAMIN B-12500 MCG PO (00:03)
[2020-01-27] MEDS ORDERED: NITROSTAT0.4 MG SL (00:03)
== END 2019-09-07 07:35 | disposition home or self-care (01) ==
DX: N40.1 Benign prostatic hyperplasia with lower urinary tract symptoms (principal); R33.8 Other retention of urine; I25.10 Atherosclerotic heart disease of native coronary artery without angina pectoris; I10 Essential (primary) hypertension; E11.40 Type 2 diabetes mellitus with diabetic neuropathy, unspecified; Z53.09 Procedure and treatment not carried out because of other contraindication; Z95.1 Presence of aortocoronary bypass graft; Z95.5 Presence of coronary angioplasty implant and graft; Z79.82 Long term (current) use of aspirin; Z87.442 Personal history of urinary calculi

== ENCOUNTER 2019-09-10 01:42 | Observation (INO) | payer MEDICARE, BC ==
[~2019-09-10] VITALS: Ht 167.6 cm; Wt 75.0 kg
[2019-09-10 02:30] LABS: HEMATOCRIT 43.9 % (39.0-50.0); IMMATURE GRANULOCYTES 1.3 % (0.0-5.0); MEAN CORPUSCULAR HGB 28.1 pG CALC (26.0-32.0); MEAN CORPUSCULAR HGB CONC 31.9 g/L CALC (32.0-36.0); NEUT# 5.86 thou/uL (1.82-7.42); RED BLOOD COUNT 4.99 mill/uL (4.70-6.10); RED CELL DISTRI WIDTH 14.6 % (11.5-15.5)
[2019-09-10 02:33] LABS: ALKALINE PHOSPHATASE 63 u/l (38-126); BUN 20 mg/dL (8-23); BUN/CREATININE RATIO 23 (12-20 (CALC)); CARBON DIOXIDE 26 mmol/l (22-30); CHLORIDE 103 mmol/l (95-108); CREATININE 0.9 mg/dL (0.7-1.3); GFR > 60 ML/MIN (>=60 (CALC)); GFR FOR AFR.AMER. > 60 ML/MIN (>=60 (CALC)); SGOT/AST 19 u/l (19-48); SODIUM 136 mmol/l (137-146)
[2019-09-10 02:35] LABS: ANION GAP 12 (6-22 (CALC)); BILIRUBIN, TOTAL 0.9 mg/dL (0.0-1.4); POTASSIUM 5.2 mmol/l (3.5-5.1)
[2019-09-10 02:47] LABS: MYOGLOBIN 35 ng/mL (0 - 121)
[2019-09-10 04:48] LABS: URINE BILIRUBIN - DIPSTICK NEGATIVE (NEGATIVE); URINE BLOOD DIPSTICK NEGATIVE (NEGATIVE); URINE COLOR YELLOW; URINE GLUCOSE - DIPSTICK NEGATIVE (NEGATIVE); URINE KETONE NEGATIVE (NEGATIVE); URINE LEUK ESTERASE NEGATIVE (NEGATIVE); URINE NITRITE - DIPSTICK NEGATIVE (Negative); URINE PROTEIN - DIPSTICK NEGATIVE (NEG-TRACE); URINE SPECIFIC GRAVITY 1.015; URINE UROBILINOGEN - DIPSTICK 0.2 E.U./dL (0.2)
[2019-09-10 06:15] VITALS: BP 117/63
[2019-09-10 08:00] VITALS: BP 146/69
[2019-09-10 12:00] VITALS: BP 140/65
[2019-09-10 15:52] LABS: INTERNATIONAL NORMALIZED RATIO 1.1 RATIO (0.7-1.3); PROTHROMBIN TIME 11.4 SECONDS (9.0-12.5)
[2019-09-10 16:00] VITALS: BP 136/76
[2019-09-10 19:10] VITALS: BP 122/68
[2019-09-10 23:00] VITALS: BP 97/69
[2019-09-11 03:00] VITALS: BP 104/62
[2019-09-11 05:38] LABS: INTERNATIONAL NORMALIZED RATIO 1.1 RATIO (0.7-1.3); PROTHROMBIN TIME 11.2 SECONDS (9.0-12.5)
[2019-09-11 05:46] LABS: CREATININE 1.4 mg/dL (0.7-1.3); POTASSIUM 5.1 mmol/l (3.5-5.1)
[2019-09-11 08:00] VITALS: BP 147/71
[2019-09-11 12:00] VITALS: BP 110/62
[2020-01-27] MEDS ORDERED: MAGNESIUM 400 M1 TAB PO
[2020-01-27] MEDS ORDERED: MECLIZINE25 MG PO (00:01)
[2020-01-27] MEDS ORDERED: PRESERVISION ARED1 (00:02)
[2020-01-27] MEDS ORDERED: VITAMIN B-12500 MCG PO (00:03)
[2020-01-27] MEDS ORDERED: NITROSTAT0.4 MG SL (00:03)
== END 2019-09-11 13:22 ==
LOC: ED 01:42 → ED-I 02:55 → ED 03:10 → ICU 03:11
PROVIDERS: Emergency Medicine; Internal Medicine; ADMIT Internal Medicine; ATTEND Internal Medicine
DX: I11.0 Hypertensive heart disease with heart failure (principal); I50.33 Acute on chronic diastolic (congestive) heart failure; I16.0 Hypertensive urgency; I25.10 Atherosclerotic heart disease of native coronary artery without angina pectoris; I48.91 Unspecified atrial fibrillation; E11.40 Type 2 diabetes mellitus with diabetic neuropathy, unspecified; N40.0 Benign prostatic hyperplasia without lower urinary tract symptoms; E78.5 Hyperlipidemia, unspecified; M54.9 Dorsalgia, unspecified; G89.29 Other chronic pain; I25.2 Old myocardial infarction; Z95.5 Presence of coronary angioplasty implant and graft; Z95.1 Presence of aortocoronary bypass graft; Z79.4 Long term (current) use of insulin; Z79.01 Long term (current) use of anticoagulants; Z86.711 Personal history of pulmonary embolism

== ENCOUNTER 2019-10-24 | Emergency (ER) | payer MEDICARE, BC ==
[2019-10-24 16:40] LABS: HEMATOCRIT 41.4 % (39.0-50.0); HEMOGLOBIN 12.9 g/dl (14.0-18.0); MEAN CELL VOLUME 86.3 fL CALC (80.0-100.0); MEAN CORPUSCULAR HGB 26.9 pG CALC (26.0-32.0); MEAN CORPUSCULAR HGB CONC 31.2 g/dL CAL (32.0-36.0); NEUT# 4.61 thou/uL (1.82-7.42); RED BLOOD COUNT 4.8 mill/uL (4.70-6.10); RED CELL DISTRI WIDTH 14.5 % (11.5-15.5)
[2019-10-24 17:02] LABS: ALBUMIN 3.5 g/dL (3.2-5.0); ALKALINE PHOSPHATASE 39 u/l (38-126); ANION GAP 12 (6-22 (CALC)); BILIRUBIN, TOTAL 0.7 mg/dL (0.0-1.4); BUN 22 mg/dL (8-23); BUN/CREATININE RATIO 23 (12-20 (CALC)); CARBON DIOXIDE 24 mmol/l (22-30); CHLORIDE 103 mmol/l (95-108); CREATININE 0.9 mg/dL (0.7-1.3); GFR > 60 ML/MIN (>=60 (CALC)); GFR FOR AFR.AMER. > 60 ML/MIN (>=60 (CALC)); LIPASE 38 u/l (23-300); SGOT/AST 28 u/l (19-48); SODIUM 133 mmol/l (137-146); TOTAL PROTEIN 6.4 g/dL (6.3-8.2)
[2019-10-24 17:38] LABS: URINE BILIRUBIN - DIPSTICK NEGATIVE (NEGATIVE); URINE BLOOD DIPSTICK NEGATIVE (NEGATIVE); URINE COLOR YELLOW; URINE GLUCOSE - DIPSTICK NEGATIVE (NEGATIVE); URINE KETONE NEGATIVE (NEGATIVE); URINE LEUK ESTERASE NEGATIVE (NEGATIVE); URINE NITRITE - DIPSTICK NEGATIVE (Negative); URINE PH 5.5 (4.5-8.0); URINE PROTEIN - DIPSTICK TRACE mg/dL (NEG-TRACE); URINE SPECIFIC GRAVITY >=1.030; URINE UROBILINOGEN - DIPSTICK 0.2 E.U./dL (0.2)
[2019-10-24] MEDS ORDERED: VOLTAREN1%GEL TOP (17:54)
[2019-10-24] MEDS ORDERED: CYCLOBENZAPR5 MG PO (17:54)
[2019-10-25] MEDS ORDERED: ASPIRIN ADULT L81 M2 PO (21:46)
[2019-10-25] MEDS ORDERED: ENTRESTO 49-511 TAB PO (21:46)
[2019-10-25] MEDS ORDERED: COUMADIN2.5 MG PO (21:46)
[2019-10-25] MEDS ORDERED: HYDRALAZINE HCL50 MG PO (21:47)
[2019-10-25] MEDS ORDERED: TAMSULOSIN0.4 MG PO (21:47)
[2019-10-25] MEDS ORDERED: ISOSORBIDE MONO60 MG PO (21:48)
[2019-10-25] MEDS ORDERED: LASIX 20 MG TAB20 MG PO (21:48)
[2019-10-25] MEDS ORDERED: LORTAB 1010 MG PO (21:48)
[2019-10-25] MEDS ORDERED: JANUVIA100 MG PO (21:48)
[2019-10-25] MEDS ORDERED: SOTALOL HCL80 M1 PO (21:49)
[2019-10-25] MEDS ORDERED: LIPITOR10 M1 PO (21:49)
[2019-10-25] MEDS ORDERED: METFORMIN500 M2 PO (21:49)
[2019-10-25] MEDS ORDERED: TOUJEO SOL300 UNIT/M SC (21:50)
[2019-10-25] MEDS ORDERED: XANAX0.5 MG PO (21:50)
[2020-01-27] MEDS ORDERED: MAGNESIUM 400 M1 TAB PO
[2020-01-27] MEDS ORDERED: MECLIZINE25 MG PO (00:01)
[2020-01-27] MEDS ORDERED: PRESERVISION ARED1 (00:02)
[2020-01-27] MEDS ORDERED: VITAMIN B-12500 MCG PO (00:03)
[2020-01-27] MEDS ORDERED: NITROSTAT0.4 MG SL (00:03)
== END 2019-10-24 18:26 | disposition home or self-care (01) ==
PROVIDERS: Family Medicine
DX: M54.9 Dorsalgia, unspecified (principal); K76.9 Liver disease, unspecified; E11.40 Type 2 diabetes mellitus with diabetic neuropathy, unspecified; I10 Essential (primary) hypertension; I48.91 Unspecified atrial fibrillation; I25.2 Old myocardial infarction; Z95.1 Presence of aortocoronary bypass graft; Z95.5 Presence of coronary angioplasty implant and graft; Z86.711 Personal history of pulmonary embolism; Z87.442 Personal history of urinary calculi; Z79.4 Long term (current) use of insulin

== ENCOUNTER 2019-10-25 13:26 | Inpatient (IN) | payer MEDICARE, BC ==
[~2019-10-25] VITALS: Ht 167.6 cm; Wt 79.6 kg
[~2019-10-25 13:26] MED LIST changes: +CYCLOBENZAPR5 MG PO; +VOLTAREN1%GEL TOP
--- NOTE | 2019-10-25 13:26 | NUR ---
PT TO ROOM VIA EMS STRETCHER ON O2@2LPM VIA NC , NO DISTRESS
[2019-10-25 14:03] LABS: HEMATOCRIT 40.4 % (39.0-50.0); IMMATURE GRANULOCYTES 0.8 % (0.0-5.0); MEAN CELL VOLUME 84.5 fL CALC (80.0-100.0); MEAN CORPUSCULAR HGB 27.2 pG CALC (26.0-32.0); MEAN CORPUSCULAR HGB CONC 32.2 g/dL CAL (32.0-36.0); NEUT# 4.97 thou/uL (1.82-7.42); RED BLOOD COUNT 4.78 mill/uL (4.70-6.10); RED CELL DISTRI WIDTH 14.6 % (11.5-15.5)
[2019-10-25 14:22] LABS: ALBUMIN 3.3 g/dL (3.2-5.0); ALKALINE PHOSPHATASE 42 u/l (38-126); ANION GAP 11 (6-22 (CALC)); BILIRUBIN, TOTAL 0.8 mg/dL (0.0-1.4); BUN 19 mg/dL (8-23); BUN/CREATININE RATIO 21 (12-20 (CALC)); CARBON DIOXIDE 22 mmol/l (22-30); CHLORIDE 103 mmol/l (95-108); CREATININE 0.9 mg/dL (0.7-1.3); GFR > 60 ML/MIN (>=60 (CALC)); GFR FOR AFR.AMER. > 60 ML/MIN (>=60 (CALC)); INTERNATIONAL NORMALIZED RATIO 1.9 RATIO (0.7-1.3); POTASSIUM 4.7 mmol/l (3.5-5.1); PROTHROMBIN TIME 19.7 SECONDS (9.0-12.5); SGOT/AST 25 u/l (19-48); SODIUM 132 mmol/l (137-146); TOTAL PROTEIN 6.3 g/dL (6.3-8.2)
--- NOTE | 2019-10-25 14:26 | NUR ---
PT IN NO DISTRESS. VSS. NO RESP DISTRESS.
--- NOTE | 2019-10-25 15:50 | NUR ---
IV LASIX ORDERED. PT GAVE 50 CC CLEAR YELLOW URINE. PT UPDATED ON POC AND ADMIT. PT AGREEABLE
[2019-10-25 16:21] LABS: URINE BILIRUBIN - DIPSTICK NEGATIVE (NEGATIVE); URINE BLOOD DIPSTICK NEGATIVE (NEGATIVE); URINE COLOR YELLOW; URINE GLUCOSE - DIPSTICK 250 mg/dL (NEGATIVE); URINE KETONE TRACE mg/dL (NEGATIVE); URINE LEUK ESTERASE NEGATIVE (NEGATIVE); URINE NITRITE - DIPSTICK NEGATIVE (Negative); URINE PH 5.5 (4.5-8.0); URINE PROTEIN - DIPSTICK TRACE mg/dL (NEG-TRACE); URINE SPECIFIC GRAVITY >=1.030; URINE UROBILINOGEN - DIPSTICK 0.2 E.U./dL (0.2)
--- NOTE | 2019-10-25 16:45 | NUR ---
PATIENT RESTING AWAITING LABD RESULTS. PATIENT STATES SOB SLIGHTLY IMPROVED.
--- NOTE | 2019-10-25 17:30 | NUR ---
REPOTY GIVEN TO CAITLIN IN MED SURG
--- NOTE | 2019-10-25 17:32 | NUR ---
PATIENT UNABLE TO VERIFY MEDICATION LIST OR FREQUENCY PHARMACY CONSULT PLACED
--- NOTE | 2019-10-25 18:16 | NUR ---
PATIENT TO MED SURG
--- NOTE | 2019-10-25 18:16 | NUR ---
PT ARRIVED TO MS2 VIA WHEELCHAIR ACCOMPANIED BY ER NURSE. PT ALERT AND ORIENTED X3, ORIENTED PT TO ROOM AND CALL LIGHT, DISCUSSED POC, PT VERBALIZED UNDERSTANDING. DINNER PROVIDED. CALL LIGHT IN REACH,CONTINUE TO MONITOR.
--- NOTE | 2019-10-25 19:02 | NUR ---
REPORT RECEIVED FROM ASHOK MA. PT RESTING IN BED. NO S/S OF DISTRESS AT THIS TIME. SAFETY PRECAUTIONS IN PLACE. WILL CONTINUE TO MONITOR.
--- NOTE | 2019-10-25 19:17 | NUR ---
PT RESTING IN BED, TROPONIN OBTAINED. MEDICATED WITH NOVOLOG PER SLIDING SCALE. ADMISSION ASSESSMENT COMPLETED, CALL LIGHT IN REACH,CONTINUE TO MONITOR.
[2019-10-25 21:00] VITALS: BP 158/74
[2019-10-25] MEDS ORDERED: ENTRESTO 49-511 TAB PO (21:46)
[2019-10-25] MEDS ORDERED: ASPIRIN ADULT L81 M2 PO (21:46)
[2019-10-25] MEDS ORDERED: COUMADIN2.5 MG PO (21:46)
[2019-10-25] MEDS ORDERED: HYDRALAZINE HCL50 MG PO (21:47)
[2019-10-25] MEDS ORDERED: TAMSULOSIN0.4 MG PO (21:47)
[2019-10-25] MEDS ORDERED: JANUVIA100 MG PO (21:48)
[2019-10-25] MEDS ORDERED: ISOSORBIDE MONO60 MG PO (21:48)
[2019-10-25] MEDS ORDERED: LORTAB 1010 MG PO (21:48)
[2019-10-25] MEDS ORDERED: LASIX 20 MG TAB20 MG PO (21:48)
[2019-10-25] MEDS ORDERED: METFORMIN500 M2 PO (21:49)
[2019-10-25] MEDS ORDERED: LIPITOR10 M1 PO (21:49)
[2019-10-25] MEDS ORDERED: SOTALOL HCL80 M1 PO (21:49)
[2019-10-25] MEDS ORDERED: XANAX0.5 MG PO (21:50)
[2019-10-25] MEDS ORDERED: TOUJEO SOL300 UNIT/M SC (21:50)
[2019-10-25 23:05] VITALS: BP 172/89
--- NOTE | 2019-10-26 00:15 | NUR ---
PT RESTING IN BED. NO S/S OF DISTRESS AT THIS TIME. SAFETY PRECAUTIONS IN PLACE. WILL CONTINUE TO MONITOR.
[2019-10-26 01:24] VITALS: BP 132/79
--- NOTE | 2019-10-26 03:52 | NUR ---
PT RESTING IN BED, NO S/S OF DISTRESS AT THIS TIME. SAFETY PRECAUTIONS IN PLACE. WILL CONTINUE TO MONITOR.
[2019-10-26 05:40] VITALS: BP 131/68
[2019-10-26 06:29] LABS: INTERNATIONAL NORMALIZED RATIO 1.7 RATIO (0.7-1.3); PROTHROMBIN TIME 17.2 SECONDS (9.0-12.5)
[2019-10-26 06:35] LABS: ANION GAP 13 (6-22 (CALC)); BUN 25 mg/dL (8-23); BUN/CREATININE RATIO 23 (12-20 (CALC)); CARBON DIOXIDE 26 mmol/l (22-30); CHLORIDE 98 mmol/l (95-108); CREATININE 1.1 mg/dL (0.7-1.3); GFR > 60 ML/MIN (>=60 (CALC)); GFR FOR AFR.AMER. > 60 ML/MIN (>=60 (CALC)); POTASSIUM 4.7 mmol/l (3.5-5.1); SODIUM 133 mmol/l (137-146)
--- NOTE | 2019-10-26 07:20 | NUR ---
REPORT RECEIVED FROM CIERRA MONCADA. PT RESTING IN BED SEMI FOWLERS; DROWSY, BUT ORIENTED X 3. STATES HE IS HAVING A HARD TIME WAKING UP. DENIES PAIN. RESPIRATIONS EVEN AND UNLABORED ON OXYGEN 3L VIA NC. ON AIRBORNE/CONTACT PRECAUTIONS PENDING COVID TEST RESULTS. 1 UNIT OF INSULIN GIVEN FOR ACCU CHECK OF 171. PLAN OF CARE REVIEWED. PT ENCOURAGED TO VERBALIZE CONCERNS. STATES UNDERSTANDING. SAFETY MEASURES IN PLACE. CALL LIGHT WITHIN REACH.
[2019-10-26 08:00] VITALS: BP 155/80
--- NOTE | 2019-10-26 08:55 | NUR ---
DR. LAGOS AT BEDSIDE.
[2019-10-26] MEDS ORDERED: CYCLOBENZAPR5 MG PO (09:30)
[2019-10-26 10:55] VITALS: BP 97/50
--- NOTE | 2019-10-26 12:49 | NUR ---
PT SITTING UP IN BEDSIDE CHAIR FOR LUNCH. REMAINS DROWSY, BUT EASILY AROUSABLE. STATES, "I DIDN'T GET MUCH SLEEP LAST NIGHT WITH THAT FAN BLOWING." REFERRING TO HEPA FILTER FOR NEGATIVE PRESSURE ROOM. VOIDING CLEAR YELLOW IN SMALL AMOUNTS.
--- NOTE | 2019-10-26 14:25 | NUR ---
PT BLADDER SCANNED DUE TO ABDOMINAL DISTENTION AND HX OF URINARY RETENTION. 174 ML PVR.
[2019-10-26 16:11] VITALS: BP 122/60
--- NOTE | 2019-10-26 16:12 | NUR ---
EMS SITE D/C'D; NEW IV PLACED TO RAC; APPEARS HEALTHY AND FLUSHES WELL. PT RESTING ON RIGHT SIDE; NO REQUESTS OR CONCERNS AT THIS TIME.
--- NOTE | 2019-10-26 19:15 | NUR ---
REPORT GIVEN BY RODOLFO NORTON. PATIENT RESTING IN BED WATCHING TV. RESP EVEN AND UNLABORED. NO S/S OF DISTRESS NOTED. PENDING COVID RESULTS. PLAN OF CARE DISCUSSED. FALL PRECAUTIONS IN PLACE. PATIENT INFORMED TO CALL WITH ANY QUESTIONS OR CONCERNS. TELE SR W/PVC'S.WILL CONTIUNE TO [facility].
[2019-10-26 19:30] VITALS: BP 153/73
--- NOTE | 2019-10-26 23:46 | NUR ---
PATIENT RESTING IN BED WITH EYES CLOSED. RESP EVEN AND UNLABORED. NO S/S OF DISTRESS NOTED.
[2019-10-27 00:09] VITALS: BP 116/63
[2019-10-27 03:45] VITALS: BP 128/66
--- NOTE | 2019-10-27 04:16 | NUR ---
PATIENT RESTING WITH EYES CLOSED. RESP EVEN AND UNLABORED. NO S.S OF DISTRESS NOTED.
[2019-10-27 06:26] LABS: INTERNATIONAL NORMALIZED RATIO 1.4 RATIO (0.7-1.3); PROTHROMBIN TIME 14.2 SECONDS (9.0-12.5)
--- NOTE | 2019-10-27 07:20 | NUR ---
change of shift report received from CIERRA hernandez
[2019-10-27 08:00] VITALS: BP 137/60
[2019-10-27 10:49] VITALS: BP 129/68
--- NOTE | 2019-10-27 12:00 | NUR ---
PT SITTING UP IN RECLINER. PT JUST HAD LUNCH AND DENIES ANY CONCERNS. PT STATES HE IS READY TO GO HOME. PT DENIES PAIN OR DISCOMFORT.
--- NOTE | 2019-10-27 14:18 | NUR ---
Discharge instructions given. Patient verbalizes understanding of same. Discharged in stable condition via Wheelchair to Home with friend. All belongings sent with pt.
[2020-01-27] MEDS ORDERED: MAGNESIUM 400 M1 TAB PO
[2020-01-27] MEDS ORDERED: MECLIZINE25 MG PO (00:01)
[2020-01-27] MEDS ORDERED: PRESERVISION ARED1 (00:02)
[2020-01-27] MEDS ORDERED: VITAMIN B-12500 MCG PO (00:03)
[2020-01-27] MEDS ORDERED: NITROSTAT0.4 MG SL (00:03)
== END 2019-10-27 14:09 | disposition home health service (06) | DRG 293 ==
LOC: ED 13:26 → ED-I 15:27 → ED 16:06 → ED-I 16:07 → MS2 16:07
PROVIDERS: ADMIT Internal Medicine; ATTEND Internal Medicine
DX: I11.0 Hypertensive heart disease with heart failure (principal); I50.43 Acute on chronic combined systolic (congestive) and diastolic (congestive) heart failure; E11.40 Type 2 diabetes mellitus with diabetic neuropathy, unspecified; I25.10 Atherosclerotic heart disease of native coronary artery without angina pectoris; I48.91 Unspecified atrial fibrillation; E78.5 Hyperlipidemia, unspecified; K21.9 Gastro-esophageal reflux disease without esophagitis; I25.2 Old myocardial infarction; Z86.711 Personal history of pulmonary embolism; Z79.4 Long term (current) use of insulin; Z95.1 Presence of aortocoronary bypass graft; Z87.891 Personal history of nicotine dependence; Z79.01 Long term (current) use of anticoagulants; Z95.5 Presence of coronary angioplasty implant and graft; Z20.828 Contact with and (suspected) exposure to other viral communicable diseases; R10.9 Unspecified abdominal pain; R14.0 Abdominal distension (gaseous); M54.9 Dorsalgia, unspecified; K76.9 Liver disease, unspecified; I10 Essential (primary) hypertension; Z87.442 Personal history of urinary calculi

== ENCOUNTER 2020-01-26 21:06 | Emergency (ER) | payer MEDICARE, BC ==
[~2020-01-26] VITALS: Ht 167.6 cm; Wt 79.0 kg
[~2020-01-26 21:06] MED LIST changes: +HYDRALAZINE HCL50 MG PO; +ISOSORBIDE MONO60 MG PO; +METFORMIN500 M2 PO; +SOTALOL HCL80 M1 PO
[2020-01-26 22:07] VITALS: BP 166/76
[2020-01-27] MEDS ORDERED: MAGNESIUM 400 M1 TAB PO
[2020-01-27] MEDS ORDERED: MECLIZINE25 MG PO (00:01)
[2020-01-27] MEDS ORDERED: PRESERVISION ARED1 (00:02)
[2020-01-27] MEDS ORDERED: NITROSTAT0.4 MG SL (00:03)
[2020-01-27] MEDS ORDERED: VITAMIN B-12500 MCG PO (00:03)
== END 2020-01-26 22:07 | disposition home or self-care (01) ==
LOC: ED 21:06
DX: G89.29 Other chronic pain (principal); M54.5 Low back pain; I11.0 Hypertensive heart disease with heart failure; I50.9 Heart failure, unspecified; E11.40 Type 2 diabetes mellitus with diabetic neuropathy, unspecified; I25.10 Atherosclerotic heart disease of native coronary artery without angina pectoris; I48.91 Unspecified atrial fibrillation; I25.2 Old myocardial infarction; Z95.5 Presence of coronary angioplasty implant and graft; Z79.4 Long term (current) use of insulin; Z86.711 Personal history of pulmonary embolism; Z79.01 Long term (current) use of anticoagulants; Z95.1 Presence of aortocoronary bypass graft

== ENCOUNTER 2020-03-02 18:25 | Observation (INO) | payer MEDICARE, BC ==
[~2020-03-02] VITALS: Ht 167.6 cm; Wt 80.0 kg
[~2020-03-02 18:25] MED LIST changes: +MAGNESIUM 400 M1 TAB PO; +PRESERVISION ARED1
[2020-03-02 18:36] LABS: HEMATOCRIT 44.5 % (39.0-50.0); HEMOGLOBIN 13.5 g/dl (14.0-18.0); MEAN CELL VOLUME 88.6 fL CALC (80.0-100.0); MEAN CORPUSCULAR HGB 26.9 pG CALC (26.0-32.0); MEAN CORPUSCULAR HGB CONC 30.3 g/dL CAL (32.0-36.0); NEUT# 6.51 thou/uL (1.82-7.42); RED BLOOD COUNT 5.02 mill/uL (4.70-6.10)
[2020-03-02 19:01] LABS: ALBUMIN 3.8 g/dL (3.2-5.0); ALKALINE PHOSPHATASE 56 u/l (38-126); ANION GAP 11 (6-22 (CALC)); BILIRUBIN, TOTAL 0.8 mg/dL (0.0-1.4); BUN 22 mg/dL (8-23); BUN/CREATININE RATIO 25 (12-20 (CALC)); CARBON DIOXIDE 28 mmol/l (22-30); CHLORIDE 101 mmol/l (95-108); CREATININE 0.9 mg/dL (0.7-1.3); GFR > 60 ML/MIN (>=60 (CALC)); GFR FOR AFR.AMER. > 60 ML/MIN (>=60 (CALC)); POTASSIUM 4.6 mmol/l (3.5-5.1); SGOT/AST 24 u/l (19-48); SODIUM 135 mmol/l (137-146); TOTAL PROTEIN 6.8 g/dL (6.3-8.2)
[2020-03-02 19:12] LABS: MYOGLOBIN 38 ng/mL (0 - 121)
[2020-03-02 19:19] LABS: URINE BILIRUBIN - DIPSTICK NEGATIVE (NEGATIVE); URINE BLOOD DIPSTICK TRACE-LYSED (NEGATIVE); URINE COLOR YELLOW; URINE GLUCOSE - DIPSTICK NEGATIVE (NEGATIVE); URINE KETONE NEGATIVE (NEGATIVE); URINE LEUK ESTERASE NEGATIVE (NEGATIVE); URINE NITRITE - DIPSTICK NEGATIVE (Negative); URINE PH 5.5 (4.5-8.0); URINE PROTEIN - DIPSTICK 30 mg/dL (NEG-TRACE); URINE SPECIFIC GRAVITY 1.025; URINE UROBILINOGEN - DIPSTICK 0.2 E.U./dL (0.2)
[2020-03-02 19:30] LABS: URINE SQUAMOUS EPITHELIAL CELL FEW EPI/hpf (0-FEW)
[2020-03-02 20:25] VITALS: BP 138/71
[2020-03-02 23:20] VITALS: BP 107/57
[2020-03-03] VITALS (7 sets, daily range): BP systolic 113–150; BP diastolic 64–80
[2020-03-03 04:49] LABS: HEMATOCRIT 43.6 % (39.0-50.0); HEMOGLOBIN 13.1 g/dl (14.0-18.0); IMMATURE GRANULOCYTES 1.1 % (0.0-5.0); MEAN CELL VOLUME 87.9 fL CALC (80.0-100.0); MEAN CORPUSCULAR HGB 26.4 pG CALC (26.0-32.0); NEUT# 5.4 thou/uL (1.82-7.42); RED BLOOD COUNT 4.96 mill/uL (4.70-6.10); RED CELL DISTRI WIDTH 15.1 % (11.5-15.5)
[2020-03-03 05:08] LABS: ANION GAP 9 (6-22 (CALC)); BUN 23 mg/dL (8-23); BUN/CREATININE RATIO 26 (12-20 (CALC)); CARBON DIOXIDE 31 mmol/l (22-30); CHLORIDE 98 mmol/l (95-108); CREATININE 0.9 mg/dL (0.7-1.3); GFR > 60 ML/MIN (>=60 (CALC)); GFR FOR AFR.AMER. > 60 ML/MIN (>=60 (CALC)); MAGNESIUM 2.1 mg/dL (1.6-2.3); POTASSIUM 4.3 mmol/l (3.5-5.1); SODIUM 134 mmol/l (137-146)
[2020-03-03 07:59] LABS: INTERNATIONAL NORMALIZED RATIO 4.1 RATIO (0.7-1.3); PROTHROMBIN TIME 38.1 SECONDS (9.0-12.5)
[2020-03-04 04:00] VITALS: BP 147/81
[2020-03-04 06:25] LABS: HEMATOCRIT 43.8 % (39.0-50.0); HEMOGLOBIN 13.3 g/dl (14.0-18.0); MEAN CELL VOLUME 87.3 fL CALC (80.0-100.0); MEAN CORPUSCULAR HGB 26.5 pG CALC (26.0-32.0); MEAN CORPUSCULAR HGB CONC 30.4 g/dL CAL (32.0-36.0); RED BLOOD COUNT 5.02 mill/uL (4.70-6.10); RED CELL DISTRI WIDTH 15.2 % (11.5-15.5)
[2020-03-04 06:48] LABS: ANION GAP 10 (6-22 (CALC)); BUN 32 mg/dL (8-23); BUN/CREATININE RATIO 29 (12-20 (CALC)); CARBON DIOXIDE 31 mmol/l (22-30); CHLORIDE 95 mmol/l (95-108); CREATININE 1.1 mg/dL (0.7-1.3); GFR > 60 ML/MIN (>=60 (CALC)); GFR FOR AFR.AMER. > 60 ML/MIN (>=60 (CALC)); MAGNESIUM 1.9 mg/dL (1.6-2.3); POTASSIUM 4.1 mmol/l (3.5-5.1); SODIUM 132 mmol/l (137-146)
[2020-03-04 07:27] VITALS: BP 135/70
[2020-03-04 08:30] LABS: PROTHROMBIN TIME 19.4 SECONDS (9.0-12.5)
[2020-03-04] MEDS ORDERED: DOXYCYCL HYC100 MG PO (08:42)
[2020-03-04 09:05] VITALS: BP 135/70
== END 2020-03-04 12:37 ==
LOC: ED 18:25 → ED-I 19:36 → ED 19:48 → MS2 19:49 → ED-I 19:49 → MS2 20:10
PROVIDERS: Emergency Medicine; Nurse Practitioner; ADMIT Internal Medicine; ATTEND Internal Medicine
PROC: 0T9B70Z Drainage of Bladder with Drainage Device, Via Natural or Artificial Opening (ICD-10-PCS; principal; 2020-03-02)
DX: I13.0 Hypertensive heart and chronic kidney disease with heart failure and stage 1 through stage 4 chronic kidney disease, or unspecified chronic kidney disease (principal); I50.33 Acute on chronic diastolic (congestive) heart failure; J18.9 Pneumonia, unspecified organism; R79.1 Abnormal coagulation profile; T45.515A Adverse effect of anticoagulants, initial encounter; J96.01 Acute respiratory failure with hypoxia; N18.3 Chronic kidney disease, stage 3 (moderate); E11.22 Type 2 diabetes mellitus with diabetic chronic kidney disease; E11.40 Type 2 diabetes mellitus with diabetic neuropathy, unspecified; I25.10 Atherosclerotic heart disease of native coronary artery without angina pectoris; I48.91 Unspecified atrial fibrillation; E78.5 Hyperlipidemia, unspecified; M54.9 Dorsalgia, unspecified; G89.29 Other chronic pain; I25.2 Old myocardial infarction; Z95.1 Presence of aortocoronary bypass graft; Z79.4 Long term (current) use of insulin; Z86.711 Personal history of pulmonary embolism; Z79.01 Long term (current) use of anticoagulants; Z87.891 Personal history of nicotine dependence; Z95.5 Presence of coronary angioplasty implant and graft; Z20.828 Contact with and (suspected) exposure to other viral communicable diseases
CPT/HCPCS: G0378

== ENCOUNTER 2020-04-12 16:37 | Emergency (ER) | payer MEDICARE, BC ==
[~2020-04-12] VITALS: Ht 167.6 cm; Wt 85.0 kg
[2020-04-12 17:19] LABS: GFR > 60 ML/MIN (>=60 (CALC)); GFR FOR AFR.AMER. > 60 ML/MIN (>=60 (CALC))
[2020-04-12 17:22] LABS: HEMATOCRIT 45.3 % (39.0-50.0); HEMOGLOBIN 13.8 g/dl (14.0-18.0); IMMATURE GRANULOCYTES 0.9 % (0.0-5.0); MEAN CELL VOLUME 86.3 fL CALC (80.0-100.0); MEAN CORPUSCULAR HGB 26.3 pG CALC (26.0-32.0); MEAN CORPUSCULAR HGB CONC 30.5 g/dL CAL (32.0-36.0); NEUT# 4.29 thou/uL (1.82-7.42); RED BLOOD COUNT 5.25 mill/uL (4.70-6.10); RED CELL DISTRI WIDTH 14.7 % (11.5-15.5)
[2020-04-12 17:40] LABS: ALBUMIN 3.9 g/dL (3.2-5.0); ALKALINE PHOSPHATASE 66 u/l (38-126); ANION GAP 15 (6-22 (CALC)); BILIRUBIN, TOTAL 0.5 mg/dL (0.0-1.4); BUN 18 mg/dL (8-23); BUN/CREATININE RATIO 20 (12-20 (CALC)); CHLORIDE 103 mmol/l (95-108); CREATININE 0.9 mg/dL (0.7-1.3); GFR > 60 ML/MIN (>=60 (CALC)); GFR FOR AFR.AMER. > 60 ML/MIN (>=60 (CALC)); POTASSIUM 4.1 mmol/l (3.5-5.1); SGOT/AST 22 u/l (19-48); SODIUM 137 mmol/l (137-146); TOTAL PROTEIN 6.9 g/dL (6.3-8.2)
[2020-04-12 17:47] LABS: CARBON DIOXIDE 23 mmol/l (22-30)
[2020-04-12 19:12] VITALS: BP 180/91
== END 2020-04-12 19:45 | disposition home or self-care (01) ==
LOC: ED 16:37
DX: R09.89 Other specified symptoms and signs involving the circulatory and respiratory systems (principal); I11.0 Hypertensive heart disease with heart failure; I50.9 Heart failure, unspecified; K21.9 Gastro-esophageal reflux disease without esophagitis; E11.40 Type 2 diabetes mellitus with diabetic neuropathy, unspecified; I48.91 Unspecified atrial fibrillation; Z95.5 Presence of coronary angioplasty implant and graft; I25.2 Old myocardial infarction; Z86.711 Personal history of pulmonary embolism; Z79.4 Long term (current) use of insulin; Z95.1 Presence of aortocoronary bypass graft
CPT/HCPCS: J2060; Q9967

== ENCOUNTER 2020-05-16 11:32 | Emergency (ER) | payer MEDICARE, BC ==
[~2020-05-16] VITALS: Ht 167.6 cm; Wt 80.5 kg
[2020-05-16 11:53] LABS: HEMATOCRIT 37.9 % (39.0-50.0); HEMOGLOBIN 11.5 g/dl (14.0-18.0); IMMATURE GRANULOCYTES 1.4 % (0.0-5.0); MEAN CELL VOLUME 86.1 fL CALC (80.0-100.0); MEAN CORPUSCULAR HGB 26.1 pG CALC (26.0-32.0); MEAN CORPUSCULAR HGB CONC 30.3 g/dL CAL (32.0-36.0); NEUT# 7.71 thou/uL (1.82-7.42); RED BLOOD COUNT 4.4 mill/uL (4.70-6.10)
[2020-05-16 12:04] LABS: ALBUMIN 3.4 g/dL (3.2-5.0); ALKALINE PHOSPHATASE 61 u/l (38-126); ANION GAP 14 (6-22 (CALC)); BILIRUBIN, TOTAL 1.4 mg/dL (0.0-1.4); BUN 25 mg/dL (8-23); BUN/CREATININE RATIO 26 (12-20 (CALC)); CARBON DIOXIDE 26 mmol/l (22-30); CHLORIDE 101 mmol/l (95-108); GFR > 60 ML/MIN (>=60 (CALC)); GFR FOR AFR.AMER. > 60 ML/MIN (>=60 (CALC)); LIPASE 25 u/l (23-300); POTASSIUM 4.8 mmol/l (3.5-5.1); SGOT/AST 25 u/l (19-48); SODIUM 136 mmol/l (137-146); TOTAL PROTEIN 6.2 g/dL (6.3-8.2)
[2020-05-16 12:51] LABS: URINE BILIRUBIN - DIPSTICK NEGATIVE (NEGATIVE); URINE BLOOD DIPSTICK NEGATIVE (NEGATIVE); URINE COLOR YELLOW; URINE GLUCOSE - DIPSTICK NEGATIVE (NEGATIVE); URINE KETONE TRACE mg/dL (NEGATIVE); URINE LEUK ESTERASE NEGATIVE (NEGATIVE); URINE NITRITE - DIPSTICK NEGATIVE (Negative); URINE PROTEIN - DIPSTICK NEGATIVE (NEG-TRACE); URINE UROBILINOGEN - DIPSTICK 0.2 E.U./dL (0.2)
[2020-05-16] MEDS ORDERED: MAGNESIUM296 ML/BTL PO (14:12)
[2020-05-16] MEDS ORDERED: MIRALAX17 GM PO (14:17)
[2020-05-16 14:51] VITALS: BP 189/85
== END 2020-05-16 15:15 | disposition home or self-care (01) ==
LOC: ED 11:32
PROVIDERS: Family Medicine
PROC: 0T9B70Z Drainage of Bladder with Drainage Device, Via Natural or Artificial Opening (ICD-10-PCS; principal; 2020-05-16)
DX: R33.9 Retention of urine, unspecified (principal); K59.00 Constipation, unspecified; I25.10 Atherosclerotic heart disease of native coronary artery without angina pectoris; I11.0 Hypertensive heart disease with heart failure; I50.9 Heart failure, unspecified; E11.40 Type 2 diabetes mellitus with diabetic neuropathy, unspecified; E78.5 Hyperlipidemia, unspecified; K21.9 Gastro-esophageal reflux disease without esophagitis; I25.2 Old myocardial infarction; Z95.5 Presence of coronary angioplasty implant and graft; Z86.711 Personal history of pulmonary embolism; Z95.1 Presence of aortocoronary bypass graft; Z79.4 Long term (current) use of insulin; Z99.81 Dependence on supplemental oxygen; Z98.890 Other specified postprocedural states

== ENCOUNTER 2020-07-22 10:40 | Emergency (ER) | payer MEDICARE, BC ==
[~2020-07-22] VITALS: Ht 167.6 cm; Wt 76.0 kg
[~2020-07-22 10:40] MED LIST changes: +MAGNESIUM296 ML/BTL PO; +MIRALAX17 GM PO
[2020-07-22 11:32] LABS: URINE BILIRUBIN - DIPSTICK NEGATIVE (NEGATIVE); URINE BLOOD DIPSTICK MODERATE (NEGATIVE); URINE COLOR YELLOW; URINE GLUCOSE - DIPSTICK NEGATIVE (NEGATIVE); URINE KETONE NEGATIVE (NEGATIVE); URINE NITRITE - DIPSTICK NEGATIVE (Negative); URINE PH 8.5 (4.5-8.0); URINE PROTEIN - DIPSTICK 100 mg/dL (NEG-TRACE); URINE UROBILINOGEN - DIPSTICK 0.2 E.U./dL (0.2)
[2020-07-22 11:37] LABS: URINE LEUK ESTERASE MODERATE (NEGATIVE)
[2020-07-22] MEDS ORDERED: CEPHALEXIN500 MG PO (11:40)
[2020-07-22 12:00] VITALS: BP 128/70
== END 2020-07-22 12:13 | disposition home or self-care (01) ==
LOC: ED 10:40
PROVIDERS: Emergency Medicine
PROC: 0T2BX0Z Change Drainage Device in Bladder, External Approach (ICD-10-PCS; principal; 2020-07-22)
DX: T83.091A Other mechanical complication of indwelling urethral catheter, initial encounter (principal); N39.0 Urinary tract infection, site not specified; I11.0 Hypertensive heart disease with heart failure; I50.9 Heart failure, unspecified; E11.40 Type 2 diabetes mellitus with diabetic neuropathy, unspecified; I25.10 Atherosclerotic heart disease of native coronary artery without angina pectoris; E78.5 Hyperlipidemia, unspecified; K21.9 Gastro-esophageal reflux disease without esophagitis; I48.91 Unspecified atrial fibrillation; B96.4 Proteus (mirabilis) (morganii) as the cause of diseases classified elsewhere; Y84.6 Urinary catheterization as the cause of abnormal reaction of the patient, or of later complication, without mention of misadventure at the time of the procedure; Z95.1 Presence of aortocoronary bypass graft; Z79.899 Other long term (current) drug therapy; Z95.5 Presence of coronary angioplasty implant and graft; Z86.711 Personal history of pulmonary embolism

== ENCOUNTER 2020-08-03 10:50 | Emergency (ER) | payer MEDICARE, BC ==
[~2020-08-03] VITALS: Ht 167.6 cm; Wt 75.0 kg
[2020-08-03 11:20] LABS: MEAN CORPUSCULAR HGB 23.8 pG CALC (26.0-32.0); MEAN CORPUSCULAR HGB CONC 29.4 g/dL CAL (32.0-36.0); NEUT# 6.96 thou/uL (1.82-7.42); RED BLOOD COUNT 5.47 mill/uL (4.70-6.10); RED CELL DISTRI WIDTH 16.5 % (11.5-15.5)
[2020-08-03 11:35] LABS: HEMATOCRIT 44.2 % (39.0-50.0); MEAN CELL VOLUME 80.8 fL CALC (80.0-100.0)
[2020-08-03 11:39] LABS: ALKALINE PHOSPHATASE 58 u/l (38-126); BILIRUBIN, TOTAL 0.9 mg/dL (0.0-1.4); BUN 20 mg/dL (8-23); BUN/CREATININE RATIO 22 (12-20 (CALC)); CARBON DIOXIDE 27 mmol/l (22-30); CHLORIDE 104 mmol/l (95-108); CREATININE 0.9 mg/dL (0.7-1.3); GFR > 60 ML/MIN (>=60 (CALC)); GFR FOR AFR.AMER. > 60 ML/MIN (>=60 (CALC)); SGOT/AST 25 u/l (19-48); SODIUM 142 mmol/l (137-146)
[2020-08-03 11:41] LABS: ALBUMIN 4.1 g/dL (3.2-5.0); ANION GAP 15 (6-22 (CALC)); POTASSIUM 3.8 mmol/l (3.5-5.1); TOTAL PROTEIN 7.5 g/dL (6.3-8.2)
[2020-08-03 11:51] LABS: MYOGLOBIN 39 ng/mL (0 - 121)
[2020-08-03 12:39] LABS: URINE BILIRUBIN - DIPSTICK NEGATIVE (NEGATIVE); URINE BLOOD DIPSTICK SMALL (NEGATIVE); URINE COLOR YELLOW; URINE GLUCOSE - DIPSTICK 100 mg/dL (NEGATIVE); URINE KETONE TRACE mg/dL (NEGATIVE); URINE LEUK ESTERASE NEGATIVE (NEGATIVE); URINE NITRITE - DIPSTICK NEGATIVE (Negative); URINE PROTEIN - DIPSTICK TRACE mg/dL (NEG-TRACE); URINE UROBILINOGEN - DIPSTICK 0.2 E.U./dL (0.2)
[2020-08-03 12:51] LABS: URINE RBC 0-2 RBC/hpf (0-5); URINE WBC 0-2 WBC/hpf (0-5)
[2020-08-03] MEDS ORDERED: ZITHROMAX250 MG PO (13:19)
[2020-08-03 14:18] VITALS: BP 167/83
== END 2020-08-03 14:50 | disposition left against medical advice (07) ==
LOC: ED 10:50
PROVIDERS: Emergency Medicine
DX: J18.9 Pneumonia, unspecified organism (principal); I11.0 Hypertensive heart disease with heart failure; I50.43 Acute on chronic combined systolic (congestive) and diastolic (congestive) heart failure; E11.40 Type 2 diabetes mellitus with diabetic neuropathy, unspecified; I25.10 Atherosclerotic heart disease of native coronary artery without angina pectoris; E78.5 Hyperlipidemia, unspecified; K21.9 Gastro-esophageal reflux disease without esophagitis; I48.91 Unspecified atrial fibrillation; I25.2 Old myocardial infarction; Z86.711 Personal history of pulmonary embolism; Z95.5 Presence of coronary angioplasty implant and graft; Z79.4 Long term (current) use of insulin; Z87.01 Personal history of pneumonia (recurrent); Z95.1 Presence of aortocoronary bypass graft; Z91.19 Patient's noncompliance with other medical treatment and regimen; Z20.822 Contact with and (suspected) exposure to COVID-19

== ENCOUNTER 2020-08-05 19:01 | Emergency (ER) | payer MEDICARE, BC ==
[~2020-08-05] VITALS: Ht 167.6 cm; Wt 79.5 kg
[2020-08-05 19:40] LABS: HEMATOCRIT 42.6 % (39.0-50.0); HEMOGLOBIN 12.5 g/dl (14.0-18.0); IMMATURE GRANULOCYTES 0.7 % (0.0-5.0); MEAN CELL VOLUME 81.1 fL CALC (80.0-100.0); MEAN CORPUSCULAR HGB 23.8 pG CALC (26.0-32.0); MEAN CORPUSCULAR HGB CONC 29.3 g/dL CAL (32.0-36.0); NEUT# 4.76 thou/uL (1.82-7.42); RED BLOOD COUNT 5.25 mill/uL (4.70-6.10); RED CELL DISTRI WIDTH 16.7 % (11.5-15.5)
[2020-08-05 19:58] LABS: URINE BILIRUBIN - DIPSTICK NEGATIVE (NEGATIVE); URINE BLOOD DIPSTICK NEGATIVE (NEGATIVE); URINE COLOR YELLOW; URINE GLUCOSE - DIPSTICK NEGATIVE (NEGATIVE); URINE KETONE NEGATIVE (NEGATIVE); URINE LEUK ESTERASE NEGATIVE (NEGATIVE); URINE NITRITE - DIPSTICK NEGATIVE (Negative); URINE PROTEIN - DIPSTICK 100 mg/dL (NEG-TRACE); URINE SPECIFIC GRAVITY >=1.030; URINE UROBILINOGEN - DIPSTICK 0.2 E.U./dL (0.2)
[2020-08-05 19:59] LABS: ALBUMIN 3.9 g/dL (3.2-5.0); ALKALINE PHOSPHATASE 66 u/l (38-126); ANION GAP 13 (6-22 (CALC)); BILIRUBIN, TOTAL 0.7 mg/dL (0.0-1.4); BUN 22 mg/dL (8-23); BUN/CREATININE RATIO 24 (12-20 (CALC)); CARBON DIOXIDE 28 mmol/l (22-30); CHLORIDE 101 mmol/l (95-108); CREATININE 0.9 mg/dL (0.7-1.3); GFR > 60 ML/MIN (>=60 (CALC)); GFR FOR AFR.AMER. > 60 ML/MIN (>=60 (CALC)); POTASSIUM 3.8 mmol/l (3.5-5.1); SGOT/AST 21 u/l (19-48); SODIUM 139 mmol/l (137-146); TOTAL PROTEIN 7.1 g/dL (6.3-8.2)
[2020-08-05 20:10] LABS: MYOGLOBIN 40 ng/mL (0 - 121)
[2020-08-05 20:11] LABS: URINE CALCIUM OXALATE CRYSTALS MANY lpf; URINE RBC 0-2 RBC/hpf (0-5); URINE WBC 0-2 WBC/hpf (0-5)
[2020-08-05 20:31] VITALS: BP 158/74
== END 2020-08-05 20:50 | disposition home or self-care (01) ==
LOC: ED 19:01
PROVIDERS: Emergency Medicine
DX: I11.0 Hypertensive heart disease with heart failure (principal); I50.9 Heart failure, unspecified; F41.9 Anxiety disorder, unspecified; I25.10 Atherosclerotic heart disease of native coronary artery without angina pectoris; E11.40 Type 2 diabetes mellitus with diabetic neuropathy, unspecified; I48.91 Unspecified atrial fibrillation; E78.5 Hyperlipidemia, unspecified; K21.9 Gastro-esophageal reflux disease without esophagitis; I25.2 Old myocardial infarction; Z86.711 Personal history of pulmonary embolism; Z95.5 Presence of coronary angioplasty implant and graft; Z79.4 Long term (current) use of insulin; Z95.1 Presence of aortocoronary bypass graft

== ENCOUNTER 2020-08-12 09:06 | Emergency (ER) | payer MEDICARE, BC ==
[~2020-08-12] VITALS: Ht 167.6 cm; Wt 75.0 kg
[2020-08-12 09:52] LABS: INTERNATIONAL NORMALIZED RATIO 1.9 RATIO (0.7-1.3)
[2020-08-12 09:57] LABS: ALBUMIN 3.4 g/dL (3.2-5.0); ALKALINE PHOSPHATASE 48 u/l (38-126); ANION GAP 12 (6-22 (CALC)); BILIRUBIN, TOTAL 0.9 mg/dL (0.0-1.4); BUN 23 mg/dL (8-23); BUN/CREATININE RATIO 26 (12-20 (CALC)); CARBON DIOXIDE 27 mmol/l (22-30); CHLORIDE 103 mmol/l (95-108); CREATININE 0.9 mg/dL (0.7-1.3); GFR > 60 ML/MIN (>=60 (CALC)); GFR FOR AFR.AMER. > 60 ML/MIN (>=60 (CALC)); POTASSIUM 3.9 mmol/l (3.5-5.1); SGOT/AST 26 u/l (19-48); SODIUM 138 mmol/l (137-146); TOTAL PROTEIN 6.2 g/dL (6.3-8.2)
[2020-08-12 09:59] LABS: MAGNESIUM 1.2 mg/dL (1.6-2.3)
[2020-08-12] MEDS ORDERED: ALPRAZOLAM0.25 MG PO (11:06)
[2020-08-12] MEDS ORDERED: DOXYCYCL HYC100 MG PO (11:06)
[2020-08-12] MEDS ORDERED: ISOSORB MONO120 MG PO (11:07)
[2020-08-12] MEDS ORDERED: TAMSULOSIN HCL0.4 MG PO (11:07)
[2020-08-12] MEDS ORDERED: JANUVIA100 MG PO (11:07)
[2020-08-12] MEDS ORDERED: FUROSEMIDE20 MG PO (11:08)
[2020-08-12 12:20] VITALS: BP 143/69
== END 2020-08-12 12:20 | disposition home or self-care (01) ==
LOC: ED 09:06
PROVIDERS: Family Medicine
DX: I11.0 Hypertensive heart disease with heart failure (principal); I50.9 Heart failure, unspecified; E11.40 Type 2 diabetes mellitus with diabetic neuropathy, unspecified; I25.10 Atherosclerotic heart disease of native coronary artery without angina pectoris; E78.5 Hyperlipidemia, unspecified; K21.9 Gastro-esophageal reflux disease without esophagitis; I48.91 Unspecified atrial fibrillation; I25.2 Old myocardial infarction; Z86.711 Personal history of pulmonary embolism; Z79.4 Long term (current) use of insulin; Z95.5 Presence of coronary angioplasty implant and graft; Z95.1 Presence of aortocoronary bypass graft

== ENCOUNTER 2020-08-30 07:51 | Inpatient (IN) | payer MEDICARE, BC ==
[~2020-08-30] VITALS: Ht 167.6 cm; Wt 78.0 kg
[~2020-08-30 07:51] MED LIST changes: +ISOSORB MONO120 MG PO; +TAMSULOSIN HCL0.4 MG PO
--- NOTE | 2020-08-30 07:58 | NUR ---
PATIENT TO ROOM VIA WHEELCHAIR.
[2020-08-30 08:37] LABS: URINE BILIRUBIN - DIPSTICK NEGATIVE (NEGATIVE); URINE BLOOD DIPSTICK TRACE-LYSED (NEGATIVE); URINE COLOR YELLOW; URINE GLUCOSE - DIPSTICK NEGATIVE (NEGATIVE); URINE KETONE TRACE mg/dL (NEGATIVE); URINE PROTEIN - DIPSTICK 30 mg/dL (NEG-TRACE); URINE UROBILINOGEN - DIPSTICK 0.2 E.U./dL (0.2)
[2020-08-30 08:39] LABS: URINE LEUK ESTERASE MODERATE (NEGATIVE); URINE NITRITE - DIPSTICK POSITIVE (Negative)
[2020-08-30 08:40] LABS: HEMATOCRIT 40.2 % (39.0-50.0); HEMOGLOBIN 11.8 g/dl (14.0-18.0); MEAN CELL VOLUME 81.2 fL CALC (80.0-100.0); MEAN CORPUSCULAR HGB 23.8 pG CALC (26.0-32.0); MEAN CORPUSCULAR HGB CONC 29.4 g/dL CAL (32.0-36.0); NEUT# 5.69 thou/uL (1.82-7.42); RED BLOOD COUNT 4.95 mill/uL (4.70-6.10); RED CELL DISTRI WIDTH 17.4 % (11.5-15.5)
[2020-08-30 08:46] LABS: URINE BACTERIA RARE hpf
--- NOTE | 2020-08-30 08:51 | NUR ---
PT ALERT/ORIENTED X3, STATES NORMALLY ON O2 AT HOME 3 LITRES NC, IS SEEN BY HOME HEALTH. HASNT TAKEN LASIX THIS AM, BECAUSE HE ALWAYS GOES OUT TO EAT WITH HIS FRIENDS ON TUESDAY MORNING AND DOESNT WANT TO HAVE TO GO TO THE RESTROOM
--- NOTE | 2020-08-30 08:54 | NUR ---
PT NEEDED TO URINATE, BEDPAN PLACED AND APPROX 400 CC OF LIGHT YELLOW URINE. PT IS ABLE TO BEND KNEES AND LIFT BOTTOM UP TO HELP.
[2020-08-30 08:59] LABS: ALBUMIN 3.9 g/dL (3.2-5.0); ALKALINE PHOSPHATASE 58 u/l (38-126); ANION GAP 14 (6-22 (CALC)); BILIRUBIN, TOTAL 0.9 mg/dL (0.0-1.4); BUN 24 mg/dL (8-23); BUN/CREATININE RATIO 19 (12-20 (CALC)); CARBON DIOXIDE 28 mmol/l (22-30); CHLORIDE 102 mmol/l (95-108); CREATININE 1.3 mg/dL (0.7-1.3); GFR 52 ML/MIN (>=60 (CALC)); GFR FOR AFR.AMER. > 60 ML/MIN (>=60 (CALC)); POTASSIUM 3.9 mmol/l (3.5-5.1); SGOT/AST 20 u/l (19-48); SODIUM 140 mmol/l (137-146)
--- NOTE | 2020-08-30 09:17 | NUR ---
PT REMAINS RESTING QUIETLY ON STRETCHER, MAGNESIUM INFUSING, NO REDNESS NOTED. SATS REMAIN IN THE UPPER 90'S, NO DISTRESS NOTED.
[2020-08-30 09:41] LABS: INTERNATIONAL NORMALIZED RATIO 2.8 RATIO (0.7-1.3); PROTHROMBIN TIME 26.9 SECONDS (9.0-12.5)
--- NOTE | 2020-08-30 10:21 | NUR ---
DR ALCARAZ AT BEDSIDE TO DISCUSS RESULTS AND PLAN FOR ADMISSION.
--- NOTE | 2020-08-30 11:40 | NUR ---
PT REPORT RECEIVED AND PT TAKEN TO FLOOR PER STRETCHER.
[2020-08-30 11:50] VITALS: BP 155/77
--- NOTE | 2020-08-30 11:59 | NUR ---
PT ARRIVED FROM ER VIA STRETCHER ACCOMPANIED BY STAFF. IV SITE AND TELE MONITOR IN PLACE.
--- NOTE | 2020-08-30 12:15 | NUR ---
ASSESSMENT IS COMPLETED: IV SITE IS FREE FROM REDNESS OR EDEMA. HR IS REG,PULSES ARE STRONG X4, ABD IS DISTENDED AND SOFT. BREATH SOUNDS ARE DIMINISHED. O2 @ 3LITERS WITH NC. TELE MONITOR IN PLACE. PATHAK DRAINING YELLOW URINE. INFORMED PT OF NEEDING HIS MEDICATION FROM HOME ARRANGING FOR FAMILY TO BRING. CONTINUE TO OBSERVE AND MONITOR.
[2020-08-30 15:35] VITALS: BP 148/71
--- NOTE | 2020-08-30 16:05 | NUR ---
PT IS RELAXING IN BED WITH NO DISTRESS NOTED. IV SITE IS FREE FROM REDNESS OR EDEMA.
[2020-08-30 20:00] VITALS: BP 146/72
--- NOTE | 2020-08-30 20:30 | NUR ---
PATIENT RESTING IN BED AT THIS TIME-AWAKE ALERT AND ORIENTEDX3. PATIENT WITH O2 VIA NASAL CANNULA IN PLACE. TELE MONITOR IN PLACE. SALINE LOCK TO LAC-APPEARS HEALTHY AT THIS TIME. PATIENT MEDICATED FOR PAIN WITH LORTAB AND FOR SLEEP WITH XANAX ORDERED. PATHAK PATENT AND DRAINING YELLOW URINE. SAFETY PRECAUTIONS REINFORCED. CALL LIGHT IN REACH. WILL CONT TO MONITOR.
--- NOTE | 2020-08-30 21:15 | NUR ---
ACCU-CHECK WAS 260-MEDICATED WITH LEVEMIR 40UNITS ORDERED SQ AND COVERED WITH HUMALOG PER SLIDING SCALE COVERAGE PROTOCOL. PROVIDED WITH HS SNACK. STATES SOME RELIEF FROM PAIN MEDS GIVEN EARLIER. SAFETY PRECAUTIONS REINFORCED. CALL LIGHT IN REACH. WILL CONT TO MONITOR.
--- NOTE | 2020-08-30 22:30 | NUR ---
PATIENT CALLED AND ASSISTED OOB TO BSC FOR MODERATE BROWN BM. ASSISTED BACK TO BED. O2 VIA NASAL CANNULA IN PLACE. PATHAK PATENT AND DRAINING YELLOW URINE. TELE MONITOR IN PLACE. SAFETY PRECAUTIONS REINFORCED. CALL LIGHT IN REACH. WILL CONT TO MONITOR.
[2020-08-31] VITALS: BP 132/69
--- NOTE | 2020-08-31 03:30 | NUR ---
PATIENT APPEARS SLEEPING AT THIS TIME WITH EYES CLOSED. RESP ARE EVEN AND UNLABORED. TELE MONITOR IN PLACE. PATHAK PATENT AND DRAINING YELLOW URINE.O2 VIA NASAL CANNULA IN PLACE. CALL LIGHT IN REACH. WILL CONT TO MONITOR.
[2020-08-31 04:00] VITALS: BP 154/81
--- NOTE | 2020-08-31 04:53 | NUR ---
PATIENT RESTING IN BED AT THIS TIME WITH EYES CLOSED. RESP ARE EVEN AND UNLABORED. O2 VIA NASAL CANNULA IN PLACE. TELE MONITOR IN PLACE. PATHAK CATH PATENT AND DRAINING YELLOW URINE. CALL LIGHT IN REACH. WILL CONT TO MONITOR.
[2020-08-31 05:05] LABS: HEMATOCRIT 37.9 % (39.0-50.0); IMMATURE GRANULOCYTES 0.6 % (0.0-5.0); MEAN CELL VOLUME 80.8 fL CALC (80.0-100.0); MEAN CORPUSCULAR HGB 23.5 pG CALC (26.0-32.0); NEUT# 4.56 thou/uL (1.82-7.42); RED BLOOD COUNT 4.69 mill/uL (4.70-6.10); RED CELL DISTRI WIDTH 17.5 % (11.5-15.5)
[2020-08-31 05:26] LABS: BUN 20 mg/dL (8-23); BUN/CREATININE RATIO 21 (12-20 (CALC)); CHLORIDE 98 mmol/l (95-108); CREATININE 0.9 mg/dL (0.7-1.3); GFR > 60 ML/MIN (>=60 (CALC)); GFR FOR AFR.AMER. > 60 ML/MIN (>=60 (CALC)); SODIUM 139 mmol/l (137-146)
[2020-08-31 05:35] LABS: ANION GAP 9 (6-22 (CALC)); CARBON DIOXIDE 35 mmol/l (22-30); MAGNESIUM 1.8 mg/dL (1.6-2.3); POTASSIUM 3.1 mmol/l (3.5-5.1)
[2020-08-31 08:06] VITALS: BP 157/69
--- NOTE | 2020-08-31 08:06 | NUR ---
PT SITTING ON BSC. A&O X3. NO DISTRESS NOTED. O2 VIA NC @4L IN PLACE, O2 TITRATED DOWN TO 3L, PT REPORTS TO BE O2 DEPENDENT AT HOME AT 3L. PATHAK CATHETER IN PLACE DRAINING VIA GRAVITY WITH CLEAR YELLOW URINE NOTED. PEDAL EDEMA NOTED WITH TRACE ANKLE EDEMA. PT EAGER TO GO HOME. ASSESSMENT COMPLETED. DISCUSSED POC. CALL LIGHT LEFT WITHIN REACH.
[2020-08-31 08:59] LABS: INTERNATIONAL NORMALIZED RATIO 3.2 RATIO (0.7-1.3); PROTHROMBIN TIME 30.3 SECONDS (9.0-12.5)
--- NOTE | 2020-08-31 09:45 | NUR ---
DR SNOWDEN AND Noelle BOURNE APRN
[2020-08-31 10:59] VITALS: BP 136/60
[2020-08-31] MEDS ORDERED: KEFLEX500 M1 PO (11:20)
--- NOTE | 2020-08-31 14:01 | NUR ---
Discharge instructions given. Patient verbalizes understanding of same. Discharged in stable condition via wheelchair to home with [facility] accomapnied by staff. All belongings sent with pt.
== END 2020-08-31 15:00 | disposition home or self-care (01) | DRG 291 ==
LOC: ED 07:51 → ED-I 09:47 → ED 10:02 → MS2 10:03
PROVIDERS: Student in an Organized Health Care Education/Training Program; ADMIT Internal Medicine; ATTEND Internal Medicine
DX: I11.0 Hypertensive heart disease with heart failure (principal); J18.9 Pneumonia, unspecified organism; N39.0 Urinary tract infection, site not specified; I50.9 Heart failure, unspecified; I25.10 Atherosclerotic heart disease of native coronary artery without angina pectoris; E11.40 Type 2 diabetes mellitus with diabetic neuropathy, unspecified; I48.91 Unspecified atrial fibrillation; E78.5 Hyperlipidemia, unspecified; K21.9 Gastro-esophageal reflux disease without esophagitis; H35.30 Unspecified macular degeneration; H54.7 Unspecified visual loss; I25.2 Old myocardial infarction; Z86.711 Personal history of pulmonary embolism; Z95.5 Presence of coronary angioplasty implant and graft; Z96.0 Presence of urogenital implants; Z79.01 Long term (current) use of anticoagulants; Z87.891 Personal history of nicotine dependence; Z95.1 Presence of aortocoronary bypass graft; Z79.4 Long term (current) use of insulin; Z99.81 Dependence on supplemental oxygen; Z20.822 Contact with and (suspected) exposure to COVID-19
CPT/HCPCS: J3475

== ENCOUNTER 2020-09-14 16:21 | Observation (INO) | payer MEDICARE, BC ==
[~2020-09-14] VITALS: Ht 167.6 cm; Wt 77.0 kg
[~2020-09-14 16:21] MED LIST changes: +KEFLEX500 M1 PO
--- NOTE | 2020-09-14 16:27 | NUR ---
PATEINT TO ROOM VIA EMS AND PHYSICIAN AT BEDSIDE FOR EVAL
[2020-09-14 16:52] LABS: HEMATOCRIT 40.3 % (39.0-50.0); HEMOGLOBIN 11.8 g/dl (14.0-18.0); IMMATURE GRANULOCYTES 0.7 % (0.0-5.0); MEAN CELL VOLUME 81.3 fL CALC (80.0-100.0); MEAN CORPUSCULAR HGB 23.8 pG CALC (26.0-32.0); MEAN CORPUSCULAR HGB CONC 29.3 g/dL CAL (32.0-36.0); NEUT# 4.71 thou/uL (1.82-7.42); RED BLOOD COUNT 4.96 mill/uL (4.70-6.10); RED CELL DISTRI WIDTH 18.3 % (11.5-15.5)
--- NOTE | 2020-09-14 17:00 | NUR ---
Reassessment of patient completed. No distress noted.
[2020-09-14 17:07] LABS: ALBUMIN 3.8 g/dL (3.2-5.0); ALKALINE PHOSPHATASE 42 u/l (38-126); ANION GAP 12 (6-22 (CALC)); BUN 19 mg/dL (8-23); BUN/CREATININE RATIO 23 (12-20 (CALC)); CARBON DIOXIDE 32 mmol/l (22-30); CHLORIDE 99 mmol/l (95-108); CREATININE 0.8 mg/dL (0.7-1.3); GFR > 60 ML/MIN (>=60 (CALC)); GFR FOR AFR.AMER. > 60 ML/MIN (>=60 (CALC)); LIPASE 51 u/l (23-300); SGOT/AST 26 u/l (19-48); SODIUM 139 mmol/l (137-146); TOTAL PROTEIN 7.1 g/dL (6.3-8.2)
[2020-09-14 17:15] LABS: INTERNATIONAL NORMALIZED RATIO 1.8 RATIO (0.7-1.3); PROTHROMBIN TIME 18.3 SECONDS (9.0-12.5)
--- NOTE | 2020-09-14 18:00 | NUR ---
Reassessment of patient completed. No distress noted.
--- NOTE | 2020-09-14 19:00 | NUR ---
Reassessment of patient completed. No distress noted.
[2020-09-14 20:15] VITALS: BP 172/95
--- NOTE | 2020-09-14 20:22 | NUR ---
[facility]
--- NOTE | 2020-09-14 21:21 | NUR ---
PT ASSESSMENT COMPLETED AT THIS TIME AND PT MEDICATED ORDRES PROVIDE. PT REPORTS THAT HE STILL FEELS "A LITTLE SOB" SAT LEVELS ARE STABLE IN THE 90'S AT THIS TIME ON 3L 02NC. POC AND DX DISCUSSED W/PT, I EDUCATED HIM ON PNEUMONIA SYMPTOMS AND ANTIBIOTIC THERAPY, VERBALIZED UNDERSTANDING. I ASSISTED PT TO POSITION FOR COMFORT, NO S/O DISTRESS. PT HAS BEEN ENCOURAGED TO CALL ANY NEEDS ARISE.
--- NOTE | 2020-09-14 21:35 | NUR ---
PT APPEARS SLIGHTLY ANXIOUS AND REPORTS BEING WORRIED ABOUT NOT BEING ABLE TO SLEEP, HE REPORTS THAT HE HAS DIFFICULTY SLEEPING AT HOME ALSO. DISCUSSED POC AND PT MEDICATED FOR ANXIETY AT THIS TIME.
[2020-09-15] VITALS: BP 132/71
--- NOTE | 2020-09-15 00:09 | NUR ---
PT MEDICATED FOR SLEEP, HE CALLED WANTING HELP WITH HIS COVERS, ASSISTED HIM TO POSITION IN THE BED AND PLACED COVERS ON PT. CALL LIGHT PLACED WITHIN REACH AND HE WAS REMINDED TO CALL NEEDS ARISE.
[2020-09-15 04:00] VITALS: BP 156/87
--- NOTE | 2020-09-15 04:39 | NUR ---
PT IS SLEEPING, NUTRITIONAL CHEMIST OBTAINED V/S AND HE HAS RETURNED TO SLEEP. PATHAK CATH DRAINING DARK YELLOW URINE TO GRAVITY. NO S/O DISTRESS NOTED.
--- NOTE | 2020-09-15 05:50 | NUR ---
PT CALLED ASKING FOR PAIN MEDICATION, WHEN I ENTERED THE ROOM I HAD TO SPEAK SEVERAL TIMES TO AWAKE PT. HE REPORTED PAIN WAS 10/10 ON PAIN SCALE IN HIS LOWER TO MID BACK. PT MEDICATED ORDERS PROVIDE. HE SAID, "I TAKE TWO AT HOME, THIS WILL NEVER DO." I INFORMED PT THAT THIS WAS 10MG VS 5MG, HE RESPONDED WITH VERAL UNDERSTADING. I ASKED HIM IF I COULD ASSIST HIM TO REPOSITION IN THE BED BECAUSE HE HAS BEEN IN THE SAME POSITION IN THE BED ALL NIGHT, HE REFUSED, STATING "I HAVE BEEN LAYING LIKE THIS FOR 7YRS, I REMINDED HIM THAT HIS BACK WAS BOTHERING HIM THOUGH AND THE POSITION HE HAS HIS BACK IN MAY POSSIBLY BE WORSENING THE PROBLEM, HE REFUSED TO MOVE OR REPOSITION.
--- NOTE | 2020-09-15 07:30 | NUR ---
REPORT RECEIVED FROM CIERRA JARA. PT RESTING IN BED ON RIGHT SIDE; REPOSITIONED SELF INTO SITTING POSITION ON EDGE OF BED INDEPENDENTLY; ALERT AND ORIENTED; PLEASANT AND TALKATIVE. C/O 4/10 CHRONIC BACK PAIN; RESPIRATIONS EVEN AND UNLABORED ON OXYGEN 3L VIA NC. 2OG EMS IV APPEARS HEALTHY AND FLUSHES. PATHAK CATHETER DRAINGING CLEAR URINE WITH SEDIMENT. POC REVEIWED; PT ENCOURAGED TO VERBALIZE CONCERNS; STATES UNDERSTANDING. SAFETY MEASURES IN PLACE. CALL LIGHT WITHIN REACH.
[2020-09-15 08:00] VITALS: BP 155/89
--- NOTE | 2020-09-15 08:19 | NUR ---
Patient is screened for intervention and consult may be indicated if medical agrees
[2020-09-15 11:28] VITALS: BP 134/71
--- NOTE | 2020-09-15 11:53 | NUR ---
RADIOLOGY AT BEDSIDE FOR PORTABLE CHEST XRAY.
--- NOTE | 2020-09-15 13:10 | NUR ---
IV site discontinued, cath intact. No edema , no redness, voices no discomfort.
--- NOTE | 2020-09-15 13:18 | NUR ---
Discharge instructions given. Patient verbalizes understanding of same. Discharged in stable condition via Taxi to Home with volunteer. All belongings sent with pt.
== END 2020-09-15 13:18 ==
LOC: ED 16:21 → MS2 18:36
PROVIDERS: ADMIT Internal Medicine; ATTEND Internal Medicine
DX: I11.0 Hypertensive heart disease with heart failure (principal); I50.43 Acute on chronic combined systolic (congestive) and diastolic (congestive) heart failure; J96.21 Acute and chronic respiratory failure with hypoxia; I25.10 Atherosclerotic heart disease of native coronary artery without angina pectoris; E11.40 Type 2 diabetes mellitus with diabetic neuropathy, unspecified; E78.5 Hyperlipidemia, unspecified; I48.91 Unspecified atrial fibrillation; K21.9 Gastro-esophageal reflux disease without esophagitis; I25.2 Old myocardial infarction; Z99.81 Dependence on supplemental oxygen; Z86.711 Personal history of pulmonary embolism; Z95.5 Presence of coronary angioplasty implant and graft; Z79.4 Long term (current) use of insulin; Z95.1 Presence of aortocoronary bypass graft; Z87.891 Personal history of nicotine dependence; Z20.822 Contact with and (suspected) exposure to COVID-19

== ENCOUNTER 2020-11-11 10:26 | Emergency (ER) | payer MEDICARE, BC ==
[2020-11-11 12:53] VITALS: BP 134/66
[2020-12-23] MEDS ORDERED: LORTAB 1010 MG PO (11:38)
[2020-12-23] MEDS ORDERED: TRAZODONE50 MG PO (11:40)
== END 2020-11-11 13:48 | disposition home or self-care (01) ==
LOC: ED 10:26
DX: S70.11XA Contusion of right thigh, initial encounter (principal); S70.311A Abrasion, right thigh, initial encounter; I11.0 Hypertensive heart disease with heart failure; I50.9 Heart failure, unspecified; E11.40 Type 2 diabetes mellitus with diabetic neuropathy, unspecified; E78.5 Hyperlipidemia, unspecified; K21.9 Gastro-esophageal reflux disease without esophagitis; I48.91 Unspecified atrial fibrillation; W01.0XXA Fall on same level from slipping, tripping and stumbling without subsequent striking against object, initial encounter; Y92.009 Unspecified place in unspecified non-institutional (private) residence as the place of occurrence of the external cause; Z86.711 Personal history of pulmonary embolism; Z95.5 Presence of coronary angioplasty implant and graft; Z95.1 Presence of aortocoronary bypass graft; Z79.4 Long term (current) use of insulin

== ENCOUNTER 2020-12-21 00:15 | Emergency (ER) | payer MEDICARE, BC ==
[~2020-12-21] VITALS: Ht 167.6 cm; Wt 79.6 kg
[2020-12-21 00:56] LABS: HEMATOCRIT 44.2 % (39.0-50.0); HEMOGLOBIN 13.4 g/dl (14.0-18.0); IMMATURE GRANULOCYTES 0.5 % (0.0-5.0); MEAN CELL VOLUME 82.5 fL CALC (80.0-100.0); MEAN CORPUSCULAR HGB CONC 30.3 g/dL CAL (32.0-36.0); NEUT# 6.44 thou/uL (1.82-7.42); RED BLOOD COUNT 5.36 mill/uL (4.70-6.10); RED CELL DISTRI WIDTH 17.7 % (11.5-15.5)
[2020-12-21 00:59] LABS: ALBUMIN 3.9 g/dL (3.2-5.0); ALKALINE PHOSPHATASE 56 u/l (38-126); AMYLASE 54 u/l (30-110); ANION GAP 13 (6-22 (CALC)); BILIRUBIN, TOTAL 0.6 mg/dL (0.0-1.4); BUN 33 mg/dL (8-23); BUN/CREATININE RATIO 30 (12-20 (CALC)); CARBON DIOXIDE 28 mmol/l (22-30); CHLORIDE 100 mmol/l (95-108); CREATININE 1.1 mg/dL (0.7-1.3); GFR > 60 ML/MIN (>=60 (CALC)); GFR FOR AFR.AMER. > 60 ML/MIN (>=60 (CALC)); LIPASE 57 u/l (23-300); POTASSIUM 4.8 mmol/l (3.5-5.1); SGOT/AST 23 u/l (19-48); SODIUM 136 mmol/l (137-146); TOTAL PROTEIN 7.1 g/dL (6.3-8.2)
[2020-12-21 01:16] LABS: URINE BILIRUBIN - DIPSTICK NEGATIVE (NEGATIVE); URINE BLOOD DIPSTICK NEGATIVE (NEGATIVE); URINE COLOR YELLOW; URINE GLUCOSE - DIPSTICK NEGATIVE (NEGATIVE); URINE KETONE NEGATIVE (NEGATIVE); URINE LEUK ESTERASE NEGATIVE (NEGATIVE); URINE PROTEIN - DIPSTICK 30 mg/dL (NEG-TRACE); URINE UROBILINOGEN - DIPSTICK 0.2 E.U./dL (0.2)
[2020-12-21 01:17] LABS: URINE NITRITE - DIPSTICK NEGATIVE (Negative)
[2020-12-21 01:38] LABS: URINE SQUAMOUS EPITHELIAL CELL FEW EPI/hpf (0-FEW); URINE WBC 0-2 WBC/hpf (0-5)
[2020-12-21 01:39] LABS: URINE BACTERIA FEW hpf
[2020-12-21] MEDS ORDERED: TORADOL PO (01:58)
[2020-12-21 07:04] VITALS: BP 134/68
[2020-12-22] MEDS ORDERED: PERCOCET 10/31 COMBO PO (07:04)
[2020-12-23] MEDS ORDERED: LORTAB 1010 MG PO (11:38)
[2020-12-23] MEDS ORDERED: TRAZODONE50 MG PO (11:40)
== END 2020-12-21 08:57 | disposition home or self-care (01) ==
LOC: ED 00:15
PROVIDERS: Family Medicine
DX: M54.9 Dorsalgia, unspecified (principal); G89.29 Other chronic pain; I11.0 Hypertensive heart disease with heart failure; I50.9 Heart failure, unspecified; I25.10 Atherosclerotic heart disease of native coronary artery without angina pectoris; E11.40 Type 2 diabetes mellitus with diabetic neuropathy, unspecified; N31.9 Neuromuscular dysfunction of bladder, unspecified; E78.5 Hyperlipidemia, unspecified; K21.9 Gastro-esophageal reflux disease without esophagitis; I48.91 Unspecified atrial fibrillation; I25.2 Old myocardial infarction; Z96.0 Presence of urogenital implants; Z95.1 Presence of aortocoronary bypass graft; Z95.5 Presence of coronary angioplasty implant and graft; Z79.4 Long term (current) use of insulin; Z86.711 Personal history of pulmonary embolism; Z87.442 Personal history of urinary calculi

== ENCOUNTER 2020-12-22 04:44 | Emergency (ER) | payer MEDICARE, BC ==
[~2020-12-22] VITALS: Ht 167.6 cm; Wt 83.1 kg
[~2020-12-22 04:44] MED LIST changes: +TORADOL PO
[2020-12-22 04:47] VITALS: BP 195/99
[2020-12-22 05:26] LABS: HEMATOCRIT 42.5 % (39.0-50.0); HEMOGLOBIN 12.9 g/dl (14.0-18.0); IMMATURE GRANULOCYTES 0.7 % (0.0-5.0); MEAN CELL VOLUME 82.2 fL CALC (80.0-100.0); MEAN CORPUSCULAR HGB CONC 30.4 g/dL CAL (32.0-36.0); NEUT# 6.01 thou/uL (1.82-7.42); RED BLOOD COUNT 5.17 mill/uL (4.70-6.10); RED CELL DISTRI WIDTH 17.4 % (11.5-15.5)
[2020-12-22 05:32] LABS: URINE BILIRUBIN - DIPSTICK NEGATIVE (NEGATIVE); URINE BLOOD DIPSTICK NEGATIVE (NEGATIVE); URINE COLOR YELLOW; URINE GLUCOSE - DIPSTICK NEGATIVE (NEGATIVE); URINE KETONE 15 mg/dL (NEGATIVE); URINE LEUK ESTERASE NEGATIVE (NEGATIVE); URINE PROTEIN - DIPSTICK 30 mg/dL (NEG-TRACE); URINE SPECIFIC GRAVITY 1.025; URINE UROBILINOGEN - DIPSTICK 0.2 E.U./dL (0.2)
[2020-12-22 05:37] LABS: URINE NITRITE - DIPSTICK NEGATIVE (Negative)
[2020-12-22 05:41] LABS: ALBUMIN 3.8 g/dL (3.2-5.0); CREATININE 1.4 mg/dL (0.7-1.3); TOTAL PROTEIN 6.9 g/dL (6.3-8.2)
[2020-12-22 05:44] LABS: POTASSIUM 5.2 mmol/l (3.5-5.1)
[2020-12-22 06:00] LABS: INTERNATIONAL NORMALIZED RATIO 1.5 RATIO (0.7-1.3); PROTHROMBIN TIME 15.4 SECONDS (9.0-12.5)
[2020-12-22 06:05] LABS: URINE BACTERIA FEW hpf; URINE SQUAMOUS EPITHELIAL CELL FEW EPI/hpf (0-FEW)
[2020-12-22] MEDS ORDERED: PERCOCET 10/31 COMBO PO (07:04)
[2020-12-23] MEDS ORDERED: LORTAB 1010 MG PO (11:38)
[2020-12-23] MEDS ORDERED: TRAZODONE50 MG PO (11:40)
== END 2020-12-22 07:28 | disposition home or self-care (01) ==
LOC: ED 04:44
PROVIDERS: Family Medicine
DX: J06.9 Acute upper respiratory infection, unspecified (principal); M54.5 Low back pain; G89.29 Other chronic pain; R33.9 Retention of urine, unspecified; N31.9 Neuromuscular dysfunction of bladder, unspecified; E11.40 Type 2 diabetes mellitus with diabetic neuropathy, unspecified; I11.0 Hypertensive heart disease with heart failure; I50.9 Heart failure, unspecified; I25.10 Atherosclerotic heart disease of native coronary artery without angina pectoris; K21.9 Gastro-esophageal reflux disease without esophagitis; I48.91 Unspecified atrial fibrillation; E78.5 Hyperlipidemia, unspecified; I25.2 Old myocardial infarction; Z95.5 Presence of coronary angioplasty implant and graft; Z86.711 Personal history of pulmonary embolism; Z95.1 Presence of aortocoronary bypass graft; Z87.442 Personal history of urinary calculi; Z79.4 Long term (current) use of insulin; Z96.0 Presence of urogenital implants; Z20.822 Contact with and (suspected) exposure to COVID-19
CPT/HCPCS: Q9967

== ENCOUNTER 2020-12-25 12:29 | Observation (INO) | payer MEDICARE, BC ==
[2020-12-25] VITALS: BP 134/58
[~2020-12-25] VITALS: Ht 167.6 cm; Wt 80.0 kg
[~2020-12-25 12:29] MED LIST changes: +PERCOCET 10/31 COMBO PO; +TRAZODONE50 MG PO
--- NOTE | 2020-12-25 12:30 | NUR ---
PATIENT TO ROOM VIA EMS STRETCHER.
[2020-12-25] MEDS ORDERED: SPIRONOLACTONE25 MG PO (13:15)
[2020-12-25] MEDS ORDERED: METHOCARBAMOL500 MG PO (13:16)
[2020-12-25 13:17] LABS: HEMOGLOBIN 11.1 g/dl (14.0-18.0); IMMATURE GRANULOCYTES 0.5 % (0.0-5.0); MEAN CORPUSCULAR HGB 24.9 pG CALC (26.0-32.0); MEAN CORPUSCULAR HGB CONC 30.4 g/dL CAL (32.0-36.0); NEUT# 6.46 thou/uL (1.82-7.42); RED BLOOD COUNT 4.45 mill/uL (4.70-6.10); RED CELL DISTRI WIDTH 16.9 % (11.5-15.5)
[2020-12-25 13:19] LABS: HEMATOCRIT 36.5 % (39.0-50.0)
[2020-12-25] MEDS ORDERED: PRESERVISION PO (13:23)
[2020-12-25] MEDS ORDERED: JANUVIA100 MG PO (13:24)
[2020-12-25 13:28] LABS: ALBUMIN 3.4 g/dL (3.2-5.0); ALKALINE PHOSPHATASE 37 u/l (38-126); ANION GAP 11 (6-22 (CALC)); BILIRUBIN, TOTAL 1.1 mg/dL (0.0-1.4); BUN 35 mg/dL (8-23); BUN/CREATININE RATIO 31 (12-20 (CALC)); CARBON DIOXIDE 24 mmol/l (22-30); CHLORIDE 101 mmol/l (95-108); CREATININE 1.1 mg/dL (0.7-1.3); GFR > 60 ML/MIN (>=60 (CALC)); GFR FOR AFR.AMER. > 60 ML/MIN (>=60 (CALC)); SGOT/AST 37 u/l (19-48); SODIUM 132 mmol/l (137-146); TOTAL PROTEIN 6.3 g/dL (6.3-8.2)
[2020-12-25] MEDS ORDERED: MECLIZINE25 MG PO (13:28)
[2020-12-25 13:29] LABS: POTASSIUM 3.6 mmol/l (3.5-5.1)
[2020-12-25] MEDS ORDERED: TOUJEO MAX300 UNIT/M SC (13:29)
[2020-12-25] MEDS ORDERED: MAGNESIUM250 M1 PO (13:30)
--- NOTE | 2020-12-25 13:30 | NUR ---
PT RESTING IN BED. SHEET PROVIDED. CALL LIGHT WITHIN REACH, BED IN LOW POSITION. STABLE ON MONITOR.
[2020-12-25 13:35] LABS: URINE BILIRUBIN - DIPSTICK NEGATIVE (NEGATIVE); URINE BLOOD DIPSTICK TRACE-INTACT (NEGATIVE); URINE COLOR YELLOW; URINE GLUCOSE - DIPSTICK NEGATIVE (NEGATIVE); URINE KETONE 15 mg/dL (NEGATIVE); URINE LEUK ESTERASE NEGATIVE (NEGATIVE); URINE PROTEIN - DIPSTICK TRACE mg/dL (NEG-TRACE); URINE SPECIFIC GRAVITY 1.025; URINE UROBILINOGEN - DIPSTICK 0.2 E.U./dL (0.2)
[2020-12-25 13:37] LABS: URINE NITRITE - DIPSTICK NEGATIVE (Negative)
[2020-12-25 13:40] LABS: MYOGLOBIN 64 ng/mL (0 - 121)
--- NOTE | 2020-12-25 14:38 | NUR ---
PT RETURNED FROM RADIOLOGY, ATTACHED TO MONITOR. BED IN LOW POSITION, CALL LIGHT IN REACH.
--- NOTE | 2020-12-25 15:23 | NUR ---
DR GE AT BEDSIDE TO DISCUSS PLAN FOR ADMISSION.
--- NOTE | 2020-12-25 16:18 | NUR ---
REPORT GIVEN TO ASHOK BELTRAN ON [facility]. PT ADMITTED TO [facility]
[2020-12-25 17:00] VITALS: BP 139/62
--- NOTE | 2020-12-25 17:00 | NUR ---
PT ARRIVED VIA STRETCHER WITH STAFF.
--- NOTE | 2020-12-25 18:05 | NUR ---
ASSESSMENT IS COMPLETED: IV SITE IS FREE FROM REDNESS OR EDEMA. HR IS REG,PULSES ARE STRONG X4, ABD IS SOFT WITH ACTIVE BS. BREATH SOUNDS ARE CLEAR,BILATERALLY, O2 @ 2LITERS WITH NC. TELE MONITOR IN PLACE. PATHAK DRAINING YELLOW URINE. SKIN IS INTACT. CONTINUE TO OSBERVE AND MONITOR.
[2020-12-25 19:00] VITALS: BP 140/67
--- NOTE | 2020-12-25 19:00 | NUR ---
REPORT RECEIVED FROM Jeni VIZCAINO LPN, CARE OF PTS ASSUMED AT THIS TIME.
--- NOTE | 2020-12-25 20:15 | NUR ---
PT RESTING IN BED WATCHING, NO APPARENT DISTRESS OR DISCOMFORT. PHYSICAL ASSESMENT COMPLETED. PT A/OX3, COOPERATIVE AND DROWSY, STATES "I'M SO TIRED, I JUST NEED TO GET SOME SLEEP. TELEMETRY #861, REPORTEDLY SR W/ PACS 70S. NON-INVASIVE HEMODYNAMICS STABLE AND WITHIN PT'S BASELINE. LUNGS CLEAR AND DIMINISHED. RESPIRATIONS REGULAR AND UNLABORED. SP02 100% ON ROOM AIR. ABDOMEN DISTENDED AND SOFT. PLAN OF CARE DISCUSSED WITH PATIENT. PT VERBALIZES UNDERSTANDING AND VERBALIZES AGRREEMENT. PT DENIES FURTHER NEEDS. CALL BARRON WITHIN REACH, AGREES TO CALL PRN. ALL ITEMS WITHIN REACH. BED LOCKED IN LOW POSITION WITH BEDRAILS UP X2.
--- NOTE | 2020-12-25 21:30 | NUR ---
POINT OF CARE GLUCOSE 144mg/dl. INSULIN HELD. PT IS DROWSY BUT WAKES EASILY, ASKED PT IF HE STILL WANTED HIS XANAX AND SONATA. PT STATES "YES, OR I WON'T GET ANY SLEEP AND IM SO TIRED" SCHEDULED MEDICATIONS AMD REQUESTED PRN MEDICATIONS ADMINISTERED. SEE E-MAR.
--- NOTE | 2020-12-26 01:30 | NUR ---
PT APPEARS TO BE SLEEPING COMFORTABLY. LAYING IN BED, EYES CLOSED. NO APPARENT DISTRESS. RESPIRATIONS REGULAR AND UNLABORED. CALL BARRON REMAINS WITHIN REACH.
[2020-12-26 04:00] VITALS: BP 131/70
--- NOTE | 2020-12-26 04:46 | NUR ---
Avni ARREDONDO [employer] AGENT IN ROOM COLLECTING LABS.
[2020-12-26 04:53] LABS: HEMATOCRIT 39.5 % (39.0-50.0); HEMOGLOBIN 11.9 g/dl (14.0-18.0); IMMATURE GRANULOCYTES 0.5 % (0.0-5.0); MEAN CELL VOLUME 83.2 fL CALC (80.0-100.0); MEAN CORPUSCULAR HGB 25.1 pG CALC (26.0-32.0); MEAN CORPUSCULAR HGB CONC 30.1 g/dL CAL (32.0-36.0); NEUT# 6.68 thou/uL (1.82-7.42); RED BLOOD COUNT 4.75 mill/uL (4.70-6.10)
[2020-12-26 05:09] LABS: ANION GAP 9 (6-22 (CALC)); BUN 28 mg/dL (8-23); BUN/CREATININE RATIO 25 (12-20 (CALC)); CARBON DIOXIDE 27 mmol/l (22-30); CHLORIDE 102 mmol/l (95-108); CREATININE 1.1 mg/dL (0.7-1.3); GFR > 60 ML/MIN (>=60 (CALC)); GFR FOR AFR.AMER. > 60 ML/MIN (>=60 (CALC)); POTASSIUM 3.6 mmol/l (3.5-5.1); SODIUM 134 mmol/l (137-146)
[2020-12-26 05:14] LABS: INTERNATIONAL NORMALIZED RATIO 1.8 RATIO (0.7-1.3); PROTHROMBIN TIME 17.9 SECONDS (9.0-12.5)
--- NOTE | 2020-12-26 06:03 | NUR ---
GLUCOSE VIA CHEM7 61mg/dl. PT ASYMPTOMATIC. PROVIDED WITH AND COMPLETED OJ AND NUTRIGRAIN BAR.
--- NOTE | 2020-12-26 07:00 | NUR ---
PT REPORT RECEIVED FROM NIGHT NURSEMARISELA
[2020-12-26 07:30] VITALS: BP 159/71
--- NOTE | 2020-12-26 08:00 | NUR ---
PT WAS FOUND RESTING IN BEDSIDE CHAIR;PT IS A&OX3;VS AND ASSESSMENT WERE COMPLETED;PT IS REPORTING LOWER BACK PAIN OF 10/10;PT WAS PREVIOUSLY MEDICATED AND IS NOT SCHEDULED FOR SEVERAL MORE HOURS;PT WAS EDUCATED ON MED SCHEDULES AND WILL GIVE SOON POSSIBLE ACCORDING TO EMAR;PT WAS MEDICATED FOR PAIN WITH TYLENOL 650MG PO AT THIS TIME;HEART SOUNDS ARE IRREGULAR IN RATE AND RHYTHM;LUNG SOUNDS ARE CLEAR;RESPIRATIONS ARE EVEN AND UNLABORED ON O2@2L VIA NC;PATHAK IS IN PLACE DRAINING CLEAR YELLOW URINE;PT SKIN IS INTACT;#22G IV IN LW IS RUNNING NS@50ML/HR;IV SITE APPEARS FREE OF COMPLICATIONS AT THIS TIME;SAFETY PRECAUTIONS IN PLACE;CALL LIGHT WITHIN REACH;BED IN LOWEST POSITION;PT ENCOURAGED TO CALL WITH ANY NEEDS OR CONCERNS;WILL CONTINUE TO MONITOR.
--- NOTE | 2020-12-26 09:50 | NUR ---
AT BEDSIDE DISCUSSING POC WITH PT
[2020-12-26 10:43] LABS: MAGNESIUM 1.9 mg/dL (1.6-2.3)
[2020-12-26 10:50] VITALS: BP 105/60
--- NOTE | 2020-12-26 12:00 | NUR ---
PT WAS FOUND RESTING IN BED IN SEMI-FOWLERS POSITION EATING LUNCH;TELE IS IN PLACE;SAFETY PRECAUTIONS IN PLACE;CALL LIGHT WITHIN REACH;BED IN LOWEST POSITION;WILL CONTINUE TO MONITOR;
[2020-12-26 15:12] VITALS: BP 152/84
--- NOTE | 2020-12-26 16:00 | NUR ---
PT WAS FOUND SLEEPING IN BED;TELE IS IN PLACE;#22G IV IN LW IS RUNNING NS @50ML/HR;IV SITE APPEARS FREE OF COMPLICATIONS AT THIS TIME;O2@2L VIA NC IS IN PLACE;SAFETY PRECAUTIONS IN PLACE;CALL LIGHT WITHIN REACH;BED IN LOWEST POSITION;WILL CONTINUE TO MONITOR.
--- NOTE | 2020-12-26 19:06 | NUR ---
REPORT FROM ADAN NORTON. ASSUMED PT CARE.
[2020-12-26 19:30] VITALS: BP 150/74
--- NOTE | 2020-12-26 20:14 | NUR ---
PT NOTED RESTING IN BED WITH EYES CLOSED. ALERT AND ORIENTED X3. NO APPARENT DISTRESS NOTED. RESPIRATIONS EVEN AND UNLABORED. O2 @2L/M VIA NC. IV SITE APPEARS HEALTHY WITH IVF INFUSING. CELLOPHANE WRAPPING EXAMINER IN PLACE. PATHAK PATENT DRAINING TO GRAVITY. PT C/O GENERALIZED PAIN, MEDICATED AT THIS TIME WITH PRN LORTAB. DISCUSSED POC. PT VERBALIZED UNDERSTANDING. CALL LIGHT WITHIN REACH. WILL CONTINUE TO MONITOR.
[2020-12-27] VITALS (10 sets, daily range): BP systolic 90–193; BP diastolic 45–88
--- NOTE | 2020-12-27 00:26 | NUR ---
PT RESTING IN BED WITH EYES CLOSED. NO APPARENT DISTRESS NOTED. RESPIRATIONS EVEN AND UNLABORED. 02 @ 2L/M VIA NC. IVF INFUSING WITHOUT DIFFICULTY. CALL LIGHT WITHIN REACH. WILL CONTINUE TO MONITOR.
--- NOTE | 2020-12-27 03:36 | NUR ---
PT MEDICATED FOR PAIN IN LEFT FOOT. 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 HOT PACK PROVIDED REQUESTED. EXTRA PILLOWS PROVIDED FOR COMFORT TO HEELS. ASSISTED PT WITH REPOSITIONING IN BED. NO APPARENT DISTRESS NOTED. IV SITE REMAINS HEALTHY. PATHAK REMAINS PATENT DRAINING TO GRAVITY. CALL LIGHT WITHIN REACH. WILL CONTINUE TO MONITOR.
--- NOTE | 2020-12-27 04:15 | NUR ---
PT C/O SOB. NO APPARENT DISTRESS NOTED. RESPIRATIONS EVEN AND UNLABORED. VS 106/56, 95% ON 2L/M VIA NC, 69, 18. LUNG SOUNDS CLEAR UPPER CLEAR BILATERAL, CRACKLES NOTED IN THE BASES. ASSISTED PT OOB INTO CHAIR X1 PERSON ASSIST. PT STATES NOSE STUFFED UP, TISSUES PROVIDED, ENCOURAGED PT TO BLOW NOSE, NOT EFFECTIVE. WHEELED PT INTO BATHROOM, SHOWER TURNED ON FOR STEAM TO ASSIST WITH NASAL CONGESTION WITH EFFECT. DENTURES BRUSHED, MOUTH WASH PROVIDED FOR ORAL CARE. PT APPRECIATIVE. PT BACK AT BEDSIDE REMAINS IN CHAIR WITH CALL LIGHT WITHIN REACH. WILL CONTINUE TO MONITOR.
--- NOTE | 2020-12-27 08:25 | NUR ---
PATIENT WAS SITTING IN THE RECLIENR. NOW HE IS BACK IN BED. ASSESSMENT DONE . PATIENT DENIES PAIN. HE STATED HE FEELS A LITTLE BETTER TODAY. LUNGS SOUND DIMINISHED. O2 AT 2L VIA NC. PATIENT DENIES NEEDS . CALL LIGHT IN REACH.
--- NOTE | 2020-12-27 12:05 | NUR ---
PATIENT IS RESTING ON HIS RIGHT IN BED WITH NO S/S OF DISTRESS NOTED. PATIENT DENIES NEEDS CALL LIGHT IN REACH.
--- NOTE | 2020-12-27 15:16 | NUR ---
PATIENT IS SITTING IN THE SIDE OF THE BED. PATIENT STATED HE FEELS SOB . LUNGS SOUND DIMINISHED. O2 IS 95% WITH O2 AT 2L VIA NC. NOTIFIED DR. LAGOS THAT PATIENT IS REQUESTING LASIX. ORDERS RECEIVED.
--- NOTE | 2020-12-27 17:55 | NUR ---
PATIENT STATED HE FEELS BETTER NO SOB. PATIENT IS EATING HIS DINNER. CALL LIGHT IN REACH.
--- NOTE | 2020-12-27 19:01 | NUR ---
REPORT FROM [facility]ORTON. ASSUMED PT CARE.
--- NOTE | 2020-12-27 19:52 | NUR ---
PT NOTED RESTING IN BED. WAKES EASILY. NO APPARENT DISTRESS NOTED. RESPIRATIONS EVEN AND UNLABORED. O2 @ 2L/M VIA NC. PT DENIES ANY PAIN OR DISCOMFORT. DIRECTOR PAID MEDIA IN PLACE. IV SITE APPEARS HEALTHY, FLUSHED WELL. DISCUSSED POC AND SAFETY PRECAUTIONS. PATHAK PATENT DRAINING TO GRAVITY. NO CURRENT WANTS OR NEEDS. CALL LIGHT WITHIN REACH. WILL CONTINUE TO MONITOR.
--- NOTE | 2020-12-28 02:18 | NUR ---
PT REQUESTING LASIX STATING HE IS SOB. LUNG SOUNDS DIMINISHED, UNCHANGED FROM BEGINNING OF SHIFT. NO APPARENT SOB. RESPIRATIONS EVEN AND UNLABORED. PATHAK PATENT DRAINING TO GRAVITY. ASSISTED PT UP INTO CHAIR AT BEDSIDE. REMAINS ON 2L/M VIA NC. VSS SAT 95%. MEDICATED FOR ANXIETY WITH PRN XANAX. CALL LIGHT WITHIN REACH. WILL CONTINUE TO MONITOR.
[2020-12-28 03:35] VITALS: BP 109/48
[2020-12-28 05:56] LABS: INTERNATIONAL NORMALIZED RATIO 1.5 RATIO (0.7-1.3); PROTHROMBIN TIME 15.3 SECONDS (9.0-12.5)
[2020-12-28 07:38] VITALS: BP 130/63
--- NOTE | 2020-12-28 07:45 | NUR ---
PATIENT IS SITTING IN THE SIDE OF THE BED. PATIENT IS ALERT AND ORIENT X3. PATIENT STATED PAIN IN BACK 04/26. MEDICATED PATIENT WITH TYLENOL. TELE IN PLACE. LUNGS SOUND DIMINISHED. O2 AT 2L VIA NC. PATHAK IS PATENT WITH YELLOW URINE. PO FLUIDS PROVIDED. PATIENT DENIES ANY OTHER NEEDS AT THIS TIME. CALL LIGHT IN REACH.
[2020-12-28 07:47] VITALS: BP 130/63
--- NOTE | 2020-12-28 12:03 | NUR ---
CALLED [facility] AND INFORMED YASHIRA THAT PATIENT IS BEING D/C TODAY AND WILL FAXED D/C PAPER TO THEM.
--- NOTE | 2020-12-28 12:35 | NUR ---
Discharge instructions given. Patient verbalizes understanding of same. Discharged in stable condition via [facility] with staff. All belongings sent with pt.
== END 2020-12-28 12:35 ==
LOC: ED 12:29 → ED-I 15:10 → ED 15:20 → MS2 15:21
PROVIDERS: Emergency Medicine; Internal Medicine; ADMIT Internal Medicine; ATTEND Internal Medicine
DX: R53.1 Weakness (principal); R52 Pain, unspecified; E53.8 Deficiency of other specified B group vitamins; I13.0 Hypertensive heart and chronic kidney disease with heart failure and stage 1 through stage 4 chronic kidney disease, or unspecified chronic kidney disease; I50.42 Chronic combined systolic (congestive) and diastolic (congestive) heart failure; E11.22 Type 2 diabetes mellitus with diabetic chronic kidney disease; N18.30 Chronic kidney disease, stage 3 unspecified; I25.10 Atherosclerotic heart disease of native coronary artery without angina pectoris; R33.9 Retention of urine, unspecified; E78.5 Hyperlipidemia, unspecified; M48.00 Spinal stenosis, site unspecified; K21.9 Gastro-esophageal reflux disease without esophagitis; E11.40 Type 2 diabetes mellitus with diabetic neuropathy, unspecified; I48.91 Unspecified atrial fibrillation; N31.9 Neuromuscular dysfunction of bladder, unspecified; F41.9 Anxiety disorder, unspecified; G47.00 Insomnia, unspecified; I25.2 Old myocardial infarction; Z86.711 Personal history of pulmonary embolism; Z95.5 Presence of coronary angioplasty implant and graft; Z87.442 Personal history of urinary calculi; Z79.4 Long term (current) use of insulin; Z96.0 Presence of urogenital implants; Z79.01 Long term (current) use of anticoagulants; Z95.1 Presence of aortocoronary bypass graft; Z20.822 Contact with and (suspected) exposure to COVID-19
CPT/HCPCS: G0378; J3420; Q9967

== ENCOUNTER 2021-03-24 21:18 | Emergency (ER) | payer MEDICARE, BC ==
[~2021-03-24] VITALS: Ht 167.6 cm; Wt 81.0 kg
[~2021-03-24 21:18] MED LIST changes: +METHOCARBAMOL500 MG PO; +SPIRONOLACTONE25 MG PO; +TOUJEO MAX300 UNIT/M SC
[2021-03-24 21:57] LABS: HEMATOCRIT 42.1 % (39.0-50.0); HEMOGLOBIN 12.8 g/dl (14.0-18.0); IMMATURE GRANULOCYTES 1.2 % (0.0-5.0); MEAN CORPUSCULAR HGB CONC 30.4 g/dL CAL (32.0-36.0); NEUT# 5.05 thou/uL (1.82-7.42); RED BLOOD COUNT 4.74 mill/uL (4.70-6.10)
[2021-03-24 21:59] LABS: MEAN CELL VOLUME 88.8 fL CALC (80.0-100.0)
[2021-03-24 22:15] LABS: ANION GAP 14 (6-22 (CALC)); BUN 27 mg/dL (8-23); BUN/CREATININE RATIO 27 (12-20 (CALC)); CARBON DIOXIDE 29 mmol/l (22-30); CHLORIDE 101 mmol/l (95-108); GFR > 60 ML/MIN (>=60 (CALC)); GFR FOR AFR.AMER. > 60 ML/MIN (>=60 (CALC)); LIPASE 58 u/l (23-300); POTASSIUM 4.2 mmol/l (3.5-5.1); SGOT/AST 26 u/l (19-48); SODIUM 140 mmol/l (137-146); TOTAL PROTEIN 7.1 g/dL (6.3-8.2)
[2021-03-24 22:17] LABS: ACT PARTIAL THROMBO TIME 25.5 SECONDS (20.0-32.5); INTERNATIONAL NORMALIZED RATIO 1.3 RATIO (0.7-1.3); PROTHROMBIN TIME 13.8 SECONDS (9.0-12.5)
[2021-03-24 22:19] LABS: ALKALINE PHOSPHATASE 59 u/l (38-126); BILIRUBIN, TOTAL 0.5 mg/dL (0.0-1.4)
[2021-03-25 02:34] VITALS: BP 179/85
== END 2021-03-25 02:34 | disposition short-term general hospital (02) ==
LOC: ED 21:18
DX: I24.9 Acute ischemic heart disease, unspecified (principal); I25.110 Atherosclerotic heart disease of native coronary artery with unstable angina pectoris; I11.0 Hypertensive heart disease with heart failure; I50.9 Heart failure, unspecified; E11.40 Type 2 diabetes mellitus with diabetic neuropathy, unspecified; E78.5 Hyperlipidemia, unspecified; K21.9 Gastro-esophageal reflux disease without esophagitis; M54.9 Dorsalgia, unspecified; I25.2 Old myocardial infarction; Z99.81 Dependence on supplemental oxygen; Z95.1 Presence of aortocoronary bypass graft; Z95.5 Presence of coronary angioplasty implant and graft; Z86.711 Personal history of pulmonary embolism; Z79.4 Long term (current) use of insulin; Z20.822 Contact with and (suspected) exposure to COVID-19

== ENCOUNTER 2021-08-01 18:41 | Emergency (ER) | payer MEDICARE, BC ==
[~2021-08-01] VITALS: Ht 167.6 cm; Wt 80.0 kg
[2021-08-01 19:20] VITALS: BP 188/90
== END 2021-08-01 19:30 | disposition home or self-care (01) ==
LOC: ED 18:41
DX: T83.091A Other mechanical complication of indwelling urethral catheter, initial encounter (principal); N13.9 Obstructive and reflux uropathy, unspecified; N31.9 Neuromuscular dysfunction of bladder, unspecified; I11.0 Hypertensive heart disease with heart failure; I50.9 Heart failure, unspecified; E11.40 Type 2 diabetes mellitus with diabetic neuropathy, unspecified; I25.10 Atherosclerotic heart disease of native coronary artery without angina pectoris; I48.91 Unspecified atrial fibrillation; E78.5 Hyperlipidemia, unspecified; K21.9 Gastro-esophageal reflux disease without esophagitis; H35.30 Unspecified macular degeneration; I25.2 Old myocardial infarction; Y84.6 Urinary catheterization as the cause of abnormal reaction of the patient, or of later complication, without mention of misadventure at the time of the procedure; Z86.711 Personal history of pulmonary embolism; Z95.1 Presence of aortocoronary bypass graft; Z95.5 Presence of coronary angioplasty implant and graft

== ENCOUNTER 2021-08-25 11:45 | Emergency (ER) | payer MEDICARE, BC ==
[~2021-08-25] VITALS: Ht 167.6 cm; Wt 79.0 kg
[2021-08-25 12:19] LABS: HEMOGLOBIN 10.5 g/dl (14.0-18.0); IMMATURE GRANULOCYTES 0.7 % (0.0-5.0); MEAN CELL VOLUME 85.4 fL CALC (80.0-100.0); MEAN CORPUSCULAR HGB 25.6 pG CALC (26.0-32.0); NEUT# 5.83 thou/uL (1.82-7.42); RED BLOOD COUNT 4.1 mill/uL (4.70-6.10); RED CELL DISTRI WIDTH 16.9 % (11.5-15.5)
[2021-08-25 12:33] LABS: ALBUMIN 3.8 g/dL (3.2-5.0); ALKALINE PHOSPHATASE 63 u/l (38-126); ANION GAP 15 (6-22 (CALC)); BILIRUBIN, TOTAL 0.6 mg/dL (0.0-1.4); BUN 23 mg/dL (8-23); BUN/CREATININE RATIO 18 (12-20 (CALC)); CARBON DIOXIDE 28 mmol/l (22-30); CHLORIDE 101 mmol/l (95-108); CREATININE 1.3 mg/dL (0.7-1.3); GFR 52 ML/MIN (>=60 (CALC)); GFR FOR AFR.AMER. > 60 ML/MIN (>=60 (CALC)); SGOT/AST 19 u/l (19-48); SODIUM 141 mmol/l (137-146); TOTAL PROTEIN 7.3 g/dL (6.3-8.2)
[2021-08-25 12:34] LABS: POTASSIUM 3.1 mmol/l (3.5-5.1)
[2021-08-25] MEDS ORDERED: ZPAK PO (13:12)
[2021-08-25] MEDS ORDERED: AMOX/K CLAV875 M1 PO (13:12)
[2021-08-25 14:30] VITALS: BP 163/72
== END 2021-08-25 15:51 | disposition left against medical advice (07) ==
LOC: ED 11:45
PROVIDERS: Family Medicine
DX: I11.0 Hypertensive heart disease with heart failure (principal); I50.33 Acute on chronic diastolic (congestive) heart failure; J18.9 Pneumonia, unspecified organism; E11.40 Type 2 diabetes mellitus with diabetic neuropathy, unspecified; I25.10 Atherosclerotic heart disease of native coronary artery without angina pectoris; E78.5 Hyperlipidemia, unspecified; K21.9 Gastro-esophageal reflux disease without esophagitis; I48.91 Unspecified atrial fibrillation; I25.2 Old myocardial infarction; Z86.711 Personal history of pulmonary embolism; Z95.5 Presence of coronary angioplasty implant and graft; Z95.1 Presence of aortocoronary bypass graft; Z91.19 Patient's noncompliance with other medical treatment and regimen; Z20.822 Contact with and (suspected) exposure to COVID-19

== ENCOUNTER 2021-08-29 08:35 | Emergency (ER) | payer MEDICARE, BC ==
[~2021-08-29] VITALS: Ht 167.6 cm; Wt 79.0 kg
[~2021-08-29 08:35] MED LIST changes: +AMOX/K CLAV875 M1 PO; +ZPAK PO
[2021-08-29] MEDS ORDERED: APRESOLINE50 MG PO (08:54)
[2021-08-29] MEDS ORDERED: LASIX 40 MG TAB40 MG PO (08:56)
[2021-08-29] MEDS ORDERED: XARELTO20 MG PO (08:57)
[2021-08-29] MEDS ORDERED: JANUVIA100 MG PO (08:57)
[2021-08-29 09:09] LABS: HEMATOCRIT 34.5 % (39.0-50.0); HEMOGLOBIN 10.5 g/dl (14.0-18.0); IMMATURE GRANULOCYTES 0.7 % (0.0-5.0); MEAN CORPUSCULAR HGB 25.9 pG CALC (26.0-32.0); MEAN CORPUSCULAR HGB CONC 30.4 g/dL CAL (32.0-36.0); NEUT# 6.78 thou/uL (1.82-7.42); RED BLOOD COUNT 4.06 mill/uL (4.70-6.10); RED CELL DISTRI WIDTH 16.7 % (11.5-15.5)
[2021-08-29 09:26] LABS: ALBUMIN 3.7 g/dL (3.2-5.0); ALKALINE PHOSPHATASE 63 u/l (38-126); ANION GAP 14 (6-22 (CALC)); BILIRUBIN, TOTAL 0.8 mg/dL (0.0-1.4); BUN 19 mg/dL (8-23); BUN/CREATININE RATIO 16 (12-20 (CALC)); CARBON DIOXIDE 29 mmol/l (22-30); CHLORIDE 101 mmol/l (95-108); CREATININE 1.2 mg/dL (0.7-1.3); GFR 57 ML/MIN (>=60 (CALC)); GFR FOR AFR.AMER. > 60 ML/MIN (>=60 (CALC)); POTASSIUM 3.1 mmol/l (3.5-5.1); SGOT/AST 22 u/l (19-48); SODIUM 140 mmol/l (137-146)
[2021-08-29 10:32] LABS: URINE BILIRUBIN - DIPSTICK NEGATIVE (NEGATIVE); URINE BLOOD DIPSTICK NEGATIVE (NEGATIVE); URINE COLOR YELLOW; URINE GLUCOSE - DIPSTICK NEGATIVE (NEGATIVE); URINE KETONE NEGATIVE (NEGATIVE); URINE LEUK ESTERASE NEGATIVE (NEGATIVE); URINE PH 5.5 (4.5-8.0); URINE PROTEIN - DIPSTICK NEGATIVE (NEG-TRACE); URINE UROBILINOGEN - DIPSTICK 0.2 E.U./dL (0.2)
[2021-08-29 10:35] LABS: URINE NITRITE - DIPSTICK POSITIVE (Negative)
[2021-08-29 10:52] LABS: URINE BACTERIA FEW hpf; URINE CALCIUM OXALATE CRYSTALS FEW lpf; URINE RBC 0-2 RBC/hpf (0-5)
[2021-08-29] MEDS ORDERED: LEVAQUIN750 M1 PO (11:10)
[2021-08-29 12:23] VITALS: BP 144/82
== END 2021-08-29 12:42 | disposition left against medical advice (07) ==
LOC: ED 08:35
PROVIDERS: Emergency Medicine
DX: I11.0 Hypertensive heart disease with heart failure (principal); I50.9 Heart failure, unspecified; J18.9 Pneumonia, unspecified organism; N39.0 Urinary tract infection, site not specified; E11.40 Type 2 diabetes mellitus with diabetic neuropathy, unspecified; I25.10 Atherosclerotic heart disease of native coronary artery without angina pectoris; E78.5 Hyperlipidemia, unspecified; K21.9 Gastro-esophageal reflux disease without esophagitis; I48.91 Unspecified atrial fibrillation; N31.9 Neuromuscular dysfunction of bladder, unspecified; I25.2 Old myocardial infarction; Z95.1 Presence of aortocoronary bypass graft; Z95.5 Presence of coronary angioplasty implant and graft; Z86.711 Personal history of pulmonary embolism; B96.89 Other specified bacterial agents as the cause of diseases classified elsewhere; Z91.19 Patient's noncompliance with other medical treatment and regimen

== ENCOUNTER 2021-10-22 08:54 | Emergency (ER) | payer MEDICARE, BC ==
[~2021-10-22] VITALS: Ht 167.6 cm; Wt 77.0 kg
[~2021-10-22 08:54] MED LIST changes: +APRESOLINE50 MG PO; +LEVAQUIN750 M1 PO; +XARELTO20 MG PO
[2021-10-22 09:50] LABS: HEMATOCRIT 36.3 % (39.0-50.0); HEMOGLOBIN 10.8 g/dl (14.0-18.0); IMMATURE GRANULOCYTES 0.9 % (0.0-5.0); MEAN CORPUSCULAR HGB 24.1 pG CALC (26.0-32.0); MEAN CORPUSCULAR HGB CONC 29.8 g/dL CAL (32.0-36.0); NEUT# 6.75 thou/uL (1.82-7.42); RED BLOOD COUNT 4.48 mill/uL (4.70-6.10); RED CELL DISTRI WIDTH 16.6 % (11.5-15.5)
[2021-10-22 10:15] LABS: ALBUMIN 4.3 g/dL (3.2-5.0); ALKALINE PHOSPHATASE 76 u/l (38-126); ANION GAP 12 (6-22 (CALC)); BUN 21 mg/dL (8-23); BUN/CREATININE RATIO 18 (12-20 (CALC)); CARBON DIOXIDE 33 mmol/l (22-30); CHLORIDE 95 mmol/l (95-108); CREATININE 1.2 mg/dL (0.7-1.3); GFR 57 ML/MIN (>=60 (CALC)); GFR FOR AFR.AMER. > 60 ML/MIN (>=60 (CALC)); POTASSIUM 3.6 mmol/l (3.5-5.1); SGOT/AST 20 u/l (19-48); SODIUM 137 mmol/l (137-146)
[2021-10-22 10:19] LABS: BILIRUBIN, TOTAL 0.9 mg/dL (0.0-1.4); TOTAL PROTEIN 7.8 g/dL (6.3-8.2)
[2021-10-22 11:16] VITALS: BP 190/74
== END 2021-10-22 11:19 | disposition home or self-care (01) ==
LOC: ED 08:54
PROVIDERS: Family Medicine
DX: I11.0 Hypertensive heart disease with heart failure (principal); I50.9 Heart failure, unspecified; E11.40 Type 2 diabetes mellitus with diabetic neuropathy, unspecified; I25.10 Atherosclerotic heart disease of native coronary artery without angina pectoris; I48.91 Unspecified atrial fibrillation; E78.5 Hyperlipidemia, unspecified; K21.9 Gastro-esophageal reflux disease without esophagitis; I25.2 Old myocardial infarction; Z86.711 Personal history of pulmonary embolism; Z95.5 Presence of coronary angioplasty implant and graft; Z95.1 Presence of aortocoronary bypass graft; Z20.822 Contact with and (suspected) exposure to COVID-19

== ENCOUNTER 2022-01-22 01:49 | Observation (INO) | payer MEDICARE, BC ==
[~2022-01-22] VITALS: Ht 167.6 cm; Wt 75.9 kg
[2022-01-22 02:16] LABS: HEMATOCRIT 33.8 % (39.0-50.0); HEMOGLOBIN 10.3 g/dl (14.0-18.0); IMMATURE GRANULOCYTES 0.8 % (0.0-5.0); MEAN CELL VOLUME 79.3 fL CALC (80.0-100.0); MEAN CORPUSCULAR HGB 24.2 pG CALC (26.0-32.0); MEAN CORPUSCULAR HGB CONC 30.5 g/dL CAL (32.0-36.0); NEUT# 5.77 thou/uL (1.82-7.42); RED BLOOD COUNT 4.26 mill/uL (4.70-6.10); RED CELL DISTRI WIDTH 17.7 % (11.5-15.5)
[2022-01-22 02:25] LABS: ALBUMIN 4.1 g/dL (3.2-5.0); ALKALINE PHOSPHATASE 104 u/l (38-126); AMYLASE 59 u/l (30-110); ANION GAP 15 (6-22 (CALC)); BILIRUBIN, TOTAL 0.3 mg/dL (0.0-1.4); BUN 42 mg/dL (8-23); BUN/CREATININE RATIO 26 (12-20 (CALC)); CARBON DIOXIDE 29 mmol/l (22-30); CHLORIDE 93 mmol/l (95-108); CREATININE 1.6 mg/dL (0.7-1.3); GFR FOR AFR.AMER. 49 ML/MIN (>=60 (CALC)); GFR OTHER RACES 41 ML/MIN (>=60 (CALC)); LIPASE 86 u/l (23-300); POTASSIUM 3.9 mmol/l (3.5-5.1); SGOT/AST 18 u/l (19-48); SODIUM 133 mmol/l (137-146); TOTAL PROTEIN 7.3 g/dL (6.3-8.2)
[2022-01-22 02:37] LABS: MYOGLOBIN 46 ng/mL (0 - 121)
[2022-01-22 03:19] VITALS: BP 121/50
[2022-01-22 05:37] LABS: CREATININE 1.5 mg/dL (0.7-1.3); POTASSIUM 3.6 mmol/l (3.5-5.1)
[2022-01-22 07:11] VITALS: BP 109/49
[2022-01-22 11:59] VITALS: BP 124/53; BP 142/72
[2022-01-22] MEDS ORDERED: CLOPIDOGREL75 MG PO (13:55)
[2022-01-22] MEDS ORDERED: LIPITOR10 M1 PO (13:55)
[2022-01-22] MEDS ORDERED: GABAPENTIN100 MG PO (13:56)
[2022-01-22] MEDS ORDERED: METFORMIN500 M2 PO (13:56)
[2022-01-22] MEDS ORDERED: MORPHINE SUL15 MG PO (13:56)
[2022-01-22 14:58] VITALS: BP 102/44
[2022-01-22 19:06] VITALS: BP 112/51
[2022-01-22 23:55] VITALS: BP 127/46
[2022-01-23 03:52] VITALS: BP 181/80
[2022-01-23 04:59] VITALS: BP 159/62
[2022-01-23 06:52] VITALS: BP 119/54
[2022-01-23 08:32] LABS: HEMATOCRIT 32.6 % (39.0-50.0); HEMOGLOBIN 9.9 g/dl (14.0-18.0); IMMATURE GRANULOCYTES 0.5 % (0.0-5.0); MEAN CORPUSCULAR HGB 23.7 pG CALC (26.0-32.0); MEAN CORPUSCULAR HGB CONC 30.4 g/dL CAL (32.0-36.0); NEUT# 10.12 thou/uL (1.82-7.42); RED BLOOD COUNT 4.18 mill/uL (4.70-6.10); RED CELL DISTRI WIDTH 17.9 % (11.5-15.5)
[2022-01-23 08:40] LABS: CREATININE 1.5 mg/dL (0.7-1.3)
[2022-01-23 09:04] VITALS: BP 128/81
[2022-01-23 09:56] LABS: POTASSIUM 5.1 mmol/l (3.5-5.1)
[2022-01-23 11:00] VITALS: BP 139/53
[2022-01-23] MEDS ORDERED: LEVEMIR FL100 UNIT/M SC (11:20)
[2022-01-23] MEDS ORDERED: LASIX20 MG PO (11:23)
== END 2022-01-23 13:10 | disposition home health service (06) ==
LOC: ED 01:49 → ED-I 02:00 → ED 02:53 → MS2 02:54
PROVIDERS: Family Medicine; ADMIT Hospitalist; ATTEND Hospitalist
DX: R07.9 Chest pain, unspecified (principal); E11.65 Type 2 diabetes mellitus with hyperglycemia; I11.0 Hypertensive heart disease with heart failure; I50.22 Chronic systolic (congestive) heart failure; J96.11 Chronic respiratory failure with hypoxia; R19.5 Other fecal abnormalities; N17.9 Acute kidney failure, unspecified; E11.40 Type 2 diabetes mellitus with diabetic neuropathy, unspecified; I25.10 Atherosclerotic heart disease of native coronary artery without angina pectoris; N31.9 Neuromuscular dysfunction of bladder, unspecified; I25.2 Old myocardial infarction; H35.30 Unspecified macular degeneration; E78.5 Hyperlipidemia, unspecified; K21.9 Gastro-esophageal reflux disease without esophagitis; I48.91 Unspecified atrial fibrillation; Z86.711 Personal history of pulmonary embolism; Z95.5 Presence of coronary angioplasty implant and graft; Z95.1 Presence of aortocoronary bypass graft; Z79.01 Long term (current) use of anticoagulants; Z99.81 Dependence on supplemental oxygen; Z66 Do not resuscitate; Z79.84 Long term (current) use of oral hypoglycemic drugs; Z20.822 Contact with and (suspected) exposure to COVID-19
CPT/HCPCS: G0378

== ENCOUNTER 2022-01-28 13:57 | Observation (INO) | payer MEDICARE, BC ==
[~2022-01-28] VITALS: Ht 167.6 cm; Wt 80.4 kg
[2022-01-28] VITALS (23 sets, daily range): BP systolic 93–134; BP diastolic 38–61
[~2022-01-28 13:57] MED LIST changes: +GABAPENTIN100 MG PO; +LEVEMIR FL100 UNIT/M SC; +MORPHINE SUL15 MG PO
--- NOTE | 2022-01-28 14:24 | NUR ---
PT AMBULATES TO ROOM 4 VIA ELECTRIC WHEELCHAIR FOR EVAL OF LOW HGB.
[2022-01-28 15:05] LABS: HEMATOCRIT 25.5 % (39.0-50.0); HEMOGLOBIN 7.9 g/dl (14.0-18.0); IMMATURE GRANULOCYTES 0.9 % (0.0-5.0); MEAN CELL VOLUME 78.5 fL CALC (80.0-100.0); MEAN CORPUSCULAR HGB 24.3 pG CALC (26.0-32.0); NEUT# 5.26 thou/uL (1.82-7.42); RED BLOOD COUNT 3.25 mill/uL (4.70-6.10); RED CELL DISTRI WIDTH 17.9 % (11.5-15.5)
[2022-01-28 15:15] LABS: ALBUMIN 3.7 g/dL (3.2-5.0); ALKALINE PHOSPHATASE 68 u/l (38-126); BILIRUBIN, TOTAL 0.2 mg/dL (0.0-1.4); CHLORIDE 98 mmol/l (95-108); GFR FOR AFR.AMER. 38 ML/MIN (>=60 (CALC)); GFR OTHER RACES 32 ML/MIN (>=60 (CALC)); LIPASE 52 u/l (23-300); SGOT/AST 18 u/l (19-48); SODIUM 130 mmol/l (137-146); TOTAL PROTEIN 6.6 g/dL (6.3-8.2)
--- NOTE | 2022-01-28 15:25 | NUR ---
PATIENT AWAITING TRANSFUSION. AT BEDSIDE.
[2022-01-28 15:38] LABS: URINE BILIRUBIN - DIPSTICK NEGATIVE (NEGATIVE); URINE BLOOD DIPSTICK NEGATIVE (NEGATIVE); URINE COLOR YELLOW; URINE GLUCOSE - DIPSTICK NEGATIVE (NEGATIVE); URINE KETONE NEGATIVE (NEGATIVE); URINE LEUK ESTERASE TRACE (NEGATIVE); URINE PH 5.5 (4.5-8.0); URINE PROTEIN - DIPSTICK 30 mg/dL (NEG-TRACE); URINE SPECIFIC GRAVITY >=1.030; URINE UROBILINOGEN - DIPSTICK 0.2 E.U./dL (0.2)
[2022-01-28 15:39] LABS: URINE NITRITE - DIPSTICK NEGATIVE (Negative); URINE RBC 0-2 RBC/hpf (0-5); URINE WBC 0-2 WBC/hpf (0-5)
[2022-01-28 15:43] LABS: ANION GAP 14 (6-22 (CALC)); BUN 78 mg/dL (8-23); BUN/CREATININE RATIO 39 (12-20 (CALC)); CARBON DIOXIDE 24 mmol/l (22-30); MAGNESIUM 2.7 mg/dL (1.6-2.3); POTASSIUM 5.8 mmol/l (3.5-5.1)
[2022-01-28 15:44] LABS: ACT PARTIAL THROMBO TIME 23.4 SECONDS (20.0-32.5)
[2022-01-28 15:52] LABS: INTERNATIONAL NORMALIZED RATIO 0.9 RATIO (0.7-1.3); PROTHROMBIN TIME 9.6 SECONDS (9.0-12.5)
--- NOTE | 2022-01-28 15:53 | NUR ---
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
--- NOTE | 2022-01-28 16:09 | NUR ---
BLOOD BEGAN AT 1608
[2022-01-28] MEDS ORDERED: XARELTO20 MG PO (16:17)
[2022-01-28] MEDS ORDERED: METFORMIN HCL500 M1 PO (16:17)
[2022-01-28] MEDS ORDERED: HYDROCODONE BIT1 TA7 (16:18)
[2022-01-28] MEDS ORDERED: ISOSORBIDE MON120 MG PO (16:21)
[2022-01-28] MEDS ORDERED: JANUVIA100 MG PO (16:21)
--- NOTE | 2022-01-28 16:38 | NUR ---
PATIENT ADMITTED TO ROOM 279.
--- NOTE | 2022-01-28 17:19 | NUR ---
REPORT GIVEN BEDSIDE.
--- NOTE | 2022-01-28 17:53 | NUR ---
PATIENT ARRIVED TO ROOM 279 FROM ER AT 1700, BLOOD INFUSING, VITALS STABLE, AWAKE, ALERT, ADMISSION ASSESSMENT COMPLETED AND DOCUMENTED.
--- NOTE | 2022-01-28 19:25 | NUR ---
PATIENT RESTING IN BED. PRBC INFUSING. SUPPLEMENTAL O2 IN PLACE VIA NC AT 2LPM. PATIENT STATES HE IS FEELING WEAK. EDUCATED PATIENT TO REMAIN IN BED, FALL PRECAUTIONS IN PLACE.
--- NOTE | 2022-01-28 20:55 | NUR ---
STARTED SECOND UNIT OF [facility]. REMAINED WITH PATIENT FOR 15 MIN.NO DISTRESS NOTED. PATIENT DENIES ANY SYMPTOMS @ THIS TIME.
[2022-01-29] VITALS (11 sets, daily range): BP systolic 111–157; BP diastolic 45–64
[2022-01-29 05:46] LABS: HEMATOCRIT 31.2 % (39.0-50.0); MEAN CELL VOLUME 80.8 fL CALC (80.0-100.0); MEAN CORPUSCULAR HGB 25.9 pG CALC (26.0-32.0); MEAN CORPUSCULAR HGB CONC 32.1 g/dL CAL (32.0-36.0); RED BLOOD COUNT 3.86 mill/uL (4.70-6.10); RED CELL DISTRI WIDTH 17.2 % (11.5-15.5)
[2022-01-29 05:57] LABS: CREATININE 1.7 mg/dL (0.7-1.3); MAGNESIUM 2.8 mg/dL (1.6-2.3)
--- NOTE | 2022-01-29 07:00 | NUR ---
RECEIVE REPORT FROM MARLI NORTON.
--- NOTE | 2022-01-29 08:00 | NUR ---
PATIENT ALERT AND ORIENTED X3. VITAL SIGNS STABLE AT THIS TIME. PATIENT RESTING IN BED PLEASANT. PT IS EDUCATED ABOUD MEDICATIONS AND NURSING PLAN FOR TODAY HE REFER UNDERSTAND. FALL AND SAFETY PRECAUTIONS IN PLACE. CALL LIGHT IS WITHIN REACH.
--- NOTE | 2022-01-29 12:22 | NUR ---
PATIENT RESTING IN BED. STABLE AT THIS TIME
--- NOTE | 2022-01-29 16:20 | NUR ---
PATIENT STABLE AT THIS TIME RESTING IN BED.
[2022-01-30 00:29] VITALS: BP 131/47
[2022-01-30 04:00] VITALS: BP 169/75
[2022-01-30 04:04] VITALS: BP 129/47
[2022-01-30 04:44] VITALS: BP 169/75
--- NOTE | 2022-01-30 05:19 | NUR ---
PT A/O X4, PT ASKING FOR PAIN MEDS AT 1999, AND THEN ASKING FOR SOMTHING FOR ANXIETY, PT HAD NO OVERNIGHT EVENTS, WOKE UP AT 0500 CONFUSED, DISORIENTED X4 PULLED OUT HIS IV AND ALL HIS TELEMETRY OFF, PT WAS SITTING IN CHAIR BESIDE THE BED, PUT PT BACK TO BED AND STARTED A NEW IV, PT IS NOW SLEEPING, WILL CONTINUE TO MONITOR
[2022-01-30 05:48] LABS: HEMATOCRIT 34.8 % (39.0-50.0); MEAN CELL VOLUME 80.9 fL CALC (80.0-100.0); MEAN CORPUSCULAR HGB 25.6 pG CALC (26.0-32.0); MEAN CORPUSCULAR HGB CONC 31.6 g/dL CAL (32.0-36.0); RED BLOOD COUNT 4.3 mill/uL (4.70-6.10); RED CELL DISTRI WIDTH 17.5 % (11.5-15.5)
[2022-01-30 06:05] LABS: CREATININE 1.5 mg/dL (0.7-1.3); MAGNESIUM 2.4 mg/dL (1.6-2.3)
[2022-01-30 06:09] LABS: POTASSIUM 5.6 mmol/l (3.5-5.1)
[2022-01-30 06:34] VITALS: BP 159/68
--- NOTE | 2022-01-30 07:00 | NUR ---
REPORT RECEIVED FROM KAYLAH NORTON. ASSUMED PT CARE.
--- NOTE | 2022-01-30 09:07 | NUR ---
PT MEDICATED ORDERED. NO APPARENT DISTRESS NOTED. PT TOLERATED WELL. A&OX4. PT MEDICATED FOR GENERALIZED PAIN ORDERED. [employer] PATENT DRAINING TO GRAVITY. DISCUSSED POC AND SAFEY PRECAUTIONS. PT VERBALIZED UNDERSTANDING. COMPLETE BED BATH PROVIDED BY TRE COLBERT. PT NOW SITTING UP IN CHAIR. O2 @ 3.5L/M VIA NC. CALL LIGHT WITHIN REACH. WILL CONTINUE TO MONITOR.
[2022-01-30 10:29] VITALS: BP 150/54
--- NOTE | 2022-01-30 11:50 | NUR ---
IV site discontinued, cath intact. No edema , no redness, voices no discomfort.
[2022-01-30] MEDS ORDERED: LASIX 40 MG TAB40 MG PO (12:11)
[2022-01-30] MEDS ORDERED: PROTONIX40 M2 PO (12:12)
--- NOTE | 2022-01-30 12:12 | NUR ---
Discharge instructions given. Patient verbalizes understanding of same. Discharged in stable condition via Wheelchair to Home with friend. All belongings sent with pt.
== END 2022-01-30 12:12 ==
LOC: ED 13:57 → ED-I 15:30 → ED 16:01 → MS2 16:02
PROVIDERS: ADMIT Hospitalist; ATTEND Hospitalist
PROC: 30233N1 Transfusion of Nonautologous Red Blood Cells into Peripheral Vein, Percutaneous Approach (ICD-10-PCS; principal; 2022-01-28)
PROC: 30233N1 Transfusion of Nonautologous Red Blood Cells into Peripheral Vein, Percutaneous Approach (ICD-10-PCS; 2022-01-28)
DX: D64.9 Anemia, unspecified (principal); I13.0 Hypertensive heart and chronic kidney disease with heart failure and stage 1 through stage 4 chronic kidney disease, or unspecified chronic kidney disease; I50.42 Chronic combined systolic (congestive) and diastolic (congestive) heart failure; E11.22 Type 2 diabetes mellitus with diabetic chronic kidney disease; N18.9 Chronic kidney disease, unspecified; E87.5 Hyperkalemia; E11.40 Type 2 diabetes mellitus with diabetic neuropathy, unspecified; I48.91 Unspecified atrial fibrillation; I25.10 Atherosclerotic heart disease of native coronary artery without angina pectoris; E78.5 Hyperlipidemia, unspecified; K21.9 Gastro-esophageal reflux disease without esophagitis; H35.30 Unspecified macular degeneration; Z86.711 Personal history of pulmonary embolism; Z79.01 Long term (current) use of anticoagulants; Z87.891 Personal history of nicotine dependence; Z99.81 Dependence on supplemental oxygen; Z95.1 Presence of aortocoronary bypass graft; Z79.84 Long term (current) use of oral hypoglycemic drugs; Z20.822 Contact with and (suspected) exposure to COVID-19
CPT/HCPCS: P9016; S0164

== ENCOUNTER 2022-02-08 20:08 | Emergency (ER) | payer MEDICARE, BC ==
[~2022-02-08] VITALS: Ht 167.6 cm; Wt 78.2 kg
[2022-02-08] VITALS (10 sets, daily range): BP systolic 130–173; BP diastolic 54–75
[~2022-02-08 20:08] MED LIST changes: +HYDROCODONE BIT1 TA7; +ISOSORBIDE MON120 MG PO; +METFORMIN HCL500 M1 PO; +PROTONIX40 M2 PO
[2022-02-08 20:43] LABS: HEMATOCRIT 35.1 % (39.0-50.0); HEMOGLOBIN 10.5 g/dl (14.0-18.0); IMMATURE GRANULOCYTES 0.8 % (0.0-5.0); MEAN CELL VOLUME 83.4 fL CALC (80.0-100.0); MEAN CORPUSCULAR HGB 24.9 pG CALC (26.0-32.0); MEAN CORPUSCULAR HGB CONC 29.9 g/dL CAL (32.0-36.0); NEUT# 4.97 thou/uL (1.82-7.42); RED BLOOD COUNT 4.21 mill/uL (4.70-6.10); RED CELL DISTRI WIDTH 17.4 % (11.5-15.5)
[2022-02-08 22:06] LABS: ALBUMIN 3.6 g/dL (3.2-5.0); BILIRUBIN, TOTAL 0.4 mg/dL (0.0-1.4); CREATININE 1.5 mg/dL (0.7-1.3); POTASSIUM 5.1 mmol/l (3.5-5.1); TOTAL PROTEIN 6.4 g/dL (6.3-8.2)
== END 2022-02-08 22:55 | disposition home or self-care (01) ==
LOC: ED 20:08
PROVIDERS: Emergency Medicine
DX: I11.0 Hypertensive heart disease with heart failure (principal); I50.9 Heart failure, unspecified; E11.9 Type 2 diabetes mellitus without complications; Z95.1 Presence of aortocoronary bypass graft; Z96.0 Presence of urogenital implants; Z79.84 Long term (current) use of oral hypoglycemic drugs; Z79.4 Long term (current) use of insulin; Z99.81 Dependence on supplemental oxygen

== ENCOUNTER 2022-03-02 09:45 | Emergency (ER) | payer MEDICARE, BC ==
[2022-03-02] VITALS (92 sets, daily range): BP systolic 79–129; BP diastolic 34–92
[~2022-03-02] VITALS: Ht 167.6 cm; Wt 79.0 kg
[2022-03-02 10:16] LABS: IMMATURE GRANULOCYTES 1.4 % (0.0-5.0); MEAN CELL VOLUME 83.8 fL CALC (80.0-100.0); MEAN CORPUSCULAR HGB 25.9 pG CALC (26.0-32.0); MEAN CORPUSCULAR HGB CONC 30.9 g/dL CAL (32.0-36.0); NEUT# 6.96 thou/uL (1.82-7.42); RED BLOOD COUNT 2.9 mill/uL (4.70-6.10)
[2022-03-02 10:20] LABS: HEMATOCRIT 24.3 % (39.0-50.0); HEMOGLOBIN 7.5 g/dl (14.0-18.0)
[2022-03-02 10:47] LABS: LIPASE 57 u/l (23-300)
[2022-03-02 12:28] LABS: CREATININE 2.3 mg/dL (0.7-1.3)
[2022-03-02 12:34] LABS: POTASSIUM 5.7 mmol/l (3.5-5.1)
== END 2022-03-02 18:56 | disposition short-term general hospital (02) ==
LOC: ED 09:45
PROVIDERS: Internal Medicine
DX: I50.9 Heart failure, unspecified (principal); K92.1 Melena; D64.9 Anemia, unspecified; I95.9 Hypotension, unspecified
CPT/HCPCS: P9016; P9047; S0164

== ENCOUNTER 2022-03-30 06:00 | Observation (INO) | payer MEDICARE, BC ==
[2022-03-30] VITALS (30 sets, daily range): BP systolic 120–196; BP diastolic 52–129
[~2022-03-30] VITALS: Ht 167.6 cm; Wt 76.2 kg
[2022-03-30 06:28] LABS: HEMATOCRIT 36.9 % (39.0-50.0); HEMOGLOBIN 11.3 g/dl (14.0-18.0); IMMATURE GRANULOCYTES 2.3 % (0.0-5.0); MEAN CELL VOLUME 83.5 fL CALC (80.0-100.0); MEAN CORPUSCULAR HGB 25.6 pG CALC (26.0-32.0); MEAN CORPUSCULAR HGB CONC 30.6 g/dL CAL (32.0-36.0); NEUT# 7.73 thou/uL (1.82-7.42); RED BLOOD COUNT 4.42 mill/uL (4.70-6.10); RED CELL DISTRI WIDTH 16.1 % (11.5-15.5)
[2022-03-30 06:44] LABS: ALBUMIN 4.3 g/dL (3.2-5.0); ALKALINE PHOSPHATASE 85 u/l (38-126); ANION GAP 16 (6-22 (CALC)); BUN 38 mg/dL (8-23); BUN/CREATININE RATIO 26 (12-20 (CALC)); CARBON DIOXIDE 30 mmol/l (22-30); CHLORIDE 96 mmol/l (95-108); CREATININE 1.5 mg/dL (0.7-1.3); GFR FOR AFR.AMER. 53 ML/MIN (>=60 (CALC)); GFR OTHER RACES 44 ML/MIN (>=60 (CALC)); LIPASE 61 u/l (23-300); SGOT/AST 23 u/l (19-48); SODIUM 138 mmol/l (137-146); TOTAL PROTEIN 7.1 g/dL (6.3-8.2)
[2022-03-30 06:48] LABS: BILIRUBIN, TOTAL 0.2 mg/dL (0.0-1.4)
[2022-03-30 07:34] LABS: URINE BILIRUBIN - DIPSTICK NEGATIVE (NEGATIVE); URINE BLOOD DIPSTICK MODERATE (NEGATIVE); URINE COLOR YELLOW; URINE GLUCOSE - DIPSTICK >=1000 mg/dL (NEGATIVE); URINE KETONE NEGATIVE (NEGATIVE); URINE PROTEIN - DIPSTICK NEGATIVE (NEG-TRACE); URINE UROBILINOGEN - DIPSTICK 0.2 E.U./dL (0.2)
[2022-03-30 07:51] LABS: URINE LEUK ESTERASE SMALL (NEGATIVE); URINE NITRITE - DIPSTICK POSITIVE (Negative)
[2022-03-30 07:52] LABS: URINE BACTERIA MODERATE hpf; URINE EPITHELIAL CELLS FEW EPI/hpf (0-FEW); URINE RBC 0-2 RBC/hpf (0-5)
[2022-03-30] MEDS ORDERED: XARELTO15 MG PO (14:41)
[2022-03-30] MEDS ORDERED: LORTAB 1010 MG PO (14:42)
[2022-03-30] MEDS ORDERED: METOLAZONE5 MG PO (14:43)
[2022-03-30] MEDS ORDERED: ENTRESTO 49-511 TAB PO (14:44)
[2022-03-30] MEDS ORDERED: AMIODARONE HYD200 M1 PO (14:45)
[2022-03-30] MEDS ORDERED: LASIX 40 MG TAB40 MG PO (14:45)
[2022-03-30] MEDS ORDERED: PANTOPRAZOLE SO40 M1 PO (14:46)
[2022-03-30] MEDS ORDERED: LIPITOR10 M1 PO (14:47)
[2022-03-30] MEDS ORDERED: ASPIRIN ENTERIC81 MG PO (14:47)
[2022-03-30] MEDS ORDERED: PRESERVISION PO (14:47)
[2022-03-30] MEDS ORDERED: CORRECTOL100 MG PO (14:48)
[2022-03-30] MEDS ORDERED: MAGNESIUM400 MG PO (14:49)
[2022-03-31] VITALS (7 sets, daily range): BP systolic 115–190; BP diastolic 52–90
[2022-03-31 05:56] LABS: HEMOGLOBIN 10.1 g/dl (14.0-18.0); MEAN CELL VOLUME 84.8 fL CALC (80.0-100.0); MEAN CORPUSCULAR HGB CONC 30.6 g/dL CAL (32.0-36.0); RED BLOOD COUNT 3.89 mill/uL (4.70-6.10); RED CELL DISTRI WIDTH 15.9 % (11.5-15.5)
[2022-03-31 06:10] LABS: ANION GAP 13 (6-22 (CALC)); BUN 26 mg/dL (8-23); BUN/CREATININE RATIO 21 (12-20 (CALC)); CARBON DIOXIDE 30 mmol/l (22-30); CHLORIDE 101 mmol/l (95-108); CREATININE 1.2 mg/dL (0.7-1.3); GFR FOR AFR.AMER. > 60 ML/MIN (>=60 (CALC)); GFR OTHER RACES 57 ML/MIN (>=60 (CALC)); MAGNESIUM 2.4 mg/dL (1.6-2.3); POTASSIUM 4.4 mmol/l (3.5-5.1); SODIUM 140 mmol/l (137-146)
[2022-03-31] MEDS ORDERED: CLOPIDOGREL75 MG PO (10:18)
[2022-04-01 00:09] VITALS: BP 129/54
[2022-04-01 04:23] VITALS: BP 125/58
[2022-04-01 06:25] VITALS: BP 169/59
[2022-04-01 06:25] LABS: HEMATOCRIT 32.3 % (39.0-50.0); MEAN CELL VOLUME 83.2 fL CALC (80.0-100.0); MEAN CORPUSCULAR HGB 25.8 pG CALC (26.0-32.0); RED BLOOD COUNT 3.88 mill/uL (4.70-6.10); RED CELL DISTRI WIDTH 15.9 % (11.5-15.5)
[2022-04-01 06:54] LABS: CREATININE 1.4 mg/dL (0.7-1.3); MAGNESIUM 2.2 mg/dL (1.6-2.3); POTASSIUM 3.6 mmol/l (3.5-5.1)
[2022-04-01 11:42] VITALS: BP 180/85
== END 2022-04-01 12:41 | disposition home or self-care (01) ==
LOC: ED 06:00 → ED-I 10:20 → ED 10:38 → MS2 10:39
PROVIDERS: Family Medicine; ADMIT Internal Medicine; ATTEND Internal Medicine
DX: K56.41 Fecal impaction (principal); I13.0 Hypertensive heart and chronic kidney disease with heart failure and stage 1 through stage 4 chronic kidney disease, or unspecified chronic kidney disease; E11.22 Type 2 diabetes mellitus with diabetic chronic kidney disease; I50.22 Chronic systolic (congestive) heart failure; N18.9 Chronic kidney disease, unspecified; R33.9 Retention of urine, unspecified; I25.10 Atherosclerotic heart disease of native coronary artery without angina pectoris; E78.5 Hyperlipidemia, unspecified; K21.9 Gastro-esophageal reflux disease without esophagitis; E11.40 Type 2 diabetes mellitus with diabetic neuropathy, unspecified; I48.20 Chronic atrial fibrillation, unspecified; M48.00 Spinal stenosis, site unspecified; I25.2 Old myocardial infarction; Z96.0 Presence of urogenital implants; Z79.01 Long term (current) use of anticoagulants; Z87.891 Personal history of nicotine dependence; Z95.5 Presence of coronary angioplasty implant and graft; Z95.1 Presence of aortocoronary bypass graft; Z79.84 Long term (current) use of oral hypoglycemic drugs; Z79.4 Long term (current) use of insulin; Z79.891 Long term (current) use of opiate analgesic; Z90.49 Acquired absence of other specified parts of digestive tract; Z86.711 Personal history of pulmonary embolism; Z20.822 Contact with and (suspected) exposure to COVID-19
CPT/HCPCS: G0378; Q9967; S0164

== ENCOUNTER 2022-04-11 09:31 | Inpatient (IN) | payer MEDICARE, BC ==
[2022-04-11] VITALS (23 sets, daily range): BP systolic 96–129; BP diastolic 43–72
[~2022-04-11] VITALS: Ht 167.6 cm; Wt 78.8 kg
[~2022-04-11 09:31] MED LIST changes: +AMIODARONE HYD200 M1 PO; +ASPIRIN ENTERIC81 MG PO; +CORRECTOL100 MG PO; +MAGNESIUM400 MG PO; +METOLAZONE5 MG PO; +PANTOPRAZOLE SO40 M1 PO; +XARELTO15 MG PO
--- NOTE | 2022-04-11 09:42 | NUR ---
PATIENT BROUGHT IN VIA EMS STRETCHER.
--- NOTE | 2022-04-11 09:45 | NUR ---
PT STATES HE HAS BEEN SEEING THINGS THIS MORNING THAT ARE NOT THERE. MD NOTIFIED.
[2022-04-11 09:55] LABS: HEMATOCRIT 28.3 % (39.0-50.0); HEMOGLOBIN 9.2 g/dl (14.0-18.0); IMMATURE GRANULOCYTES 0.7 % (0.0-5.0); MEAN CELL VOLUME 78.2 fL CALC (80.0-100.0); MEAN CORPUSCULAR HGB 25.4 pG CALC (26.0-32.0); MEAN CORPUSCULAR HGB CONC 32.5 g/dL CAL (32.0-36.0); NEUT# 9.19 thou/uL (1.82-7.42); RED BLOOD COUNT 3.62 mill/uL (4.70-6.10)
--- NOTE | 2022-04-11 10:01 | NUR ---
PT REFUSING TO GET HEAD CT DONE DUE TO CLOSTROPHOBIA. NOTIFIED.
[2022-04-11 10:05] LABS: BILIRUBIN, TOTAL 0.2 mg/dL (0.0-1.4); TOTAL PROTEIN 6.6 g/dL (6.3-8.2)
[2022-04-11 10:08] LABS: MAGNESIUM 2.9 mg/dL (1.6-2.3); POTASSIUM 5.6 mmol/l (3.5-5.1)
--- NOTE | 2022-04-11 11:30 | NUR ---
Reassessment of patient completed. No distress noted.
--- NOTE | 2022-04-11 13:00 | NUR ---
Reassessment of patient completed. No distress noted. PT SLEEPING AT THIS TIME.
--- NOTE | 2022-04-11 16:30 | NUR ---
Reassessment of patient completed. No distress noted.
--- NOTE | 2022-04-11 17:59 | NUR ---
PT ADMITTED TO 271, BEDSIDE REPORT GIVEN TO RN.
--- NOTE | 2022-04-11 18:00 | NUR ---
PT ARRIVED ON UNIT @ 1742 VIA BED TRANSPORTED VY ED STAFF, ALERT AND ORIENTED X 3, ORIENTED TO ROOM AND CALL BARRON, IVF INFUSING TO SITE IN RAC, TELE MOITOR IN PLACE, CALL BARRON IN REACH AND BED LOCKED IN LOWEST POSITION.
[2022-04-12] VITALS (9 sets, daily range): BP systolic 93–143; BP diastolic 34–68
[2022-04-12 00:51] LABS: URINE BILIRUBIN - DIPSTICK NEGATIVE (NEGATIVE); URINE BLOOD DIPSTICK NEGATIVE (NEGATIVE); URINE COLOR YELLOW; URINE GLUCOSE - DIPSTICK NEGATIVE (NEGATIVE); URINE KETONE NEGATIVE (NEGATIVE); URINE PH 5.5 (4.5-8.0); URINE PROTEIN - DIPSTICK NEGATIVE (NEG-TRACE); URINE UROBILINOGEN - DIPSTICK 0.2 E.U./dL (0.2)
[2022-04-12 00:54] LABS: URINE LEUK ESTERASE SMALL (NEGATIVE); URINE NITRITE - DIPSTICK NEGATIVE (Negative)
[2022-04-12 01:03] LABS: URINE BACTERIA FEW hpf; URINE SQUAMOUS EPITHELIAL CELL FEW EPI/hpf (0-FEW); URINE WBC 20-50 WBC/hpf (0-5)
[2022-04-12 05:23] LABS: HEMATOCRIT 26.7 % (39.0-50.0); HEMOGLOBIN 8.3 g/dl (14.0-18.0); IMMATURE GRANULOCYTES 0.7 % (0.0-5.0); MEAN CELL VOLUME 81.9 fL CALC (80.0-100.0); MEAN CORPUSCULAR HGB 25.5 pG CALC (26.0-32.0); MEAN CORPUSCULAR HGB CONC 31.1 g/dL CAL (32.0-36.0); NEUT# 9.16 thou/uL (1.82-7.42); RED BLOOD COUNT 3.26 mill/uL (4.70-6.10); RED CELL DISTRI WIDTH 16.3 % (11.5-15.5)
[2022-04-12 05:40] LABS: CREATININE 3.1 mg/dL (0.7-1.3)
[2022-04-12 06:02] LABS: POTASSIUM 5.3 mmol/l (3.5-5.1)
--- NOTE | 2022-04-12 08:27 | NUR ---
Patient is screened for PT intervention and would benefit from form PT consult if medical agrees
--- NOTE | 2022-04-12 09:00 | NUR ---
PT STATES HE IS HAVING CHEST PAIN, ASSESS PT WENT TO GET THE SL NITRO AND THE PIXIS WAS OUT, CALLED PHARMACY TO BRING SOME MESSAGED , ASKED HAILE ON THE FLOOR TO LAYEYES ON PT, SHE ORDERED EKG AND CHEST XRAY AND TROPONINS, GAVE THE NITRO, RECHECK PT, PT STATES PAIN HAS IMPROVED WILL CONTINUE TO MONITOR PT.
--- NOTE | 2022-04-12 12:55 | NUR ---
PATIENT C/O CHEST PAIN. NITRO GIVEN. B/P AND PULSE TAKEN AT THIS TIME. WILL CONTIUNE TO AMADOU
--- NOTE | 2022-04-12 16:40 | NUR ---
PT STATES HE IS CONSTIPATED HAD MIRALAX ADDED FOR CONSTIPATION, PT DRANK IT, WILL CONTINUE TO MONITOR
[2022-04-12] MEDS ORDERED: METFORMIN500 M2 PO (16:42)
[2022-04-12] MEDS ORDERED: LANTUS100 UNIT SC (16:44)
--- NOTE | 2022-04-12 20:00 | NUR ---
RECEIVED REPORT FROM NURSE KAYLAH, PATIENT SIDE LYING POSIOTIONM, HOOKED TO O2 @ 3LPM VIA NC, BREATGHING SHALLOW NON LABORED, HOOKED ON TELEMETRY. LUNG SOUNDS DIMINISHED/ RHONCHI NOTE ON LEFT LOWER LOBE, ACTIVE BOWEL SOUNDS, ABDOMEN DISTENDED, C/O CONTIPATION, HAS IMDEELLING PATHAK CATHETER DRAINING YELLOW CLOUDY URINE. BED SIDE COMODE IN PLACE, CALL LIGHT IN REACH.
--- NOTE | 2022-04-12 20:14 | NUR ---
PATIENT C/O CONTIPATION, ORDER ONE TIME ORDER OF DULCOLAX SUPPOSITORY GIVEN.
[2022-04-13] VITALS (12 sets, daily range): BP systolic 102–171; BP diastolic 42–69
--- NOTE | 2022-04-13 | NUR ---
PATIENT ASSISTED TO BED SIDE COMODE AND ASSISTED BACK IN BED, REMAINS ON O2 @ 3LPM VIA NC, EXERTIONAL DYSPNEA NOTED.CALL LIGHT IN REACH.
--- NOTE | 2022-04-13 04:42 | NUR ---
TECH IN ROOM DRAWING BLOOD, REMAINS ON O2 @ 3LPM VIA NC, NO DISCOMFORTS NOTED AT THIS TIME,CALL LIGHT IN REACH.
[2022-04-13 05:13] LABS: HEMATOCRIT 24.7 % (39.0-50.0); HEMOGLOBIN 7.5 g/dl (14.0-18.0); MEAN CELL VOLUME 82.6 fL CALC (80.0-100.0); MEAN CORPUSCULAR HGB 25.1 pG CALC (26.0-32.0); MEAN CORPUSCULAR HGB CONC 30.4 g/dL CAL (32.0-36.0); RED BLOOD COUNT 2.99 mill/uL (4.70-6.10); RED CELL DISTRI WIDTH 16.7 % (11.5-15.5)
[2022-04-13 05:32] LABS: ALBUMIN 3.5 g/dL (3.2-5.0); CREATININE 2.4 mg/dL (0.7-1.3); MAGNESIUM 2.7 mg/dL (1.6-2.3); POTASSIUM 4.8 mmol/l (3.5-5.1); TOTAL PROTEIN 6.3 g/dL (6.3-8.2)
--- NOTE | 2022-04-13 05:47 | NUR ---
RECEIVED A PHONECALL FROM LAB, PATIENT CRITICAL HIGH BUN 105, TRENDING DOWN, WILL INFORM PAINTER TUMBLING BARREL.
--- NOTE | 2022-04-13 06:25 | NUR ---
nurse notified of patient glucose level was 67.
--- NOTE | 2022-04-13 06:32 | NUR ---
PATIENT ACCUCHEK 67, PATIENT GIVEN ORANGE JUICE AND PUDDING.
--- NOTE | 2022-04-13 07:31 | NUR ---
BEDSIDE CHANGE OF SHIFT REPORT, PT HALF ASLEEP AND HALF AWAKE, C/O BACK PAIN @ 7/10, O2 @ 3L VIA NC IN PLACE, TELE MONITOR IN PLACE, IVF 0.9 NS INFUSING @ 80ML/HR TO SITE IN [facility], ASSISTED BY STAFF TO REPOSITIONED IN BED, CALL BARRON IN REACH AND BED LOCKED IN LOWEST POSITION.
--- NOTE | 2022-04-13 07:45 | NUR ---
NURSE BROUGHT IN PAIN MED TO PT, INFORMED HIM OF PLAN, HE SNOBBED AT HER STATING "JUST GIVE IT TO ME" HE FURTHER WENT ON TO ACCUSE ME OF TALKING TO MUCH EXCLAIMED "JUST SHUT YOUR FUCKING MOUTH AND GIVE ME THE PILL" HE APPEARS TO BE HALF ALSEEP AND NURSE WAS JUST CONFIRMING HE IS AWAKE ENOUGH TO TAKE HIS MEDS WITHOUT ANY RISK OF ASPIRATION.
--- NOTE | 2022-04-13 10:44 | NUR ---
PT GAVE FRIEND ADRIANNE ABERNATHY VERBAL AUTHORIZATION TO SIGN CONSENT FOR PRBC ADMINISTRATION
--- NOTE | 2022-04-13 12:15 | NUR ---
BEDSIDE REPORT RECEIVED FROM CIERRA MARTINEZ. PT. SITTING UPRIGHT IN BED. DENIES PAIN. REPORTS SHORTNESS OF BREATH AT THIS TIME. PRBC TRANSFUSION INFUSING AT THIS TIME. 02 @ 5L VIA NC, O2 SAT 91%. PT. STATES SHORTNESS OF BREATH HAS "BEEN GOING ON FOR DAYS." RT AT BEDSIDE TO ASSESS PT. NO CHANGES IN CURRENT THERAPY AT THIS TIME. PT EDUCATED ON COMMON S/S OF ANEMIA, PT STATES "OH YEAH, THE BLOOD USUALLY DOES HELP." FALL PRECAUTIONS REVIEWED WITH PT. CALL LIGHT WITHIN REACH. PT ENCOURAGED TO ASK FOR ASSISTANCE WITH ANY FUTURE QUESTIONS/CONCERNS/NEEDS.
--- NOTE | 2022-04-13 15:11 | NUR ---
TRANSFUSING OF PRBC COMPLETED AND PT TOLERATED WELL, HE ALSO STATES HE IS FEELING BETTER AT THIS TIME, WILL CONTINUE TO MONITOR.
--- NOTE | 2022-04-13 17:42 | NUR ---
JAVA DEVELOPMENT MANAGER REPORTED O2 SATS @ 86, PT ENCOURAGED TO TAKE DEEP BREATHS WHICH DID NOT IMPROVE SATS, O2 INCREASED TO 6L RECOMMENDED BY RESPIRATORY THERAPIST, SATS UP TO 91% AT THIS TIME, WILL CONTINUE TO MONITOR.
--- NOTE | 2022-04-13 19:10 | NUR ---
RECEIVED REPORT FROM CIERRA MARTINEZ.
--- NOTE | 2022-04-13 20:10 | NUR ---
PT SITTING ON BED HIGH FOWLERS: A&O X3. EVEN AND SHALLOW RESPIRATIONS; DIMINISHED LUNG SOUNDS THROUGHTOUT. O2 @6L VIA NASAL CANNULA IN PLACE. TELEMETRY IN PLACE. IV SITE HEALTHY AND PATENT. ACTIVE BOWEL SOUNDS X4 QUADRANTS. DISTENDED AMD SOFT ABN. BRUISING TO SHANKAR ARMS, ABRASION TO LEFT KNEE NOTED. PATHAK IN PLACE; TO GRAVITY WITH CLEAR, YELLOW URINE. SAFETY PRECAUTIONS IN PLACE WITH CALL LIGHT IN REACH.
--- NOTE | 2022-04-13 20:10 | NUR ---
RECHECK BP, 132/53, NO APRESOLINE NEEDED AT THIS TIME.
[2022-04-14] VITALS (7 sets, daily range): BP systolic 113–163; BP diastolic 44–75
--- NOTE | 2022-04-14 00:10 | NUR ---
PT RESTING ON BED WITH EYES CLOSED. NO DISTRESS OR PAIN NOTED. IV SITE INFUSING IV FLUIDS PER ORDER. SAFETY PRECAUTIONS IN PLACE WITH CALL LIGHT IN REACH.
--- NOTE | 2022-04-14 04:05 | NUR ---
PT RESTING ON BED WITH EYES CLOSED. NO DISTRESS OR PAIN NOTED. TELEMETRY IN PLACE. IV SITE HEALTHY AND PATENT, INFUSING IV FLUIDS PER ORDER. SAFETY PRECAUTIONS IN PLACE WITH CALL LIGTH IN REACH.
[2022-04-14 05:29] LABS: HEMATOCRIT 26.3 % (39.0-50.0); HEMOGLOBIN 8.2 g/dl (14.0-18.0); MEAN CORPUSCULAR HGB 25.9 pG CALC (26.0-32.0); MEAN CORPUSCULAR HGB CONC 31.2 g/dL CAL (32.0-36.0); RED BLOOD COUNT 3.17 mill/uL (4.70-6.10); RED CELL DISTRI WIDTH 16.2 % (11.5-15.5)
[2022-04-14 05:58] LABS: ALBUMIN 3.1 g/dL (3.2-5.0); MAGNESIUM 2.5 mg/dL (1.6-2.3); POTASSIUM 4.9 mmol/l (3.5-5.1); TOTAL PROTEIN 5.7 g/dL (6.3-8.2)
[2022-04-14 06:12] LABS: BILIRUBIN, TOTAL 0.4 mg/dL (0.0-1.4)
--- NOTE | 2022-04-14 08:02 | NUR ---
SHIFT CHANGE REPORT, PT SLEEPING, BREATHING EVEN AND NON-LABORED ON 6L O2 VIA NC, TELE MONITOR IN PLACE, IVF 0.9NS INFUSING @ 80CC/HR TO SITE IN [facility], CALL BARRON IN REACH AND BED LOCKED IN LOWEST POSITION.
--- NOTE | 2022-04-14 09:56 | NUR ---
PT AWAKE AND ALERT AT THIS TIME, C/O BACK AND EPIGASTRIC PRESSURE, ABD DISTENDED, CONSTIPATION CONCERNS BEING ADDRESSED AT THIS TIME.
--- NOTE | 2022-04-14 11:36 | NUR ---
CODE JAVED, VERTCAL MOVE PER POLICY. PATIENT MOVED AT 1105 INTO OR 6.
--- NOTE | 2022-04-14 12:00 | NUR ---
PT ASSISTED TO BSC AND BACK INTO BED. RESPIRATIONS EVEN AND UNLABORED ON 7L NC. TELE MONITORING IN PLACE. #20G LFA INFUSING WITH IVF PER ORDER. PT DENIES OF ANY NEEDS. ALL SAFTEY PRECAUTIONS ARE IN PLACE WITH CALL LIGHT IN REACH
--- NOTE | 2022-04-14 16:56 | NUR ---
PT SLEEPING IN SEMI FOWLERS POSITION. RESPIRATIONS EVEN AND UNLABORED ON 7L NC. TELE MONITORING IN PLACE. #20G LFA INFUSING WITH IVF PER ORDER, SITE PATENT. PT DENIES OF ANY NEEDS. ALL SAFTEY PRECAUTIONS ARE IN PLACE. WILL CONTINUE TO MONITOR
--- NOTE | 2022-04-14 18:00 | NUR ---
O2 DESAT TO 87 WHILE EATING DINNER. RT CALLED FOR HIGH FLOW TUBING. 10L NC, O2 92%
--- NOTE | 2022-04-14 18:39 | NUR ---
O2 DESAT TO LOW 80'S. O2 INCREASED TO 12L HIGH FLOW NC UPON EXCERTION.DR LAGOS CALLED, NO ANSWER. VOICEMAIL LEFT. O2 SAT INCREASED UPON RESTING , 93%.
--- NOTE | 2022-04-14 20:15 | NUR ---
PT SITTING ON BED HIGH FOWLERS: A&O X3. EVEN AND SHALLOW RESPIRATIONS; DIMINISHED LUNG SOUNDS THROUGHTOUT. O2 @ 10L HUMIDIFIED VIA NASAL CAANULA IN PLACE. TELEMETRY IN PLACE. IV SITE HEALTHY AND PATENT. PATHAK IN PLACE: TO GRAVITY WITH CLEAR, YELLOW URINE. SAFETY PRECAUTIONS IN PLACE WITH CALL LIGHT IN REACH.
[2022-04-15] VITALS (9 sets, daily range): BP systolic 110–135; BP diastolic 43–67
--- NOTE | 2022-04-15 | NUR ---
PT RESTING WITH EYES CLOSED. NO DISTRESS OR PAIN NOTED. IV SITE HEALTHY AN DPATENT, INFUSING IV FLUIDS PER ORDER. TELEMETRY IN PLACE. SAFETY PRECAUTIONS IN PLACE WITH CALL LIGHT IN REACH.
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
--- NOTE | 2022-04-15 04:14 | NUR ---
PT C/O LOWER BACK PAIN, LEVEL 7/10; ADMINISTERED PAIN MED PER EMAR. SAFETY PRECAUTIONS IN PLACE WITH CALL LIGHT IN REACH.
[2022-04-15 06:22] LABS: HEMATOCRIT 29.4 % (39.0-50.0); HEMOGLOBIN 8.8 g/dl (14.0-18.0); MEAN CORPUSCULAR HGB 25.4 pG CALC (26.0-32.0); MEAN CORPUSCULAR HGB CONC 29.9 g/dL CAL (32.0-36.0); RED BLOOD COUNT 3.46 mill/uL (4.70-6.10); RED CELL DISTRI WIDTH 16.5 % (11.5-15.5)
[2022-04-15 06:47] LABS: CREATININE 1.8 mg/dL (0.7-1.3); MAGNESIUM 2.1 mg/dL (1.6-2.3); POTASSIUM 4.5 mmol/l (3.5-5.1)
--- NOTE | 2022-04-15 10:28 | NUR ---
LAINE NORTON GAVE REPORT ON PT ,
--- NOTE | 2022-04-15 10:40 | NUR ---
PT IS SITTING INT HE CHAIR NO DISTRESS NOTED ASSESSMENT COMPLETED. IV SITE IS FREE FROM REDNESS OR EDEMA. O2 IN PLACE. PT C/O "FEELING FULL" BREATH SOUNDS ARE CLEAR,BILATERALLY. DRESSING ON LEFT FRIAS IS CDI.
--- NOTE | 2022-04-15 13:55 | NUR ---
PT RECEIVED AN ENEMA, WITH SOME RESULTS PT STATED" I HAVE LESS PAIN IN MY SIDE ALREADY".
--- NOTE | 2022-04-15 19:40 | NUR ---
PATIENT RESTING IN RECLINER. ALERT AND ORIENTED. PLEASANT. ABLE TO VOICE NEEDS. ASSESSMENT COMPLETE. NO SIGNS OF DISTRESS. NO COMPLAINTS OF PAIN. CHAIR WHEELS LOCKED FOR SAFETY. CALL BARRON IN REACH.
[2022-04-16] VITALS (8 sets, daily range): BP systolic 135–155; BP diastolic 53–82
--- NOTE | 2022-04-16 00:15 | NUR ---
PATIENT RESTING IN BED ON HIS RIGHT SIDE. NO SIGNS OF DISTRESS. NO COMPLAINTS OF PAIN. BED REMAINS IN LOW POSITION. CALL LIGHT IN REACH.
--- NOTE | 2022-04-16 04:20 | NUR ---
PATIENT SITTING UP IN RECLINER. NO SIGNS OF DISTRESS. NO COMPLAINTS OF PAIN. CALL LIGHT REMAINS IN PATIENT REACH.
[2022-04-16 04:40] LABS: HEMATOCRIT 29.5 % (39.0-50.0); HEMOGLOBIN 8.8 g/dl (14.0-18.0); MEAN CELL VOLUME 85.8 fL CALC (80.0-100.0); MEAN CORPUSCULAR HGB 25.6 pG CALC (26.0-32.0); MEAN CORPUSCULAR HGB CONC 29.8 g/dL CAL (32.0-36.0); RED BLOOD COUNT 3.44 mill/uL (4.70-6.10); RED CELL DISTRI WIDTH 16.9 % (11.5-15.5)
--- NOTE | 2022-04-16 09:05 | NUR ---
PT STATES"THE PAIN IS SUBSIDING". TOOK ALL OF HIS MEDICATIONS AND COMPLETED HAVING STOOL. NOTIFIED JOAO NORTON, RE: WHAT PT IS DOING.
--- NOTE | 2022-04-16 09:15 | NUR ---
PT SITTING ON THE BSC,C/O MINIMAL CHEST PAIN, IV IN MAURICE IS LEAKING , TWITCHING ON THE R SIDE, WHILE SITTING, LARGE BLACK STOOLS, TELE READING SR 1SE DEGREE AVB RATE 94. NITRO GIVEN.
--- NOTE | 2022-04-16 09:25 | NUR ---
PT BACK INTO BED, TOLERATING MOVE WELL. NO DISTRESS NOTED. CONTINUE TO OSBERVE AND MONITOR.
[2022-04-16 09:48] LABS: ALBUMIN 3.4 g/dL (3.2-5.0); BILIRUBIN, TOTAL 0.3 mg/dL (0.0-1.4); CREATININE 1.7 mg/dL (0.7-1.3); MAGNESIUM 1.8 mg/dL (1.6-2.3); POTASSIUM 4.3 mmol/l (3.5-5.1); TOTAL PROTEIN 6.5 g/dL (6.3-8.2)
--- NOTE | 2022-04-16 10:48 | NUR ---
PT IS RELAXING IN BED HAS BEEN TALKING TO HIS ON THE PHONE,.CONTINUE TO OBSERVE AND MONITOR.
--- NOTE | 2022-04-16 11:21 | NUR ---
PT IS LAYING IN BED C/O CHEST PAIN,.PLACED AN EKG ORDER, WILL WATCH PT DIDINOT HAVE HIS O2 ON
--- NOTE | 2022-04-16 12:00 | NUR ---
PT IS RELAXING IN BED WITH NO DISTRESS NOTED.IV SITE IS FREE FROM REDNESS OR EDEMA. NO DISTRESS NOTED. CONTINUE TO OBSERVE AND MONITOR.
--- NOTE | 2022-04-16 16:00 | NUR ---
PT CONTINUES TO RELAX, IV SITE IS FREE FROM REDNESS OR EDEMA. CONTINUE TO OBSERVE AND MONITOR.
--- NOTE | 2022-04-16 19:15 | NUR ---
PATIENT RESTING IN RECLINER. NO SIGNS OF DISTRESS. NO COMPLAINTS OF PAIN AT THIS TIME. ASSESSMENT COMPLETE. PATIENT ABLE TO MAKE NEEDS KNOWN. CALL LIGHT IN REACH.
--- NOTE | 2022-04-16 23:40 | NUR ---
PATIENT RESTING IN BED ON HIS RIGHT SIDE. NO SIGNS OF DISTRESS. NO COMPLAINTS OF PAIN. BED REMAINS IN LOW POSITION. CALL LIGHT IN REACH.
[2022-04-17] VITALS (13 sets, daily range): BP systolic 125–168; BP diastolic 57–78
--- NOTE | 2022-04-17 04:10 | NUR ---
PATIENT RESTING IN HIS RECLINER. NO COMPLAINTS. NO DISTRESS NOTED. WATCHING TV. DENIES NEEDING ANYTHING AT THIS TIME. CALL LIGHT REMAINS IN REACH WELL BELONGINGS.
[2022-04-17 04:39] LABS: HEMATOCRIT 30.7 % (39.0-50.0); HEMOGLOBIN 9.3 g/dl (14.0-18.0); MEAN CELL VOLUME 86.2 fL CALC (80.0-100.0); MEAN CORPUSCULAR HGB 26.1 pG CALC (26.0-32.0); MEAN CORPUSCULAR HGB CONC 30.3 g/dL CAL (32.0-36.0); RED BLOOD COUNT 3.56 mill/uL (4.70-6.10); RED CELL DISTRI WIDTH 17.5 % (11.5-15.5)
[2022-04-17 04:58] LABS: CREATININE 1.6 mg/dL (0.7-1.3); POTASSIUM 4.4 mmol/l (3.5-5.1)
--- NOTE | 2022-04-17 07:25 | NUR ---
ASSESSMENT IS COMPLETED: HR IS REG,PULSES ARE STRONG X4,ABD IS SOFT WITH ACTIVE BS, BREATH SOUNDS ARE CLEAR AND DIMINISHED, BILATERALLY, O2 @ 10 LITERS., IV SITE AND TELE IN PLACE.
--- NOTE | 2022-04-17 12:00 | NUR ---
PT HAS BEEN SITTING UP IN THE BED,NO DISTRESS NOTED. TELE MONITOR IN PLACE. PATHAK DRAINING YELLOW URINE.
--- NOTE | 2022-04-17 13:08 | NUR ---
O2 SAT ON 3L 92%
--- NOTE | 2022-04-17 16:10 | NUR ---
PT IS SITTING UP INT HE CHAIR, NO DISTRESS NOTED.
--- NOTE | 2022-04-17 23:15 | NUR ---
PATIENT ASSISTED TO BED AND DEVELOPED CHEST PRESSURE AND SOB. VS TAKEN AND RECORDED. O2 SAT US 91% WITH 4LPM. RESP RATE INCREASED. TELE MONITOR IN PLACE-0ER STATES THAT HE IS READING SR. RT CALLED AND DOING EKG. NEB TREATMENT WAS GIVEN AND PATIENT CONT TO C/O CHEST PRESSURE-STATES THAT HE THINKS HE NEEDS A NITRO AND NITRO SL WAS GIVEN WITH RELIEF. STATES SOME RELIEF. RESTING IN BED WITH HOB ELEVATED AND O2 HIGH FLOW AT 4LPM IN PLACE. TELE MONITOR IN PLACE. PATHAK CATH PATENT AND DRAINING CLOUDY YELLOW URINE. IVF PATENT AND INFUSING AT KVO RATE VIA LEFT AC SITE. CALL LIGHT IN REACH. [facility]
[2022-04-18] VITALS (16 sets, daily range): BP systolic 127–170; BP diastolic 52–83
--- NOTE | 2022-04-18 04:32 | NUR ---
PATIENT RESTING IN BED WITH EYES CLOSED. RESPS ARE EVEN AND UNLABORED AT THIS TIME. NO FURTHER C/O OF CHEST PAIN/PRESSURE OR SOB AT THIS TIME. PATHAK PATENT AND DRAINING CLOUDY YELLOW URINE. IVF PATENT AND INFUSING LEFT AC SITE AT KVO RATE. O2 VIA HIGH FLOW NASAL CANNUJLA IN PLACE. CALL LIGHT IN REACH. WILL CONT TO MONITOR.
[2022-04-18 06:38] LABS: HEMATOCRIT 25.6 % (39.0-50.0); HEMOGLOBIN 7.7 g/dl (14.0-18.0); MEAN CELL VOLUME 85.6 fL CALC (80.0-100.0); MEAN CORPUSCULAR HGB 25.8 pG CALC (26.0-32.0); MEAN CORPUSCULAR HGB CONC 30.1 g/dL CAL (32.0-36.0); RED BLOOD COUNT 2.99 mill/uL (4.70-6.10); RED CELL DISTRI WIDTH 17.4 % (11.5-15.5)
[2022-04-18 06:51] LABS: CREATININE 1.6 mg/dL (0.7-1.3); MAGNESIUM 1.5 mg/dL (1.6-2.3); POTASSIUM 4.6 mmol/l (3.5-5.1)
--- NOTE | 2022-04-18 08:00 | NUR ---
SHIFT CHANGE REPORT, PT RESTING IN RIGHT SIDE-LYING POSITION, O2 @ 3L VIA HIFLO NC, TELE MONITOR IN PLACE, IVF 0.9 NS INFUSING 2 cc/HR TO SITE IN LAC, PATHAK CATHERER IN PLACE WITH CLEAR-CLOUDY YELLOW URINE, C/O DISCOMFORT TO LOWER BACK, CALL BARRON IN REACH AND BED LOCKED IN LOWEST POSITION.
--- NOTE | 2022-04-18 11:31 | NUR ---
PT ON 4L NC. O2 SAT 95%. DECREASED TO 3L.
--- NOTE | 2022-04-18 13:53 | NUR ---
C/O HAVING DIFFICULTY BREATHING, O2 SAT ON 3L HIFLO= 84% RESP THERAPIST NOTIFIED, PT REPOSITIONED IN CHAIR AND O2 TURNED UP TO 5L RECOMMENDED BY RT, SATS UP TO 97%, PT REPORTS FEELING BETTER, WILL CONTINUE TO MONITOR.
--- NOTE | 2022-04-18 16:00 | NUR ---
PT SITTING UP IN RECLINER, PRBC TRANSFUSING WITHOUT DIFFICULTY, ALL NEEDS ADDRESSED, CALL BARRON IN REACH.
--- NOTE | 2022-04-18 20:13 | NUR ---
ADRIANA REPORT COMPLETED FOR THIS PT AND SITTING UP IN CHAIR AT BEDSIDE. RESPIRATION EVEN AND NON LABORED. RESPIRATION EVEN AND NON LABORED. CALL LIGHT WITHIN REACH. WILL CONTINUE TO OBSERVE.
[2022-04-19] VITALS (8 sets, daily range): BP systolic 115–166; BP diastolic 48–75
[2022-04-19 05:51] LABS: HEMATOCRIT 29.8 % (39.0-50.0); HEMOGLOBIN 9.2 g/dl (14.0-18.0); MEAN CELL VOLUME 86.4 fL CALC (80.0-100.0); MEAN CORPUSCULAR HGB 26.7 pG CALC (26.0-32.0); MEAN CORPUSCULAR HGB CONC 30.9 g/dL CAL (32.0-36.0); RED BLOOD COUNT 3.45 mill/uL (4.70-6.10)
[2022-04-19 06:05] LABS: CREATININE 1.5 mg/dL (0.7-1.3); MAGNESIUM 1.4 mg/dL (1.6-2.3); POTASSIUM 4.4 mmol/l (3.5-5.1)
--- NOTE | 2022-04-19 12:18 | NUR ---
PT AWAKE, ALERT, ORIENTED X 3. PT BLIND, REQUIRES SOME ASSIST BUT TRIES TO BE INDEPENDENT. PT OOB IN CHAIR DESIRED.
--- NOTE | 2022-04-19 16:39 | NUR ---
PT SEEN RESTING QUIETLY IN THE BED FOR PAST HOUR. VISITED AT BEDSIDE THIS AFTERNOON.
--- NOTE | 2022-04-19 20:00 | NUR ---
PATIENT RESTING IN BED AT THIS TIME POSITIONED ON RIGHT SIDE. PATIENT IS AWAKE ALERT AND ORIENTEDX3. PAIENT IS CITIZEN [place] AND HAVE VISION PROBLEM. IVF NS PATENT AND INFUSING VIA RIGHT WRIST AT KVO RATE. PATHAK CATH PATENT AND DRAINING YELLOW URINE. O2 AT 5LPM HIGH FLOW IN PLACE-O2 SAT IS 95%. PATIENT IS O2 DEPENDANT. LUNGS ARE DIMINISHED. ABD IS DISTENDED WITH ACTIVE BS. STATES THAT HE DID HAVE BM TODAY. TELE MONITOR IN PLACE. SAFETY PRECAUTIONS REINFORCED. PATIENT MEDICATED FOR CHRONIC PAIN WITH MS CONTIN PO. CALL LIGHT IN REACH. WILL CONT TO MONITOR.
[2022-04-20] VITALS (8 sets, daily range): BP systolic 112–163; BP diastolic 49–72
--- NOTE | 2022-04-20 05:04 | NUR ---
PT WEIGHT 81.1KG
[2022-04-20 06:16] LABS: HEMATOCRIT 31.3 % (39.0-50.0); HEMOGLOBIN 9.6 g/dl (14.0-18.0); MEAN CELL VOLUME 86.5 fL CALC (80.0-100.0); MEAN CORPUSCULAR HGB 26.5 pG CALC (26.0-32.0); MEAN CORPUSCULAR HGB CONC 30.7 g/dL CAL (32.0-36.0); RED BLOOD COUNT 3.62 mill/uL (4.70-6.10); RED CELL DISTRI WIDTH 17.7 % (11.5-15.5)
[2022-04-20 06:30] LABS: CREATININE 1.5 mg/dL (0.7-1.3); MAGNESIUM 1.4 mg/dL (1.6-2.3); POTASSIUM 4.1 mmol/l (3.5-5.1)
--- NOTE | 2022-04-20 10:11 | NUR ---
PT RESTING IN RECLINER WITH TELE MONITOR IN PLACE. STATES PAIN 10/10 IN LOWER BACK. MEDICATED SEE EMAR. UPDATED PT ON CURRENT PLAN OF CARE. ASSESSMENT PERFORMED. GLUCOSE CHECK: 99 NO COVERAGE NEEDED PER SLIDING SCALE. IV PATENT/FLUSHED. PATHAK IN PLACE, DRAINING URINE VIA GRAVITY. FALL/SAFTEY PRECAUTION IN PLACE, CALL LIGHT WITHIN REACH.
--- NOTE | 2022-04-20 10:30 | NUR ---
IV OCCLUDED. WARM COMPRESS PROVIDED. CHARGE NURSE NOTIFIED. PT STATES REFUSES IV. NOTIFIED/AWARE. RISK OF NOT HAVING IV EXPLAINED TO PT. PT INDICATED UNDERSTANING BUT CONTINUED TO REFUSE. FALL/SAFTEY PRECAUTION IN PLACE, CALL LIGHT WITHIN REACH
--- NOTE | 2022-04-20 14:29 | NUR ---
PT VOICES COMPLAIN IN LOWER BACK. MEDICATED SEE EMAR. REPOSTIONED PT. PATHAK IN PLACE, DRAINING URINE VIA GRAIVITY. TELE MONITOR IN PLACE, CONTINOUS MONITORING PER ED. FALL/SAFTEY PRECAUTION IN PLACE. CALL LIGHT WITHIN REACH.
--- NOTE | 2022-04-20 14:50 | NUR ---
EDUCATED PT ON IV LASIX MEDICATION ADMINISTRATION RISKS AND BENIFITS. REFUSES IV. NOTIFIED.
--- NOTE | 2022-04-20 18:27 | NUR ---
PT EATING DINNER. NO DISTRESS NOTED. FALL/SAFTEY PERCAUITON IN PLACE, CALL LIGHT WITHIN REACH
--- NOTE | 2022-04-20 19:15 | NUR ---
PT IN RECLINER, WEARING O2. ALERT AND ORIENTATED X3. BREATHING EVEN ADN NON LABORED WHILE WEARING OXYGEN. ABDOMEN DISTENDED, SLIGHTLY FIRM, NON TENDER WITH ACTIVE BOWEL SOUNDS. NO IV SITE. PT REFUSES TO HAVE AN IV PLACED. PATHAK INPLACE. PT C/O CHRONIC PAIN IN LOWER BACK, SAYS PAIN IS RELIEVED ONLY WHEN LAYING DOWN. PT DENIES ANY OTHER NEEDS AT THIS TIME. CALL LIGHT IN REACH. ALL SAFETY PRECAUTIONS IN PLACE AT THIS TIME.
--- NOTE | 2022-04-21 00:15 | NUR ---
PT SLEEPING, BREATHING REMAINS THE SAME. PT DENIES ANY NEEDS AT THIS TIME. CALL LIGHT IN REACH. ALL SAFETY PRECAUTIONS IN PLACE AT THIS TIME.
[2022-04-21 00:18] VITALS: BP 141/54
--- NOTE | 2022-04-21 04:00 | NUR ---
PATIENT RESTING IN BED-POSITIONED ON RIGHT SIDE WITH O2 AT 5LPM HIGH FLOW IN PLACE. PATHAK PATENT AND DRAINING YELLOW URINE. IVF PATENT AND INFUSING VIA RIGHT WRIST SITE AT KVO RATE. TELE MONITOR IN PLACE. CALL LIGHT IN REACH. WILL CONT TO MONITOR.
--- NOTE | 2022-04-21 04:10 | NUR ---
PT SLEEPING IN BED ON RIGHT SIDE. EASILY AROUSIBLE, A/O X3. NO IV PLACED, PT DENIES IV PLACEMENT. TELE IN PLACE, MONITORED BY ED. PT DENIES ANY NEEDS AT THIS TIME. CALL LIGHT IN REACH. ALL SAFETY PRECAUTIONS IN PLACE AT THIS TIME.
[2022-04-21 04:27] VITALS: BP 150/57
[2022-04-21 05:49] LABS: HEMOGLOBIN 10.7 g/dl (14.0-18.0); MEAN CELL VOLUME 86.2 fL CALC (80.0-100.0); MEAN CORPUSCULAR HGB 26.4 pG CALC (26.0-32.0); MEAN CORPUSCULAR HGB CONC 30.6 g/dL CAL (32.0-36.0); RED BLOOD COUNT 4.06 mill/uL (4.70-6.10); RED CELL DISTRI WIDTH 17.4 % (11.5-15.5)
[2022-04-21 06:14] LABS: CREATININE 1.5 mg/dL (0.7-1.3); MAGNESIUM 1.3 mg/dL (1.6-2.3); POTASSIUM 4.3 mmol/l (3.5-5.1)
[2022-04-21 06:38] VITALS: BP 148/62
--- NOTE | 2022-04-21 08:41 | NUR ---
PT ON 4L NC. O2 SAT 97%
--- NOTE | 2022-04-21 08:50 | NUR ---
PT RESTING IN RECLINER. STATES PAIN IN BACK. TELE MONITOR IN PLACE, CONTINOUS MONITORING PER ED. NOV IV, AWARE. UPDATED PT ON CURRENT PLAN OF CARE. O2 IN PLACE, VIA NASAL CANNULA @5L VIA HIGHFLOW. FALL/SAFTEY PRECAUTION IN PLACE. CALL LIGHT WITHIN REACH
[2022-04-21 09:23] VITALS: BP 140/66
[2022-04-21 09:24] VITALS: BP 140/66
--- NOTE | 2022-04-21 12:40 | NUR ---
PT EATING LUNCH. O2 IN PLACE VIA NC @5L. STATES NO NEEDS AT THIS TIME. FALL/SAFTEY PRECAUTION IN PLACE, CALL LIGHT WITHIN REACH
--- NOTE | 2022-04-21 14:37 | NUR ---
Discharge instructions given. Patient verbalizes understanding of same. Discharged in stable condition via Wheelchair to Home with volunteer. All belongings sent with pt. TELE REMOVED PUT ON NEWS PRODUCTION ASSISTANT PT PERSONAL O2 GIVEN.
== END 2022-04-21 14:27 | disposition home health service (06) | DRG 682 ==
LOC: ED 09:31 → MS2 13:43
PROVIDERS: Internal Medicine; ADMIT Internal Medicine; ATTEND Internal Medicine
PROC: 30233N1 Transfusion of Nonautologous Red Blood Cells into Peripheral Vein, Percutaneous Approach (ICD-10-PCS; principal; 2022-04-13)
PROC: 30233N1 Transfusion of Nonautologous Red Blood Cells into Peripheral Vein, Percutaneous Approach (ICD-10-PCS; 2022-04-18)
DX: N17.9 Acute kidney failure, unspecified (principal); I50.43 Acute on chronic combined systolic (congestive) and diastolic (congestive) heart failure; J96.21 Acute and chronic respiratory failure with hypoxia; J18.9 Pneumonia, unspecified organism; E87.1 Hypo-osmolality and hyponatremia; E87.20 Acidosis, unspecified; I13.0 Hypertensive heart and chronic kidney disease with heart failure and stage 1 through stage 4 chronic kidney disease, or unspecified chronic kidney disease; N39.0 Urinary tract infection, site not specified; K56.7 Ileus, unspecified; E11.40 Type 2 diabetes mellitus with diabetic neuropathy, unspecified; E11.22 Type 2 diabetes mellitus with diabetic chronic kidney disease; I25.10 Atherosclerotic heart disease of native coronary artery without angina pectoris; N18.30 Chronic kidney disease, stage 3 unspecified; I95.9 Hypotension, unspecified; D64.9 Anemia, unspecified; I48.91 Unspecified atrial fibrillation; K59.09 Other constipation; E78.5 Hyperlipidemia, unspecified; K21.9 Gastro-esophageal reflux disease without esophagitis; L98.499 Non-pressure chronic ulcer of skin of other sites with unspecified severity; M54.9 Dorsalgia, unspecified; G89.29 Other chronic pain; T50.915A Adverse effect of multiple unspecified drugs, medicaments and biological substances, initial encounter; I25.2 Old myocardial infarction; Z79.01 Long term (current) use of anticoagulants; Z79.4 Long term (current) use of insulin; Z86.711 Personal history of pulmonary embolism; Z87.891 Personal history of nicotine dependence; Z95.1 Presence of aortocoronary bypass graft; Z95.5 Presence of coronary angioplasty implant and graft; Z20.822 Contact with and (suspected) exposure to COVID-19
CPT/HCPCS: J3475; P9016

== ENCOUNTER 2022-05-30 15:15 | Emergency (ER) | payer MEDICARE, BC ==
[~2022-05-30] VITALS: Ht 167.6 cm; Wt 79.1 kg
[~2022-05-30 15:15] MED LIST changes: +LANTUS100 UNIT SC
[2022-05-30 15:30] VITALS: BP 131/51
[2022-05-30 15:45] VITALS: BP 136/55
[2022-05-30 16:00] VITALS: BP 128/92
[2022-05-30 16:45] VITALS: BP 122/46
[2022-05-30 17:31] VITALS: BP 122/46
== END 2022-05-30 17:31 | disposition home or self-care (01) ==
LOC: ED 15:15
DX: M54.50 Low back pain, unspecified (principal); G89.29 Other chronic pain; I11.0 Hypertensive heart disease with heart failure; I50.9 Heart failure, unspecified; E11.9 Type 2 diabetes mellitus without complications; I25.2 Old myocardial infarction

== ENCOUNTER 2022-06-09 07:52 | Inpatient (IN) | payer MEDICARE, BC ==
[~2022-06-09] VITALS: Ht 167.6 cm; Wt 78.6 kg
[2022-06-09] VITALS (15 sets, daily range): BP systolic 97–140; BP diastolic 42–70
[2022-06-09 08:22] LABS: HEMATOCRIT 28.8 % (39.0-50.0); HEMOGLOBIN 8.7 g/dl (14.0-18.0); IMMATURE GRANULOCYTES 0.3 % (0.0-5.0); MEAN CELL VOLUME 78.9 fL CALC (80.0-100.0); MEAN CORPUSCULAR HGB 23.8 pG CALC (26.0-32.0); MEAN CORPUSCULAR HGB CONC 30.2 g/dL CAL (32.0-36.0); NEUT# 16.26 thou/uL (1.82-7.42); RED BLOOD COUNT 3.65 mill/uL (4.70-6.10); RED CELL DISTRI WIDTH 16.7 % (11.5-15.5)
[2022-06-09 08:40] LABS: ALBUMIN 4.1 g/dL (3.2-5.0); ALKALINE PHOSPHATASE 90 u/l (38-126); ANION GAP 18 (6-22 (CALC)); BUN 48 mg/dL (8-23); BUN/CREATININE RATIO 22 (12-20 (CALC)); CARBON DIOXIDE 28 mmol/l (22-30); CHLORIDE 94 mmol/l (95-108); CREATININE 2.2 mg/dL (0.7-1.3); GFR FOR AFR.AMER. 34 ML/MIN (>=60 (CALC)); GFR OTHER RACES 28 ML/MIN (>=60 (CALC)); POTASSIUM 4.5 mmol/l (3.5-5.1); SGOT/AST 22 u/l (19-48); SODIUM 134 mmol/l (137-146); TOTAL PROTEIN 7.7 g/dL (6.3-8.2)
[2022-06-09 08:44] LABS: BILIRUBIN, TOTAL 0.9 mg/dL (0.0-1.4)
[2022-06-09 10:36] LABS: URINE BILIRUBIN - DIPSTICK NEGATIVE (NEGATIVE); URINE BLOOD DIPSTICK TRACE-INTACT (NEGATIVE); URINE COLOR YELLOW; URINE GLUCOSE - DIPSTICK 250 mg/dL (NEGATIVE); URINE KETONE NEGATIVE (NEGATIVE); URINE PH 6.5 (4.5-8.0); URINE PROTEIN - DIPSTICK NEGATIVE (NEG-TRACE); URINE UROBILINOGEN - DIPSTICK 0.2 E.U./dL (0.2)
[2022-06-09 10:38] LABS: URINE LEUK ESTERASE MODERATE (NEGATIVE); URINE NITRITE - DIPSTICK POSITIVE (Negative)
[2022-06-09 10:40] LABS: URINE BACTERIA MANY hpf; URINE RBC 0-2 RBC/hpf (0-5)
[2022-06-10] VITALS (14 sets, daily range): BP systolic 98–157; BP diastolic 34–65
[2022-06-10 05:31] LABS: HEMATOCRIT 25.4 % (39.0-50.0); HEMOGLOBIN 7.6 g/dl (14.0-18.0); MEAN CELL VOLUME 79.4 fL CALC (80.0-100.0); MEAN CORPUSCULAR HGB 23.8 pG CALC (26.0-32.0); MEAN CORPUSCULAR HGB CONC 29.9 g/dL CAL (32.0-36.0); RED BLOOD COUNT 3.2 mill/uL (4.70-6.10); RED CELL DISTRI WIDTH 16.5 % (11.5-15.5)
[2022-06-10 06:02] LABS: POTASSIUM 4.4 mmol/l (3.5-5.1)
[2022-06-10 06:14] LABS: MAGNESIUM 2.5 mg/dL (1.6-2.3)
[2022-06-11] VITALS: BP 122/55
[2022-06-11 00:46] VITALS: BP 122/55
[2022-06-11 04:21] VITALS: BP 149/64
[2022-06-11 05:01] LABS: HEMATOCRIT 30.6 % (39.0-50.0); HEMOGLOBIN 9.1 g/dl (14.0-18.0); MEAN CELL VOLUME 81.4 fL CALC (80.0-100.0); MEAN CORPUSCULAR HGB 24.2 pG CALC (26.0-32.0); MEAN CORPUSCULAR HGB CONC 29.7 g/dL CAL (32.0-36.0); RED BLOOD COUNT 3.76 mill/uL (4.70-6.10); RED CELL DISTRI WIDTH 16.9 % (11.5-15.5)
[2022-06-11 05:33] LABS: CREATININE 1.7 mg/dL (0.7-1.3); MAGNESIUM 2.5 mg/dL (1.6-2.3)
[2022-06-11 05:45] LABS: POTASSIUM 5.3 mmol/l (3.5-5.1)
[2022-06-11 08:11] VITALS: BP 129/58
[2022-06-11] MEDS ORDERED: OMNICEF300 MG PO (10:12)
[2022-06-11] MEDS ORDERED: VIBRAMYCIN100 M2 PO (10:12)
[2022-06-11 11:06] VITALS: BP 133/60
== END 2022-06-11 12:00 | disposition home health service (06) | DRG 194 ==
LOC: ED 07:52 → ED-I 10:15 → ED 11:04 → MS2 11:05
PROVIDERS: Family Medicine; ADMIT Internal Medicine; ATTEND Internal Medicine
PROC: 3E02340 Introduction of Influenza Vaccine into Muscle, Percutaneous Approach (ICD-10-PCS; principal; 2022-06-10)
PROC: 30233N1 Transfusion of Nonautologous Red Blood Cells into Peripheral Vein, Percutaneous Approach (ICD-10-PCS; 2022-06-10)
DX: J18.9 Pneumonia, unspecified organism (principal); I13.0 Hypertensive heart and chronic kidney disease with heart failure and stage 1 through stage 4 chronic kidney disease, or unspecified chronic kidney disease; I50.42 Chronic combined systolic (congestive) and diastolic (congestive) heart failure; N39.0 Urinary tract infection, site not specified; N17.9 Acute kidney failure, unspecified; E11.22 Type 2 diabetes mellitus with diabetic chronic kidney disease; N18.9 Chronic kidney disease, unspecified; D64.9 Anemia, unspecified; E11.40 Type 2 diabetes mellitus with diabetic neuropathy, unspecified; I48.91 Unspecified atrial fibrillation; I25.10 Atherosclerotic heart disease of native coronary artery without angina pectoris; E78.5 Hyperlipidemia, unspecified; K21.9 Gastro-esophageal reflux disease without esophagitis; I25.2 Old myocardial infarction; Z23 Encounter for immunization; Z95.1 Presence of aortocoronary bypass graft; Z99.81 Dependence on supplemental oxygen; Z86.711 Personal history of pulmonary embolism; Z79.4 Long term (current) use of insulin; Z87.891 Personal history of nicotine dependence; Z95.5 Presence of coronary angioplasty implant and graft; Z20.822 Contact with and (suspected) exposure to COVID-19
CPT/HCPCS: J0692; J1650; P9016

== ENCOUNTER 2022-06-13 19:41 | Observation (INO) | payer MEDICARE, BC ==
[~2022-06-13] VITALS: Ht 167.6 cm; Wt 77.1 kg
[2022-06-13] VITALS (7 sets, daily range): BP systolic 98–143; BP diastolic 43–62
[~2022-06-13 19:41] MED LIST changes: +VIBRAMYCIN100 M2 PO
[2022-06-13 20:24] LABS: HEMATOCRIT 30.2 % (39.0-50.0); HEMOGLOBIN 9.1 g/dl (14.0-18.0); IMMATURE GRANULOCYTES 1.9 % (0.0-5.0); MEAN CELL VOLUME 80.1 fL CALC (80.0-100.0); MEAN CORPUSCULAR HGB 24.1 pG CALC (26.0-32.0); MEAN CORPUSCULAR HGB CONC 30.1 g/dL CAL (32.0-36.0); NEUT# 4.9 thou/uL (1.82-7.42); RED BLOOD COUNT 3.77 mill/uL (4.70-6.10); RED CELL DISTRI WIDTH 17.6 % (11.5-15.5)
[2022-06-13 20:25] LABS: URINE BILIRUBIN - DIPSTICK NEGATIVE (NEGATIVE); URINE BLOOD DIPSTICK NEGATIVE (NEGATIVE); URINE COLOR YELLOW; URINE GLUCOSE - DIPSTICK >=1000 mg/dL (NEGATIVE); URINE KETONE NEGATIVE (NEGATIVE); URINE LEUK ESTERASE NEGATIVE (NEGATIVE); URINE NITRITE - DIPSTICK NEGATIVE (Negative); URINE PROTEIN - DIPSTICK TRACE mg/dL (NEG-TRACE); URINE UROBILINOGEN - DIPSTICK 0.2 E.U./dL (0.2)
[2022-06-13 20:36] LABS: ALBUMIN 3.8 g/dL (3.2-5.0); ALKALINE PHOSPHATASE 78 u/l (38-126); ANION GAP 13 (6-22 (CALC)); BUN 44 mg/dL (8-23); BUN/CREATININE RATIO 24 (12-20 (CALC)); CARBON DIOXIDE 30 mmol/l (22-30); CHLORIDE 98 mmol/l (95-108); CREATININE 1.8 mg/dL (0.7-1.3); GFR FOR AFR.AMER. 43 ML/MIN (>=60 (CALC)); GFR OTHER RACES 36 ML/MIN (>=60 (CALC)); POTASSIUM 4.3 mmol/l (3.5-5.1); SGOT/AST 30 u/l (19-48); SODIUM 137 mmol/l (137-146); TOTAL PROTEIN 7.3 g/dL (6.3-8.2)
[2022-06-13 20:37] LABS: BILIRUBIN, TOTAL 0.4 mg/dL (0.0-1.4)
[2022-06-13 20:48] LABS: MYOGLOBIN 81 ng/mL (0 - 121)
[2022-06-14 03:53] VITALS: BP 117/46
[2022-06-14 04:00] VITALS: BP 117/46
[2022-06-14 06:31] VITALS: BP 117/46
[2022-06-14 09:09] VITALS: BP 117/46
== END 2022-06-14 15:30 | disposition home health service (06) ==
LOC: ED 19:41 → ED-I 21:38 → ED 22:25 → MS2 22:26
PROVIDERS: Emergency Medicine; ADMIT Internal Medicine; ATTEND Internal Medicine
DX: I13.0 Hypertensive heart and chronic kidney disease with heart failure and stage 1 through stage 4 chronic kidney disease, or unspecified chronic kidney disease (principal); J18.9 Pneumonia, unspecified organism; I50.42 Chronic combined systolic (congestive) and diastolic (congestive) heart failure; E11.22 Type 2 diabetes mellitus with diabetic chronic kidney disease; N18.9 Chronic kidney disease, unspecified; I48.91 Unspecified atrial fibrillation; E11.65 Type 2 diabetes mellitus with hyperglycemia; E11.40 Type 2 diabetes mellitus with diabetic neuropathy, unspecified; M54.9 Dorsalgia, unspecified; G89.29 Other chronic pain; I25.10 Atherosclerotic heart disease of native coronary artery without angina pectoris; I25.2 Old myocardial infarction; T50.1X6A Underdosing of loop [high-ceiling] diuretics, initial encounter; Z91.128 Patient's intentional underdosing of medication regimen for other reason; Z95.1 Presence of aortocoronary bypass graft; Z87.891 Personal history of nicotine dependence; Z95.5 Presence of coronary angioplasty implant and graft; Z86.711 Personal history of pulmonary embolism; Z79.4 Long term (current) use of insulin; Z20.822 Contact with and (suspected) exposure to COVID-19

== ENCOUNTER 2022-06-17 18:19 | Observation (INO) | payer MEDICARE, BC ==
[2022-06-17] VITALS (10 sets, daily range): BP systolic 103–137; BP diastolic 43–59
[~2022-06-17] VITALS: Ht 167.6 cm; Wt 75.8 kg
--- NOTE | 2022-06-17 18:27 | NUR ---
PT TO ROOM VIA EMS
--- NOTE | 2022-06-17 19:00 | NUR ---
REPORT GIVEN TO CIERRA NAIK CARE RELINQUISHED.
[2022-06-17 19:02] LABS: HEMATOCRIT 31.8 % (39.0-50.0); HEMOGLOBIN 9.6 g/dl (14.0-18.0); MEAN CELL VOLUME 80.1 fL CALC (80.0-100.0); MEAN CORPUSCULAR HGB 24.2 pG CALC (26.0-32.0); MEAN CORPUSCULAR HGB CONC 30.2 g/dL CAL (32.0-36.0); NEUT# 8.66 thou/uL (1.82-7.42); RED BLOOD COUNT 3.97 mill/uL (4.70-6.10)
[2022-06-17 19:12] LABS: LIPASE 27 u/l (23-300)
[2022-06-17 19:17] LABS: INTERNATIONAL NORMALIZED RATIO 1.6 RATIO (0.7-1.3); PROTHROMBIN TIME 15.8 SECONDS (9.0-12.5)
[2022-06-17 20:04] LABS: BILIRUBIN, TOTAL 0.4 mg/dL (0.0-1.4); CREATININE 1.7 mg/dL (0.7-1.3); POTASSIUM 4.1 mmol/l (3.5-5.1); TOTAL PROTEIN 7.3 g/dL (6.3-8.2)
--- NOTE | 2022-06-17 21:38 | NUR ---
BG [id number]
[2022-06-18] VITALS (9 sets, daily range): BP systolic 105–140; BP diastolic 44–59
--- NOTE | 2022-06-18 00:15 | NUR ---
PT ARRIVED TO MS VIA STRETCHER, ACCOMPANIED BY CIERRA LANZA. PT ORIENTED TO ROOM AND USE OF CALL LIGHT. ASSESSMENT COMPLETED. O2 @ 2L VIA NASAL CANNULA IN PLACE. TELEMETRY IN PLACE. PATHAK TO GRAVITY IN PLACE. IV SITE TO #20G AC, HEALTHY AND PATENT. SAFETY PRECAUTIONS IN PLACE WITH CALL LIGHT IN REACH.
--- NOTE | 2022-06-18 00:26 | NUR ---
REPORT GIVEN TO EDI NORTON. PT IN NAD, UPDATED ON PLAN OF CARE.
[2022-06-18 03:17] LABS: MAGNESIUM 1.8 mg/dL (1.6-2.3)
--- NOTE | 2022-06-18 04:03 | NUR ---
PT C/O DISCOMFORT ON IV SITE AND REQUESTED TO REMOVE; CATH INTACT UPON REMOVAL. NEW IV PLACED BY MARISELA RN: #22 TO RT FA WITH GOOD BLOOD RETURN. PATHAK IN PLACE. O2 @ 2L VIA NASAL CANNULA IN PLACE. SAFETY PRECAUTIONS IN PLACE WITH CALL LIGHT IN REACH.
--- NOTE | 2022-06-18 07:05 | NUR ---
REPORT FROM OSMIN PULIDO. ASSUMED PT CARE.
--- NOTE | 2022-06-18 11:29 | NUR ---
DR. LAGOS AT BEDSIDE.
--- NOTE | 2022-06-18 15:40 | NUR ---
PT SITTING UP IN CHAIR. NO APPARENT DISTRSS NOTED. O2 @ 3L/M VIA NC. PATHAK REMAINS PATENT. CALL LIGHT WITHIN REACH. WILL CONTINUE TO MONITOR.
--- NOTE | 2022-06-18 20:30 | NUR ---
PT ALERT & ORIENTED X 3. PT'S FAMILY IS AT BEDSIDE. SHIFT ASSESSMENT COMPLETED; LUNG SOUND CLEAR W/ SOME WHEEZING IN THE RLL. STOMACH APPEARS DISTENTED W/ SOME TENDERNESS ON THE LLQ/RLQ ; BOWEL SOUNDS PRESENT. PATHAK CATHETER IN PLACE AND FLOWING. IV INTACT/FLUSHED/LOCKED. PT STATES PAIN IS A 5/10 SCHEDULED PAIN MED GIVEN. PRN SLEEPING MED GIVEN PER PT REQUEST. PT DENIES ANY UNMET NEEDS AT THIS TIME. SAFETY MEASURES IN PLACE;CALL LIGHT IN REACH. WILL CONTINUE TO MONITOR.
[2022-06-19] VITALS (7 sets, daily range): BP systolic 95–122; BP diastolic 40–46
--- NOTE | 2022-06-19 00:20 | NUR ---
PT IS OBSERVED RESTING IN BED. PT DOES NOT APPEAR TO BE IN NO DISTRESS AT THIS TIME. SAFETY MEASURES IN PLACE; CALL LIGHT IN REACH; BED ALARM ON; BED IN LOWEST POSITION. WILL CONTINUE TO MONITOR.
--- NOTE | 2022-06-19 04:30 | NUR ---
NO CHANGE FROM PREVIOUS ASSESSMENT. PT CURRENTLY RESTIMG IN BED; DENIES HAVING ANY PAIN; DENIES HAVING ANY UNMET NEEDS AT THIS TIME. NURSE CALL LIGHT IN REACH, BED ALARM ON. WILL CONTINUE TO MONITOR
[2022-06-19 06:06] LABS: HEMATOCRIT 31.5 % (39.0-50.0); HEMOGLOBIN 9.1 g/dl (14.0-18.0); IMMATURE GRANULOCYTES 1.6 % (0.0-5.0); MEAN CELL VOLUME 81.4 fL CALC (80.0-100.0); MEAN CORPUSCULAR HGB 23.5 pG CALC (26.0-32.0); MEAN CORPUSCULAR HGB CONC 28.9 g/dL CAL (32.0-36.0); NEUT# 5.68 thou/uL (1.82-7.42); RED BLOOD COUNT 3.87 mill/uL (4.70-6.10); RED CELL DISTRI WIDTH 17.9 % (11.5-15.5)
[2022-06-19 06:30] LABS: ALBUMIN 3.4 g/dL (3.2-5.0); BILIRUBIN, TOTAL 0.3 mg/dL (0.0-1.4); CREATININE 2.2 mg/dL (0.7-1.3); POTASSIUM 4.1 mmol/l (3.5-5.1); TOTAL PROTEIN 6.3 g/dL (6.3-8.2)
--- NOTE | 2022-06-19 08:05 | NUR ---
pt awake in recliner; no apparent distress noted; assessment completed at this time; pt with complaints of crushing pain to lower back, states chronic; #22 intact to rfa; plan of care/am meds explained; pt noted up to recliner; glucose results reviewed with pt/ will hold am levemir until discuss with MD; call light within reach; will continue to monitor
--- NOTE | 2022-06-19 11:25 | NUR ---
am serum glucose and poc glucose results reviewed with MD; orders to be changed
--- NOTE | 2022-06-19 12:00 | NUR ---
awake in recliner eating lunch; offers no complaints; tele intact; awaiting discharge; will continue to monitor
--- NOTE | 2022-06-19 13:32 | NUR ---
discharge instructions reviewed in detail; pt voice understanding; o2 per home machine; iv removed with catheter tip intact; call placed to [facility] as per request; ETA for transportation 5 min;
--- NOTE | 2022-06-19 13:40 | NUR ---
Discharge instructions given. Patient verbalizes understanding of same. Discharged in stable condition via Wheelchair to Home with staff. All belongings sent with pt.
== END 2022-06-19 13:40 ==
LOC: ED 18:19 → ED-I 19:50 → ED 20:04 → MS2 20:05
PROVIDERS: Nurse Practitioner; Nurse Practitioner Family; ADMIT Internal Medicine; ATTEND Internal Medicine
DX: I13.0 Hypertensive heart and chronic kidney disease with heart failure and stage 1 through stage 4 chronic kidney disease, or unspecified chronic kidney disease (principal); I50.43 Acute on chronic combined systolic (congestive) and diastolic (congestive) heart failure; J18.9 Pneumonia, unspecified organism; E11.22 Type 2 diabetes mellitus with diabetic chronic kidney disease; N18.9 Chronic kidney disease, unspecified; I25.10 Atherosclerotic heart disease of native coronary artery without angina pectoris; I48.91 Unspecified atrial fibrillation; E11.40 Type 2 diabetes mellitus with diabetic neuropathy, unspecified; R33.9 Retention of urine, unspecified; Z79.4 Long term (current) use of insulin; I25.2 Old myocardial infarction; Z95.1 Presence of aortocoronary bypass graft; E78.5 Hyperlipidemia, unspecified; Z86.711 Personal history of pulmonary embolism

== ENCOUNTER 2022-06-24 18:41 | Inpatient (IN) | payer MEDICARE, BC ==
[~2022-06-24] VITALS: Ht 167.6 cm; Wt 85.0 kg
[2022-06-24 19:27] LABS: HEMATOCRIT 29.9 % (39.0-50.0); HEMOGLOBIN 9.3 g/dl (14.0-18.0); MEAN CELL VOLUME 77.5 fL CALC (80.0-100.0); MEAN CORPUSCULAR HGB 24.1 pG CALC (26.0-32.0); MEAN CORPUSCULAR HGB CONC 31.1 g/dL CAL (32.0-36.0); NEUT# 2.7 thou/uL (1.82-7.42); RED BLOOD COUNT 3.86 mill/uL (4.70-6.10); RED CELL DISTRI WIDTH 17.7 % (11.5-15.5)
[2022-06-24 19:32] LABS: ALBUMIN 3.8 g/dL (3.2-5.0); ALKALINE PHOSPHATASE 84 u/l (38-126); ANION GAP 18 (6-22 (CALC)); CARBON DIOXIDE 26 mmol/l (22-30); CHLORIDE 99 mmol/l (95-108); CREATININE 2.5 mg/dL (0.7-1.3); GFR FOR AFR.AMER. 30 ML/MIN (>=60 (CALC)); GFR OTHER RACES 24 ML/MIN (>=60 (CALC)); POTASSIUM 3.7 mmol/l (3.5-5.1); SGOT/AST 46 u/l (19-48); SODIUM 139 mmol/l (137-146); TOTAL PROTEIN 7.5 g/dL (6.3-8.2)
[2022-06-24 19:35] LABS: BILIRUBIN, TOTAL 0.1 mg/dL (0.0-1.4); BUN 76 mg/dL (8-23); BUN/CREATININE RATIO 30 (12-20 (CALC))
[2022-06-24 23:34] VITALS: BP 129/56
[2022-06-25] VITALS (11 sets, daily range): BP systolic 85–140; BP diastolic 35–59
[2022-06-25 05:50] LABS: HEMATOCRIT 29.4 % (39.0-50.0); IMMATURE GRANULOCYTES 1.5 % (0.0-5.0); MEAN CELL VOLUME 77.8 fL CALC (80.0-100.0); MEAN CORPUSCULAR HGB 23.8 pG CALC (26.0-32.0); MEAN CORPUSCULAR HGB CONC 30.6 g/dL CAL (32.0-36.0); NEUT# 2.67 thou/uL (1.82-7.42); RED BLOOD COUNT 3.78 mill/uL (4.70-6.10); RED CELL DISTRI WIDTH 17.6 % (11.5-15.5)
[2022-06-25 06:39] LABS: ALBUMIN 3.1 g/dL (3.2-5.0); C-REACTIVE PROTEIN 1.5 mg/dL (0-0.9); POTASSIUM 3.9 mmol/l (3.5-5.1); TOTAL PROTEIN 6.1 g/dL (6.3-8.2)
[2022-06-25 06:42] LABS: BILIRUBIN, TOTAL 0.2 mg/dL (0.0-1.4)
[2022-06-25 10:46] LABS: URINE BILIRUBIN - DIPSTICK NEGATIVE (NEGATIVE); URINE BLOOD DIPSTICK LARGE (NEGATIVE); URINE COLOR YELLOW; URINE GLUCOSE - DIPSTICK NEGATIVE (NEGATIVE); URINE KETONE NEGATIVE (NEGATIVE); URINE PROTEIN - DIPSTICK 30 mg/dL (NEG-TRACE); URINE UROBILINOGEN - DIPSTICK 0.2 E.U./dL (0.2)
[2022-06-25 10:49] LABS: URINE LEUK ESTERASE SMALL (NEGATIVE); URINE NITRITE - DIPSTICK POSITIVE (Negative)
[2022-06-25 10:51] LABS: URINE RBC >100 RBC/hpf (0-5)
[2022-06-25 10:52] LABS: URINE BACTERIA MODERATE hpf; URINE URIC ACID CRYSTALS MANY lpf
[2022-06-26] VITALS (16 sets, daily range): BP systolic 90–164; BP diastolic 36–93
[2022-06-26 05:42] LABS: HEMATOCRIT 27.7 % (39.0-50.0); HEMOGLOBIN 8.4 g/dl (14.0-18.0); MEAN CELL VOLUME 79.1 fL CALC (80.0-100.0); MEAN CORPUSCULAR HGB CONC 30.3 g/dL CAL (32.0-36.0); RED BLOOD COUNT 3.5 mill/uL (4.70-6.10); RED CELL DISTRI WIDTH 17.8 % (11.5-15.5)
[2022-06-26 06:26] LABS: CREATININE 2.1 mg/dL (0.7-1.3); MAGNESIUM 2.1 mg/dL (1.6-2.3); POTASSIUM 3.9 mmol/l (3.5-5.1)
[2022-06-27] VITALS (15 sets, daily range): BP systolic 113–155; BP diastolic 45–73
[2022-06-28] VITALS (8 sets, daily range): BP systolic 133–187; BP diastolic 48–85
[2022-06-28 05:16] LABS: HEMATOCRIT 27.7 % (39.0-50.0); HEMOGLOBIN 8.5 g/dl (14.0-18.0); IMMATURE GRANULOCYTES 2.6 % (0.0-5.0); MEAN CELL VOLUME 80.3 fL CALC (80.0-100.0); MEAN CORPUSCULAR HGB 24.6 pG CALC (26.0-32.0); MEAN CORPUSCULAR HGB CONC 30.7 g/dL CAL (32.0-36.0); NEUT# 3.3 thou/uL (1.82-7.42); RED BLOOD COUNT 3.45 mill/uL (4.70-6.10)
[2022-06-28 05:32] LABS: CREATININE 1.9 mg/dL (0.7-1.3)
[2022-06-28 05:37] LABS: POTASSIUM 4.8 mmol/l (3.5-5.1)
[2022-06-29 00:15] VITALS: BP 176/84
[2022-06-29 04:53] VITALS: BP 157/65
[2022-06-29 06:35] VITALS: BP 163/70
[2022-06-29 07:38] LABS: HEMATOCRIT 29.5 % (39.0-50.0); HEMOGLOBIN 8.8 g/dl (14.0-18.0); MEAN CELL VOLUME 79.5 fL CALC (80.0-100.0); MEAN CORPUSCULAR HGB 23.7 pG CALC (26.0-32.0); MEAN CORPUSCULAR HGB CONC 29.8 g/dL CAL (32.0-36.0); RED BLOOD COUNT 3.71 mill/uL (4.70-6.10); RED CELL DISTRI WIDTH 18.1 % (11.5-15.5)
[2022-06-29 07:56] LABS: CREATININE 2.2 mg/dL (0.7-1.3); POTASSIUM 4.8 mmol/l (3.5-5.1)
[2022-06-29 10:36] VITALS: BP 152/68
[2022-06-29 14:45] VITALS: BP 125/51
[2022-06-29 19:24] VITALS: BP 147/64
[2022-06-30 00:04] VITALS: BP 153/61
[2022-06-30 04:37] VITALS: BP 159/70
[2022-06-30 05:38] LABS: HEMATOCRIT 28.2 % (39.0-50.0); HEMOGLOBIN 8.5 g/dl (14.0-18.0); MEAN CELL VOLUME 79.2 fL CALC (80.0-100.0); MEAN CORPUSCULAR HGB 23.9 pG CALC (26.0-32.0); MEAN CORPUSCULAR HGB CONC 30.1 g/dL CAL (32.0-36.0); RED BLOOD COUNT 3.56 mill/uL (4.70-6.10); RED CELL DISTRI WIDTH 18.2 % (11.5-15.5)
[2022-06-30 06:10] LABS: CREATININE 2.8 mg/dL (0.7-1.3); MAGNESIUM 1.9 mg/dL (1.6-2.3)
[2022-06-30 06:15] LABS: POTASSIUM 5.4 mmol/l (3.5-5.1)
[2022-06-30 16:12] VITALS: BP 172/74
[2022-06-30 18:44] VITALS: BP 167/80
[2022-06-30 23:21] VITALS: BP 189/85
[2022-07-01] VITALS (12 sets, daily range): BP systolic 145–178; BP diastolic 59–84
[2022-07-01 06:12] LABS: CREATININE 2.4 mg/dL (0.7-1.3)
[2022-07-01 06:14] LABS: ALBUMIN 3.9 g/dL (3.2-5.0); POTASSIUM 5.4 mmol/l (3.5-5.1)
[2022-07-02] VITALS (11 sets, daily range): BP systolic 131–180; BP diastolic 58–87
[2022-07-02 06:02] LABS: HEMOGLOBIN 9.7 g/dl (14.0-18.0); MEAN CELL VOLUME 79.2 fL CALC (80.0-100.0); MEAN CORPUSCULAR HGB CONC 30.3 g/dL CAL (32.0-36.0); NEUT# 7.59 thou/uL (1.82-7.42); RED BLOOD COUNT 4.04 mill/uL (4.70-6.10); RED CELL DISTRI WIDTH 18.4 % (11.5-15.5)
[2022-07-02 06:24] LABS: ALBUMIN 3.7 g/dL (3.2-5.0); CREATININE 2.3 mg/dL (0.7-1.3); MAGNESIUM 1.7 mg/dL (1.6-2.3); TOTAL PROTEIN 6.7 g/dL (6.3-8.2)
[2022-07-02 06:30] LABS: IMMATURE GRANULOCYTES 5.7 % (0.0-5.0)
[2022-07-02 06:31] LABS: BILIRUBIN, TOTAL 0.5 mg/dL (0.0-1.4); POTASSIUM 5.7 mmol/l (3.5-5.1)
[2022-07-03 00:17] VITALS: BP 172/85
[2022-07-03 04:55] VITALS: BP 159/69
[2022-07-03 05:42] LABS: HEMATOCRIT 31.5 % (39.0-50.0); HEMOGLOBIN 9.8 g/dl (14.0-18.0); MEAN CORPUSCULAR HGB 24.3 pG CALC (26.0-32.0); MEAN CORPUSCULAR HGB CONC 31.1 g/dL CAL (32.0-36.0); RED BLOOD COUNT 4.04 mill/uL (4.70-6.10); RED CELL DISTRI WIDTH 18.5 % (11.5-15.5)
[2022-07-03 06:09] LABS: CREATININE 2.3 mg/dL (0.7-1.3); MAGNESIUM 1.6 mg/dL (1.6-2.3)
[2022-07-03 06:10] LABS: POTASSIUM 5.2 mmol/l (3.5-5.1)
[2022-07-03 06:35] VITALS: BP 159/69
[2022-07-03 18:48] VITALS: BP 157/72
[2022-07-04] VITALS (10 sets, daily range): BP systolic 140–186; BP diastolic 59–82
[2022-07-05] VITALS (9 sets, daily range): BP systolic 132–184; BP diastolic 52–79
[2022-07-05 09:12] LABS: HEMATOCRIT 33.4 % (39.0-50.0); MEAN CELL VOLUME 79.9 fL CALC (80.0-100.0); MEAN CORPUSCULAR HGB 23.9 pG CALC (26.0-32.0); MEAN CORPUSCULAR HGB CONC 29.9 g/dL CAL (32.0-36.0); RED BLOOD COUNT 4.18 mill/uL (4.70-6.10); RED CELL DISTRI WIDTH 19.4 % (11.5-15.5)
[2022-07-05 09:27] LABS: POTASSIUM 3.9 mmol/l (3.5-5.1)
[2022-07-06] VITALS (7 sets, daily range): BP systolic 95–172; BP diastolic 52–76
[2022-07-06 05:15] LABS: HEMATOCRIT 31.7 % (39.0-50.0); HEMOGLOBIN 9.6 g/dl (14.0-18.0); MEAN CELL VOLUME 80.1 fL CALC (80.0-100.0); MEAN CORPUSCULAR HGB 24.2 pG CALC (26.0-32.0); MEAN CORPUSCULAR HGB CONC 30.3 g/dL CAL (32.0-36.0); RED BLOOD COUNT 3.96 mill/uL (4.70-6.10); RED CELL DISTRI WIDTH 19.3 % (11.5-15.5)
[2022-07-06 05:29] LABS: CREATININE 2.4 mg/dL (0.7-1.3); MAGNESIUM 1.4 mg/dL (1.6-2.3)
[2022-07-07] VITALS (7 sets, daily range): BP systolic 101–154; BP diastolic 47–76
[2022-07-07 08:10] LABS: CREATININE 3.5 mg/dL (0.7-1.3)
[2022-07-07 08:11] LABS: MAGNESIUM 2.1 mg/dL (1.6-2.3); POTASSIUM 5.3 mmol/l (3.5-5.1)
[2022-07-08] VITALS (7 sets, daily range): BP systolic 98–149; BP diastolic 45–68
[2022-07-08 06:06] LABS: ALBUMIN 4.4 g/dL (3.2-5.0); CREATININE 4.2 mg/dL (0.7-1.3); MAGNESIUM 2.1 mg/dL (1.6-2.3)
[2022-07-08 06:29] LABS: POTASSIUM 5.7 mmol/l (3.5-5.1)
[2022-07-08 12:30] LABS: EOS% 0.1 % (0-8); HEMOGLOBIN 9.1 g/dl (14.0-18.0); IMMATURE GRANULOCYTES 4.4 % (0.0-5.0); MEAN CELL VOLUME 77.5 fL CALC (80.0-100.0); MEAN CORPUSCULAR HGB 24.3 pG CALC (26.0-32.0); MEAN CORPUSCULAR HGB CONC 31.4 g/dL CAL (32.0-36.0); MONO% 8.6 % (2-13); NEUT% 79.9 % (42-76); RED BLOOD COUNT 3.74 mill/uL (4.70-6.10); RED CELL DISTRI WIDTH 19.1 % (11.5-15.5)
[2022-07-08 12:44] LABS: ALBUMIN 4.3 g/dL (3.2-5.0)
[2022-07-08 12:53] LABS: CREATININE 4.2 mg/dL (0.7-1.3)
[2022-07-08 12:58] LABS: POTASSIUM 5.2 mmol/l (3.5-5.1)
[2022-07-09] VITALS (9 sets, daily range): BP systolic 123–153; BP diastolic 44–60
[2022-07-09 05:55] LABS: HEMATOCRIT 27.4 % (39.0-50.0); HEMOGLOBIN 8.6 g/dl (14.0-18.0); MEAN CELL VOLUME 77.4 fL CALC (80.0-100.0); MEAN CORPUSCULAR HGB 24.3 pG CALC (26.0-32.0); MEAN CORPUSCULAR HGB CONC 31.4 g/dL CAL (32.0-36.0); RED BLOOD COUNT 3.54 mill/uL (4.70-6.10); RED CELL DISTRI WIDTH 19.1 % (11.5-15.5)
[2022-07-09 06:24] LABS: ALBUMIN 3.8 g/dL (3.2-5.0); MAGNESIUM 2.1 mg/dL (1.6-2.3); POTASSIUM 4.7 mmol/l (3.5-5.1)
[2022-07-09 06:31] LABS: CREATININE 3.9 mg/dL (0.7-1.3)
[2022-07-10] VITALS (8 sets, daily range): BP systolic 115–144; BP diastolic 47–63
[2022-07-10 06:00] LABS: HEMATOCRIT 27.4 % (39.0-50.0); HEMOGLOBIN 8.8 g/dl (14.0-18.0); MEAN CORPUSCULAR HGB 24.7 pG CALC (26.0-32.0); MEAN CORPUSCULAR HGB CONC 32.1 g/dL CAL (32.0-36.0); RED BLOOD COUNT 3.56 mill/uL (4.70-6.10)
[2022-07-10 06:09] LABS: MAGNESIUM 2.2 mg/dL (1.6-2.3); POTASSIUM 3.9 mmol/l (3.5-5.1)
[2022-07-10 13:38] LABS: URINE BILIRUBIN - DIPSTICK NEGATIVE (NEGATIVE); URINE BLOOD DIPSTICK LARGE (NEGATIVE); URINE GLUCOSE - DIPSTICK 250 mg/dL (NEGATIVE); URINE KETONE NEGATIVE (NEGATIVE); URINE LEUK ESTERASE NEGATIVE (Negative); URINE NITRITE - DIPSTICK POSITIVE (Negative); URINE PROTEIN - DIPSTICK 100 mg/dL (NEG-TRACE); URINE SPECIFIC GRAVITY >=1.030; URINE UROBILINOGEN - DIPSTICK 0.2 E.U./dL (0.2)
[2022-07-10 13:39] LABS: URINE BACTERIA MODERATE hpf; URINE CLARITY BLOODY; URINE COLOR BROWN; URINE EPITHELIAL CELLS FEW EPI/hpf (0-FEW); URINE RBC >100 RBC/hpf (0-5)
[2022-07-11] VITALS (9 sets, daily range): BP systolic 107–139; BP diastolic 49–67
[2022-07-11 06:12] LABS: ALBUMIN 3.4 g/dL (3.2-5.0); CREATININE 3.8 mg/dL (0.7-1.3); POTASSIUM 3.7 mmol/l (3.5-5.1)
[2022-07-11 12:18] LABS: BASO% 0.1 % (0-3); EOS% 0.4 % (0-8); HEMATOCRIT 25.1 % (39.0-50.0); LYMPH% 9.7 % (15-41); MEAN CELL VOLUME 75.6 fL CALC (80.0-100.0); MEAN CORPUSCULAR HGB 24.1 pG CALC (26.0-32.0); MEAN CORPUSCULAR HGB CONC 31.9 g/dL CAL (32.0-36.0); MONO% 8.5 % (2-13); NEUT# 9.81 thou/uL (1.82-7.42); NEUT% 73.9 % (42-76); RED BLOOD COUNT 3.32 mill/uL (4.70-6.10); RED CELL DISTRI WIDTH 19.4 % (11.5-15.5)
[2022-07-11 12:24] LABS: IMMATURE GRANULOCYTES 7.4 % (0.0-5.0)
[2022-07-12] VITALS (9 sets, daily range): BP systolic 113–154; BP diastolic 47–67
[2022-07-12 05:41] LABS: ALBUMIN 3.3 g/dL (3.2-5.0); CREATININE 3.4 mg/dL (0.7-1.3); POTASSIUM 3.7 mmol/l (3.5-5.1)
[2022-07-13] VITALS (7 sets, daily range): BP systolic 113–126; BP diastolic 47–58
[2022-07-13 04:35] LABS: ALBUMIN 3.8 g/dL (3.2-5.0); CREATININE 3.5 mg/dL (0.7-1.3); POTASSIUM 4.1 mmol/l (3.5-5.1)
[2022-07-13 09:19] LABS: EOS% 1.7 % (0-8); HEMATOCRIT 25.8 % (39.0-50.0); IMMATURE GRANULOCYTES 5.2 % (0.0-5.0); LYMPH% 3.8 % (15-41); MEAN CORPUSCULAR HGB 25.4 pG CALC (26.0-32.0); MONO% 7.8 % (2-13); NEUT# 11.01 thou/uL (1.82-7.42); NEUT% 81.5 % (42-76); RED BLOOD COUNT 3.15 mill/uL (4.70-6.10); RED CELL DISTRI WIDTH 21.8 % (11.5-15.5)
[2022-07-13 09:27] LABS: MEAN CELL VOLUME 81.9 fL CALC (80.0-100.0)
[2022-07-13 09:43] LABS: ALBUMIN 3.5 g/dL (3.2-5.0); BILIRUBIN, TOTAL 0.5 mg/dL (0.0-1.4); CREATININE 3.8 mg/dL (0.7-1.3); POTASSIUM 4.2 mmol/l (3.5-5.1); TOTAL PROTEIN 6.2 g/dL (6.3-8.2)
[2022-07-14 00:47] VITALS: BP 89/45
[2022-07-14 03:11] VITALS: BP 128/58
[2022-07-14 05:58] LABS: BASO% 0.1 % (0-3); HEMATOCRIT 26.3 % (39.0-50.0); HEMOGLOBIN 8.2 g/dl (14.0-18.0); IMMATURE GRANULOCYTES 6.5 % (0.0-5.0); LYMPH% 8.1 % (15-41); MEAN CORPUSCULAR HGB 25.9 pG CALC (26.0-32.0); MEAN CORPUSCULAR HGB CONC 31.2 g/dL CAL (32.0-36.0); MONO% 8.9 % (2-13); NEUT# 8.5 thou/uL (1.82-7.42); NEUT% 73.4 % (42-76); RED BLOOD COUNT 3.17 mill/uL (4.70-6.10); RED CELL DISTRI WIDTH 22.9 % (11.5-15.5)
[2022-07-14 06:13] LABS: ALBUMIN 3.8 g/dL (3.2-5.0); BILIRUBIN, TOTAL 0.6 mg/dL (0.0-1.4); CREATININE 4.1 mg/dL (0.7-1.3); POTASSIUM 4.2 mmol/l (3.5-5.1)
[2022-07-14 06:46] VITALS: BP 122/53
[2022-07-14 07:52] VITALS: BP 122/53
[2022-07-14 10:29] VITALS: BP 107/51
== END 2022-07-14 19:30 | disposition hospice, inpatient (51) | DRG 177 ==
LOC: ED 18:41 → ED-I 20:36 → ED 20:52 → ICU 20:53 → MS2 06-26 08:49 → ICU 06-26 13:04 → MS2 06-27 20:01
PROVIDERS: Emergency Medicine; Internal Medicine; Internal Medicine Nephrology; Nurse Practitioner Family; ADMIT Internal Medicine; ATTEND Internal Medicine
DX: U07.1 COVID-19 (principal); I50.43 Acute on chronic combined systolic (congestive) and diastolic (congestive) heart failure; J12.82 Pneumonia due to coronavirus disease 2019; J96.21 Acute and chronic respiratory failure with hypoxia; N17.0 Acute kidney failure with tubular necrosis; I13.0 Hypertensive heart and chronic kidney disease with heart failure and stage 1 through stage 4 chronic kidney disease, or unspecified chronic kidney disease; E86.0 Dehydration; E11.22 Type 2 diabetes mellitus with diabetic chronic kidney disease; N18.30 Chronic kidney disease, stage 3 unspecified; I25.10 Atherosclerotic heart disease of native coronary artery without angina pectoris; E11.40 Type 2 diabetes mellitus with diabetic neuropathy, unspecified; I48.91 Unspecified atrial fibrillation; E78.5 Hyperlipidemia, unspecified; D63.1 Anemia in chronic kidney disease; E86.9 Volume depletion, unspecified; T50.2X5A Adverse effect of carbonic-anhydrase inhibitors, benzothiadiazides and other diuretics, initial encounter; E87.5 Hyperkalemia; R13.10 Dysphagia, unspecified; E83.42 Hypomagnesemia; K21.9 Gastro-esophageal reflux disease without esophagitis; H35.30 Unspecified macular degeneration; M54.9 Dorsalgia, unspecified; G89.29 Other chronic pain; R33.9 Retention of urine, unspecified; F41.9 Anxiety disorder, unspecified; I25.2 Old myocardial infarction; Z51.5 Encounter for palliative care; Z66 Do not resuscitate; Z95.1 Presence of aortocoronary bypass graft; Z95.5 Presence of coronary angioplasty implant and graft; Z79.84 Long term (current) use of oral hypoglycemic drugs; Z79.4 Long term (current) use of insulin; Z86.73 Personal history of transient ischemic attack (TIA), and cerebral infarction without residual deficits; Z86.711 Personal history of pulmonary embolism; Z87.891 Personal history of nicotine dependence; Z79.891 Long term (current) use of opiate analgesic; Z96.0 Presence of urogenital implants; Z99.81 Dependence on supplemental oxygen
CPT/HCPCS: J0692; J1756; J2060; J3475; Q5106 EC